=== PATIENT | female | born 1975 | race Caucasian/White ===

== ENCOUNTER 2016-04-12 21:00 | Emergency (ER) | payer MEDICARE, MEDICAID ==
[~2016-04-12] VITALS: Ht 160 cm; Wt 90.7 kg
[~2016-04-12 21:00] MED LIST: ACET250T22 PO; ACET250T3 PO; AGM875T PO; ALPR.25T; ALPR1T PO; ALPR1TAB2 PO; ALPR1TAB7 PO; AMOX-358 PO; AMOX500C2 PO; AMOX500T2 PO; ARIP2TAB10 PO; BACL10TA PO; BIRTH CONTROL PILL; BUDEPRION XL; BUTA-234 PO; BUTA1TAB55 PO; CCLB10TRX; CEFD300C3 PO; CEFP500T4 PO; CEFU250T PO; CHLO500T4 PO; CHOL10003 PO; CLNZ.5T; CYAN100021 PO; CYAN500L3 SL; CYAN500T2 PO; CYCL10TA9; CYCL10TA9 PO; DCS100C PO; DESV100T PO; DIAMOX; DULO20CA18 PO; DULO30CA PO; DULO30CA3 PO; DULO60CA58 PO; EPIN0.3P2 IM; ESCI20TA2 PO; EST1.25T PO; EZET10TA23 PO; FENO145T PO; FLUT16SP22 NS; GABA300C PO; GBPN300C PO; HYDR-2890 PO; HYDR-34; HYDR-3456 PO; HYDR-3714 PO; HYDR-3720; HYDR-3720 PO; HYDR-3812 PO; HYDR-757 PO; HYDR480S10 GT; HYOS0.1283 SL; INDO25CA PO; KCL20TCR PO; LACT1CAP57 PO; LEVO125T PO; LEVO125T6; LEVO125T6 PO; LEVO125T66 PO; LEVO137T24 PO; LORA0.5T PO; LVT.025T PO; LVT.112T PO; MELA10CA PO; MELA1TAB20 PO; MELO7.5T; METH4TAB PO; MOD; MODA100T40; MORP30TA91 PO; MTC10T; NAPR-243 PO; NAPR550T PO; NIACIN; NIASPAN; NITR100C3 PO; OMEP-10 PO; ONDA-42 SL; ORPH100T PO; OXYC-143 PO; POTA10CA43 PO; POTA20TA7 PO; PRAM0.12 PO; PRAM0.128 PO; PRCD5U PO; PRD20T PO; PREG150C PO; PREG200C PO; PROC10TA23; PROC10TA23 PO; PROM25SU10 RC; PROM25TA14 PO; PROM5SYR PO; PROP20TA23; PROPANOLOL PO; QTP100T PO; QTP25T; QUASENSE; QUET100T PO; QUET50TA49; RISP0.253 PO; SRTR100T; SRTR100T PO; SUCR1TAB36 PO; SULF1TAB35 PO; TEMA15CA54 PO; TMZP15C PO; TOPI100T PO; TOPI50TA20; TRAM-42 PO; TRAM50TA2 PO; TRAZ-144 PO; TRIA16.5 NSEACH; TRM50T; VERA120T6 PO; VNL75CCR; ZLP10T; ZOLP10TA3 SL; [UNRECOGNIZED DRUG - CODE] PO; [UNRECOGNIZED DRUG - OTHER] PO
--- OUTSIDE RECORDS SUMMARY | 2016-04-12 21:06 | XMS REPORT | Continuity of Care Document ---
Author Author [facility] Organization [facility] Address Unknown Phone Unavailable Care Team Providers Care Rn Acute Dialysis Name Role Phone Livier Dozier PCP [phone] Source Comments Some departments are not documenting in the electronic medical record. If you do not see the information that you expected, contact Release of Information in the Health Information Management department at [phone] for further assistance in locating additional records.[facility] Active Allergies and Adverse Reactions Allergen Noted Date Severity Reactions Comments Neurontin 04/23/2011 RASH Niacin 01/28/2015 High ANAPHYLAXIS Current Medications Prescription Sig. Disp. Refills Start End Date Status Date prochlorperazine Take 10 mg by mouth every Active (COMPAZINE) 10 mg tablet 6 hours as needed. DULoxetine DR (CYMBALTA) Take 60 mg by mouth twice Active 60 mg capsule daily. potassium chloride SR Take 10 mEq by mouth Active (K-DUR) 10 mEq tablet twice daily. risperiDONE (RISPERDAL) Take 0.25 mg by mouth. Active 0.25 mg tablet ezetimibe (ZETIA) 10 mg Take 10 mg by mouth as Active tablet directed. pregabalin (LYRICA) 200 Take 200 mg by mouth Active mg capsule twice daily. traZODone (DESYREL) 100 Take 100 mg by mouth. Active mg tablet levothyroxine (SYNTHROID) Take 112 mcg by mouth Active 112 mcg tablet daily. pramipexole (MIRAPEX) Take 0.125 mg by mouth. Active 0.125 mg tablet LORazepam (ATIVAN) 1 mg Take 1 mg by mouth as Active tablet Needed for Other.... Indications: ANXIETY verapamil CR (CALAN-SR) Take 1 Tab by mouth 30 Tab 3 01/29/20 Active 120 mg tablet daily. 15 nabumetone (RELAFEN) 500 Take 1 Tab by mouth twice 30 Tab 3 01/29/20 Active mg tablet daily. 15 methylPREDNIsolone Take 1 Tab by mouth as 21 Tab 0 01/29/20 Active (MEDROL (JJ)) 4 mg directed. Follow 15 tablet instructions on package Active Problems No known active problems Resolved Problems Problem Noted Date Resolved Date Muscle weakness 04/23/2011 01/28/2015 Foot pain 04/23/2011 01/28/2015 Polyarthralgia 04/23/2011 01/28/2015 B12 deficiency 04/23/2011 01/28/2015 Folate deficiency 04/23/2011 01/28/2015 Social History Tobacco Use Types Packs/Day Years Used Date Current Every Day Smoker Cigarettes 1 20 Smokeless Tobacco: Never Used Alcohol Use Drinks/Week oz/Week Comments No Sober for 15yr, h/o alcoholism. Last Filed Vital Signs Vital Sign Reading Time Taken Blood Pressure 128/86 01/28/2015 10:57 AM NURSE CLINICIAN Pulse 94 01/28/2015 10:57 AM NURSE CLINICIAN Temperature 36.4 C (97.5 F) 11/22/2012 10:37 AM CDT Respiratory Rate - - Height 1.575 m (5' 2") 01/28/2015 10:57 AM NURSE CLINICIAN Weight 89.812 kg (198 lb) 01/28/2015 10:57 AM NURSE CLINICIAN Body Mass Index 36.21 01/28/2015 10:57 AM NURSE CLINICIAN Oxygen Saturation 96% 01/28/2015 10:57 AM NURSE CLINICIAN Plan of Care Health Maintenance Due Date Last Done Comments Physical (Comprehensive) 10/13/1983 Exam Pertussis Vaccine 10/13/1987 Tetanus Vaccine 1993 Cervical Cancer Screening 1997 Influenza Vaccine 11/07/2015 Results from Last 3 Months Not on file
[2016-04-12] MEDS ORDERED: ALPR0.5T PO (21:29)
[2016-04-12] MEDS ORDERED: ACYC400T PO (21:29)
[2016-04-12] MEDS ORDERED: RX-NITROGLYCERIN 0.4 MG TAB BTL 25'S SL PRN (21:30)
[2016-04-12] MEDS ORDERED: ASPIRIN 81 MG CHEW (CHILDREN'S ASA) PO ONE (21:30)
[2016-04-12 21:34] LABS: BASOPHILS # (AUTO) 0.1 10^3/uL (0.0-0.1); BASOPHILS % (AUTO) 1 % (0-10); EOSINOPHILS # (AUTO) 0.2 10^3/uL (0.0-0.3); EOSINOPHILS % (AUTO) 2 % (0-10); LYMPHOCYTES # (AUTO) 6.2 X 10^3 (1.0-4.0); LYMPHOCYTES % (AUTO) 52 % (12-44); MEAN CORPUSCULAR HEMOGLOBIN 32 PG (25-34); MEAN CORPUSCULAR HGB CONC 35 G/DL (32-36); MEAN CORPUSCULAR VOLUME 94 FL (80-99); MONOCYTES # (AUTO) 0.8 X 10^3 (0.0-1.0); MONOCYTES % (AUTO) 7 % (0-12); NEUTROPHILS # (AUTO) 4.6 X 10^3 (1.8-7.8); NEUTROPHILS % (AUTO) 39 % (42-75); PLATELET COUNT 175 10^3/uL (130-400); RED BLOOD COUNT 4.99 10^6/uL (4.35-5.85); WHITE BLOOD COUNT 11.9 10^3/uL (4.3-11.0)
[2016-04-12 21:43] LABS: INR 1.1 (0.8-1.4); PROTHROMBIN TIME PATIENT 13.8 SEC (12.2-14.7)
[2016-04-12 21:52] LABS: ALANINE AMINOTRANSFERASE 48 U/L (0-55); ALBUMIN 4.1 G/DL (3.2-4.5); AMYLASE 69 U/L (25-125); ANION GAP 12 MMOL/L (5-14); ASPARTATE AMINO TRANSFERASE 58 U/L (5-34); BILIRUBIN,TOTAL 0.3 MG/DL (0.1-1.0); BLOOD UREA NITROGEN 5 MG/DL (7-18); BUN/CREATININE RATIO 6; CALCIUM 8.8 MG/DL (8.5-10.1); CARBON DIOXIDE 21 MMOL/L (21-32); CHLORIDE 107 MMOL/L (98-107); CREATINE KINASE 87 U/L (29-168); CREATININE SERUM 0.83 MG/DL (0.60-1.30); GFR ESTIMATED > 60; GLUCOSE 139 MG/DL (70-105); LIPASE 57 U/L (8-78); MAGNESIUM 2.4 MG/DL (1.8-2.4); POTASSIUM 3.6 MMOL/L (3.6-5.0); SODIUM 140 MMOL/L (135-145)
[2016-04-12 21:59] LABS: TROPONIN I < 0.30 NG/ML (<0.30)
[2016-04-12] MEDS ORDERED: KETOROLAC 30 MG/ML VIAL IVP ONE (22:30)
[2016-04-12] MEDS ORDERED: FAMOTIDINE 20MG/2ML IV (PEPCID) IVP ONE (22:30)
[2016-04-12] MEDS ORDERED: NS 100 ML (IVPB) BAG IV ONE (23:00)
[2016-04-12] MEDS ORDERED: IOHEXOL 350 MG/ML 150 ML (OMNIPAQUE 350) VIAL IV ONE (23:00)
[2016-04-12] MEDS ORDERED: LIDOCAINE 2% VISCOUS 15 ML UDC PO ONE (23:30)
[2016-04-12] MEDS ORDERED: ANTACID SUSP 30 ML UDC (MYLANTA) PO ONE (23:30)
[2016-04-13] MEDS ORDERED: FAMO-119 PO (00:32)
[2016-04-13] MEDS ORDERED: HYOS0.1283 SL (00:32)
[2016-04-13] MEDS ORDERED: SUCR1ORA5 PO (00:32)
--- NOTE | 2016-04-13 00:32 | ED Abdominal Pain ---
General Chief Complaint: Chest Pain Stated Complaint: CHEST PAIN, SOA, NAUSEA, HEADACHE Nursing Triage Note: PT TO ED 8 W/ FRIEND FOR C/O EPIGASTRIC PAIN ONSET AFTER EATING TONIGHT. DOES REPORT NAUSEA BUT STATES IS CHRONICALLY NAUSEATED Sepsis Screen: No Definite Risk Source of Information: Patient History of Present Illness Time Seen By Provider: 21:20 Initial Comments PT ARRIVES VIA POV FROM HOME C/O "CHEST PAIN" --POINTS TO EPIGASTRIC AREA, NOT CHEST--BEGAN 2 HOURS AGO, AFTER EATING AT 1830 TONIGHT STATES PAIN RADIATES TO BACK NOTHING WORSENS OR IMPROVES PAIN STATES FIRST SHE "GOT REAL SHAKEY INSIDE-LIKE ANXIETY", THEN PAIN BEGAN IN EPIGASTRIC AREA, THEN BECAME NAUSEATED NO VOMITING STATES PAIN IS A BURNING SENSATION STATES SHE FEELS A LITTLE SHORT OF BREATH NO SWELLING IN FEET/ANKLES PT STATES SHE HAS HAD SORE THROAT, COLD SYMPTOMS/CLEAR SINUS DRAINAGE AND FEVER UP TO 100.2 JUST PRIOR TO ARRIVAL--THOSE SYMPTOMS ONGOING X 5-6 DAYS HAS HAD A VERY SLIGHT COUGH HAS NOT SOUGHT CARE FOR THIS THESE SYMPTOMS NO DIFFERENT TODAY NO KNOWN SICK CONTACTS WITH SIMILAR PCP: DR. SIDDIQUI Allergies and Home Medications Allergies Coded Allergies: gabapentin (Verified Allergy, Severe, HIVES, 01/14/15) esomeprazole (Unverified Allergy, Mild, 08/19/15) niacin (Unverified Allergy, Mild, 05/13/14) Uncoded Allergies: "COCKTAIL FOR CHNA" (Allergy, Mild, ITCHING, 02/11/09) Home Medications Acyclovir 400 Mg Tablet 400 MG PO (Reported) Alprazolam 0.5 Mg Tablet 0.5 MG PO (Reported) Amoxicillin/Potassium Clav 1 Each Tablet #14 1 EACH PO BID Prescribed by: NATHAN ROBBINS on 01/19/16 1822 Cholecalciferol (Vitamin D3) 1,000 Unit Tablet 1,000 UNIT PO (Reported) Cyclobenzaprine HCl 10 Mg Tablet #30 1 TAB PO TID PRN PRN PAIN (Reported) Duloxetine HCl 60 Mg Capsule.dr 60 MG PO (Reported) Ezetimibe 10 Mg Tablet 10 MG PO DAILY (Reported) Famotidine 20 Mg Tablet #20 20 MG PO BID Prescribed by: PAOLA TAVERAS on 04/13/16 0032 Hydrocodone/Acetaminophen 1 Each Tablet #14 1 EACH PO Q6H PRN PRN PAIN Prescribed by: JESUSITA DAVIS on 09/09/1521 Hyoscyamine Sulfate 0.125 Mg Tab.subl #10 0.25 MG SL Q4H Prescribed by: NATHAN ROBBINS on 08/19/151851 Hyoscyamine Sulfate 0.125 Mg Tab.subl #15 1-2 TAB SL Q4H Prescribed by: PAOLA TAVERAS on 04/13/16 003 Lactobac Cmb #3/Fos/Pantethine 1 Each Capsule #20 1 EACH PO BID Prescribed by: NATHAN ROBBINS on 01/19/161821 Levothyroxine Sodium 112 Mcg Tab 112 MCG PO DAILY (Reported) Potassium Chloride 10 Meq Capsule.er 10 MEQ PO (Reported) Pramipexole Di-Hcl 0.125 Mg Tablet 0.125 MG PO HS (Reported) Pregabalin 200 Mg Capsule 200 MG PO BID (Reported) Promethazine HCl 25 Mg Tablet #21 1 TAB PO UD PRN PRN NAUSEA/VOMITING (Reported ) Risperidone 0.25 Mg Tablet 0.25 MG PO (Reported) Sucralfate 1 Gm Tablet #40 1 GM PO QID Prescribed by: NATHAN ROBBINS on 08/19/151851 Sucralfate 1 Gm/10 Ml Oral.susp #400 1 GM PO QID Prescribed by: PAOLA TAVERAS on 04/13/1631 Tramadol HCl 50 Mg Tablet 50 MG PO (Reported) Tramadol HCl 50 Mg Tablet #10 50 MG PO Q6H PRN PRN PAIN Do not fill unless Augmentin is also filled Prescribed by: NATHAN ROBBINS on 01/19/161821 Verapamil HCl 120 Mg Tablet 120 MG PO TID (Reported) Review of Systems Constitutional: see HPI fever EENTM: See HPI Nose Congestion Throat Pain Respiratory: See HPI Cough Shortness of AirDenies Wheezing Cardiovascular: See HPI Chest PainDenies Edema, Denies Lightheadedness, Denies Palpitations, Denies Other Gastrointestinal: See HPI Abdominal PainDenies Diarrhea, Nausea Poor AppetiteDenies Vomiting Genitourinary: No Symptoms Reported Musculoskeletal: see HPI back pain Skin: no symptoms reported Psychiatric/Neurological: See HPI Endocrine: No Symptoms Reported Hematologic/Lymphatic: No Symptoms Reported Past Ehwyxxk-Mqjptk-Jvmzsk Hx Patient Social History Alcohol Use: Past History (MODERATE USE IN PAST) Recreational Drug Use: Yes (THC IN PAST) Smoking Status: Current Everyday Smoker (1 PPD) Type Used: Cigarettes Recent Foreign Travel: No Contact w/Someone Who Travel: No Recent Infectious Disease Expo: No Recent Hopitalizations: Yes Immunizations Up To Date Tetanus Booster (TDap): Unknown Date of Influenza Vaccine: Dec 06, 2013 Seasonal Allergies Seasonal Allergies: No Surgeries HX Surgeries: Yes (EXPLORATORY LAP, HIATAL HERNIA REPAIR; HYST/ ? BSO? 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 Genitourinary Hx Genitourinary Disorders: No Gastrointestinal Hx Gastrointestinal Disorders: Yes (ELEVATED LFT'S -UNKNOWN ETIOLOGY PER PT) Gastrointestinal Disorders: Gastroesophageal Reflux, Liver Disease/Jaundice, Hiatal Hernia Musculoskeletal Hx Musculoskeletal Disorders: Yes Musculoskeletal Disorders: Arthritis, Fibromyalgia, Chronic Back Pain Endocrine Hx Endocrine Disorders: Yes (GOITER--S/P THYROIDECTOMY) Endocrine Disorders: Hypothyroidsim HEENT HX ENT Disorders: No Cancer Hx Cancer: No Psychosocial Hx Psychiatric Problems: Yes Behavioral Health Disorders: Anxiety, Bipolar, Schizophrenia, Depression Integumentary HX Skin/Integumentary Disorder: Yes Skin/Integumentary Disorders: Herpes Blood Transfusions Hx Blood Disorders: Yes (ANEMIA) Hx of Blood Transfusion YES Adverse Reaction to a Blood Tr: No Family Medical History Family Medial History: Cardiovascular disease 19 FATHER Diabetes mellitus 19 FATHER 19 MOTHER FH: mental illness Mental Physical Exam Vital Signs VS - Last 72 Hours, by Label 04/12/16 04/12/16 04/13/16 21:13 21:13 00:38 Temp 97.4 Pulse 106 100 Resp 20 20 B/P 140/90 Pulse Ox 91 99 O2 Delivery Room Air Room Air Capillary Refill : Less Than 3 Seconds General Appearance: WD/WN no apparent distress HEENT: PERRL/EOMINo scleral icterus (R), No scleral icterus (L), other (POOR DENTITION) Neck: non-tender full range of motion supple normal inspection Respiratory: chest non-tender normal breath sounds no respiratory distress no accessory muscle use Cardiovascular: normal peripheral pulses regular rate, rhythm no edema no JVD diastolic murmur (03/13)No systolic murmur Peripheral Pulses: 2+ Dorsalis Pedis (R), 2+ Left Dors-Pedis (L) Gastrointestinal: normal bowel sounds soft no organomegaly no pulsatile massNo distended, No guarding, No rebound, tenderness (MODERATE EPIGASTRIC TENDERNESS--PALPATION REPRODUCES PAIN;MILD RUQ AND LUQ TENDERNESS)No hernia, No mass Extremities: normal range of motion non-tender normal inspection no pedal edema no calf tenderness normal capillary refill Back: normal inspection no CVA tenderness no vertebral tenderness Neurologic/Psychiatric: pet caretaker II-XII nml as tested no motor/sensory deficits alert normal mood/affect oriented x 3 Skin: normal color warm/dryNo rash Progress/Results/Core Measures Results/Orders Lab Results Laboratory Tests Test 04/12/16 21:25 Range/Units Activated Partial Thromboplast Time 30 24-35 SEC Alanine Aminotransferase (ALT/SGPT) 48 0-55 U/L Albumin 4.1 3.2-4.5 G/DL Alkaline Phosphatase 94 40-136 U/L Amylase Level 69 25-125 U/L Anion Gap 12 5-14 MMOL/L Aspartate Amino Transf (AST/SGOT) 58 H 5-34 U/L B-Type Natriuretic Peptide < 10.0 <100.0 PG/ML BUN/Creatinine Ratio 6 Basophils # (Auto) 0.1 0.0-0.1 10^3/uL Basophils (%) (Auto) 1 0-10 % Blood Urea Nitrogen 5 L 7-18 MG/DL Calcium Level 8.8 8.5-10.1 MG/DL Carbon Dioxide Level 21 21-32 MMOL/L Chloride Level 107 98-107 MMOL/L Creatine Kinase MB 0.8 <6.6 NG/ML Creatinine 0.83 0.60-1.30 MG/DL Eosinophils # (Auto) 0.2 0.0-0.3 10^3/uL Eosinophils (%) (Auto) 2 0-10 % Estimat Glomerular Filtration Rate > 60 Glucose Level 139 H 70-105 MG/DL Hematocrit 47 35-52 % Hemoglobin 16.1 H 11.5-16.0 G/DL INR Comment 1.1 0.8-1.4 Lipase 57 8-78 U/L Lymphocytes # (Auto) 6.2 H 1.0-4.0 X 10^3 Lymphocytes (%) (Auto) 52 H 12-44 % Magnesium Level 2.4 1.8-2.4 MG/DL Mean Corpuscular Hemoglobin 32 25-34 PG Mean Corpuscular Hemoglobin Concent 35 32-36 G/DL Mean Corpuscular Volume 94 80-99 FL Mean Platelet Volume 12.0 H 7.4-10.4 FL Monocytes # (Auto) 0.8 0.0-1.0 X 10^3 Monocytes (%) (Auto) 7 0-12 % Neutrophils # (Auto) 4.6 1.8-7.8 X 10^3 Neutrophils (%) (Auto) 39 L 42-75 % Platelet Count 175 130-400 10^3/uL Potassium Level 3.6 3.6-5.0 MMOL/L Prothrombin Time 13.8 12.2-14.7 SEC Red Blood Count 4.99 4.35-5.85 10^6/uL Red Cell Distribution Width 14.0 10.0-14.5 % Sodium Level 140 135-145 MMOL/L Total Bilirubin 0.3 0.1-1.0 MG/DL Total Creatine Kinase 87 29-168 U/L Total Protein 8.0 6.4-8.2 G/DL Troponin I < 0.30 <0.30 NG/ML White Blood Count 11.9 H 4.3-11.0 10^3/uL My Orders Orders-PAOLA TAVERAS K DO Amylase (04/12/16 21:24) Cbc With Automated Diff (04/12/16 21:24) Comprehensive Metabolic Panel (04/12/16 21:24) Creatine Kinase (04/12/16 21:24) Creatine Kinase Mb (04/12/16 21:24) Lipase (04/12/16 21:24) Partial Thromboplastin Time (04/12/16 21:24) Protime With Inr (04/12/16 21:24) Troponin I (04/12/16 21:24) Chest 1 View, Ap/Pa Only (04/12/16 21:24) O2 (04/12/16 21:24) Ekg Tracing (04/12/16 21:24) Aspirin Chewable Tablet (Baby Aspirin Ch (04/12/16 21:30) Rx-Nitroglycerin Sl Tabs (Rx-Nitrostat S (04/12/16 21:30) BNP (04/12/16 21:24) Monitor-Rhythm Ecg Trace Only (04/12/16 21:24) Magnesium (04/12/16 21:24) O2 (04/12/16 21:37) Ct Ledy Chest/Noang Abd-Pelv W (04/12/16 22:09) Ketorolac Injection (Toradol Injection) (04/12/16 22:30) Famotidine Injection (Pepcid Injection) (04/12/16 22:30) Iohexol Injection (Omnipaque 350 Mg/Ml 1 (04/12/16 23:00) Ns (Ivpb) (Sodium Chloride 0.9% Ivpb Bag (04/12/16 23:00) Antacid Suspension (Mylanta Suspension (04/12/16 23:30) Lidocaine 2% Viscous 15 Ml (Xylocaine Vi (04/12/16 23:30) Medications Given in ED Current Medications Medications Dose Ordered Sig/Emeka Route Start Time Stop Time Status Last Admin Dose Admin Al Hydrox/Mg Hydrox/Simethicone 30 ml ONCE ONCE PO 04/12/16 23:30 04/12/16 23:31 DC 04/12/16 23:57 30 ML Aspirin 324 mg ONCE ONCE PO 04/12/16 21:30 04/12/16 21:31 DC 04/12/16 21:51 324 MG Famotidine 40 mg ONCE ONCE IVP 04/12/16 22:30 04/12/16 22:31 DC 04/12/16 22:38 40 MG Iohexol 150 ml ONCE ONCE IV 04/12/16 23:00 04/12/16 23:01 DC 04/12/16 22:50 125 ML Ketorolac Tromethamine 30 mg ONCE ONCE IVP 04/12/16 22:30 04/12/16 22:31 DC 04/12/16 22:38 30 MG Lidocaine HCl 15 ml ONCE ONCE PO 04/12/16 23:30 04/12/16 23:31 DC 04/12/16 23:57 15 ML Sodium Chloride 100 ml ONCE ONCE IV 04/12/16 23:00 04/12/16 23:01 DC 04/12/16 22:51 80 ML Vital Signs/I&O Vital Sign - Last 12Hours 04/12/16 04/12/16 04/13/16 21:13 21:13 00:38 Temp 97.4 Pulse 106 100 Resp 20 20 B/P 140/90 Pulse Ox 91 99 O2 Delivery Room Air Room Air Blood Pressure Mean: 107 Point of Care Testing Finger Stick Blood Glucose: 88 Progress Note : Progress Note PAIN AND NAUSEA RESOLVED AT DISMISSAL PT TOLERATING ICE CHIPS AND WATER PRIOR TO DISMISSAL ECG Initial ECG Impression Time: 21:19 Initial ECG Rate: 99 Initial ECG Rhythm: Normal Sinus Initial ECG Impression: Nonspecific Changes Initial ECG Comparisson: Unchanged Diagnostic Imaging Comments CT CHEST/ABDOMEN/PELVIS--NO ACUTE PROCESS, FATTY LIVER, SMALL MEDIASTINAL AND RETROPERITONEAL NODES-LIKELY REACTIVE, SMALL PERIUMBILICAL HERNIA, MILD BILATERAL STREAKY ATELECTASIS--PER [facility] VIA FAX @ 0048 Reviewed: Reviewed by Me Departure Impression Impression: Primary Impression: Epigastric pain Disposition: 01 HOME, SELF-CARE Condition: Improved Departure-Patient Inst. Referrals: RALPH SIDDIQUI DO (PCP/Family) Primary Care Physician Patient Instructions: Acute Abdomen (Belly Pain), Adult (DC), Chest Pain That Is Not Caused by the Heart (DC) Add. Discharge Instructions: CLEAR LIQUIDS--WATER, BROTH, JELLO, GATORADE NO FOOD UNTIL YOUR STOMACH FEELS BETTER, THEN ADD BRATS DIET TO CLEAR LIQUIDS-- BANANAS, RICE, APPLESAUCE, TOAST, SALTINES FOLLOW UP WITH YOUR DR IN 2-3 DAYS IF NO BETTER All discharge instructions reviewed with patient and/or family. Voiced understanding. Scripts Sucralfate (Carafate)1 Gm/10 Ml Oral.susp1 Gm PO QID #400 ML Prov:PAOLA TAVERAS K 04/13/16 Hyoscyamine Sulfate (Levsin-Sl)0.125 Mg Tab.subl1-2 Tab SL Q4H Abdominal Pain # 15 TAB Prov:PAOLA TAVERAS DO 04/13/16 Famotidine (Pepcid)20 Mg Alrrmy87 Mg PO BID FOR STOMACH #20 TAB Prov:PAOLA TAVERAS DO 04/13/16 PAOLA TAVERAS DO Apr 13, 2016 00:32
[2016-04-13 00:38] VITALS: BP 161/98
--- NOTE | 2016-04-13 07:07 | Diagnostic Imaging Report ---
INDICATION: Epigastric pain. Study compared with abdominal/ pelvic exam dated 08/19/2015. FINDINGS: Pulmonary arterial branches patent. The thoracic aorta is patent and nonaneurysmal. No effusion or pneumothorax. There is mild dependent basilar atelectasis but no focal pneumonia. No adenopathy or lung mass. There is some peripheral cyst formation chronic in the right greater than left apices. No pneumothorax. No pericardial effusion. The upper abdomen nonacute. IMPRESSION: Negative for PE, acute aortic pathology, or other acute finding. Some paraseptal emphysematous changes greatest in the apices and basilar partial atelectasis. Dictated by: Dictated on workstation # [id number]
--- NOTE | 2016-04-13 07:42 | Diagnostic Imaging Report ---
INDICATION: Pain FINDINGS: The lungs clear. The heart and vessels normal. There is no effusion or pneumothorax. IMPRESSION: Negative Dictated by: Dictated on workstation # [id number]
== END 2016-04-13 00:38 | disposition home or self-care (01) ==
LOC: EDUNIT# 21:00 → ER 21:02
DX: R10.13 Epigastric pain (principal); I10 Essential (primary) hypertension; J43.9 Emphysema, unspecified; F17.210 Nicotine dependence, cigarettes, uncomplicated
CPT/HCPCS: 36415; 71010; 71275; 74177; 80053; 82150; 82550; 82553; 83690; 83735; 83880; 84484; 85025; 85610; 85730; 93005; 96374; 96375

== ENCOUNTER 2016-09-15 20:07 | Emergency (ER) | payer MEDICARE, MEDICAID ==
[~2016-09-15] VITALS: Ht 162.6 cm; Wt 88.5 kg
[~2016-09-15 20:07] MED LIST changes: +ACYC400T PO; +ALPR0.5T PO; +FAMO-119 PO; +SUCR1ORA5 PO
[2016-09-15 21:00] LABS: BILIRUBIN,URINE NEGATIVE (NEGATIVE); KETONES,URINE NEGATIVE (NEGATIVE); LEUKOCYTE ESTERASE ,URINE NEGATIVE (NEGATIVE); NITRITE,URINE NEGATIVE (NEGATIVE); PH,URINE 6 (5-9); PROTEIN,URINE NEGATIVE (NEGATIVE); UROBILINOGEN,URINE NORMAL (NORMAL)
[2016-09-15 21:14] LABS: SQUAMOUS EPITHELIAL CELL,UR RARE /HPF
[2016-09-15 21:17] LABS: BASOPHILS # (AUTO) 0.1 10^3/uL (0.0-0.1); BASOPHILS % (AUTO) 0 % (0-10); EOSINOPHILS # (AUTO) 0.3 10^3/uL (0.0-0.3); EOSINOPHILS % (AUTO) 2 % (0-10); LYMPHOCYTES # (AUTO) 8.4 X 10^3 (1.0-4.0); LYMPHOCYTES % (AUTO) 55 % (12-44); MEAN CORPUSCULAR HEMOGLOBIN 33 PG (25-34); MEAN CORPUSCULAR HGB CONC 34 G/DL (32-36); MEAN CORPUSCULAR VOLUME 95 FL (80-99); MEAN PLATELET VOLUME 12.5 FL (7.4-10.4); MONOCYTES # (AUTO) 0.9 X 10^3 (0.0-1.0); MONOCYTES % (AUTO) 6 % (0-12); NEUTROPHILS # (AUTO) 5.6 X 10^3 (1.8-7.8); NEUTROPHILS % (AUTO) 37 % (42-75); PLATELET COUNT 181 10^3/uL (130-400); RED BLOOD COUNT 5.14 10^6/uL (4.35-5.85); RED CELL DISTRIBUTION WIDTH 13.9 % (10.0-14.5); WHITE BLOOD COUNT 15.2 10^3/uL (4.3-11.0)
[2016-09-15] MEDS ORDERED: ONDANSETRON 4 MG/2 ML (SDV) Z0FRAN IVP ONE (21:30)
[2016-09-15 21:31] LABS: ALANINE AMINOTRANSFERASE 45 U/L (0-55); ALBUMIN 4.1 GM/DL (3.2-4.5); ANION GAP 11 MMOL/L (5-14); ASPARTATE AMINO TRANSFERASE 51 U/L (5-34); BILIRUBIN,TOTAL 0.4 MG/DL (0.1-1.0); BLOOD UREA NITROGEN 6 MG/DL (7-18); BUN/CREATININE RATIO 8; CALCIUM 9.5 MG/DL (8.5-10.1); CARBON DIOXIDE 22 MMOL/L (21-32); CHLORIDE 106 MMOL/L (98-107); CREATININE SERUM 0.78 MG/DL (0.60-1.30); GFR ESTIMATED > 60; GLUCOSE 127 MG/DL (70-105); LIPASE 23 U/L (8-78); POTASSIUM 3.1 MMOL/L (3.6-5.0); SODIUM 139 MMOL/L (135-145); TOTAL PROTEIN 8.5 GM/DL (6.4-8.2)
[2016-09-15 21:34] LABS: BAND NEUTROPHILS 2 %; BASOPHILS % (MANUAL) 0 %; EOSINOPHILS % (MANUAL) 2 %; LYMPHOCYTES % (MANUAL) 53 %; NEUTROPHILS % (MANUAL) 28 %; REACTIVE LYMPHOCYTES 8 %
--- OUTSIDE RECORDS SUMMARY | 2016-09-15 21:42 | XMS REPORT ---
Author Author MYA FOY Organization [employer] Address Unknown Phone Unavailable Care Team Providers Care Gleason Operator Name Role Phone MYA FOY CP Unavailable Allergies No Known Allergies Problems Problem Type Condition ICD-9 Code Onset Dates Condition Status Problem Other and unspecified bipolar disorders 296.89 Active Problem Bipolar disorder, unspecified 296.80 Active Problem Hyperlipidemia 272.4 Active Medications Medication Code System Code Instructions Start Date End Date Status Dosage Synthroid [facility] [address]-01 112 MCG May 17, 2014 1 Tablet by Oral route 1 time per day Results No Known Results Summary Purpose [employer] Submission
--- OUTSIDE RECORDS SUMMARY | 2016-09-15 21:42 | XMS REPORT ---
Author Author YOUNG WU [facility] [employer] Address Unknown Phone Unavailable Care Team Providers Care Analysis Consultant Name Role Phone YOUNG WU Unavailable Allergies No Known Allergies Problems Problem Type Condition Code Onset Dates Condition Status Problem Fibromyalgia M79.7 Active Problem Chronic migraine without aura, not intractable, with status migrainosus G43.701 Active Problem Hypothyroidism, unspecified E03.9 Active Assessment Bipolar 1 disorder, mixed, mild F31.61 Active Problem Other and unspecified bipolar disorders 296.89 Active Problem Bipolar disorder, unspecified 296.80 Active Medications Medication Code System Code Instructions Start Date End Date Status Dosage Trazodone HCl [facility] [address]-41 100 MG Orally Once a day August 17, 2014 1 tablet at bedtime Propranolol HCl [facility] [address]-34 20 MG Orally Twice a day 1 tablet Ativan [facility] [address]-81 1 MG Orally Twice a day July 16, 2014 1 tablet as needed Ibuprofen [facility] [address]-66 800 MG May 17, 2014 1 Tablet by Oral route 3 times per day PRN Melatonin [facility] [address]594 10 MG Orally Once a day as needed not defined Pramipexole Dihydrochloride [facility] 06019633229 0.125 MG TAKE ONE TABLET BY MOUTH AT BEDTIME Cymbalta [facility] [address]-35 60 MG Orally twice a day 1 capsule Lyrica [facility] [address]-48 200 MG Orally Twice a day May 17, 2014 1 Capsule Risperdal [facility] [address]-00 0.25 MG Orally Once a day Jan 08, 2015 2 tablets Compazine [facility] [address]-05 10 MG Orally Twice a day PRN 1 tablet Zetia [facility] [address]-36 10 MG Orally Once a day-Must have fasting labs for futher refills. May 17, 2014 1 Tablet Klor-Con M10 [facility] [address]-76 10 MEQ Orally Twice a day May 17, 2014 Mar 17, 2015 1 Capsule Synthroid [facility] [address]-65 112 MCG May 17, 2014 1 Tablet by Oral route 1 time per day Procedures Procedure Coding System Code Date Office Visit, Est Pt., Level 3 CPT-4 03946 Jan 08, 2015 [facility] VISIT ESTABLISHED PATIENT CPT-4 G0467 Jan 08, 2015 Vital Signs Date/Time: Jan 08, 2015 Cardiac Monitoring Heart Rate 70 bpm Weight 196.7 lbs Height 63.5 in BMI 34.29 Index Blood Pressure Diastolic 64 mmHg Blood Pressure Systolic 112 mmHg Results No Known Results Summary Purpose [employer] Submission
--- OUTSIDE RECORDS SUMMARY | 2016-09-15 21:42 | XMS REPORT ---
Author Author MYA FOY Organization [employer] Address Unknown Phone Unavailable Care Team Providers Care Supervisor Taping Name Role Phone MYA FOY CP Unavailable Allergies No Known Allergies Problems Problem Type Condition Code Onset Dates Condition Status Problem Fibromyalgia M79.7 Active Problem Chronic migraine without aura, not intractable, with status migrainosus G43.701 Active Problem Hypothyroidism, unspecified E03.9 Active Problem Other and unspecified bipolar disorders 296.89 Active Problem Bipolar disorder, unspecified 296.80 Active Medications Medication Code System Code Instructions Start Date End Date Status Dosage Propranolol HCl [facility] [address]-57 20 MG Orally Twice a day 1 tablet Klor-Con M10 [facility] [address]-37 10 MEQ Orally Twice a day May 17, 2014 Mar 17, 2015 1 Capsule Zetia [facility] [address]-40 10 MG Orally Once a day-Must have fasting labs for futher refills. May 17, 2014 1 Tablet Results No Known Results Summary Purpose [employer] Submission
--- OUTSIDE RECORDS SUMMARY | 2016-09-15 21:42 | XMS REPORT ---
Author Author YOUNG WU Organization [employer] Address Unknown Phone Unavailable Care Team Providers Care Supervisor [place] Name Role Phone YOUNG WU Unavailable Allergies No Known Allergies Problems Problem Type Condition Code Onset Dates Condition Status Problem Elevated liver enzymes R74.8 Active Problem Hypothyroidism, unspecified E03.9 Active Problem High risk sexual behavior Z72.51 Active Problem Other and unspecified bipolar disorders 296.89 Active Problem Bipolar disorder, unspecified 296.80 Active Problem Fibromyalgia M79.7 Active Problem Chronic migraine without aura, not intractable, with status migrainosus G43.701 Active Medications Medication Code System Code Instructions Start Date End Date Status Dosage Ativan [facility] [address]-30 1 MG Orally Twice a day July 16, 2014 1 tablet as needed Results No Known Results Summary Purpose [employer] Submission
--- OUTSIDE RECORDS SUMMARY | 2016-09-15 21:42 | XMS REPORT | Continuity of Care Document ---
Author Author [facility] Organization [facility] Address Unknown Phone Unavailable Care Team Providers Care Civil Draftsman Name Role Phone Livier Dozier PCP [phone] Source Comments Some departments are not documenting in the electronic medical record. 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 Pulse 94 01/28/2015 10:57 AM PIECE GOODS PACKER Temperature 36.4 C (97.5 F) 11/22/2012 10:37 AM CDT Respiratory Rate - - Height 1.575 m (5' 2") 01/28/2015 10:57 AM P[employer]CE [employer] PACKER Weight 89.812 kg (198 lb) 01/28/2015 10:57 AM PIECE [employer] PACKER Body Mass Index 36.21 01/28/2015 10:57 AM PIECE [employer] PACKER Oxygen Saturation 96% 01/28/2015 10:57 AM PIECE [employer] PACKER Plan of Care Health Maintenance Due Date Last Done Comments Physical (Comprehensive) 10/13/1983 Exam Pertussis Vaccine 10/13/1987 Tetanus Vaccine 1993 Cervical Cancer Screening 1997 Influenza Vaccine 11/06/2016 Results from Last 3 Months Not on file
--- OUTSIDE RECORDS SUMMARY | 2016-09-15 21:43 | XMS REPORT ---
Author Author MYA FOY [facility] eClinicalWorks Address Unknown Phone Unavailable Care Team Providers Care Artist And Repertoire Manager Name Role Phone MYA FOY CP Unavailable Allergies, Adverse Reactions, Alerts Substance Reaction Event Type Niacin anaphylaxis Drug Allergy Gabapentin Rash Drug Allergy Problems Problem Type Condition Code Onset Dates Condition Status Assessment High risk sexual behavior Z72.51 Active Assessment Elevated liver enzymes R74.8 Active Problem Elevated liver enzymes R74.8 Active Problem Hypothyroidism, unspecified E03.9 Active Problem High risk sexual behavior Z72.51 Active Problem Other and unspecified bipolar disorders 296.89 Active Problem Bipolar disorder, unspecified 296.80 Active Problem Fibromyalgia M79.7 Active Problem Chronic migraine without aura, not intractable, with status migrainosus G43.701 Active Medications Medication Code System Code Instructions Start Date End Date Status Dosage Ibuprofen [facility] [address]-48 800 MG May 17, 2014 1 Tablet by Oral route 3 times per day PRN Lyrica [facility] [address]-77 200 MG Orally Twice a day May 17, 2014 1 Capsule Melatonin [facility] 484[address]14 10 MG Orally Once a day as needed not defined Klor-Con M10 [facility] [address]-46 10 MEQ Orally Twice a day May 17, 2014 Mar 17, 2015 1 Capsule Risperdal [facility] [address]-33 0.25 MG Orally Once a day Jan 08, 2015 2 tablets Propranolol HCl [facility] [address]-21 20 MG Orally Twice a day 1 tablet Zetia [facility] [address]-20 10 MG Orally Once a day-Must have fasting labs for futher refills. May 17, 2014 1 Tablet Cymbalta [facility] [address]-88 60 MG Orally twice a day 1 capsule Trazodone HCl [facility] [address]-82 100 MG Orally Once a day August 17, 2014 1 tablet at bedtime Synthroid [facility] [address]-74 112 MCG May 17, 2014 1 Tablet by Oral route 1 time per day Pramipexole Dihydrochloride [facility] 66355040089 0.125 MG TAKE ONE TABLET BY MOUTH AT BEDTIME Ativan [facility] [address]-12 1 MG Orally Twice a day July 16, 2014 1 tablet as needed Compazine [facility] [address]-96 10 MG Orally Twice a day PRN 1 tablet Procedures Procedure Coding System Code Date [facility] ESTABLISHED PATIENT CPT-4 G0467 Feb 13, 2015 Office Visit, Est Pt., Level 3 CPT-4 08058 Feb 13, 2015 [facility] CPT-4 NOBLL Feb 13, 2015 VENIPUNCT, ROUTINE* CPT-4 67001 Feb 13, 2015 Vital Signs Date/Time: Feb 13, 2015 Temperature 97.8 F Weight 200.2 lbs Height 63.5 in BMI 34.90 Index Blood Pressure Diastolic 80 mmHg Blood Pressure Systolic 124 mmHg Cardiac Monitoring Heart Rate 78 bpm Results Name Result Date Reference Range Unit Abnormality Flag CMP ----Calcium, Serum 9.3 97297862 8.7-10.2 mg/dL ----Carbon Dioxide, Total 22 92388183 18-29 mmol/L ----ALT (SGPT) 75 93419624 0-32 IU/L H ----Creatinine, Serum 0.70 11006647 0.57-1.00 mg/dL ----AST (SGOT) 69 83462144 0-40 IU/L H ----eGFR If NonAfricn Am 110 [id number] >59 mL/min/1.73 ----Alkaline Phosphatase, S 71 40644367 39-117 IU/L ----eGFR If Africn Am 127 [id number] >59 mL/min/1.73 ----Bilirubin, Total 0.2 19201490 0.0-1.2 mg/dL ----BUN/Creatinine Ratio 14 12510023 8-20 ----A/G Ratio 1.4 [id number] 1.1-2.5 ----Sodium, Serum 140 72003150 134-144 mmol/L ----Globulin, Total 3.1 73812884 1.5-4.5 g/dL ----Potassium, Serum 4.3 81308362 3.5-5.2 mmol/L ----Glucose, Serum 84 72668646 65-99 mg/dL ----Chloride, Serum 101 11276299 97-108 mmol/L ----Albumin, Serum 4.3 20150213 3.5-5.5 g/dL ----BUN 10 26201450 6-20 mg/dL ----Protein, Total, Serum 7.4 19917042 6.0-8.5 g/dL HEPATITIS PROFILE ----Hep C Virus Ab <0.1 20150213 0.0-0.9 s/co ratio ----Hep A Ab, IgM Negative [id number] Negative ----Hep B Core Ab, IgM Negative [id number] Negative ----HBsAg Screen Negative 20150213 Negative ROUTINE VENIPUNCTURE HIV ANTIBODIES ----HIV 1/O/2 Abs, Qual Non Reactive [id number] Non Reactive ----HIV 1/O/2 Abs-Index Value <1.00 [id number] <1.00 Summary Purpose eClinicalWorks Submission
--- OUTSIDE RECORDS SUMMARY | 2016-09-15 21:43 | XMS REPORT ---
Author Author MYA FOY Organization [employer] Address Unknown Phone Unavailable Care Team Providers Care Sales Agent Pest Control Service Name Role Phone MYA FOY CP Unavailable [...] intractable, with status migrainosus G43.701 Active Medications No Known Medications Results No Known Results Summary Purpose eClinicalWorks Submission
--- OUTSIDE RECORDS SUMMARY | 2016-09-15 21:43 | XMS REPORT ---
Author Author MYA FOY Organization [employer] Address Unknown Phone Unavailable Care Team Providers Care Architecture Professor Name Role Phone MYA FOY CP Unavailable [...] Instructions Start Date End Date Status Dosage Lyrica [facility] [address]-96 200 MG Orally Twice a day May 17, 2014 1 Capsule Results No Known Results Summary Purpose eClinicalWorks Submission
--- OUTSIDE RECORDS SUMMARY | 2016-09-15 21:43 | XMS REPORT ---
Author Author MYA FOY [facility] eClinicalWorks Address Unknown Phone Unavailable Care Team Providers Care Zmt Operator Name Role Phone MYA FOY Unavailable Allergies, Adverse Reactions, Alerts Substance Reaction Event Type Niacin anaphylaxis Drug Allergy Gabapentin Rash Drug Allergy Problems Problem Type Condition Code Onset Dates Condition Status Assessment Mixed hyperlipidemia E78.2 Active Assessment Chronic migraine without aura, not intractable, with status migrainosus G43.701 Active Assessment Long-term use of high-risk medication Z79.899 Active Assessment Restless leg syndrome G25.81 Active Problem Fibromyalgia M79.7 Active Problem Chronic migraine without aura, not intractable, with status migrainosus G43.701 Active Problem Hypothyroidism, unspecified E03.9 Active Assessment Hypothyroidism, unspecified E03.9 Active Assessment Fibromyalgia M79.7 Active Problem Other and unspecified bipolar disorders 296.89 Active Problem Bipolar disorder, unspecified 296.80 Active Medications Medication Code System Code Instructions Start Date End Date Status Dosage Propranolol HCl [facility] [address]-57 20 MG Orally Twice a day 1 tablet Abilify [facility] [address]-42 5 MG Orally Once a day August 17, 2014 1 tablet Vitamin D3 Complete [facility] [address] Orally not defined pramipexole ND 0 0.125 mg orally once daily at bedtime May 17, 2014 1 Tablet Lyrica [facility] [address]-02 200 MG Orally Twice a day May 17, 2014 1 Capsule Vitamin B Complex [facility] [address] Orally not defined Ativan [facility] [address]-56 1 MG Orally Twice a day July 16, 2014 1 tablet as needed Magnesium [facility] [address]-25 250 MG Orally Once a day 1 tablet with a meal Calcium ND 0 Oral 1 tab Klor-Con M10 [facility] [address]-30 10 MEQ Orally Twice a day May 17, 2014 1 Capsule Compazine [facility] [address]-34 10 MG Orally Twice a day PRN 1 tablet Ibuprofen [facility] [address]-50 800 MG May 17, 2014 1 Tablet by Oral route 3 times per day PRN Synthroid [facility] [address]-06 112 MCG May 17, 2014 1 Tablet by Oral route 1 time per day Lorazepam [facility] 74214610905 1 MG TAKE ONE TABLET BY MOUTH TWICE DAILY NEEDED Melatonin [facility] [address] 10 MG Orally Once a day as needed not defined Zetia [facility] [address]-33 10 MG Orally Once a day May 17, 2014 1 Tablet Trazodone HCl [facility] [address]-97 100 MG Orally Once a day August 17, 2014 1 tablet at bedtime Cymbalta [facility] [address]-28 60 MG Orally twice a day 1 capsule Procedures Procedure Coding System Code Date VENIPUNCT, ROUTINE* CPT-4 73177 Dec 13, 2014 [facility] VISIT ESTABLISHED PATIENT CPT-4 G0467 Dec 13, 2014 [facility] CPT-4 NOBLL Dec 13, 2014 Office Visit, Est Pt., Level 4 CPT-4 37829 Dec 13, 2014 Vital Signs Date/Time: Dec 13, 2014 Temperature 97.8 F Weight 196.8 lbs Height 63.5 in BMI 34.31 Index Blood Pressure Diastolic 80 mmHg Blood Pressure Systolic 122 mmHg Cardiac Monitoring Heart Rate 74 bpm Results Name Result Date Reference Range Unit Abnormality Flag ROUTINE VENIPUNCTURE Summary Purpose eClinicalWorks Submission
--- OUTSIDE RECORDS SUMMARY | 2016-09-15 21:43 | XMS REPORT ---
Author Author MYA FOY Organization [employer] Address Unknown Phone Unavailable Care Team Providers Care Supervisor Contact And Service Clerks Name Role Phone MYA FOY CP Unavailable Allergies No Known Allergies Problems Problem Type Condition Code Onset Dates Condition Status Problem Fibromyalgia M79.7 Active Problem Chronic migraine without aura, not intractable, with status migrainosus G43.701 Active Problem Hypothyroidism, unspecified E03.9 Active Problem Other and unspecified bipolar disorders 296.89 Active Problem Bipolar disorder, unspecified 296.80 Active Medications No Known Medications Results No Known Results Summary Purpose eClinicalWorks Submission
--- OUTSIDE RECORDS SUMMARY | 2016-09-15 21:43 | XMS REPORT ---
Author Author MYA FOY Organization [employer] Address Unknown Phone Unavailable Care Team Providers Care Ramp Jockey Name Role Phone MYA FOY CP Unavailable [...] Start Date End Date Status Dosage Lyrica [facility] [address]-64 200 MG Orally Twice a day May 17, 2014 1 Capsule Results No Known Results Summary Purpose eClinicalWorks Submission
[2016-09-15] MEDS ORDERED: fentaNYL INJECTION 100 MCG/2 ML AMP IVP ONE (21:45)
--- OUTSIDE RECORDS SUMMARY | 2016-09-15 21:45 | XMS REPORT | Continuity of Care Document ---
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 W/ 01/03/2016 Ot V45.77 ACQRD ABSENCE OF GENITAL ORGANS 01/03/2016 Ot V58.69 OTH MED,LT,CURRENT USE 01/03/2016 Ot 244.9 HYPOTHYROIDISM NOS 01/03/2016 Ot 729.5 PAIN IN LIMB 01/03/2016 Ot 729.81 SWELLING OF LIMB 01/03/2016 Ot 780.79 OTH MALAISE FATIGUE 01/03/2016 Ot V18.3 FAM HX-BLOOD DISORD NEC 01/03/2016 Ot 729.5 PAIN IN LIMB 01/03/2016 Ot 729.81 SWELLING OF LIMB 01/03/2016 Ot 511.0 PLEURISY W/O EFFUS OR TB 01/03/2016 Ot 571.8 CHRONIC LIVER DIS NEC 01/03/2016 Ot V76.9 SCREEN-NEOPLASM NOS 01/03/2016 Ot 244.9 HYPOTHYROIDISM NOS 01/03/2016 Ot 281.9 DEFICIENCY ANEMIA NOS 01/03/2016 Ot 288.00 NEUTROPENIA, UNSPECIFIED 01/03/2016 Ot 288.61 LYMPHOCYTOSIS (SYMPTOMATIC) 01/03/2016 Ot V18.3 FAM HX-BLOOD DISORD NEC 01/03/2016 Ot V58.69 OTH MED,LT,CURRENT USE 01/03/2016 SHARONA SLOAN, CHRISTOPHER Wright Ot 724.2 LUMBAGO 01/03/2016 YANIRA WOODWARD MD Ot V54.11 AFTERCARE HEALING TRAUMATIC FX UPPER ARM 01/03/2016 YANIRA WOODWARD MD Ot 812.00 FX UP END HUMERUS NOS-CL 01/03/2016 YANIRA WOODWARD MD Ot E888.9 FALL NOS 01/03/2016 LINDA CORTEZ TELEVISION TUBE INSPECTOR Ot 276.8 HYPOPOTASSEMIA 01/03/2016 LINDA CORTEZ TELEVISION TUBE INSPECTOR Ot 719.41 JOINT PAIN-SHLDER 01/03/2016 LINDA CORTEZ TELEVISION TUBE INSPECTOR Ot 785.1 PALPITATIONS 01/03/2016 LINDA CORTEZ TELEVISION TUBE INSPECTOR Ot 796.2 ELEV BL PRES W/O HYPERTN 01/03/2016 RALPH SIDDIQUI DO Ot E53.8 DEFICIENCY OF OTHER SPECIFIED B GROUP 01/03/2016 RALPH SIDDIQUI DO Ot M06.9 RHEUMATOID ARTHRITIS, UNSPECIFIED 01/03/2016 RALPH SIDDIQUI DO Ot R10.10 UPPER ABDOMINAL PAIN, UNSPECIFIED 01/03/2016 RALPH SIDDIQUI DO Ot R74.8 ABNORMAL LEVELS OF OTHER SERUM ENZYMES 01/03/2016 RALPH SIDDIQUI DO Ot R74.8 ABNORMAL LEVELS OF OTHER SERUM ENZYMES 01/03/2016 RALPH SIDDIQUI DO Ot R94.5 ABNORMAL RESULTS OF LIVER FUNCTION STUDI 01/19/2016 Ot 272.4 HYPERLIPIDEMIA NEC/NOS 01/19/2016 Ot 296.50 BIPOL I, REC EPIS (OR CURRENT) DEPRESSED 01/19/2016 Ot 305.1 TOBACCO USE DISORDER 01/19/2016 Ot 346.90 MIGRAINE UNSPECIFIED W/O INTRACT MGRN W/ 01/19/2016 Ot 780.79 OTH MALAISE FATIGUE 01/19/2016 Ot 785.1 PALPITATIONS 01/19/2016 Ot E932.7 ADV EFF THYROID DERIV 01/19/2016 Ot V45.77 ACQRD ABSENCE OF GENITAL ORGANS 01/19/2016 Ot V58.69 OTH MED,LT,CURRENT USE 01/19/2016 Ot 244.9 HYPOTHYROIDISM NOS 01/19/2016 Ot 280.9 IRON DEFIC ANEMIA NOS 01/19/2016 Ot 244.9 HYPOTHYROIDISM NOS 01/19/2016 Ot 272.4 HYPERLIPIDEMIA NEC/NOS 01/19/2016 Ot 311 DEPRESSIVE DISORDER NEC 01/19/2016 Ot 346.90 MIGRAINE UNSPECIFIED W/O INTRACT MGRN W/ 01/19/2016 Ot V45.77 ACQRD ABSENCE OF GENITAL ORGANS 01/19/2016 Ot V58.69 OTH MED,LT,CURRENT USE 01/19/2016 Ot 244.9 HYPOTHYROIDISM NOS 01/19/2016 Ot 729.5 PAIN IN LIMB 01/19/2016 Ot 729.81 SWELLING OF LIMB 01/19/2016 Ot 780.79 OTH MALAISE FATIGUE 01/19/2016 Ot V18.3 FAM HX-BLOOD DISORD NEC 01/19/2016 Ot 729.5 PAIN IN LIMB 01/19/2016 Ot 729.81 SWELLING OF LIMB 01/19/2016 Ot 511.0 PLEURISY W/O EFFUS OR TB 01/19/2016 Ot 571.8 CHRONIC LIVER DIS NEC 01/19/2016 Ot V76.9 SCREEN-NEOPLASM NOS 01/19/2016 Ot 244.9 HYPOTHYROIDISM NOS 01/19/2016 Ot 281.9 DEFICIENCY ANEMIA NOS 01/19/2016 Ot 288.00 NEUTROPENIA, UNSPECIFIED 01/19/2016 Ot 288.61 LYMPHOCYTOSIS (SYMPTOMATIC) 01/19/2016 Ot V18.3 FAM HX-BLOOD DISORD NEC 01/19/2016 Ot V58.69 OTH MED,LT,CURRENT USE 01/19/2016 SHARONA SLOAN, CHRISTOPHER Wright Ot 724.2 LUMBAGO 01/19/2016 YANIRA WOODWARD MD Ot V54.11 AFTERCARE HEALING TRAUMATIC FX UPPER ARM 01/19/2016 YANIRA WOODWARD MD Ot 812.00 FX UP END HUMERUS NOS-CL 01/19/2016 YANIRA WOODWARD MD Ot E888.9 FALL NOS 01/19/2016 LINDA CORTEZ Ot 276.8 HYPOPOTASSEMIA 01/19/2016 CORTEZ, LINDA M TELEVISION TUBE INSPECTOR Ot 719.41 JOINT PAIN-SHLDER 01/19/2016 LINDA CORTEZ TELEVISION TUBE INSPECTOR Ot 785.1 PALPITATIONS 01/19/2016 LINDA CORTEZ TELEVISION TUBE INSPECTOR Ot 796.2 ELEV BL PRES W/O HYPERTN 01/19/2016 CHEN MORALESRALPH Ot E53.8 DEFICIENCY OF OTHER SPECIFIED B GROUP 01/19/2016 CHEN MORALESRALPH Ot M06.9 RHEUMATOID ARTHRITIS, UNSPECIFIED 01/19/2016 CHEN MORALESRALPH Ot R10.10 UPPER ABDOMINAL PAIN, UNSPECIFIED 01/19/2016 CHEN MORALESRALPH Ot R74.8 ABNORMAL LEVELS OF OTHER SERUM ENZYMES 01/19/2016 CHEN MORALESRALPH Ot R74.8 ABNORMAL LEVELS OF OTHER SERUM ENZYMES 01/19/2016 CHEN MORALESRALPH Ot R94.5 ABNORMAL RESULTS OF LIVER FUNCTION STUDI 01/19/2016 NATHAN ROBBINS APRN Ot K02.9 DENTAL CARIES, UNSPECIFIED 01/19/2016 NATHAN ROBBINS APRN Ot K08.9 DISORDER OF TEETH AND SUPPORTING STRUCTU 01/19/2016 NATHAN ROBBINS APRN Ot R51 HEADACHE 01/19/2016 NATHAN ROBBINS APRN Ot Z79.899 OTHER NURSING HOME (CURRENT) DRUG THERAPY 01/21/2016 CHEN MORALESRALPH Ot R94.5 ABNORMAL RESULTS OF LIVER FUNCTION STUDI 01/22/2016 NATHAN ROBBINS APRN Ot K02.9 DENTAL CARIES, UNSPECIFIED 01/22/2016 NATHAN ROBBINS APRN Ot K08.9 DISORDER OF TEETH AND SUPPORTING STRUCTU 01/22/2016 NATHAN ROBBINS BRANCH LOGISTICS SUPERVISOR Ot R51 HEADACHE 01/22/2016 NATHAN ROBBINS APRN Ot Z79.899 OTHER [employer] (CURRENT) DRUG THERAPY 01/27/2016 CHEN MORALESRALPH Ot R94.5 ABNORMAL RESULTS OF LIVER FUNCTION STUDI 04/12/2016 Ot 244.9 HYPOTHYROIDISM NOS 04/12/2016 Ot 729.5 PAIN IN LIMB 04/12/2016 Ot 729.81 SWELLING OF LIMB 04/12/2016 Ot 780.79 OTH MALAISE FATIGUE 04/12/2016 Ot V18.3 FAM HX-BLOOD DISORD NEC 04/12/2016 Ot 729.5 PAIN IN LIMB 04/12/2016 Ot 729.81 SWELLING OF LIMB 04/12/2016 Ot 511.0 PLEURISY W/O EFFUS OR TB 04/12/2016 Ot 571.8 CHRONIC LIVER DIS NEC 04/12/2016 Ot V76.9 SCREEN-NEOPLASM NOS 04/12/2016 Ot 244.9 HYPOTHYROIDISM NOS 04/12/2016 Ot 281.9 DEFICIENCY ANEMIA NOS 04/12/2016 Ot 288.00 NEUTROPENIA, UNSPECIFIED 04/12/2016 Ot 288.61 LYMPHOCYTOSIS (SYMPTOMATIC) 04/12/2016 Ot V18.3 FAM HX-BLOOD DISORD NEC 04/12/2016 Ot V58.69 OTH MED,LT,CURRENT USE 04/12/2016 SHARONA SLOAN, CHRISTOPHER Wright Ot 724.2 LUMBAGO 04/12/2016 YANIRA WOODWARD MD Ot V54.11 AFTERCARE HEALING TRAUMATIC FX UPPER ARM 04/12/2016 YANIRA WOODWARD MD Ot 812.00 FX UP END HUMERUS NOS-CL 04/12/2016 YANIRA WOODWARD MD Ot E888.9 FALL NOS 04/12/2016 LINDA CORTEZ TELEVISION TUBE INSPECTOR Ot 276.8 HYPOPOTASSEMIA 04/12/2016 LINDA CORTEZ TELEVISION TUBE INSPECTOR Ot 719.41 JOINT PAIN-SHLDER 04/12/2016 LINDA CORTEZ TELEVISION TUBE INSPECTOR Ot 785.1 PALPITATIONS 04/12/2016 LINDA CORTEZ TELEVISION TUBE INSPECTOR Ot 796.2 ELEV BL PRES W/O HYPERTN 04/12/2016 RALPH SIDDIQUI DO Ot E53.8 DEFICIENCY OF OTHER SPECIFIED B GROUP 04/12/2016 RALPH SIDDIQUI DO Ot M06.9 RHEUMATOID ARTHRITIS, UNSPECIFIED 04/12/2016 RALPH SIDDIQUI DO Ot R10.10 UPPER ABDOMINAL PAIN, UNSPECIFIED 04/12/2016 RALPH SIDDIQUI DO Ot R74.8 ABNORMAL LEVELS OF OTHER SERUM ENZYMES 04/12/2016 RALPH SIDDIQUI DO Ot R74.8 ABNORMAL LEVELS OF OTHER SERUM ENZYMES 04/12/2016 RALPH SIDDIQUI DO Ot R94.5 ABNORMAL RESULTS OF LIVER FUNCTION STUDI 04/13/2016 PAOLA TAVERAS DO Ot F17.210 NICOTINE DEPENDENCE, CIGARETTES, UNCOMPL 04/13/2016 PAOLA TAVERAS DO Ot I10 ESSENTIAL (PRIMARY) HYPERTENSION 04/13/2016 PAOLA TAVERAS DO Ot J43.9 EMPHYSEMA, UNSPECIFIED 04/13/2016 PAOLA TAVERAS DO Ot R10.13 EPIGASTRIC PAIN 04/14/2016 PAOLA TAVERAS DO Ot F17.210 NICOTINE DEPENDENCE, CIGARETTES, UNCOMPL 04/14/2016 PAOLA TAVERAS DO Ot I10 ESSENTIAL (PRIMARY) HYPERTENSION 04/14/2016 PAOLA TAVERAS DO Ot J43.9 EMPHYSEMA, UNSPECIFIED 04/14/2016 PAOLA TAVERAS DO Ot R10.13 EPIGASTRIC PAIN Procedures Code Description [place] [address] PSYTX PT&/FAMILY 45 MINUTES 06/20/2014 96.04 INSERT ENDOTRACHEAL TUBE 06/26/2014 96.71 CONTINUOUS INVASIVE MECHANICAL VENTILATI 06/26/2014 58911 PSYTX PT&/FAMILY 45 MINUTES 07/04/2014 Results Test Result Range Complete blood count (CBC) with automated white blood cell (WBC) differential - 11/25/15 19:33 Blood leukocytes automated count (number/volume) 11.3 10*3/ uL 4.3-11.0 Blood erythrocytes automated count (number/volume) 5.04 10*6 /uL 4.35-5.85 Venous blood hemoglobin measurement (mass/volume) 16.0 g/dL 11.5-16.0 Blood hematocrit (volume fraction) 47 % 35-52 Automated erythrocyte mean corpuscular volume 93 [foz_us] 80-99 Automated erythrocyte mean corpuscular hemoglobin (mass per erythrocyte) 32 pg 25-34 Automated erythrocyte mean corpuscular hemoglobin concentration measurement ( mass/volume) 34 g/dL 32-36 Automated erythrocyte distribution width ratio 13.9 % 10.0-14.5 Automated blood platelet count (count/volume) 173 10*3/uL 130-400 Automated blood platelet mean volume measurement 12.7 [foz_ us] 7.4-10.4 Automated blood neutrophils/100 leukocytes 41 % 42-75 Automated blood lymphocytes/100 leukocytes 48 % 12-44 Blood monocytes/100 leukocytes 8 % 0-12 Automated blood eosinophils/100 leukocytes 2 % 0-10 Automated blood basophils/100 leukocytes 1 % 0-10 Blood neutrophils automated count (number/volume) 4.7 10*3 1.8-7.8 Blood lymphocytes automated count (number/volume) 5.4 10*3 1.0-4.0 Blood monocytes automated count (number/volume) 1.0 10*3 0.0-1.0 Automated eosinophil count 0.2 10*3/uL 0.0-0.3 Automated blood basophil count (count/volume) 0.1 10*3/uL 0.0-0.1 Liver function panel (serum or plasma alk phos, alb, total and direct bili, total protein, ALT, AST) - 11/25/15 19:33 Serum or plasma total bilirubin measurement (mass/volume) 0.4 mg/dL 0.1-1.0 Serum or plasma alkaline phosphatase measurement (enzymatic activity/volume) 103 U/L 40-136 Serum or plasma aspartate aminotransferase measurement (enzymatic activity/ volume) 104 U/L 5-34 Serum or plasma alanine aminotransferase measurement (enzymatic activity/volume ) 97 U/L 0-55 Serum or plasma protein measurement (mass/volume) 8.3 g/dL 6.4-8.2 Serum or plasma albumin measurement (mass/volume) 4.2 g/dL 3.2-4.5 Bilirubin direct 0.2 mg/dL 0.0-0.3 Serum or plasma indirect bilirubin measurement (mass/volume) 0.2 mg/dL NRG Acute hepatitis panel - 01/01/16 18:32 Confirmatory quantitative serum or plasma hepatitis B virus surface antigen measurement Non-Reactive Non-Reactive Hepatitis A virus IgM antibody assay Non-Reactive Non-Reactive Hepatitis B virus core IgM antibody assay Non-Reactive Non-Reactive Serum hepatitis C virus antibody detection Non-Reactive Non-Reactive Complete blood count (CBC) with automated white blood cell (WBC) differential - 04/12/16 21:25 Blood leukocytes automated count (number/volume) 11.9 10*3/ uL 4.3-11.0 Blood erythrocytes automated count (number/volume) 4.99 10*6 /uL 4.35-5.85 Venous blood hemoglobin measurement (mass/volume) 16.1 g/dL 11.5-16.0 Blood hematocrit (volume fraction) 47 % 35-52 Automated erythrocyte mean corpuscular volume 94 [foz_us] 80-99 Automated erythrocyte mean corpuscular hemoglobin (mass per erythrocyte) 32 pg 25-34 Automated erythrocyte mean corpuscular hemoglobin concentration measurement ( mass/volume) 35 g/dL 32-36 Automated erythrocyte distribution width ratio 14.0 % 10.0-14.5 Automated blood platelet count (count/volume) 175 10*3/uL 130-400 Automated blood platelet mean volume measurement 12.0 [foz_ us] 7.4-10.4 Automated blood neutrophils/100 leukocytes 39 % 42-75 Automated blood lymphocytes/100 leukocytes 52 % 12-44 Blood monocytes/100 leukocytes 7 % 0-12 Automated blood eosinophils/100 leukocytes 2 % 0-10 Automated blood basophils/100 leukocytes 1 % 0-10 Blood neutrophils automated count (number/volume) 4.6 10*3 1.8-7.8 Blood lymphocytes automated count (number/volume) 6.2 10*3 1.0-4.0 Blood monocytes automated count (number/volume) 0.8 10*3 0.0-1.0 Automated eosinophil count 0.2 10*3/uL 0.0-0.3 Automated blood basophil count (count/volume) 0.1 10*3/uL 0.0-0.1 Comprehensive metabolic panel - 04/12/16 21:25 Serum or plasma sodium measurement (moles/volume) 140 mmol/ L 135-145 Serum or plasma potassium measurement (moles/volume) 3.6 mmol/L 3.6-5.0 Serum or plasma chloride measurement (moles/volume) 107 mmol /L 98-107 Carbon dioxide 21 mmol/L 21-32 Serum or plasma anion gap determination (moles/volume) 12 mmol/L 5-14 Serum or plasma urea nitrogen measurement (mass/volume) 5 mg /dL 7-18 Serum or plasma creatinine measurement (mass/volume) 0.83 mg /dL 0.60-1.30 Serum or plasma urea nitrogen/creatinine mass ratio 6 NRG Serum or plasma creatinine measurement with calculation of estimated glomerular filtration rate > NRG Serum or plasma glucose measurement (mass/volume) 139 mg/dL 70-105 Serum or plasma calcium measurement (mass/volume) 8.8 mg/dL 8.5-10.1 Serum or plasma total bilirubin measurement (mass/volume) 0.3 mg/dL 0.1-1.0 Serum or plasma alkaline phosphatase measurement (enzymatic activity/volume) 94 U/L 40-136 Serum or plasma aspartate aminotransferase measurement (enzymatic activity/ volume) 58 U/L 5-34 Serum or plasma alanine aminotransferase measurement (enzymatic activity/volume ) 48 U/L 0-55 Serum or plasma protein measurement (mass/volume) 8.0 g/dL 6.4-8.2 Serum or plasma albumin measurement (mass/volume) 4.1 g/dL 3.2-4.5 Magnesium - 04/12/16 21:25 Magnesium 2.4 mg/dL 1.8-2.4 Serum or plasma creatine kinase measurement (enzymatic activity/volume) - 04/12 21:25 Serum or plasma creatine kinase measurement (enzymatic activity/volume) 87 U/L 29-168 Serum or plasma creatine kinase MB measurement (enzymatic activity/volume) - 21:25 Serum or plasma creatine kinase MB measurement (enzymatic activity/volume) 0.8 ng/mL <6.6 Serum or plasma troponin i.cardiac measurement (mass/volume) - 04/12/16 21:25 Serum or plasma troponin i.cardiac measurement (mass/volume) < ng/mL <0.30 PT panel in platelet poor plasma by coagulation assay - 04/12/16 21:25 Prothrombin time (PT) in platelet poor plasma by coagulation assay 13.8 s 12.2-14.7 INR in platelet poor plasma or blood by coagulation assay 1.1 0.8-1.4 Activated partial thromboplastin time (aPTT) in platelet poor plasma bycoagulation assay - 04/12/16 21:25 Activated partial thromboplastin time (aPTT) in platelet poor plasma bycoagulation assay 30 s 24-35 Serum or plasma lithium measurement (moles/volume) - 04/12/16 21:25 BNP level < pg/mL <100.0 Serum or plasma amylase measurement (enzymatic activity/volume) - 04/12/16 21: 25 Serum or plasma amylase measurement (enzymatic activity/volume) 69 U/L 25-125 Lipase - 04/12/16 21:25 Lipase 57 U/L 8-78 Encounters ACCT No. Visit Date/Time Discharge Status Pt. Type Provider Facility Loc./Unit Complaint [id number] 07/04/2014 10:09:00 07/04/2014 23: 59:59 [facility] Outpatient PAUL KEARNEY [id number] 06/20/2014 10:11:00 06/20/2014 23: 59:59 [facility]
[2016-09-15] MEDS ORDERED: IOHEXOL 350 MG/ML 100 ML (OMNIPAQUE 350) VIAL IV ONE (22:00)
[2016-09-15] MEDS ORDERED: NS 100 ML (IVPB) BAG IV ONE (22:00)
[2016-09-15] MEDS ORDERED: KCL 10 MEQ TAB (MICRO K) PO ONE (23:30)
[2016-09-15] MEDS ORDERED: RX-ONDANSETRON 4 MG ODT (ZOFRAN) PPK #4 SL STA (23:31)
--- NOTE | 2016-09-15 23:31 | ED Abdominal Pain ---
General Chief Complaint: General Problems/Pain Stated Complaint: STOMACH AND BACK PAIN/NAUSEA Nursing Triage Note: PT AMBULATED TO ROOM. PT STATES SHE HAS BEEN HAVING BACK PAIN, NAUSEA, CHILLS FOR THE PAST WEEK. PT STATES SHE HAS BEEN TAKING TRAMADOL FOR PAIN. PT STATES SHE HASN'T EATEN IN 2 DAYS. Sepsis Screen: No Definite Risk Source of Information: Patient Exam Limitations: No Limitations History of Present Illness Time Seen By Provider: 21:00 Initial Comments This 40-year-old woman presents to the emergency room with 1-2 weeks of lower back pain. She denies any injury or strain. However, she has been caring for her mother which has required much assistance with transfers. She also complains of abdominal pain described as a burning below the umbilicus. She has been having hot and cold sweats but no definite fever that she is aware of. She is nauseated without vomiting. She reports having frequent bowel movements but no definite constipation or diarrhea. She's been taking tramadol and Flexeril without benefit. She has urinary frequency without dysuria or hematuria. She saw Dr. Siddiqui about one week ago and was prescribed tramadol and Flexeril at that time. Allergies and Home Medications Allergies Coded Allergies: gabapentin (Verified Allergy, Severe, HIVES, 01/14/15) esomeprazole (Unverified Allergy, Mild, 08/19/15) niacin (Unverified Allergy, Mild, 05/13/14) Uncoded Allergies: "COCKTAIL FOR CHAN" (Allergy, Mild, ITCHING, 02/11/09) Home Medications Acyclovir 400 Mg Tablet, 400 MG PO, (Reported) Alprazolam 0.5 Mg Tablet, 0.5 MG PO, (Reported) Amoxicillin/Potassium Clav 1 Each Tablet, 1 EACH PO BID, #14 Prescribed by: NATHAN ROBBINS on 01/19/16 1822 Cholecalciferol (Vitamin D3) 1,000 Unit Tablet, 1,000 UNIT PO, (Reported) Cyclobenzaprine HCl 10 Mg Tablet, 1 TAB PO TID PRN for PAIN, #30 (Reported) Duloxetine HCl 60 Mg Capsule.dr, 60 MG PO, (Reported) Ezetimibe 10 Mg Tablet, 10 MG PO DAILY, (Reported) Famotidine 20 Mg Tablet, 20 MG PO BID, #20 Prescribed by: PAOLA TAVERAS on 2/6/17 0032 Hydrocodone/Acetaminophen 1 Each Tablet, 1 EACH PO Q6H PRN for PAIN, #14 Prescribed by: JESUSITA DAVIS on 09/09/1521 Hyoscyamine Sulfate 0.125 Mg Tab.subl, 0.25 MG SL Q4H, #10 Prescribed by: NATHAN ROBBINS on 08/19/151851 Hyoscyamine Sulfate 0.125 Mg Tab.subl, 1-2 TAB SL Q4H, #15 Prescribed by: PAOLA TAVERAS on 04/13/1631 Lactobac Cmb #3/Fos/Pantethine 1 Each Capsule, 1 EACH PO BID, #20 Prescribed by: NATHAN ROBBINS on 01/19/161821 Levothyroxine Sodium 112 Mcg Tab, 112 MCG PO DAILY, (Reported) Potassium Chloride 10 Meq Capsule.er, 10 MEQ PO, (Reported) Pramipexole Di-Hcl 0.125 Mg Tablet, 0.125 MG PO HS, (Reported) Pregabalin 200 Mg Capsule, 200 MG PO BID, (Reported) Promethazine HCl 25 Mg Tablet, 1 TAB PO UD PRN for NAUSEA/VOMITING, #21 ( Reported) Risperidone 0.25 Mg Tablet, 0.25 MG PO, (Reported) Sucralfate 1 Gm Tablet, 1 GM PO QID, #40 Prescribed by: NATHAN ROBBINS on 08/19/151851 Sucralfate 1 Gm/10 Ml Oral.susp, 1 GM PO QID, #400 Prescribed by: PAOLA TAVERAS on 04/13/1631 Tramadol HCl 50 Mg Tablet, 50 MG PO, (Reported) Tramadol HCl 50 Mg Tablet, 50 MG PO Q6H PRN for PAIN, #10 Do not fill unless Augmentin is also filled Prescribed by: NATHAN ROBBINS on 01/19/161821 Verapamil HCl 120 Mg Tablet, 120 MG PO TID, (Reported) Review of Systems Constitutional: see HPI EENTM: No Symptoms Reported Respiratory: No Symptoms Reported Cardiovascular: No Symptoms Reported Gastrointestinal: See HPI Genitourinary: See HPI Musculoskeletal: no symptoms reported Skin: no symptoms reported Psychiatric/Neurological: No Symptoms Reported Endocrine: No Symptoms Reported Past Lytidks-Hgeeth-Kqccbw Hx Patient Social History Alcohol Use: Denies Use Recreational Drug Use: No Smoking Status: Current Everyday Smoker Type Used: Cigarettes Recent Foreign Travel: No Contact w/Someone Who Travel: No Recent Infectious Disease Expo: No Recent Hopitalizations: No Immunizations Up To Date Tetanus Booster (TDap): Unknown Date of Influenza Vaccine: Dec 06, 2013 Seasonal Allergies Seasonal Allergies: No Surgeries HX Surgeries: Yes (EXPLORATORY LAP, HIATAL HERNIA REPAIR; HYST/ ? BSO? 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 Genitourinary Hx Genitourinary Disorders: No Gastrointestinal Hx Gastrointestinal Disorders: Yes (ELEVATED LFT'S -UNKNOWN ETIOLOGY PER PT) Gastrointestinal Disorders: Gastroesophageal Reflux, Liver Disease/Jaundice, Hiatal Hernia Musculoskeletal Hx Musculoskeletal Disorders: Yes Musculoskeletal Disorders: Arthritis, Fibromyalgia, Chronic Back Pain Endocrine Hx Endocrine Disorders: Yes (GOITER--S/P THYROIDECTOMY) Endocrine Disorders: Hypothyroidsim HEENT HX ENT Disorders: No Cancer Hx Cancer: No Psychosocial Hx Psychiatric Problems: Yes Behavioral Health Disorders: Anxiety, Bipolar, Schizophrenia, Depression Integumentary HX Skin/Integumentary Disorder: Yes Skin/Integumentary Disorders: Herpes Blood Transfusions Hx Blood Disorders: Yes (ANEMIA) Adverse Reaction to a Blood Tr: No Family Medical History Family Medial History: Cardiovascular disease 19 FATHER Diabetes mellitus 19 FATHER 19 MOTHER FH: mental illness Mental Physical Exam Vital Signs VS - Last 72 Hours, by Label 09/15/16 09/15/16 20:47 23:55 Temp 98.7 98.2 Pulse 93 86 Resp 20 18 B/P (MAP) 153/94 Pulse Ox 95 95 O2 Delivery Room Air Room Air Capillary Refill : Less Than 3 Seconds General Appearance: WD/WN, mild distress HEENT: PERRL/EOMI, normal ENT inspection Neck: normal inspection Respiratory: lungs clear, normal breath sounds, no respiratory distress, no accessory muscle use Cardiovascular: regular rate, rhythm, no edema, no murmur Gastrointestinal: soft, abnormal bowel sounds (Decreased bowel sounds), tenderness (Moderate throughout the lower abdomen) Extremities: normal inspection, no pedal edema Back: normal inspection, vertebral tenderness (Lumbar spine and lower back paraspinous muscles) 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, no motor/sensory deficits, alert, normal mood/affect, oriented x 3 Skin: normal color, warm/dry Progress/Results/Core Measures Results/Orders Lab Results Laboratory Tests Test 09/15/16 20:51 09/15/16 20:58 Range/Units Urine Color YELLOW Urine Clarity CLEAR Urine pH 6 5-9 Urine Specific [place] 1.010 L 1.016-1.022 Urine Protein NEGATIVE NEGATIVE Urine Glucose (UA) NEGATIVE NEGATIVE Urine Ketones NEGATIVE NEGATIVE Urine Nitrite NEGATIVE NEGATIVE Urine Bilirubin NEGATIVE NEGATIVE Urine Urobilinogen NORMAL NORMAL MG/DL Urine Leukocyte Esterase NEGATIVE NEGATIVE Urine RBC (Auto) NEGATIVE NEGATIVE Urine RBC NONE /HPF Urine WBC NONE /HPF Urine Squamous Epithelial Cells RARE /HPF Urine Crystals NONE /LPF Urine Bacteria NONE /HPF Urine Casts NONE /LPF Urine Mucus NEGATIVE /LPF Urine Culture Indicated NO White Blood Count 15.2 H 4.3-11.0 10^3/uL Red Blood Count 5.14 4.35-5.85 10^6/uL Hemoglobin 16.8 H 11.5-16.0 G/DL Hematocrit 49 35-52 % Mean Corpuscular Volume 95 80-99 FL Mean Corpuscular Hemoglobin 33 25-34 PG Mean Corpuscular Hemoglobin Concent 34 32-36 G/DL Red Cell Distribution Width 13.9 10.0-14.5 % Platelet Count 181 130-400 10^3/uL Mean Platelet Volume 12.5 H 7.4-10.4 FL Neutrophils (%) (Auto) 37 L 42-75 % Lymphocytes (%) (Auto) 55 H 12-44 % Monocytes (%) (Auto) 6 0-12 % Eosinophils (%) (Auto) 2 0-10 % Basophils (%) (Auto) 0 0-10 % Neutrophils # (Auto) 5.6 1.8-7.8 X 10^3 Lymphocytes # (Auto) 8.4 H 1.0-4.0 X 10^3 Monocytes # (Auto) 0.9 0.0-1.0 X 10^3 Eosinophils # (Auto) 0.3 0.0-0.3 10^3/uL Basophils # (Auto) 0.1 0.0-0.1 10^3/uL Neutrophils % (Manual) 28 % Lymphocytes % (Manual) 53 % Monocytes % (Manual) 7 % Eosinophils % (Manual) 2 % Basophils % (Manual) 0 % Band Neutrophils 2 % Reactive Lymphocytes 8 % Blood Morphology Comment NORMAL Sodium Level 139 135-145 MMOL/L Potassium Level 3.1 L 3.6-5.0 MMOL/L Chloride Level 106 98-107 MMOL/L Carbon Dioxide Level 22 21-32 MMOL/L Anion Gap 11 5-14 MMOL/L Blood Urea Nitrogen 6 L 7-18 MG/DL Creatinine 0.78 0.60-1.30 MG/DL Estimat Glomerular Filtration Rate > 60 BUN/Creatinine Ratio 8 Glucose Level 127 H 70-105 MG/DL Calcium Level 9.5 8.5-10.1 MG/DL Total Bilirubin 0.4 0.1-1.0 MG/DL Aspartate Amino Transf (AST/SGOT) 51 H 5-34 U/L Alanine Aminotransferase (ALT/SGPT) 45 0-55 U/L Alkaline Phosphatase 79 40-136 U/L Total Protein 8.5 H 6.4-8.2 GM/DL Albumin 4.1 3.2-4.5 GM/DL Lipase 23 8-78 U/L My Orders Orders - JESUSITA SIMON MD Ua Culture If Indicated (09/15/16 20:51) Cbc With Automated Diff (09/15/16 21:10) Comprehensive Metabolic Panel (09/15/16 21:10) Lipase (09/15/16 21:10) Saline Lock/Iv-Start (09/15/16 21:10) Ondansetron Injection (Zofran Injectio (09/15/16 21:30) Manual Differential (09/15/16 20:58) Fentanyl Injection (Sublimaze Injection (09/15/16 21:45) Ct Abdomen/Pelvis W (09/15/16 21:46) Iohexol Injection (Omnipaque 350 Mg/Ml 1 (09/15/16 22:00) Ns (Ivpb) (Sodium Chloride 0.9% Ivpb Bag (09/15/16 22:00) Potassium Chloride (Tablet) (Klor Con Ta (09/15/16 23:30) Rx-Ondansetron Po (Rx-Zofran Po) (09/15/16 23:31) Ketorolac Injection (Toradol Injection) (09/15/16 23:45) Iv Push Conveyor Belt Repairer Ed (09/15/16 ) Medications Given in ED Vital Signs/I&O Vital Sign - Last 12Hours 09/15/16 09/15/16 20:47 23:55 Temp 98.7 98.2 Pulse 93 86 Resp 20 18 B/P (MAP) 153/94 Pulse Ox 95 95 O2 Delivery Room Air Room Air Blood Pressure Mean: 113 Progress Note : Progress Note Patient was treated with Zofran for nausea and fentanyl for pain. Screening labs demonstrated leukocytosis. CT was ordered for further evaluation after discussion of risks and benefits. CT demonstrated no significant pathology to account for her pain and leukocytosis. Patient was felt to have gastroenteritis and was dismissed home with a take-home packet of Zofran. Syndrome may be viral in nature as her leukocytosis was predominantly lymphocytic. Toradol was administered for additional pain relief prior to dismissal. Diagnostic Imaging Diagonstic Imaging: CT Plain Films/CT/US/NM/MRI: abdomen, pelvis Comments CT abdomen and pelvis was viewed by me. [employer] report reviewed. No acute pathology to account for her pain was identified. Departure Impression Impression: Primary Impression: Abdominal pain Qualified Codes: R10.30 - Lower abdominal pain, unspecified Additional Impressions: Nausea Hypokalemia Disposition: 01 HOME, SELF-CARE Condition: Improved Departure-Patient Inst. Decision time for Depature: 23:31 Referrals: RALPH SIDDIQUI DO (PCP/Family) Primary Care Physician Patient Instructions: Acute Abdomen (Belly Pain), Hypokalemia Add. Discharge Instructions: You may take Tylenol (acetaminophen) up to 1000 mg every 6 hours as needed for pain. Add ibuprofen up to 600 mg every 6 hours as needed for additional pain relief. Take ibuprofen with food or milk to avoid stomach irritation. Start with a clear liquid diet and gradually advance your diet with small quantities of bland food as tolerated. Return to emergency room if symptoms worsen. Follow-up with your primary care provider if not improving over the next couple of days. Dissolve Zofran (ondansetron) under the tongue every 4 hours as needed for nausea and vomiting. All discharge instructions reviewed with patient and/or family. Voiced understanding. JESUSITA SIMON MD Sep 15, 2016 23:31
[2016-09-15] MEDS ORDERED: KETOROLAC 30 MG/ML VIAL IVP ONE (23:45)
[2016-09-15 23:55] VITALS: BP 149/87
--- NOTE | 2016-09-16 07:49 | Diagnostic Imaging Report ---
PROCEDURE: CT abdomen and pelvis with contrast. TECHNIQUE: Multiple contiguous axial images were obtained through the abdomen and pelvis after administration of intravenous contrast. INDICATION: Abdominal pain. The previous CT chest, abdomen, and pelvis exam of 04/12/2016, failed to show any sign of an acute abnormality. On this study the liver is of lower density than usually seen. This appearance does suggest fatty metamorphosis. This finding is similar to the prior study. There is no focal abnormality involving the liver. As noted on the prior exam the gallbladder, the uterus, and the appendix are surgically absent. The spleen, pancreas, adrenals, kidneys, aorta, and inferior vena cava are unremarkable for an acute abnormality. The stomach is partially distended by fluid and gas and consequently difficult to assess. There are a few fluid-filled segments of small bowel present. These findings are nonspecific. The possibility of enteritis should be considered. There is no sign of a bowel obstruction. There is no pelvic mass or free fluid collection noted. The urinary bladder is grossly unremarkable. The bone windows show no sign of a fracture or of a destructive lesion. The lung bases are clear. IMPRESSION: 1. When compared to the previous study, there does not appear to have been any significant change. There is no acute abnormality identified. 2. There are a few fluid-filled segments of small bowel present. These are nonspecific, but the possibility of enteritis should be considered. There is no sign of a bowel obstruction. 3. The gallbladder, the uterus, and the appendix are surgically absent. Dictated by: Dictated on workstation # [id number]
== END 2016-09-15 23:55 | disposition home or self-care (01) ==
LOC: EDUNIT# 20:07 → ER 20:09
DX: R10.30 Lower abdominal pain, unspecified (principal); R11.0 Nausea; E87.6 Hypokalemia; I10 Essential (primary) hypertension; E78.00 Pure hypercholesterolemia, unspecified; G43.909 Migraine, unspecified, not intractable, without status migrainosus; E03.9 Hypothyroidism, unspecified; F41.9 Anxiety disorder, unspecified; F20.9 Schizophrenia, unspecified; F31.9 Bipolar disorder, unspecified; M19.90 Unspecified osteoarthritis, unspecified site; K21.9 Gastro-esophageal reflux disease without esophagitis; F17.210 Nicotine dependence, cigarettes, uncomplicated; Z90.710 Acquired absence of both cervix and uterus; Z86.19 Personal history of other infectious and parasitic diseases
CPT/HCPCS: 36415; 74177; 80053; 81000; 83690; 85007; 85027; 96374; 96375

== ENCOUNTER 2016-10-25 14:04 | Emergency (ER) | payer MEDICARE, MEDICAID ==
[~2016-10-25] VITALS: Ht 157.5 cm; Wt 86.2 kg
[2016-10-25] MEDS ORDERED: PENI500T PO ×2 (14:38→14:53)
[2016-10-25] MEDS ORDERED: LIDO15SO2 MM ×2 (14:38→14:53)
[2016-10-25] MEDS ORDERED: NAPR500T4 PO ×2 (14:38→14:53)
--- NOTE | 2016-10-25 14:38 | ED EENT ---
History of Present Illness General Chief Complaint: Dental Problems/Pain Stated Complaint: DENTAL PAIN Nursing Triage Note: c/o toothache pain to right lower jaw. Onset Wednesday. Source: patient History of Present Illness Time seen by provider: 14:30 Initial Comments C/O DENTAL PAIN TO RIGHT LOWER JAW SINCE WEDNESDAY NO FEVER NO FACIAL SWELLING PT WITH CHRONIC DENTAL PROBLEMS --"BAD TEETH"--DOES NOT HAVE A DENTIST--PLANS ON GOING TO [facility] HAS NOT TAKEN ANYTHING FOR PAIN PCP: DR. SIDDIQUI, ALSO GOES TO [facility] Allergies and Home Medications Allergies Coded Allergies: gabapentin (Verified Allergy, Severe, HIVES, 01/14/15) esomeprazole (Unverified Allergy, Mild, 08/19/15) niacin (Unverified Allergy, Mild, 05/13/14) Uncoded Allergies: "COCKTAIL FOR CHAN" (Allergy, Mild, ITCHING, 02/11/09) Home Medications Acyclovir 400 Mg Tablet, 400 MG PO, (Reported) Alprazolam 0.5 Mg Tablet, 0.5 MG PO, (Reported) Amoxicillin/Potassium Clav 1 Each Tablet, 1 EACH PO BID, #14 Prescribed by: NATHAN ROBBINS on 01/19/16 1822 Cholecalciferol (Vitamin D3) 1,000 Unit Tablet, 1,000 UNIT PO, (Reported) Cyclobenzaprine HCl 10 Mg Tablet, 1 TAB PO TID PRN for PAIN, #30 (Reported) Duloxetine HCl 60 Mg Capsule.dr, 60 MG PO, (Reported) Ezetimibe 10 Mg Tablet, 10 MG PO DAILY, (Reported) Famotidine 20 Mg Tablet, 20 MG PO BID, #20 Prescribed by: PAOLA TAVERAS on 04/13/16 0032 Hydrocodone/Acetaminophen 1 Each Tablet, 1 EACH PO Q6H PRN for PAIN, #14 Prescribed by: JESUSITA DAVIS on 09/09/15 0022 Hyoscyamine Sulfate 0.125 Mg Tab.subl, 0.25 MG SL Q4H, #10 Prescribed by: NATHAN ROBBINS on 08/19/15 1852 Hyoscyamine Sulfate 0.125 Mg Tab.subl, 1-2 TAB SL Q4H, #15 Prescribed by: PAOLA TAVERAS on 04/13/16 0032 Lactobac Cmb #3/Fos/Pantethine 1 Each Capsule, 1 EACH PO BID, #20 Prescribed by: NATHAN ROBBINS on 01/19/16 182 Levothyroxine Sodium 112 Mcg Tab, 112 MCG PO DAILY, (Reported) Lidocaine HCl 15 Ml Solution, 1-2 ML MM Q 1-2 HOURS, #100 Prescribed by: PAOLA TAVERAS on 10/25/16 1438 Naproxen 500 Mg Tablet, 500 MG PO BID, #20 Prescribed by: PAOLA TAVERAS on 10/25/16 1438 Penicillin V Potassium 500 Mg Tablet, 500 MG PO QID, #40 Prescribed by: PAOLA TAVERAS on 10/25/16 1438 Potassium Chloride 10 Meq Capsule.er, 10 MEQ PO, (Reported) Pramipexole Di-Hcl 0.125 Mg Tablet, 0.125 MG PO HS, (Reported) Pregabalin 200 Mg Capsule, 200 MG PO BID, (Reported) Promethazine HCl 25 Mg Tablet, 1 TAB PO UD PRN for NAUSEA/VOMITING, #21 ( Reported) Risperidone 0.25 Mg Tablet, 0.25 MG PO, (Reported) Sucralfate 1 Gm Tablet, 1 GM PO QID, #40 Prescribed by: NATHAN ROBBNIS on 08/19/15 1852 Sucralfate 1 Gm/10 Ml Oral.susp, 1 GM PO QID, #400 Prescribed by: PAOLA TAVERAS on 04/13/16 0032 Tramadol HCl 50 Mg Tablet, 50 MG PO, (Reported) Tramadol HCl 50 Mg Tablet, 50 MG PO Q6H PRN for PAIN, #10 Do not fill unless Augmentin is also filled Prescribed by: NATHAN ROBBINS on 01/19/161821 Verapamil HCl 120 Mg Tablet, 120 MG PO TID, (Reported) Review of Systems Constitutional: no symptoms reported Eyes: No Symptoms Reported Ears: No Symptoms Reported Nose: no symptoms reported Mouth: see HPI Throat: no symptoms reported Respiratory: no symptoms reported Cardiovascular: no symptoms reported Neurological: No Symptoms Reported Past Sbirkpq-Qzvwiu-Kgiuao Hx Patient Social History Alcohol Use: Rarely Uses Recreational Drug Use: Yes (THC IN PAST) Smoking Status: Current Everyday Smoker (1 PPD) Type Used: Cigarettes Recent Foreign Travel: No Contact w/Someone Who Travel: No Recent Infectious Disease Expo: No Recent Hopitalizations: No Immunizations Up To Date Tetanus Booster (TDap): Unknown Date of Influenza Vaccine: Dec 06, 2013 Seasonal Allergies Seasonal Allergies: No Surgeries HX Surgeries: Yes (EXPLORATORY LAP, HIATAL HERNIA REPAIR; HYST/ ? BSO? 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 Genitourinary Hx Genitourinary Disorders: No Gastrointestinal Hx Gastrointestinal Disorders: Yes (ELEVATED LFT'S -UNKNOWN ETIOLOGY PER PT) Gastrointestinal Disorders: Gastroesophageal Reflux, Liver Disease/Jaundice, Hiatal Hernia Musculoskeletal Hx Musculoskeletal Disorders: Yes Musculoskeletal Disorders: Arthritis, Fibromyalgia, Chronic Back Pain Endocrine Hx Endocrine Disorders: Yes (GOITER--S/P THYROIDECTOMY) Endocrine Disorders: Hypothyroidsim HEENT HX ENT Disorders: Yes ("BAD TEETH") Cancer Hx Cancer: No Psychosocial Hx Psychiatric Problems: Yes Behavioral Health Disorders: Anxiety, Bipolar, Schizophrenia, Depression Integumentary HX Skin/Integumentary Disorder: Yes Skin/Integumentary Disorders: Herpes Blood Transfusions Hx Blood Disorders: Yes (ANEMIA) Adverse Reaction to a Blood Tr: No Family Medical History Family Medial History: Cardiovascular disease 19 FATHER Diabetes mellitus 19 FATHER 19 MOTHER FH: mental illness Mental Physical Exam Vital Signs Vital Sign - Last 12Hours 10/25/16 14:24 Temp 97.5 Pulse 70 Resp 16 B/P (MAP) 142/104 General Appearance: WD/WN, no apparent distress Eyes: bilateral eye normal inspection, bilateral eye PERRL, bilateral eye EOMI Ears: bilateral ear auricle normal, bilateral ear canal normal, bilateral ear TM normal Nose: normal inspection Mouth/Throat: dental tenderness, No mandibular swelling, No maxillary swelling , other (NO UPPER TEETH, ONLY 8 LOWER TEETH--ALL WITH EXTENSIVE DECAY, STARTING AT GUM LINE. RIGHT LOWER PREMOLAR WITH SIGNIFICANT DECAY, TENDERNESS AND MODERATE SURROUNDING GUM SWELLING/ERYTHEMA. 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 Referrals: RALPH SIDDIQUI DO (PCP/Family) Primary Care Physician Patient Instructions: Tooth Decay, Adult (DC), Tooth Abscess (DC) Add. Discharge Instructions: FREQUENT SALT WATER SWISHES SOFT FOODS FOLLOW UP WITH DENTIST THIS WEEK FOR FURTHER CARE--CALL IN AM TO SCHEDULE APPOINTMENT All discharge instructions reviewed with patient and/or family. Voiced understanding. Scripts Naproxen (Naproxen) 500 Mg Tablet 500 MG PO BID, #20 TAB Prov: PAOLA TAVERAS DO 10/25/16 Lidocaine HCl (Lidocaine HCl Viscous) 15 Ml Solution 1-2 ML MM Q 1-2 HOURS for Pain, #100 ML Prov: PAOLA TAVERAS DO 10/25/16 PAOLA TAVERAS DO Oct 25, 2016 14:38
[2016-10-25 14:53] VITALS: BP 138/90
--- OUTSIDE RECORDS SUMMARY | 2016-10-26 03:42 | XMS REPORT | Clinical Summary ---
Author Author [facility] Organization [facility] Address Unknown Phone Unavailable Care Team Providers Care Digital Media Coordinator Name Role Phone PCP Unavailable Source Comments Some departments are not documenting in the electronic medical record. If you do not see the information that you expected, contact Release of Information in the Health Information Management department at [phone] for further assistance in locating additional records.[facility] Allergies Active Allergy Reactions Severity Noted Date Comments Niacin ANAPHYLAXIS High 01/28/2015 Gabapentin RASH 04/23/2011 Current Medications Prescription Sig. Disp. Refills Start [...] Take 1 mg by mouth as Active tabletIndications: Needed for Other.... ANXIETY Indications: ANXIETY verapamil CR (CALAN-SR) Take 1 [...] deficiency 04/23/2011 01/28/2015 Folate deficiency 04/23/2011 01/28/2015 Family History Medical History Relation Name Comments Arthritis Maternal Aunt Arthritis-rheumatoid Maternal Aunt SLE Maternal Aunt Heart Disease Maternal Grandmother Migraines Maternal Grandmother Arthritis Mother Arthritis-osteo Mother Bleeding Disorders Mother ITP Diabetes Mother Glaucoma Mother Hypertension Mother Irritable Bowel Disease Mother Neuropathy Mother Osteoporosis Mother Other Mother carpal tunnel syndrome Psoriasis Mother Neuropathy Other Cancer Paternal bone Grandmother Diabetes Sister Relation Name Status Comments Maternal Aunt Maternal Grandmother Mother Other Paternal Grandmother Sister Social History Tobacco Use Types Packs/Day Years Used Date Current Every Day Smoker Cigarettes 1 20 Smokeless Tobacco: Never Used Alcohol Use Drinks/Week oz/Week Comments No Sober for 15yr, h/o alcoholism. Sex Assigned at Date Recorded Not on file Last Filed Vital Signs Vital Sign Reading Time Taken Blood Pressure 128/86 01/28/2015 10:57 AM HYDRO PNEUMATIC TESTER Pulse 94 01/28/2015 10:57 AM HYDRO PNEUMATIC TESTER Temperature 36.4 C (97.5 F) 11/22/2012 10:37 AM CDT Respiratory Rate - - Oxygen Saturation 96% 01/28/2015 10:57 AM HYDRO PNEUMATIC TESTER Inhaled Oxygen - - Concentration Weight 89.8 kg (198 lb) 01/28/2015 10:57 AM HYDRO PNEUMATIC TESTER Height 157.5 cm (5' 2") 01/28/2015 10:57 AM HYDRO PNEUMATIC TESTER Body Mass Index 36.21 01/28/2015 10:57 AM HYDRO PNEUMATIC TESTER Plan of Treatment Health Maintenance Due Date Last Done Comments PHYSICAL (COMPREHENSIVE) 10/13/1983 EXAM PERTUSSIS VACCINE 10/13/1987 TETANUS VACCINE 1993 CERVICAL CANCER SCREENING 2006 BREAST CANCER SCREENING 2016 INFLUENZA VACCINE 11/06/2016 Results Not on filefrom Last 3 Months
== END 2016-10-25 14:52 | disposition home or self-care (01) ==
LOC: EDUNIT# 14:04 → ER 14:05
DX: K02.9 Dental caries, unspecified (principal); K04.7 Periapical abscess without sinus; F41.9 Anxiety disorder, unspecified; F31.9 Bipolar disorder, unspecified; F90.9 Attention-deficit hyperactivity disorder, unspecified type; F20.9 Schizophrenia, unspecified; E03.9 Hypothyroidism, unspecified; K21.9 Gastro-esophageal reflux disease without esophagitis; G43.909 Migraine, unspecified, not intractable, without status migrainosus; E78.00 Pure hypercholesterolemia, unspecified; I10 Essential (primary) hypertension; F17.210 Nicotine dependence, cigarettes, uncomplicated; Z87.59 Personal history of other complications of pregnancy, childbirth and the puerperium; Z90.89 Acquired absence of other organs; Z90.710 Acquired absence of both cervix and uterus
CPT/HCPCS: 99282

== ENCOUNTER 2016-11-13 09:00 | Outpatient (CLI) | payer MEDICARE, MEDICAID ==
[~2016-11-13] VITALS: Ht 157.5 cm; Wt 86.2 kg
[~2016-11-13 09:00] MED LIST changes: +LIDO15SO2 MM; +NAPR500T4 PO; +PENI500T PO
[2016-11-13] MEDS ORDERED: VENL75CA PO (10:31)
[2016-11-13] MEDS ORDERED: SOY1TABL2 PO (10:31)
[2016-11-13] MEDS ORDERED: PREG100C PO (10:31)
[2016-11-13] MEDS ORDERED: TEMA15CA6 PO (10:31)
[2016-11-13] MEDS ORDERED: HYDR-3812 PO (10:39)
[2016-11-18] MEDS ORDERED: HYDR-3820 PO (10:09)
== END 2016-11-13 10:48 ==
LOC: PREOP 09:00
PROVIDERS: ATTEND Surgery
DX: Z01.818 Encounter for other preprocedural examination (principal); K43.9 Ventral hernia without obstruction or gangrene

== ENCOUNTER 2016-11-18 06:19 | Day surgery (SDC) | payer MEDICARE, MEDICAID ==
[~2016-11-18] VITALS: Ht 157.5 cm; Wt 86.2 kg
[~2016-11-18 06:19] MED LIST changes: +PREG100C PO; +SOY1TABL2 PO; +TEMA15CA6 PO; +VENL75CA PO
--- OUTSIDE RECORDS SUMMARY | 2016-11-18 06:22 | XMS REPORT | Clinical Summary ---
Author Author [facility] Organization [facility] Address Unknown Phone Unavailable Care Team Providers Care Pharmacy Operations Specialist Name Role Phone PCP Unavailable Source Comments Some departments are not documenting in the electronic medical record. If you do not see the information that you expected, contact Release of Information in the Health Information Management department at [phone] for further assistance in locating additional records.[facility] Allergies Active Allergy Reactions Severity Noted [...] Taken Blood Pressure 128/86 01/28/2015 10:57 AM ACTUARIAL DIRECTOR Pulse 94 01/28/2015 10:57 AM ACTUARIAL DIRECTOR Temperature 36.4 C (97.5 F) 11/22/2012 10:37 AM CDT Respiratory Rate - - Oxygen Saturation 96% 01/28/2015 10:57 AM ACTUARIAL DIRECTOR Inhaled Oxygen - - Concentration Weight 89.8 kg (198 lb) 01/28/2015 10:57 AM ACTUARIAL DIRECTOR Height 157.5 cm (5' 2") 01/28/2015 10:57 AM ACTUARIAL DIRECTOR Body Mass Index 36.21 01/28/2015 10:57 AM ACTUARIAL DIRECTOR Plan of Treatment Health Maintenance Due Date Last Done Comments PHYSICAL (COMPREHENSIVE) 10/13/1983 EXAM PERTUSSIS VACCINE 10/13/1987 TETANUS VACCINE 1993 CERVICAL CANCER SCREENING 2006 BREAST CANCER SCREENING 2016 INFLUENZA VACCINE 11/06/2016 Results Not on filefrom Last 3 Months
[2016-11-18] MEDS ORDERED: ACETAMINOPHEN 500 MG TAB (TYLENOL) PO ONE ×2 (06:45→10:15)
[2016-11-18] MEDS ORDERED: KETOROLAC 30 MG/ML VIAL IV SCH (06:45)
[2016-11-18] MEDS ORDERED: PREGABALIN 75 MG (LYRICA) CAP PO ONE ×2 (06:45→10:15)
[2016-11-18] MEDS ORDERED: oxyCODONE ER 10 MG (OxyCONTIN CR) TAB PO ONE ×2 (06:45→10:15)
[2016-11-18] MEDS ORDERED: CELECOXIB 100 MG (CeleBREX) CAP PO ONE ×2 (06:45→10:15)
[2016-11-18] MEDS ORDERED: ceFAZolin 2 GM/NS 50 ML IV ONE (07:00)
[2016-11-18] MEDS ORDERED: BUP/EPI 0.5% 1:200,000 (MARCAINE) 10ML VIAL IJ ONE ×2 (07:01→07:25)
[2016-11-18] MEDS ORDERED: MIDAZOLAM 2 MG/2 ML (VERSED) VIAL ONE (07:03)
[2016-11-18] MEDS ORDERED: fentaNYL INJECTION 100 MCG/2 ML AMP ONE (07:03)
[2016-11-18] MEDS ORDERED: ROCURONIUM 50 MG/5 ML (ZEMURON) VIAL IV ONE (07:05)
[2016-11-18] MEDS ORDERED: KETAMINE HCL 100 MG/ML 5 ML VIAL ONE (07:05)
[2016-11-18] MEDS ORDERED: LIDOCAINE PF 0.5% 50 ML (XYLOCAINE) VIAL ONE (07:05)
[2016-11-18] MEDS ORDERED: proPOfol 200 MG/20 ML (DIPRIVAN) VIAL IV ONE (07:05)
[2016-11-18 07:06] LABS: MEAN PLATELET VOLUME 12.3 FL (7.4-10.4); RED BLOOD COUNT 4.78 10^6/uL (4.35-5.85); RED CELL DISTRIBUTION WIDTH 14.2 % (10.0-14.5)
[2016-11-18] MEDS: LACTATED RINGERS 1,000 ML IV PRN ×3 (07:08→11:59)
[2016-11-18 07:23] VITALS: BP 142/85
[2016-11-18 07:24] LABS: ANION GAP 9 MMOL/L (5-14); BLOOD UREA NITROGEN 7 MG/DL (7-18); BUN/CREATININE RATIO 10; CARBON DIOXIDE 24 MMOL/L (21-32); CHLORIDE 109 MMOL/L (98-107); CREATININE SERUM 0.72 MG/DL (0.60-1.30); GFR ESTIMATED > 60; GLUCOSE 98 MG/DL (70-105); POTASSIUM 3.7 MMOL/L (3.6-5.0); SODIUM 142 MMOL/L (135-145)
--- NOTE | 2016-11-18 07:51 | Progress Note-Pre Operative ---
Pre-Operative Progress Note H&P Reviewed The H&P was reviewed, patient examined and no changes noted. Date Seen by Provider: Nov 18, 2016 Time Seen by Provider: 07:51 Date H&P Reviewed: Nov 18, 2016 Time H&P Reviewed: 07:51 Pre-Operative Diagnosis: Ventral hernia ANAMIKA HERNANDEZ MD Nov 18, 2016 7:51 am
[2016-11-18] MEDS: KETOROLAC 30 MG/ML VIAL IV SCH ×3 (10:00→21:25)
--- NOTE | 2016-11-18 10:03 | Progress Note-Post Operative ---
Post-Operative Progess Note Surgeon (s)/Beater Dumper (s) Surgeon ANAMIKA HERNANDEZ MD Beater Dumper: not applicable Pre-Operative Diagnosis Ventral hernia Post-Operative Diagnosis same Procedure & Operative Findings Date of Procedure 11/18/16 Procedure Performed/Findings robotic-assisted repair with mesh Anesthesia Type Gen. Estimated Blood Loss Estimated blood loss (mL): minimal Specimens/Packing Specimens Removed none ANAMIKA HERNANDEZ MD Nov 18, 2016 10:03 am
[2016-11-18] MEDS ORDERED: HYDR-3820 PO (10:09)
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
[2016-11-18] MEDS ORDERED: RX-HYDROCODONE/APAP 5/325 MG #4 TAB PK PO PRN (10:15)
[2016-11-18] MEDS ORDERED: morphine INJ 10 MG/ML 1ML (SYR OR VIAL) IV PRN (10:15)
[2016-11-18] MEDS ORDERED: GLYCOPYRROLATE 0.2 MG/ML (ROBINUL) 2 ML VIAL ONE (10:24)
[2016-11-18] MEDS ORDERED: LACTATED RINGERS 2,000 ML IV ONE (10:24)
[2016-11-18] MEDS ORDERED: SEVOFLURANE (ULTANE) 15 ML INHAL SOLN ONE (10:24)
[2016-11-18] MEDS ORDERED: NEOSTIGMINE (BLOXIVERZ ) 1 MG/1ML 10 ML VIAL ONE (10:24)
[2016-11-18] MEDS ORDERED: HYDROmorphone (DILAUDID) 2 MG/ML VIAL IVP PRN (10:30)
[2016-11-18] MEDS ORDERED: ONDANSETRON 4 MG/2 ML (SDV) Z0FRAN IVP PRN ×2 (10:30→19:30)
[2016-11-18] MEDS: morphine INJ 10 MG/ML 1ML (SYR OR VIAL) IVP PRN ×2 (10:39→10:47)
--- NOTE | 2016-11-18 10:43 | OPERATIVE REPORT ---
DATE OF SERVICE: 11/18/2016 PREOPERATIVE DIAGNOSIS: Ventral hernia. POSTOPERATIVE DIAGNOSIS: Ventral hernia. OPERATION: Robotic-assisted repair of ventral hernia with mesh. SURGEON: Anamika Hernandez MD ANESTHESIA: General anesthesia. BLOOD LOSS: Minimal. FLUIDS: 1800 mL of crystalloid. TYPE OF WOUND: Type 2 (clean wound). INDICATION FOR PROCEDURE: This lady presented with a symptomatic ventral hernia in relation to her umbilicus, possibly resulting from a previous laparotomy to address bile leak. She was offered minimally invasive repair with robotic assistance and mesh reinforcement. Informed consent was obtained after reviewing the operative details and complications of wound infection, infection of the mesh itself and recurrence of the hernia. DESCRIPTION OF PROCEDURE: She was placed supine on the operating table and general anesthesia induced using an endotracheal tube. Two grams of Ancef were administered intravenously as prophylaxis against wound infection. Sequential compression devices were placed around her legs, to minimize the risk of venous thrombus. Subsequently, the right side of her body was tilted up on a roll to facilitate triangulation of the robotic system. Abdomen was prepared and draped in the usual sterile manner. Pneumoperitoneum was established using a Veress needle introduced over the right subcostal margin. Intra-abdominal pressure was maintained at 15 mmHg, using carbon dioxide insufflation. A 12 mm trocar was placed and anatomy visualized using the high definition, three-dimensional laparoscope associated with da Linda system. Omentum was trapped within the hernia. In addition, some omental adhesions were found along the right side of the abdomen. Therefore, I placed a 5 mm trocar over the left upper quadrant and under direct view, took down the adhesions along the right side of the abdomen, to allow room for placing another trocar. Another 12 mm trocar was then placed over the right side of the abdomen, along the mid axillary line, followed by an 8 mm trocar over the right lower quadrant along the anterior axillary line. The robotic system was then docked in place. Omentum was taken down using hook cautery revealing 2 separate defects measuring 3 cm and 1 cm respectively oriented along the vertical axis. These were closed initially using 0 V-Loc permanent suture with robotic assistance, without tension. Subsequently, the repair was reinforced with polypropylene mesh measuring 15.2 x 10.2 cm in diameter, attached to a self-retraining balloon system. The edges of the mesh were then secured to the abdominal muscles using 2-0 V-Loc sutures with robotic assistance. Hemostasis was satisfactory and the operation concluded. Incisions were closed using 4-0 Vicryl for skin, in a subcuticular fashion. Marcaine 0.5% with epinephrine was infiltrated along the incisions, both preemptively and at the conclusion of the operation. She tolerated the procedure well, was extubated in the operating room and taken to the recovery room in stable condition. Job ID: [id number] DocumentID: [id number] Dictated Date: 11/18/2016 10:02:01 Network Pricing Consultant Date: 11/18/2016 10:43:12 Dictated By: ANAMIKA HERNANDEZ MD [facility]
[2016-11-18 11:20] VITALS: BP 129/71
[2016-11-18] MEDS: morphine INJ 10 MG/ML 1ML (SYR OR VIAL) IV PRN ×2 (11:55→16:01)
[2016-11-18] MEDS: CYCLOBENZAPRINE 10 MG (FLEXERIL) TAB PO PRN (16:01)
[2016-11-18 16:31] VITALS: BP 127/73
[2016-11-18 20:00] VITALS: BP 122/88
[2016-11-18] MEDS: risperiDONE 0.25 MG (RisperDAL) TAB PO SCH (20:45)
[2016-11-18] MEDS: DULoxetine 30 MG (CYMBALTA) CAP PO SCH (20:45)
[2016-11-18] MEDS: ACYCLOVIR 400 MG TABLET (ZOVIRAX) PO SCH (20:45)
[2016-11-18] MEDS ORDERED: PRAMIPEXOLE 0.125 MG (MIRAPEX) TABLET PO SCH (21:00)
[2016-11-18] MEDS ORDERED: eZETimibe 10 MG (ZETIA) TABLET PO SCH (21:00)
[2016-11-18] MEDS ORDERED: TEMAZEPAM 15 MG (RESTORIL) CAP PO SCH (21:00)
[2016-11-18] MEDS ORDERED: NON-FORMULARY MEDICATION 1 EA EA (Duloxetine HCl 60 MG) PO SCH (21:00)
[2016-11-18] MEDS ORDERED: LEVOTHYROXINE 112 MCG (LEVOTHROID) TAB PO SCH (21:00)
[2016-11-18] MEDS ORDERED: NON-FORMULARY MEDICATION 1 EA EA (Verapamil HCl 120 MG) PO SCH (21:00)
[2016-11-18] MEDS ORDERED: VERAPAMIL SR 240 MG (CALAN SR) TAB PO SCH (21:00)
[2016-11-19 00:35] VITALS: BP 119/64
[2016-11-19] MEDS: CYCLOBENZAPRINE 10 MG (FLEXERIL) TAB PO PRN ×2 (00:55→08:28)
[2016-11-19] MEDS: KETOROLAC 30 MG/ML VIAL IV SCH ×2 (03:18→08:28)
[2016-11-19 04:22] VITALS: BP 114/69
--- NOTE | 2016-11-19 07:39 | Anesthesia-General Post-Op ---
General Patient Condition Mental Status/LOC: Same as Preop Cardiovascular: Satisfactory Nausea/Vomiting: Absent Respiratory: Satisfactory Pain: Controlled Complications: Absent Post Op Complications Complications None Follow Up Care/Instructions Patient Instructions None needed. Anesthesia/Patient Condition Patient Condition Patient is doing well, no complaints, stable vital signs, no apparent adverse anesthesia problems. No complications reported per nursing. GERMAIN HSIEH CRNA Nov 19, 2016 07:39
[2016-11-19 08:00] VITALS: BP 134/85
[2016-11-19] MEDS: risperiDONE 0.25 MG (RisperDAL) TAB PO SCH (08:28)
[2016-11-19] MEDS: ACYCLOVIR 400 MG TABLET (ZOVIRAX) PO SCH (08:28)
[2016-11-19] MEDS: DULoxetine 30 MG (CYMBALTA) CAP PO SCH (08:28)
[2016-11-19 08:50] VITALS: BP 134/85
[2016-11-19] MEDS ORDERED: VENlafaxine XR 75 MG (EFFEXOR XR) CAP PO SCH (17:00)
== END 2016-11-19 08:50 | disposition home or self-care (01) ==
LOC: SDC 06:19 → 4TH 11:43 → SDC 11:43 → 4TH 11-19 08:50 → SDC 11-19 08:50
PROVIDERS: ATTEND Surgery
DX: K43.9 Ventral hernia without obstruction or gangrene (principal); F41.9 Anxiety disorder, unspecified; F31.9 Bipolar disorder, unspecified; E78.5 Hyperlipidemia, unspecified; F17.210 Nicotine dependence, cigarettes, uncomplicated; Z79.899 Other long term (current) drug therapy
CPT/HCPCS: 36415; 80048; 85027; 87081

== ENCOUNTER 2016-12-26 21:24 | Emergency (ER) | payer MEDICARE, MEDICAID ==
[~2016-12-26] VITALS: Ht 157.5 cm; Wt 86.2 kg
[~2016-12-26 21:24] MED LIST changes: +HYDR-3820 PO; +NAPR500T3 PO; -NAPR500T4 PO
--- OUTSIDE RECORDS SUMMARY | 2016-12-26 21:30 | XMS REPORT | Clinical Summary ---
Author Author [facility] Organization [facility] Address Unknown Phone Unavailable Care Team Providers Care Adoption Coordinator Name Role Phone PCP Unavailable Source Comments Some departments are not documenting in the electronic medical record. If you do not see the information that you expected, contact Release of Information in the Health Information Management department at [phone] for further assistance in locating additional records.[facility] Allergies Active Allergy Reactions Severity Noted [...] Taken Blood Pressure 128/86 01/28/2015 10:57 AM FOUR H AGENT Pulse 94 01/28/2015 10:57 AM FOUR H AGENT Temperature 36.4 C (97.5 F) 11/22/2012 10:37 AM CDT Respiratory Rate - - Oxygen Saturation 96% 01/28/2015 10:57 AM FOUR H AGENT Inhaled Oxygen - - Concentration Weight 89.8 kg (198 lb) 01/28/2015 10:57 AM FOUR H AGENT Height 157.5 cm (5' 2") 01/28/2015 10:57 AM FOUR H AGENT Body Mass Index 36.21 01/28/2015 10:57 AM FOUR H AGENT Plan of Treatment Health Maintenance Due Date Last Done Comments PHYSICAL (COMPREHENSIVE) 10/13/1983 EXAM PERTUSSIS VACCINE 10/13/1987 TETANUS VACCINE 1993 CERVICAL CANCER SCREENING 2006 INFLUENZA VACCINE 10/06/2016 BREAST CANCER SCREENING 2016 Results Not on filefrom Last 3 Months
[2016-12-26] MEDS ORDERED: METH4TAB PO (22:06)
--- NOTE | 2016-12-26 22:06 | ED Cough/URI ---
General Chief Complaint: Cough/Cold/Flu Symptoms Stated Complaint: CONGESTION,COUGH Source: patient Exam Limitations: no limitations History of Present Illness Time seen by provider: 22:04 Initial Comments To ER with reports of a nonproductive cough, sore throat, nasal congestion for one week. The cough has become less productive over the past few days. She has been on promethazine with codeine cough syrup which only helps for about 4 hours, she's been on azithromycin without improvement and an inhaler but states that she has persistent symptoms.No fevers or chills. Timing/Duration: week, getting worse Associated Symptoms: cough, fever/chills, sore throat Allergies and Home Medications Allergies Coded Allergies: gabapentin (Verified Allergy, Severe, HIVES, 01/14/15) esomeprazole (Unverified Allergy, Mild, 08/19/15) niacin (Unverified Allergy, Mild, 05/13/14) Uncoded Allergies: "COCKTAIL FOR CHAN" (Allergy, Mild, ITCHING, 02/11/09) Home Medications Acyclovir 400 Mg Tablet, 400 MG PO BID, (Reported) Cholecalciferol (Vitamin D3) 1,000 Unit Tablet, 1,000 UNIT PO HS, (Reported) Cyclobenzaprine HCl 10 Mg Tablet, 10 MG PO TID PRN for MUSCLE SPASMS, (Reported) Duloxetine HCl 60 Mg Capsule.dr, 60 MG PO BID, (Reported) Ezetimibe 10 Mg Tablet, 10 MG PO HS, (Reported) Hydrocodone/Acetaminophen 1 Each Tablet, 1 EACH PO TID PRN for PAIN, (Reported) Hydrocodone/Acetaminophen 1 Each Tablet, 1 TAB PO Q4H PRN for PAIN-MILD TO MODERATE, #30 Ref 0 Prescribed by: ANAMIKA HERNANDEZ on 11/18/16 1009 Levothyroxine Sodium 112 Mcg Tab, 112 MCG PO HS, (Reported) Pramipexole Di-Hcl 0.125 Mg Tablet, 0.125 MG PO HS, (Reported) Pregabalin 100 Mg Capsule, 100 MG PO BID, (Reported) Risperidone 0.25 Mg Tablet, 0.25 MG PO BID, (Reported) Soy Isofl/Blk Coh/Gr Tea/Yerba 1 Each Tablet, 1 EACH PO HS, (Reported) Temazepam 15 Mg Capsule, 15 MG PO HS, (Reported) Venlafaxine HCl 75 Mg Cap.er.24h, 75 MG PO HS, (Reported) Verapamil HCl 120 Mg Tablet, 120 MG PO HS, (Reported) Constitutional: see HPI EENTM: see HPI Respiratory: see HPI, cough Cardiovascular: no symptoms reported Genitourinary: no symptoms reported Musculoskeletal: no symptoms reported Skin: no symptoms reported Psychiatric/Neurological: No Symptoms Reported Past Fnmwiux-Kgedbp-Fmjmxj Hx Patient Social History Alcohol Use: Denies Use Recreational Drug Use: No Smoking Status: Current Everyday Smoker Type Used: Cigarettes 2nd Hand Smoke Exposure: Yes Recent Foreign Travel: No Contact w/Someone Who Travel: No Recent Hopitalizations: Yes (RECENT HERNIA REPAIR) Physical Abuse: No Sexual Abuse: No Immunizations Up To Date Tetanus Booster (TDap): Unknown Date of Influenza Vaccine: Dec 06, 2013 Seasonal Allergies Seasonal Allergies: No Surgeries History of Surgeries: Yes (EXPLORATORY LAP, HIATAL HERNIA REPAIR) Surgeries: Abdominal, Section, Gallbladder, Hysterectomy, Thyroidectomy Respiratory History of Respiratory Disorde: Yes Respiratory Disorders: Pneumonia Cardiovascular History of Cardiac Disorders: Yes (MITRAL VALVE PROLAPSE, NO ANTI-HYPERTENSIVES ) Cardiac Disorders: High Cholesterol, Hypertension, Irregular Heartbeat, Valvular Heart Disease Neurological History of Neurological Disord: Yes (PERIPHERAL NEUROPATHY OF LEGS/FEET) Neurological Disorders: Headaches /Migraines, Neuropathy Reproductive System Hx Reproductive Disorders: No Sexually Transmitted Disease: Yes (HERPES) HIV/AIDS: No 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 FITTER 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 Genitourinary History of Genitourinary Disor: No Gastrointestinal History of Gastrointestinal Di: Yes (ELEVATED LFT'S -UNKNOWN ETIOLOGY PER PT) Gastrointestinal Disorders: Abdominal Hernia, Gastroesophageal Reflux, Liver Disease/Jaundice, Hiatal Hernia Musculoskeletal History of Musculoskeletal Dis: Yes Musculoskeletal Disorders: Arthritis, Fibromyalgia, Chronic Back Pain Endocrine History of Endocrine Disorders: Yes (GOITER - S/P THYROIDECTOMY) Endocrine Disorders: Hypothyroidsim HEENT History of HEENT Disorders: No Loss of Vision: Bilateral Hearing Impairment: Denies Cancer History of Cancer: No Psychosocial History of Psychiatric Problem: Yes Behavioral Health Disorders: Anxiety, Bipolar, Schizophrenia, Depression Suicide Risk Score: 0 Integumentary History of Skin or Integumenta: Yes Skin/Integumentary Disorders: Herpes Blood Transfusions History of Blood Disorders: Yes (ANEMIA) Adverse Reaction to a Blood Tr: No Family Medical History Family Medial History: Cardiovascular disease 19 FATHER Diabetes mellitus 19 FATHER 19 MOTHER FH: mental illness Mental Physical Exam Vital Signs Vital Sign - Last 12Hours 12/26/16 21:36 O2 Delivery Room Air Capillary Refill : General Appearance: WD/WN, no apparent distress Eyes: Bilateral Eye Normal Inspection, Bilateral Eye PERRL, Bilateral Eye EOMI HEENT: PERRL/EOMI, normal ENT inspection Neck: non-tender, full range of motion Respiratory: lungs clear, normal breath sounds, no respiratory distress, no accessory muscle use Cardiovascular: regular rate, rhythm, no murmur Gastrointestinal: normal bowel sounds, non tender, soft Extremities: normal range of motion, non-tender, normal inspection Neurologic/Psychiatric: alert, normal mood/affect, oriented x 3 Skin: normal color, warm/dry Progress/Results/Core Measures Results/Orders My Orders Orders - NATHAN ROBBINS APRN Chest Pa/Lat (2 View) (12/26/16 22:03) Vital Signs/I&O Vital Sign - Last 12Hours 12/26/16 21:36 O2 Delivery Room Air Departure Impression Impression: Primary Impression: Bronchitis Disposition: 01 HOME, SELF-CARE Condition: Stable Departure-Patient Inst. Decision time for Depature: 22:05 Referrals: RALPH SIDDIQUI DO (PCP/Family) Primary Care Physician Patient Instructions: Cough, Adult (DC) Add. Discharge Instructions: 1. Continue cough medication 2. steroids as directed 3. Return to ER for any concerns All discharge instructions reviewed with patient and/or family. Voiced understanding. Scripts Methylprednisolone (Medrol) 4 Mg Tab.ds.pk 4 MG PO UD, #1 PKG Prov: NATHAN ROBBINS APRN 12/26/16 Work/School Note: Work Release Form Date Seen in the Emergency Department: Dec 26, 2016 Return to Work: Dec 28, 2016 Restrictions: No Restrictions NATHAN ROBBINS APRN Dec 26, 2016 22:06
[2016-12-26] MEDS ORDERED: predniSONE 20 MG TAB PO ONE (22:15)
[2016-12-26 22:48] VITALS: BP 131/87
--- NOTE | 2016-12-27 07:04 | Diagnostic Imaging Report ---
INDICATION: Patient feels sick COMPARISON: 04/12/2016 FINDINGS: Two views of the chest are obtained. Heart size is normal. The pulmonary vessels appear unremarkable. There is no pneumothorax, mediastinal widening or pleural fluid demonstrated. The lungs are clear. The osseous structures appear unremarkable. IMPRESSION: No acute abnormality is demonstrated. Dictated by: Dictated on workstation # [id number]
== END 2016-12-26 22:48 | disposition home or self-care (01) ==
LOC: EDUNIT# 21:24 → ER 21:25
DX: J40 Bronchitis, not specified as acute or chronic (principal); F41.9 Anxiety disorder, unspecified; F31.9 Bipolar disorder, unspecified; G43.909 Migraine, unspecified, not intractable, without status migrainosus; F20.9 Schizophrenia, unspecified; E78.00 Pure hypercholesterolemia, unspecified; I10 Essential (primary) hypertension; E03.9 Hypothyroidism, unspecified; K21.9 Gastro-esophageal reflux disease without esophagitis; F17.210 Nicotine dependence, cigarettes, uncomplicated; Z90.710 Acquired absence of both cervix and uterus; Z90.89 Acquired absence of other organs; Z87.59 Personal history of other complications of pregnancy, childbirth and the puerperium
CPT/HCPCS: 71020; 99283

== ENCOUNTER 2017-02-15 13:38 | Emergency (ER) | payer MEDICARE, MEDICAID ==
[~2017-02-15] VITALS: Ht 157.5 cm; Wt 86.2 kg
[~2017-02-15 13:38] MED LIST changes: -NAPR500T3 PO; +NAPR500T4 PO
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
[2017-02-15] MEDS ORDERED: HYDROcodone/APAP 5 MG/325 MG (LORTAB) TAB PO ONE (14:00)
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
--- NOTE | 2017-02-15 14:21 | Diagnostic Imaging Report ---
INDICATION: Pain status post injury. COMPARISON: None. FINDINGS: Three views of the left foot demonstrate no acute fracture or dislocation. There are no focal osseous lesions. There is mild soft tissue swelling. Joint spaces are well maintained. No radiopaque foreign bodies are seen. IMPRESSION: Mild soft tissue swelling of the left foot, but no appreciable acute fracture or dislocation. Dictated by: Dictated on workstation # [id number]
[2017-02-15 14:30] VITALS: BP 153/88
== END 2017-02-15 14:30 | disposition home or self-care (01) ==
LOC: EDUNIT# 13:38 → ER 13:40
DX: S00.83XA Contusion of other part of head, initial encounter (principal); H20.9 Unspecified iridocyclitis; F41.9 Anxiety disorder, unspecified; F31.9 Bipolar disorder, unspecified; F20.9 Schizophrenia, unspecified; E03.9 Hypothyroidism, unspecified; M10.9 Gout, unspecified; K21.9 Gastro-esophageal reflux disease without esophagitis; E78.00 Pure hypercholesterolemia, unspecified; Z87.19 Personal history of other diseases of the digestive system; Z87.01 Personal history of pneumonia (recurrent); Z90.89 Acquired absence of other organs; Z90.710 Acquired absence of both cervix and uterus; Y04.8XXA Assault by other bodily force, initial encounter
CPT/HCPCS: 70450; 72125; 73630; 99283

== ENCOUNTER 2017-02-22 18:42 | Emergency (ER) | payer MEDICARE, MEDICAID ==
[~2017-02-22] VITALS: Ht 162.6 cm; Wt 88.5 kg
--- OUTSIDE RECORDS SUMMARY | 2017-02-22 18:56 | XMS REPORT | Continuity of Care Document ---
Author Author [facility] Organization [facility] Address Unknown Phone Unavailable Care Team Providers Care Construction Project Assistant Name Role Phone [facility] Unavailable Unavailable Problems Medications Allergies, Adverse Reactions, Alerts Immunizations Results Vital Signs Encounters Procedures Plan of Care Social History Assessment and Plan Family History Value Date Source Advance Directives Order Name Results Value Date Source
--- OUTSIDE RECORDS SUMMARY | 2017-02-22 18:56 | XMS REPORT | Clinical Summary ---
Author Author [facility] Organization [facility] Address Unknown Phone Unavailable Care Team Providers Care Salesperson [employer] Name Role Phone PCP Unavailable Source Comments Some departments are not documenting in the electronic medical record. If you do not see the information that you expected, contact Release of Information in the Health Information Management department at [phone] for further assistance in locating additional records.[facility] Allergies Active Allergy Reactions Severity Noted [...] Taken Blood Pressure 128/86 01/28/2015 10:57 AM [employer] Pulse 94 01/28/2015 10:57 AM [employer] Temperature 36.4 C (97.5 F) 11/22/2012 10:37 AM CDT Respiratory Rate - - Oxygen Saturation 96% 01/28/2015 10:57 AM [employer] Inhaled Oxygen - - Concentration Weight 89.8 kg (198 lb) 01/28/2015 10:57 AM [employer] Height 157.5 cm (5' 2") 01/28/2015 10:57 AM [employer] Body Mass Index 36.21 01/28/2015 10:57 AM [employer] Plan of Treatment Health Maintenance Due Date Last Done Comments PHYSICAL (COMPREHENSIVE) 10/13/1983 EXAM PERTUSSIS VACCINE 10/13/1987 TETANUS VACCINE 1993 CERVICAL CANCER SCREENING 2006 INFLUENZA VACCINE 10/06/2016 BREAST CANCER SCREENING 2016 Results Not on filefrom Last 3 Months
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
--- NOTE | 2017-02-22 19:20 | Diagnostic Imaging Report ---
INDICATION: Injury. Pain. COMPARISON: None. FINDINGS: Three views of the left foot are obtained. No acute fracture, malalignment, or osseous destructive process is seen. IMPRESSION: Negative left foot. Dictated by: Dictated on workstation # [id number]
[2017-02-22 19:26] VITALS: BP 132/80
== END 2017-02-22 19:26 | disposition home or self-care (01) ==
LOC: EDUNIT# 18:42 → ER 18:44
DX: S90.32XA Contusion of left foot, initial encounter (principal); F17.210 Nicotine dependence, cigarettes, uncomplicated; Z90.710 Acquired absence of both cervix and uterus; E78.00 Pure hypercholesterolemia, unspecified; I10 Essential (primary) hypertension; G43.909 Migraine, unspecified, not intractable, without status migrainosus; K21.9 Gastro-esophageal reflux disease without esophagitis; E03.9 Hypothyroidism, unspecified; F41.9 Anxiety disorder, unspecified; F31.9 Bipolar disorder, unspecified; F20.9 Schizophrenia, unspecified; E04.9 Nontoxic goiter, unspecified; G90.09 Other idiopathic peripheral autonomic neuropathy; Z90.89 Acquired absence of other organs; Z87.19 Personal history of other diseases of the digestive system; Y04.0XXA Assault by unarmed brawl or fight, initial encounter
CPT/HCPCS: 73630; 99283

== ENCOUNTER 2017-04-26 20:50 | Emergency (ER) | payer MEDICARE, MEDICAID ==
[~2017-04-26] VITALS: Ht 162.6 cm; Wt 86.2 kg
[~2017-04-26 20:50] MED LIST changes: +ACHD5005 PO; -HYDR-3812 PO
--- NOTE | 2017-04-26 20:59 | ED Headache ---
General Chief Complaint: General Problems/Pain Stated Complaint: MIGRAINES Source: patient Exam Limitations: no limitations History of Present Illness Date Seen by Provider: Apr 26, 2017 Time Seen by Provider: 20:57 Initial Comments To ER with a global headache associated with photophobia and nausea for 2-3 weeks this is been constant despite Benadryl, tramadol at home. History of chronic migraines and this feels similar. Location: global Associated Symptoms: nausea/vomiting Allergies and Home Medications Allergies Coded Allergies: gabapentin (Verified Allergy, Severe, HIVES, 01/14/15) esomeprazole (Unverified Allergy, Mild, 08/19/15) niacin (Unverified Allergy, Mild, 05/13/14) Uncoded Allergies: "COCKTAIL FOR CHAN" (Allergy, Mild, ITCHING, 02/11/09) Home Medications Acyclovir 400 Mg Tablet, 400 MG PO BID, (Reported) Cholecalciferol (Vitamin D3) 1,000 Unit Tablet, 1,000 UNIT PO HS, (Reported) Cyclobenzaprine HCl 10 Mg Tablet, 10 MG PO TID PRN for MUSCLE SPASMS, (Reported) Duloxetine HCl 60 Mg Capsule.dr, 60 MG PO BID, (Reported) Ezetimibe 10 Mg Tablet, 10 MG PO HS, (Reported) Hydrocodone Bit/Acetaminophen 1 Each Tablet, 1 EACH PO TID PRN for PAIN, ( Reported) Hydrocodone/Acetaminophen 1 Each Tablet, 1 TAB PO Q4H PRN for PAIN-MILD TO MODERATE, #30 Ref 0 Prescribed by: ANAMIKA HERNANDEZ on 11/18/16 1009 Levothyroxine Sodium 112 Mcg Tab, 112 MCG PO HS, (Reported) Methylprednisolone 4 Mg Tab.ds.pk, 4 MG PO UD, #1 Prescribed by: NATHAN ROBBINS on 12/26/16 2206 Pramipexole Di-Hcl 0.125 Mg Tablet, 0.125 MG PO HS, (Reported) Pregabalin 100 Mg Capsule, 100 MG PO BID, (Reported) Risperidone 0.25 Mg Tablet, 0.25 MG PO BID, (Reported) Soy Isofl/Blk Coh/Gr Tea/Yerba 1 Each Tablet, 1 EACH PO HS, (Reported) Temazepam 15 Mg Capsule, 15 MG PO HS, (Reported) Venlafaxine HCl 75 Mg Cap.er.24h, 75 MG PO HS, (Reported) Verapamil HCl 120 Mg Tablet, 120 MG PO HS, (Reported) Constitutional: see HPI Eyes: No Symptoms Reported Ears, Nose, Mouth, Throat: no symptoms reported Respiratory: no symptoms reported Cardiovascular: no symptoms reported Genitourinary: no symptoms reported Musculoskeletal: see HPI Skin: no symptoms reported Psychiatric/Neurological: See HPI, Headache Past Fzayfnd-Bsssqv-Vevqik Hx Patient Social History Type Used: Cigarettes 2nd Hand Smoke Exposure: Yes Recent Hopitalizations: Yes (RECENT HERNIA REPAIR 11/2016) Immunizations Up To Date Tetanus Booster (TDap): Unknown Date of Influenza Vaccine: Dec 06, 2013 Seasonal Allergies Seasonal Allergies: No Surgeries History of Surgeries: Yes (EXPLORATORY LAP, HIATAL HERNIA REPAIR) Surgeries: Abdominal, Section, Gallbladder, Hysterectomy, Thyroidectomy Respiratory History of Respiratory Disorde: Yes Respiratory Disorders: Pneumonia Cardiovascular History of Cardiac Disorders: Yes (MITRAL VALVE PROLAPSE, NO ANTI-HYPERTENSIVES ) Cardiac Disorders: High Cholesterol, Hypertension, Irregular Heartbeat, Valvular Heart Disease Neurological History of Neurological Disord: Yes (PERIPHERAL NEUROPATHY OF LEGS/FEET) Neurological Disorders: Headaches /Migraines, Neuropathy Reproductive System Hx Reproductive Disorders: No Sexually Transmitted Disease: Yes (HERPES) 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/AIDS: 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 Genitourinary History of Genitourinary Disor: No Gastrointestinal History of Gastrointestinal Di: Yes (ELEVATED LFT'S -UNKNOWN ETIOLOGY PER PT) Gastrointestinal Disorders: Abdominal Hernia, Gastroesophageal Reflux, Liver Disease/Jaundice, Hiatal Hernia Musculoskeletal History of Musculoskeletal Dis: Yes Musculoskeletal Disorders: Arthritis, Fibromyalgia, Chronic Back Pain Endocrine History of Endocrine Disorders: Yes (GOITER - S/P THYROIDECTOMY) Endocrine Disorders: Hypothyroidsim HEENT History of HEENT Disorders: No Loss of Vision: Bilateral Hearing Impairment: Denies Cancer History of Cancer: No Psychosocial History of Psychiatric Problem: Yes Behavioral Health Disorders: Anxiety, Bipolar, Schizophrenia, Depression Integumentary History of Skin or Integumenta: Yes Skin/Integumentary Disorders: Herpes Blood Transfusions History of Blood Disorders: Yes (ANEMIA) Adverse Reaction to a Blood Tr: No Family Medical History Family Medial History: Cardiovascular disease 19 FATHER Diabetes mellitus 19 FATHER 19 MOTHER FH: mental illness Mental Physical Exam Vital Signs Vital Signs - First Documented 04/26/17 20:56 Temp 98.8 Pulse 102 Resp 22 B/P (MAP) 142/102 (115) Pulse Ox 98 Capillary Refill : General Appearance: WD/WN, no apparent distress HEENT: PERRL/EOMI, normal ENT inspection Neck: non-tender, full range of motion Respiratory: normal breath sounds, no respiratory distress, no accessory muscle use Extremities: normal range of motion, non-tender Psychiatric: alert, oriented x 3 Crainal Nerves: normal hearing, normal speech, PERRL Skin: normal color, warm/dry Progress/Results/Core Measures Results/Orders My Orders Orders - NATHAN ROBBINS APRN Ketorolac Injection (Toradol Injection) (04/26/17 21:00) Prochlorperazine Injection (Compazine In (04/26/17 21:00) Diphenhydramine Injection (Benadryl Inje (04/26/17 21:00) Medications Given in ED Current Medications Medications Dose Ordered Sig/Emeka Route Start Time Stop Time Status Last Admin Dose Admin Diphenhydramine HCl 50 mg ONCE ONCE IM 04/26/17 21:00 04/26/17 21:01 DC 04/26/17 21:05 50 MG Ketorolac Tromethamine 60 mg ONCE ONCE IM 04/26/17 21:00 04/26/17 21:01 DC 04/26/17 21:05 60 MG Prochlorperazine Edisylate 10 mg ONCE ONCE IM 04/26/17 21:00 04/26/17 21:01 DC 04/26/17 21:06 10 MG Vital Signs/I&O Vital Sign - Last 12Hours 04/26/17 20:56 Temp 98.8 Pulse 102 Resp 22 B/P (MAP) 142/102 (115) Pulse Ox 98 Departure Communication (Admissions) Progress Notes 0- arrival pain is 10 out of 10, currently 6 out of 10. Offered to allow her to wait and see if she gets additional improvement or go on home to sleep. She elected to go on home to sleep. Impression Impression: Primary Impression: Headache Disposition: HOME, SELF-CARE Condition: Improved Departure-Patient Inst. Decision time for Depature: 20:58 Referrals: RALPH SIDDIQUI DO (PCP/Family) Primary Care Physician Patient Instructions: HEADACHE Add. Discharge Instructions: 1. Return to ER for any concerns 2. Follow-up with your doctor next week All discharge instructions reviewed with patient and/or family. Voiced understanding. NATHAN ROBBINS APRN Apr 26, 2017 20:59
[2017-04-26] MEDS ORDERED: KETOROLAC 60 MG/2 ML VIAL IM ONE (21:00)
[2017-04-26] MEDS ORDERED: diphenhydrAMINE 50 MG/ML INJ (BENADRYL) IM ONE (21:00)
[2017-04-26] MEDS ORDERED: PROCHLORPERAZINE 10 MG/2ML INJ (COMPAZINE) IM ONE (21:00)
[2017-04-26 21:41] VITALS: BP 142/102
== END 2017-04-26 21:42 | disposition home or self-care (01) ==
LOC: EDUNIT# 20:50 → ER 20:52
DX: R51 Headache (principal); F41.9 Anxiety disorder, unspecified; F31.9 Bipolar disorder, unspecified; F20.9 Schizophrenia, unspecified; G57.92 Unspecified mononeuropathy of left lower limb; E89.0 Postprocedural hypothyroidism; K21.9 Gastro-esophageal reflux disease without esophagitis; E78.00 Pure hypercholesterolemia, unspecified; I10 Essential (primary) hypertension; Z77.22 Contact with and (suspected) exposure to environmental tobacco smoke (acute) (chronic); Z87.59 Personal history of other complications of pregnancy, childbirth and the puerperium; Z90.89 Acquired absence of other organs; Z90.710 Acquired absence of both cervix and uterus; Z88.3 Allergy status to other anti-infective agents; Z88.8 Allergy status to other drugs, medicaments and biological substances
CPT/HCPCS: 99284

== ENCOUNTER 2017-07-25 22:44 | Emergency (ER) | payer MEDICARE, MEDICAID ==
[~2017-07-25] VITALS: Ht 162.6 cm; Wt 90.7 kg
[~2017-07-25 22:44] MED LIST changes: +NAPR-915 PO; -NAPR500T4 PO
[2017-07-26] MEDS ORDERED: KETOROLAC 60 MG/2 ML VIAL IM ONE (00:15)
[2017-07-26] MEDS ORDERED: RT-ALBUTEROL/IPRATROPIUM 3 ML (DUONEB) VIAL INH ONE (00:15)
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
[2017-07-26] MEDS ORDERED: diphenhydrAMINE 50 MG/ML INJ (BENADRYL) IVP ONE (00:30)
[2017-07-26] MEDS ORDERED: methylPREDNISolone 125 MG (Solu-MEDROL) VIAL IM ONE (00:30)
[2017-07-26] MEDS ORDERED: METH4TAB PO (00:46)
[2017-07-26] MEDS ORDERED: BENZ-13 PO (00:46)
[2017-07-26] MEDS ORDERED: ALBU2.5V4 IH (00:46)
[2017-07-26] MEDS ORDERED: DOXY100C42 PO (00:46)
[2017-07-26] MEDS ORDERED: GUAI1TBM19 PO (00:46)
[2017-07-26 01:18] VITALS: BP 153/104
--- NOTE | 2017-07-26 06:41 | Diagnostic Imaging Report ---
Indication: Cough. Comparison: 12/26/2016 FIndings: Two views of the chest are obtained. Heart size is normal. The pulmonary vessels appear unremarkable. There is no pneumothorax, mediastinal widening or pleural fluid. The lungs are clear. The osseous structures appear unremarkable. Impression: No radiographic evidence of an acute cardiopulmonary abnormality. No interval change from the prior study. Dictated by: Dictated on workstation # [id number]
--- OUTSIDE RECORDS SUMMARY | 2017-07-26 17:14 | XMS REPORT | Clinical Summary ---
Author Author [facility] Organization [facility] Address Unknown Phone Unavailable Care Team Providers Care Bargeman Name Role Phone Robin De La Cruz MD Unavailable Dago Vu MD Unavailable Cleopatra Butler RN Unavailable Unavailable Germain Louis MD Unavailable Livier Dozier PCP Source Comments Some departments are not documenting in the electronic medical record. If you do not see the information that you expected, contact Release of Information in the Health Information Management department at [phone] for further assistance in locating additional records.[facility] Allergies Active Allergy Reactions Severity Noted Date Comments Gabapentin RASH 04/23/2011 Niacin ANAPHYLAXIS High 01/28/2015 Current Medications Prescription Sig. Disp. Refills Start [...] Taken Blood Pressure 128/86 01/28/2015 10:57 AM [facility] Pulse 94 01/28/2015 10:57 AM [facility] Temperature 36.4 C (97.5 F) 11/22/2012 10:37 AM CDT Respiratory Rate - - Oxygen Saturation 96% 01/28/2015 10:57 AM [facility] Inhaled Oxygen - - Concentration Weight 89.8 kg (198 lb) 01/28/2015 10:57 AM [facility] Height 157.5 cm (5' 2") 01/28/2015 10:57 AM [facility] Body Mass Index 36.21 01/28/2015 10:57 AM [facility] Plan of Treatment Health Maintenance Due Date Last Done Comments PHYSICAL (COMPREHENSIVE) 10/13/1983 EXAM PERTUSSIS VACCINE 10/13/1987 HIV SCREENING 10/13/1991 TETANUS VACCINE 1993 CERVICAL CANCER SCREENING 2006 BREAST CANCER SCREENING 2016 INFLUENZA VACCINE 12/06/2017 Results Not on filefrom Last 3 Months
--- OUTSIDE RECORDS SUMMARY | 2017-07-26 17:14 | XMS REPORT | Continuity of Care Document ---
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
== END 2017-07-26 01:20 | disposition home or self-care (01) ==
LOC: EDUNIT# 22:44 → ER 22:45
DX: J40 Bronchitis, not specified as acute or chronic (principal); J32.9 Chronic sinusitis, unspecified; H65.91 Unspecified nonsuppurative otitis media, right ear; E78.00 Pure hypercholesterolemia, unspecified; I10 Essential (primary) hypertension; G43.909 Migraine, unspecified, not intractable, without status migrainosus; G62.9 Polyneuropathy, unspecified; Z87.01 Personal history of pneumonia (recurrent); K21.9 Gastro-esophageal reflux disease without esophagitis; E03.9 Hypothyroidism, unspecified; F41.9 Anxiety disorder, unspecified; F31.9 Bipolar disorder, unspecified; F20.9 Schizophrenia, unspecified; D64.9 Anemia, unspecified; F17.210 Nicotine dependence, cigarettes, uncomplicated; Z87.59 Personal history of other complications of pregnancy, childbirth and the puerperium; Z90.710 Acquired absence of both cervix and uterus; Z88.1 Allergy status to other antibiotic agents
CPT/HCPCS: 71046; 94640; 94664; 96372; 96374

== ENCOUNTER 2017-11-04 00:52 | Emergency (ER) | payer MEDICARE, MEDICAID ==
[~2017-11-04] VITALS: Ht 162.6 cm; Wt 86.6 kg
[~2017-11-04 00:52] MED LIST changes: +ALBU2.5V4 IH; +BENZ100C18 PO; +DOXY100C42 PO; +GUAI1TBM19 PO; +HYDR-4226 PO; -HYDR-757 PO
[2017-11-04] MEDS ORDERED: ALPR0.254 (01:15)
[2017-11-04] MEDS ORDERED: TRAM50TA2 (01:15)
[2017-11-04] MEDS ORDERED: PRAM0.128 (01:15)
[2017-11-04] MEDS: diphenhydrAMINE 50 MG/ML INJ (BENADRYL) IM ONE (01:51)
[2017-11-04] MEDS: KETOROLAC 60 MG/2 ML VIAL IM ONE (01:51)
[2017-11-04] MEDS: ORPHENADRINE 60 MG/2 ML (NORFLEX) AMP IM ONE (01:51)
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
[2017-11-04] MEDS ORDERED: NF-CIPDEC OT (01:55)
[2017-11-04 02:12] VITALS: BP 135/80
--- OUTSIDE RECORDS SUMMARY | 2017-11-04 07:29 | XMS REPORT | Clinical Summary ---
Author Author [facility] Organization [facility] Address Unknown Phone Unavailable Care Team Providers Care Analysis Specialist Name Role Phone Robin De La Cruz MD Unavailable Dago Vu MD Unavailable Cleopatra Butler RN Unavailable Unavailable Germain Louis MD Unavailable Livier Dozier PCP Source Comments Some departments are not documenting in the electronic medical record. If you do not see the information that you expected, contact Release of Information in the Health Information Management department at [phone] for further assistance in locating additional records.[facility] Allergies Active Allergy Reactions Severity Noted [...] mouth as Active tabletIndications: Needed for Other.... anxiety Indications: ANXIETY verapamil CR (CALAN-SR) Take 1 [...] Taken Blood Pressure 128/86 01/28/2015 10:57 AM [employer] Pulse 94 01/28/2015 10:57 AM [employer] Temperature 36.4 C (97.5 F) 11/22/2012 10:37 AM CDT Respiratory Rate - - Oxygen Saturation 96% 01/28/2015 10:57 AM [employer] Inhaled Oxygen - - Concentration Weight 89.8 kg (198 lb) 01/28/2015 10:57 AM [employer] Height 157.5 cm (5' 2") 01/28/2015 10:57 AM [employer] Body Mass Index 36.21 01/28/2015 10:57 AM [employer] Plan of Treatment Health Maintenance Due Date Last Done Comments PHYSICAL (COMPREHENSIVE) 10/13/1983 EXAM PERTUSSIS VACCINE 10/13/1987 HIV SCREENING 10/13/1991 TETANUS VACCINE 1993 CERVICAL CANCER SCREENING 2006 BREAST CANCER SCREENING 2016 INFLUENZA VACCINE 12/06/2017 Results Not on filefrom Last 3 Months
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
== END 2017-11-04 02:12 | disposition home or self-care (01) ==
LOC: EDUNIT# 00:52 → ER 00:54
DX: R51 Headache (principal); G89.29 Other chronic pain; H60.91 Unspecified otitis externa, right ear; E78.00 Pure hypercholesterolemia, unspecified; I10 Essential (primary) hypertension; F41.9 Anxiety disorder, unspecified; F31.9 Bipolar disorder, unspecified; F20.9 Schizophrenia, unspecified; K21.9 Gastro-esophageal reflux disease without esophagitis; F17.210 Nicotine dependence, cigarettes, uncomplicated; Z86.19 Personal history of other infectious and parasitic diseases; Z82.49 Family history of ischemic heart disease and other diseases of the circulatory system; Z88.8 Allergy status to other drugs, medicaments and biological substances; Z87.19 Personal history of other diseases of the digestive system; Z79.51 Long term (current) use of inhaled steroids; Z98.890 Other specified postprocedural states; Z90.710 Acquired absence of both cervix and uterus; Z90.89 Acquired absence of other organs; Z87.01 Personal history of pneumonia (recurrent)
CPT/HCPCS: 96372; 99284

== ENCOUNTER 2018-01-17 23:38 | Observation (INO) | payer MEDICARE, MEDICAID ==
[~2018-01-17] VITALS: Ht 162.6 cm; Wt 90.4 kg
[~2018-01-17 23:38] MED LIST changes: +ALPR0.254 PO; +NF-CIPDEC OT; +TRAM50TA2
--- OUTSIDE RECORDS SUMMARY | 2018-01-17 23:44 | XMS REPORT | Clinical Summary ---
Author Author [facility] Organization [facility] Address Unknown Phone Unavailable Care Team Providers Care Terminal Superintendent Name Role Phone Robin De La Cruz MD Unavailable Dago Vu MD Unavailable Cleopatra Butler RN Unavailable Unavailable Germain Louis MD Unavailable Livier Dozier PCP Source Comments Some departments are not documenting in the electronic medical record. If you do not see the information that you expected, contact Release of Information in the Health Information Management department at [phone] for further assistance in locating additional records.[facility] Allergies Active Allergy Reactions Severity Noted [...] Taken Blood Pressure 128/86 01/28/2015 10:57 AM [employer] Pulse 94 01/28/2015 10:57 AM [employer] Temperature 36.4 C (97.5 F) 11/22/2012 10:37 AM CDT Respiratory Rate - - Oxygen Saturation 96% 01/28/2015 10:57 AM [employer] Inhaled Oxygen - - Concentration Weight 89.8 kg (198 lb) 01/28/2015 10:57 AM [employer] Height 157.5 cm (5' 2") 01/28/2015 10:57 AM [employer] Body Mass Index 36.21 01/28/2015 10:57 AM [employer] Plan of Treatment Health Maintenance Due Date Last Done Comments PHYSICAL (COMPREHENSIVE) 10/13/1983 EXAM PERTUSSIS VACCINE 10/13/1987 HIV SCREENING 10/13/1991 TETANUS VACCINE 1993 CERVICAL CANCER SCREENING 2006 BREAST CANCER SCREENING 2016 INFLUENZA VACCINE 10/06/2017 Results Not on filefrom Last 3 Months
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
[2018-01-17 23:52] LABS: BASOPHILS # (AUTO) 0.1 10^3/uL (0.0-0.1); BASOPHILS % (AUTO) 0 % (0-10); EOSINOPHILS # (AUTO) 0.2 10^3/uL (0.0-0.3); EOSINOPHILS % (AUTO) 2 % (0-10); HEMATOCRIT 47 % (35-52); HEMOGLOBIN 15.9 G/DL (11.5-16.0); LYMPHOCYTES # (AUTO) 6.4 X 10^3 (1.0-4.0); LYMPHOCYTES % (AUTO) 45 % (12-44); MEAN CORPUSCULAR HEMOGLOBIN 33 PG (25-34); MEAN CORPUSCULAR HGB CONC 34 G/DL (32-36); MEAN CORPUSCULAR VOLUME 97 FL (80-99); MEAN PLATELET VOLUME 12.8 FL (7.4-10.4); MONOCYTES # (AUTO) 0.8 X 10^3 (0.0-1.0); MONOCYTES % (AUTO) 6 % (0-12); NEUTROPHILS # (AUTO) 6.6 X 10^3 (1.8-7.8); NEUTROPHILS % (AUTO) 47 % (42-75); PLATELET COUNT 139 10^3/uL (130-400); RED CELL DISTRIBUTION WIDTH 14.9 % (10.0-14.5); WHITE BLOOD COUNT 14.2 10^3/uL (4.3-11.0)
[2018-01-17 23:59] LABS: INR 1.3 (0.8-1.4); PROTHROMBIN TIME PATIENT 15.9 SEC (12.2-14.7)
[2018-01-18] VITALS (11 sets, daily range): BP systolic 109–160; BP diastolic 61–96
[2018-01-18 00:06] LABS: ALANINE AMINOTRANSFERASE 33 U/L (0-55); ALBUMIN 3.6 GM/DL (3.2-4.5); ALKALINE PHOSPHATASE 68 U/L (40-136); BILIRUBIN,TOTAL 0.5 MG/DL (0.1-1.0); BUN/CREATININE RATIO 5; CALCIUM 8.8 MG/DL (8.5-10.1); CARBON DIOXIDE 18 MMOL/L (21-32); CHLORIDE 113 MMOL/L (98-107); CREATININE SERUM 1.01 MG/DL (0.60-1.30); GFR ESTIMATED 60; GLUCOSE 205 MG/DL (70-105); MAGNESIUM 1.9 MG/DL (1.8-2.4); POTASSIUM 2.7 MMOL/L (3.6-5.0); SODIUM 140 MMOL/L (135-145); TOTAL PROTEIN 7.3 GM/DL (6.4-8.2)
[2018-01-18] MEDS ORDERED: NS IV 1000 ML 1,000 ML IV ONE (00:08)
[2018-01-18 00:13] LABS: MYOGLOBIN SERUM 46.2 NG/ML (10.0-92.0)
[2018-01-18] MEDS ORDERED: POTASSIUM CL 10MEQ/50ML IVPB 50 ML IV ONE (00:30)
[2018-01-18 01:18] LABS: EOSINOPHILS % (MANUAL) 2 %; LYMPHOCYTES % (MANUAL) 46 %; MONOCYTES % (MANUAL) 8 %; NEUTROPHILS % (MANUAL) 44 %
[2018-01-18] MEDS ORDERED: LACTATED RINGERS 1,000 ML IV ONE (01:38)
[2018-01-18] MEDS ORDERED: methylPREDNISolone 125 MG (Solu-MEDROL) VIAL IVP ONE (02:30)
[2018-01-18 03:10] LABS: BILIRUBIN,URINE NEGATIVE (NEGATIVE); CLARITY,URINE CLEAR; COLOR,URINE YELLOW; GLUCOSE, URINE (UA) NEGATIVE (NEGATIVE); KETONES,URINE NEGATIVE (NEGATIVE); LEUKOCYTE ESTERASE ,URINE NEGATIVE (NEGATIVE); NITRITE,URINE NEGATIVE (NEGATIVE); PH,URINE 7 (5-9); PROTEIN,URINE NEGATIVE (NEGATIVE); UROBILINOGEN,URINE NORMAL (NORMAL)
[2018-01-18 03:19] LABS: BACTERIA,URINE TRACE /HPF
--- NOTE | 2018-01-18 03:30 | ED Chest Pain ---
General Chief Complaint: Chest Pain Stated Complaint: CP Nursing Triage Note: palpatations/chest pain Nursing Sepsis Screen: No Definite Risk Source: patient Exam Limitations: no limitations History of Present Illness Date Seen by Provider: Jan 17, 2018 Time Seen by Provider: 23:40 Initial Comments This 42-year-old woman presents to the emergency room with complaints of left- sided chest pain that radiates into the left back. Pain has been intermittent this evening. She denies any history of heart disease. Pain does not seem to be alleviated or exacerbated by anything in particular. She has had some gastrointestinal symptoms over the past few days including diarrhea. She has some mild abdominal discomfort. Pain is sharp in nature. She was given aspirin and nitroglycerin by EMS. The nitroglycerin caused a significant drop in blood pressure. Systolic blood pressure dropped into the 70s. IV fluids were initiated. Patient has felt lightheaded since nitroglycerin was administered. Allergies and Home Medications Allergies Coded Allergies: gabapentin (Verified Allergy, Severe, HIVES, 01/14/15) esomeprazole (Unverified Allergy, Mild, 08/19/15) niacin (Unverified Allergy, Mild, 05/13/14) Uncoded Allergies: "COCKTAIL FOR CHAN" (Allergy, Mild, ITCHING, 02/11/09) Home Medications Acyclovir 400 Mg Tablet, 400 MG PO BID, (Reported) Albuterol Sulfate 2.5 Mg/3 Ml Vial.neb, 2.5 MG IH Q4H Prescribed by: PAOLA TAVERAS on 07/26/17 0046 Ciprofloxacin HCl/Dexameth 7.5 Ml Soln, 4 DROPS OT BID Prescribed by: PAOLA TAVERAS on 11/04/17 0155 Ezetimibe 10 Mg Tablet, 10 MG PO HS, (Reported) Levothyroxine Sodium 112 Mcg Tab, 112 MCG PO HS, (Reported) Pregabalin 100 Mg Capsule, 100 MG PO BID, (Reported) Temazepam 15 Mg Capsule, 15 MG PO HS, (Reported) Patient Home Medication List Home Medication List Reviewed: Yes Review of Systems Review of Systems Constitutional: no symptoms reported EENTM: No Symptoms Reported Respiratory: No Symptoms Reported Cardiovascular: See HPI Gastrointestinal: See HPI Genitourinary: No Symptoms Reported Musculoskeletal: no symptoms reported Skin: no symptoms reported Psychiatric/Neurological: No Symptoms Reported Endocrine: No Symptoms Reported Past Sezjhyt-Bljlew-Rlfwiy Hx Past Med/Social Hx: Reviewed Nursing Past Med/Soc Hx Patient Social History Alcohol Use: Denies Use Recreational Drug Use: No Drug of Choice: THC IN PAST Smoking Status: Current Everyday Smoker Type Used: Cigarettes 2nd Hand Smoke Exposure: Yes Recent Foreign Travel: No Contact w/Someone Who Travel: No Recent Infectious Disease Expo: No Recent Hopitalizations: No Immunizations Up To Date Tetanus Booster (TDap): Unknown Date of Influenza Vaccine: Dec 06, 2013 Seasonal Allergies Seasonal Allergies: No Past Medical History Surgeries: Yes (EXPLORATORY LAP, HIATAL HERNIA REPAIR; HYST/BSO) Abdominal, Section, Gallbladder, Hysterectomy, Oophorectomy, Thyroidectomy Respiratory: Yes Pneumonia Cardiac: Yes (MITRAL VALVE PROLAPSE) High Cholesterol, Hypertension, Irregular Heartbeat, Valvular Heart Disease Neurological: Yes (PERIPHERAL NEUROPATHY-LEGS/FEET) Headaches /Migraines, Neuropathy : No Reproductive Disorders: No 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 ) Hypothyroidsim HEENT: No Loss of Vision: Bilateral Hearing Impairment: Denies Cancer: No Psychosocial: Yes Anxiety, Bipolar, Schizophrenia, Depression Integumentary: Yes Herpes Blood Disorders: Yes (ANEMIA) Adverse Reaction/Blood Tranf: No Family Medical History Cardiovascular disease 19 FATHER Diabetes mellitus 19 FATHER 19 MOTHER FH: mental illness Mental Physical Exam Vital Signs Vital Signs - First Documented Capillary Refill : Less Than 3 Seconds Height, Weight, BMI Height: 5'4.00" Weight: 190lbs. 0oz. 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 Norm as Tested Progress/Results/Core Measures Results/Orders Lab Results Laboratory Tests Test 01/17/18 23:40 01/18/18 03:04 Range/Units White Blood Count 14.2 H 4.3-11.0 10^3/uL Red Blood Count 4.80 4.35-5.85 10^6/uL Hemoglobin 15.9 11.5-16.0 G/DL Hematocrit 47 35-52 % Mean Corpuscular Volume 97 80-99 FL Mean Corpuscular Hemoglobin 33 25-34 PG Mean Corpuscular Hemoglobin Concent 34 32-36 G/DL Red Cell Distribution Width 14.9 H 10.0-14.5 % Platelet Count 139 130-400 10^3/uL Mean Platelet Volume 12.8 H 7.4-10.4 FL Neutrophils (%) (Auto) 47 42-75 % Lymphocytes (%) (Auto) 45 H 12-44 % Monocytes (%) (Auto) 6 0-12 % Eosinophils (%) (Auto) 2 0-10 % Basophils (%) (Auto) 0 0-10 % Neutrophils # (Auto) 6.6 1.8-7.8 X 10^3 Lymphocytes # (Auto) 6.4 H 1.0-4.0 X 10^3 Monocytes # (Auto) 0.8 0.0-1.0 X 10^3 Eosinophils # (Auto) 0.2 0.0-0.3 10^3/uL Basophils # (Auto) 0.1 0.0-0.1 10^3/uL Neutrophils % (Manual) 44 % Lymphocytes % (Manual) 46 % Monocytes % (Manual) 8 % Eosinophils % (Manual) 2 % Prothrombin Time 15.9 H 12.2-14.7 SEC INR Comment 1.3 0.8-1.4 Activated Partial Thromboplast Time 32 24-35 SEC Sodium Level 140 135-145 MMOL/L Potassium Level 2.7 L 3.6-5.0 MMOL/L Chloride Level 113 H 98-107 MMOL/L Carbon Dioxide Level 18 L 21-32 MMOL/L Anion Gap 9 5-14 MMOL/L Blood Urea Nitrogen 5 L 7-18 MG/DL Creatinine 1.01 0.60-1.30 MG/DL Estimat Glomerular Filtration Rate 60 BUN/Creatinine Ratio 5 Glucose Level 205 H 70-105 MG/DL Calcium Level 8.8 8.5-10.1 MG/DL Corrected Calcium 9.1 8.5-10.1 MG/DL Magnesium Level 1.9 1.8-2.4 MG/DL Total Bilirubin 0.5 0.1-1.0 MG/DL Aspartate Amino Transf (AST/SGOT) 48 H 5-34 U/L Alanine Aminotransferase (ALT/SGPT) 33 0-55 U/L Alkaline Phosphatase 68 40-136 U/L Myoglobin 46.2 10.0-92.0 NG/ML Troponin I < 0.30 <0.30 NG/ML C-Reactive Protein High Sensitivity 0.68 H 0.00-0.50 MG/DL Total Protein 7.3 6.4-8.2 GM/DL Albumin 3.6 3.2-4.5 GM/DL Urine Color YELLOW Urine Clarity CLEAR Urine pH 7 5-9 Urine Specific [place] 1.005 L 1.016-1.022 Urine Protein NEGATIVE NEGATIVE Urine Glucose (UA) NEGATIVE NEGATIVE Urine Ketones NEGATIVE NEGATIVE Urine Nitrite NEGATIVE NEGATIVE Urine Bilirubin NEGATIVE NEGATIVE Urine Urobilinogen NORMAL NORMAL MG/DL Urine Leukocyte Esterase NEGATIVE NEGATIVE Urine RBC (Auto) NEGATIVE NEGATIVE Urine RBC NONE /HPF Urine WBC NONE /HPF Urine Squamous Epithelial Cells 5-10 /HPF Urine Crystals NONE /LPF Urine Bacteria TRACE /HPF Urine Casts NONE /LPF Urine Mucus NEGATIVE /LPF Urine Culture Indicated NO My Orders Orders - JESUSITA SIMON MD Cbc With Automated Diff (01/17/18 23:41) Magnesium (01/17/18 23:41) Ekg Tracing (01/17/18 23:41) Cardiac Profile 1 (01/17/18 23:41) Comprehensive Metabolic Panel (01/17/18 23:41) Myoglobin Serum (01/17/18 23:41) Protime With Inr (01/17/18 23:41) Partial Thromboplastin Time (01/17/18 23:41) O2 (01/17/18 23:41) Monitor-Rhythm Ecg Trace Only (01/17/18 23:41) Lipid Panel (01/18/18 06:00) Saline Lock/Iv-Start (01/17/18 23:41) Manual Differential (01/17/18 23:40) Chest Pa/Lat (2 View) (01/18/18 00:01) Saline Lock/Iv-Start (01/18/18 00:08) Ns Iv 1000 Ml (Sodium Chloride 0.9%) (01/18/18 00:08) Potassium Cl 10meq/50ml Ivpb (Kcl 10 Meq (01/18/18 00:30) Hs C Reactive Protein (01/18/18 00:28) Ua Culture If Indicated (01/18/18 00:28) Lactated Ringers (Lr 1000 Ml Iv Solution (01/18/18 01:38) Methylprednisolone Sod Succ (Solu-Medrol (01/18/18 02:30) Medications Given in ED Current Medications Medications Dose Ordered Sig/Emeka Route Start Time Stop Time Status Last Admin Dose Admin Lactated Ringer's 1,000 ml @ 0 mls/hr Q0M ONCE IV 01/18/18 01:38 01/18/18 01:40 DC 01/18/18 01:46 0 MLS/HR Potassium Chloride 50 ml @ 50 mls/hr ONCE ONCE IV 01/18/18 00:30 01/18/18 01:29 DC 01/18/18 00:40 50 MLS/HR Sodium Chloride 1,000 ml @ 0 mls/hr Q0M ONCE IV 01/18/18 00:08 01/18/18 00:09 DC 01/18/18 00:11 0 MLS/HR Vital Signs/I&O 01/17/18 01/17/18 01/17/18 23:38 23:38 23:38 Temp 98.4 Pulse 90 Resp 12 B/P (MAP) 76/31 (46) Pulse Ox 96 96 O2 Delivery Nasal Cannula Nasal Cannula Nasal Cannula O2 Flow Rate 2.0 2.0 2.00 01/18/18 00:00 Intake Total 100 ml Balance 100 ml Blood Pressure Mean: 46 Progress Progress Note : Progress Note Chest pain protocol was pursued. Pain resolved without any particular treatment. Hypotension eventually resolved after 2 L of IV fluid. A third liter of IV fluid was given to ensure volume resuscitation and to help the patient urinate. Patient did produce urine and a UA was unremarkable. Leukocytosis was present, probably owing to whatever condition is causing her diarrhea. No source of infection was identified after reviewing chest x-ray and urinalysis. Significant hypokalemia was noted. Potassium replacement was initiated with 10 mEq by IV route and with 1 L of lactated ringer. Case was discussed with Dr. Neal. Given patient's smoking history and intermittent chest pain, further cardiac evaluation was felt appropriate. Potassium replacement is definitely necessary. Patient was admitted to Dr. Siddiqui. Initial ECG Impression Date: Jan 18, 2018 Initial ECG Impression Time: 23:40 Initial ECG Rate: 81 Initial ECG Rhythm: Normal Sinus Initial ECG Intervals: Normal Initial ECG Impression: Normal Comment Normal sinus rhythm with no ST elevation. Nondiagnostic subtle ST changes in the lateral leads. No significant abnormal intervals or axis deviation. Diagnostic Imaging Diagonstic Imaging: Xray Plain Films/CT/US/NM/MRI: chest Comments Chest x-ray viewed by me and compared with prior. Report not yet available. No acute changes from prior appreciated. Departure Communication (Admissions) Time/Spoke to Admitting Phy: 03:25 Dr. Siddiqui Time/Spoke to Consulting Phy: 02:15 Dr. Neal Impression Primary Impression: Chest pain Qualified Codes: R07.9 - Chest pain, unspecified Additional Impressions: Diarrhea Qualified Codes: R19.7 - Diarrhea, unspecified Hypotension Qualified Codes: I95.9 - Hypotension, unspecified Hypokalemia Disposition: ADMITTED INPATIENT Condition: Improved Admissions Decision to Admit Reason: Admit from ER (General) Decision to Admit/Date: Jan 18, 2018 Time/Decision to Admit Time: 00:25 Departure-Patient Inst. Referrals: RALPH SIDDIQUI DO (PCP/Family) Primary Care Physician JESUSITA SIMON MD Jan 18, 2018 03:30
--- OUTSIDE RECORDS SUMMARY | 2018-01-18 03:44 | XMS REPORT | Clinical Summary ---
Author Author [facility] Organization [facility] Address Unknown Phone Unavailable Care Team Providers Care Skip Miner Name Role Phone Robin De La Cruz MD Unavailable Dago Vu MD Unavailable Cleopatra Butler RN Unavailable Unavailable Germain Louis MD Unavailable Livier Dozier PCP Source Comments Some departments are not documenting in the electronic medical record. If you do not see the information that you expected, contact Release of Information in the Health Information Management department at [phone] for further assistance in locating additional records.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
--- OUTSIDE RECORDS SUMMARY | 2018-01-18 03:48 | XMS REPORT | Continuity of Care Document ---
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 Registration [id number] 10/31/2009 16:40:00 Document Registration [id number] 07/21/2009 19:37:00 Document Registration [id number] 07/01/2009 17:37:00 Document Registration [id number] 05/06/2009 14:22:00 Document Registration [id number] 10/04/2008 09:17:00 Document Registration [id number] 12/07/2017 16:38:00 12/07/2017 23:59:00 Babs Arenas [id number] 12/10/2017 23:08:00 Document Registration
[2018-01-18] MEDS ORDERED: NS W/KCL 40 MEQ/L 1,000 ML IV ONE (04:03)
[2018-01-18] MEDS: NS W/KCL 40 MEQ/L 1,000 ML IV SCH ×3 (04:11→18:26)
[2018-01-18 04:36] LABS: FREE T4 (FREE THYROXINE) 0.95 NG/DL (0.70-1.48)
[2018-01-18] MEDS ORDERED: ONDANSETRON 4 MG/2 ML (SDV) Z0FRAN IV PRN (04:45)
[2018-01-18] MEDS ORDERED: CATHETER FLUSH 10 ML SYR IV PRN (04:45)
[2018-01-18] MEDS: CATHETER FLUSH 10 ML SYR IV SCH ×3 (05:04→19:52)
[2018-01-18 05:58] LABS: BASOPHILS % (AUTO) 0 % (0-10); EOSINOPHILS # (AUTO) 0.2 10^3/uL (0.0-0.3); EOSINOPHILS % (AUTO) 2 % (0-10); HEMATOCRIT 43 % (35-52); HEMOGLOBIN 14.4 G/DL (11.5-16.0); LYMPHOCYTES # (AUTO) 5.9 X 10^3 (1.0-4.0); LYMPHOCYTES % (AUTO) 47 % (12-44); MEAN CORPUSCULAR HEMOGLOBIN 33 PG (25-34); MEAN CORPUSCULAR HGB CONC 34 G/DL (32-36); MEAN CORPUSCULAR VOLUME 97 FL (80-99); MEAN PLATELET VOLUME 12.7 FL (7.4-10.4); MONOCYTES # (AUTO) 0.7 X 10^3 (0.0-1.0); MONOCYTES % (AUTO) 6 % (0-12); NEUTROPHILS # (AUTO) 5.7 X 10^3 (1.8-7.8); NEUTROPHILS % (AUTO) 46 % (42-75); PLATELET COUNT 121 10^3/uL (130-400); RED BLOOD COUNT 4.39 10^6/uL (4.35-5.85); RED CELL DISTRIBUTION WIDTH 14.8 % (10.0-14.5); WHITE BLOOD COUNT 12.5 10^3/uL (4.3-11.0)
[2018-01-18 06:17] LABS: ALANINE AMINOTRANSFERASE 29 U/L (0-55); ALBUMIN 3.2 GM/DL (3.2-4.5); ALKALINE PHOSPHATASE 68 U/L (40-136); BILIRUBIN,TOTAL 0.3 MG/DL (0.1-1.0); BUN/CREATININE RATIO 7; CALCIUM 8.4 MG/DL (8.5-10.1); CARBON DIOXIDE 19 MMOL/L (21-32); CHLORIDE 120 MMOL/L (98-107); CHOLESTEROL 124 MG/DL (< 200); CREATININE SERUM 0.75 MG/DL (0.60-1.30); GFR ESTIMATED > 60; GLUCOSE 91 MG/DL (70-105); HDL CHOLESTEROL 17 MG/DL (40-60); POTASSIUM 3.7 MMOL/L (3.6-5.0); SODIUM 146 MMOL/L (135-145); TOTAL PROTEIN 6.6 GM/DL (6.4-8.2); TRIGLYCERIDES 151 MG/DL (<150); VLDL CHOLESTEROL 30 MG/DL (5-40)
--- NOTE | 2018-01-18 06:42 | Diagnostic Imaging Report ---
INDICATION: Chest pain and heart palpitations. COMPARISON: 07/26/2017. FINDINGS: No airspace consolidations or pleural effusions. Reticular nodular opacities in the lung bases are similar to prior examination. No pleural effusion or pneumothorax. Heart is normal in size. IMPRESSION: 1. No acute cardiopulmonary process as the exam is unchanged since 07/26/2017. 2. Chronic reticular and nodular opacities in lung bases are indeterminate in nature. A nonemergent CT chest without contrast could be performed for further characterization, as deemed clinically warranted. Dictated by: Dictated on workstation # [id number]
[2018-01-18 06:43] LABS: CARDIAC PROFILE 2 < 0.30 NG/ML (<0.30)
[2018-01-18] MEDS ORDERED: FLU QUADRIvalent (5+ YOA) 2018-2019 (AFLURIA) 0.5 ML IM ONE (07:15)
--- NOTE | 2018-01-18 07:59 | History & Physicial ---
History of Present Illness History of Present Illness Reason for visit/HPI Chest pain last night and back and left shoulder. Came out to the hospital by ambulance. Patient received nitroglycerin and aspirin and became hypotensive. Patient has history of GI symptoms including diarrhea for 3 days. Patient hypokalemic probably due to the diarrhea. Patient hypothyroid. Surgeries hiatal hernia, complete hysterectomy, and thyroid. Patient this morning not feeling well Date of Admission Jan 18, 2018 at 03:35 Time Seen by a Provider: 07:55 I consulted on this patient on 01/18/18 07:54 Attending Physician Carloz Siddiqui DO Admitting Physician Carloz Siddiqui DO Consult Allergies and Home Medications Allergies Coded Allergies: gabapentin (Verified Allergy, Severe, HIVES, 01/14/15) esomeprazole (Unverified Allergy, Mild, 08/19/15) niacin (Unverified Allergy, Mild, 05/13/14) Uncoded Allergies: "COCKTAIL FOR CHAN" (Allergy, Mild, ITCHING, 02/11/09) Home Medications Acyclovir 400 Mg Tablet, 400 MG PO BID, (Reported) Albuterol Sulfate 2.5 Mg/3 Ml Vial.neb, 2.5 MG IH Q4H Prescribed by: PAOLA TAVERAS on 07/26/17 0046 Ciprofloxacin HCl/Dexameth 7.5 Ml Soln, 4 DROPS OT BID Prescribed by: PAOLA TAVERAS on 11/04/17 0155 Ezetimibe 10 Mg Tablet, 10 MG PO HS, (Reported) Levothyroxine Sodium 112 Mcg Tab, 112 MCG PO HS, (Reported) Pregabalin 100 Mg Capsule, 100 MG PO BID, (Reported) Temazepam 15 Mg Capsule, 15 MG PO HS, (Reported) Patient Home Medication List Home Medication List Reviewed: No Past Tykasyr-Ursndr-Jytbvn Hx Patient Social History Employed/Student: unemployed Alcohol Use: Denies Use Recreational Drug Use: No Drug of Choice: THC IN PAST Smoking Status: Current Everyday Smoker Type Used: Cigarettes 2nd Hand Smoke Exposure: Yes Physical Abuse Screen: No Sexual Abuse: No Recent Foreign Travel: No Contact w/other who traveled: No Recent Hopitalizations: No Recent Infectious Disease Expo: No Immunizations Up To Date Tetanus Booster (TDap): Unknown Date of Influenza Vaccine: Dec 06, 2013 Seasonal Allergies Seasonal Allergies: No Surgeries Yes (EXPLORATORY LAP, HIATAL HERNIA REPAIR; HYST/BSO) Abdominal, Section, Gallbladder, Hysterectomy, Oophorectomy, Thyroidectomy Respiratory Yes Currently Using CPAP: No Currently Using BIPAP: No Cardiovascular Yes (MITRAL VALVE PROLAPSE) High Cholesterol, Hypertension, Irregular Heartbeat, Valvular Heart Disease Neurological Yes (PERIPHERAL NEUROPATHY-LEGS/FEET) Headaches /Migraines, Neuropathy Reproductive System : No Hx Reproductive Disorders: No Sexually Transmitted Disease: Yes (HERPES) 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 ) Endocrine Disorders: Hypothyroidsim HEENT History of HEENT Disorders: No Loss of Vision: Bilateral Hearing Impairment: Denies Cancer No Psychosocial History of Psychiatric Problem: Yes Behavioral Health Disorders: Anxiety, Bipolar, Schizophrenia, Depression Integumentary History of Skin or Integumenta: Yes Skin/Integumentary Disorders: Herpes Blood Transfusions History of Blood Disorders: Yes (ANEMIA) Adverse Reaction to a Blood Tr: No Family Medical History Family Hx: Cardiovascular disease 19 FATHER Diabetes mellitus 19 FATHER 19 MOTHER FH: mental illness Mental Review of Systems Constitutional: weakness Respiratory: no symptoms reported Cardiovascular: chest pain Gastrointestinal: no symptoms reported Genitourinary: no symptoms reported Physical Exam Vital Signs Vital Signs - First Documented Capillary Refill : Less Than 3 Seconds Height, Weight, BMI Height: 5'4.00" Weight: 199lbs. 4.0oz. [id number]; 34.2 BMI Method:Stated General Appearance: No Apparent Distress, WD/WN Eyes: Bilateral Eye Normal Inspection HEENT: Normal ENT Inspection Neck: Full Range of Motion Respiratory: Lungs Clear, No Accessory Muscle Use, No Respiratory Distress Cardiovascular: Regular Rate, Rhythm, No Murmur Gastrointestinal: Non Tender, Soft Assessment/Plan Assessment and Plan Chest pain nonspecific. Hypokalemia. Gastroenteritis. Hypothyroid. Pulmonary nodules and lung.. Tobaccoism Admission Diagnosis Admission Status: Observation Clinical Quality Measures AMI/AHF: ASA po Prior to arrival: Yes DVT/VTE Risk/Contraindication: Risk Factor Score Per Nursin RFS Level Per Nursing on Admit: 3=High CARLOZ SIDDIQUI DO Jan 18, 2018 07:59
[2018-01-18] MEDS ORDERED: CYCL10TA9 PO (09:01)
[2018-01-18] MEDS ORDERED: VERA120T6 PO (09:01)
[2018-01-18] MEDS ORDERED: RISP0.253 PO (09:01)
[2018-01-18] MEDS ORDERED: DULO60CA58 PO (09:01)
[2018-01-18] MEDS ORDERED: EZET10TA27 PO (09:01)
[2018-01-18] MEDS ORDERED: TIZA2TAB3 PO (09:01)
[2018-01-18] MEDS ORDERED: LEVO112T55 PO (09:01)
[2018-01-18] MEDS ORDERED: ACET250T3 PO (09:01)
[2018-01-18] MEDS ORDERED: IBUP-30 PO (09:07)
[2018-01-18] MEDS ORDERED: NAPR220T66 PO (09:07)
[2018-01-18] MEDS: LEVOTHYROXINE 125 MCG (LEVOTHROID) TABLET PO SCH (09:29)
[2018-01-18] MEDS: FAMOTIDINE 20MG/2ML IV (PEPCID) IV SCH ×2 (09:29→21:15)
[2018-01-18] MEDS: ENOXAPARIN 40 MG/0.4 ML (LOVENOX) SYR SC SCH (09:29)
[2018-01-18] MEDS: ASPIRIN E.C. 81 MG (ECOTRIN) TAB PO SCH (09:29)
--- NOTE | 2018-01-18 10:18 | Diagnostic Imaging Report ---
PROCEDURE: CT chest without contrast. TECHNIQUE: Multiple contiguous axial images were obtained through the chest without the use of intravenous contrast. INDICATION: Lung nodules. FINDINGS: The previous CTA chest exam performed on 04/12/2016 failed to show any sign of an acute cardiopulmonary abnormality. There was no parenchymal lung mass identified either. On this exam, there is still no evidence for a lung mass; however, in the interval since the previous exam, patchy alveolar/interstitial infiltrates have developed in both lung bases and along the periphery of each upper lobe. Even in retrospect, these findings are difficult to appreciate on the plain film exam performed earlier today at 12:44 AM. There are a few small mediastinal nodes. These seem similar to the previous CTA chest exam. The largest node/nodes is in the pretracheal region and measures 1.2 x 2.3 cm. On the prior exam, this finding measured 1.0 x 2.1 cm. The aorta is not abnormally dilated. The heart size is within normal limits and there are no coronary artery calcifications evident. The thyroid gland is not well visualized but shows no definite abnormality. There is no obvious breast mass. Sections through the upper abdomen fail to show any evidence for an acute abnormality. The gallbladder is surgically absent. The bone windows show no sign of a fracture or destructive lesion. IMPRESSION: 1. There are patchy alveolar/interstitial infiltrates involving both lung bases and to a lesser extent the upper lobes. These findings are most likely due to pneumonia/atelectasis. Clinical followup is recommended. 2. There is still no evidence for a lung mass. Dictated by: Dictated on workstation # [id number]
--- NOTE | 2018-01-18 10:42 | Consultation-Cardiology ---
HPI-Cardiology Cardiology Consultation Date of Consultation 01/18/18 Date of Admission Time Seen by Provider: 10:36 Indication: chest pain HPI 42 years old lady with history of hypertension, has been under stress recently, had abdominal cramps and abdominal pain with diarrhea for the past 2-3 days. Last night had some chest pain described as dull achiness in the retrosternal area radiating to the back, called 911, became hypotensive after receiving sublingual nitroglycerin. She denied any palpitation. No syncope or near syncopal episode, blood pressure improved after receiving IV fluid. Feeling better at this time. Home Medications & Allergies Allergies: Coded Allergies: gabapentin (Verified Allergy, Severe, HIVES, 01/14/15) esomeprazole (Unverified Allergy, Mild, 08/19/15) niacin (Unverified Allergy, Mild, 05/13/14) Uncoded Allergies: "COCKTAIL FOR CHAN" (Allergy, Mild, ITCHING, 02/11/09) Home Medication List Reviewed: Yes OSD-Predod-Vrjevf Hx Patient Social History Employed/Student: unemployed Alcohol Use: Denies Use Recreational Drug Use: No Drug of Choice: THC IN PAST Smoking Status: Current Everyday Smoker Type Used: Cigarettes 2nd Hand Smoke Exposure: Yes Recent Foreign Travel: No Recent Infectious Disease Expo: No Recent Hopitalizations: No Physical Abuse Screen: No Sexual Abuse: No Immunizations Up To Date Tetanus Booster (TDap): Unknown Date of Influenza Vaccine: Dec 06, 2013 Past Medical History Past medical history as described below Family Medical History Family History: Cardiovascular disease 19 FATHER Diabetes mellitus 19 FATHER 19 MOTHER FH: mental illness Mental Review of Systems Constitutional: no symptoms reported, see HPI, malaise, weakness EENTM: see HPI, no symptoms reported Respiratory: see HPI; No cough; dyspnea on exertion; No hemoptysis, No orthopnea, No phlegm, No short of breath, No stridor, No wheezing, No other Cardiovascular: no symptoms reported, see HPI, chest pain; No edema, No Hx of Intervention, No palpitations, No syncope, No vascular heart diseas, No other Gastrointestinal: see HPI, abdominal pain, diarrhea Genitourinary: no symptoms reported, see HPI Musculoskeletal: no symptoms reported, see HPI Skin: no symptoms reported, see HPI Psychiatric/Neurological: No Symptoms Reported, See HPI Reviewed Test Results Reviewed Test Results Lab Laboratory Tests Test 01/17/18 23:40 01/18/18 03:04 01/18/18 05:44 Range/Units White Blood Count 14.2 H 12.5 H 4.3-11.0 10^3/uL Red Blood Count 4.80 4.39 4.35-5.85 10^6/uL Hemoglobin 15.9 14.4 11.5-16.0 G/DL Hematocrit 47 43 35-52 % Mean Corpuscular Volume 97 97 80-99 FL Mean Corpuscular Hemoglobin 33 33 25-34 PG Mean Corpuscular Hemoglobin Concent 34 34 32-36 G/DL Red Cell Distribution Width 14.9 H 14.8 H 10.0-14.5 % Platelet Count 139 121 L 130-400 10^3/uL Mean Platelet Volume 12.8 H 12.7 H 7.4-10.4 FL Neutrophils (%) (Auto) 47 46 42-75 % Lymphocytes (%) (Auto) 45 H 47 H 12-44 % Monocytes (%) (Auto) 6 6 0-12 % Eosinophils (%) (Auto) 2 2 0-10 % Basophils (%) (Auto) 0 0 0-10 % Neutrophils # (Auto) 6.6 5.7 1.8-7.8 X 10^3 Lymphocytes # (Auto) 6.4 H 5.9 H 1.0-4.0 X 10^3 Monocytes # (Auto) 0.8 0.7 0.0-1.0 X 10^3 Eosinophils # (Auto) 0.2 0.2 0.0-0.3 10^3/uL Basophils # (Auto) 0.1 0.0 0.0-0.1 10^3/uL Neutrophils % (Manual) 44 % Lymphocytes % (Manual) 46 % Monocytes % (Manual) 8 % Eosinophils % (Manual) 2 % Prothrombin Time 15.9 H 12.2-14.7 SEC INR Comment 1.3 0.8-1.4 Activated Partial Thromboplast Time 32 24-35 SEC Sodium Level 140 146 H 135-145 MMOL/L Potassium Level 2.7 L 3.7 3.6-5.0 MMOL/L Chloride Level 113 H 120 H 98-107 MMOL/L Carbon Dioxide Level 18 L 19 L 21-32 MMOL/L Anion Gap 9 7 5-14 MMOL/L Blood Urea Nitrogen 5 L 5 L 7-18 MG/DL Creatinine 1.01 0.75 0.60-1.30 MG/DL Estimat Glomerular Filtration Rate 60 > 60 BUN/Creatinine Ratio 5 7 Glucose Level 205 H 91 70-105 MG/DL Calcium Level 8.8 8.4 L 8.5-10.1 MG/DL Corrected Calcium 9.1 9.0 8.5-10.1 MG/DL Magnesium Level 1.9 1.8-2.4 MG/DL Total Bilirubin 0.5 0.3 0.1-1.0 MG/DL Aspartate Amino Transf (AST/SGOT) 48 H 40 H 5-34 U/L Alanine Aminotransferase (ALT/SGPT) 33 29 0-55 U/L Alkaline Phosphatase 68 68 40-136 U/L Myoglobin 46.2 10.0-92.0 NG/ML Troponin I < 0.30 < 0.30 <0.30 NG/ML C-Reactive Protein High Sensitivity 0.68 H 0.00-0.50 MG/DL Total Protein 7.3 6.6 6.4-8.2 GM/DL Albumin 3.6 3.2 3.2-4.5 GM/DL Thyroid Stimulating Hormone (TSH) 7.50 H 0.35-4.94 UIU/ML Free Thyroxine 0.95 0.70-1.48 NG/DL Urine Color YELLOW Urine Clarity CLEAR Urine pH 7 5-9 Urine Specific [place] 1.005 L 1.016-1.022 Urine Protein NEGATIVE NEGATIVE Urine Glucose (UA) NEGATIVE NEGATIVE Urine Ketones NEGATIVE NEGATIVE Urine Nitrite NEGATIVE NEGATIVE Urine Bilirubin NEGATIVE NEGATIVE Urine Urobilinogen NORMAL NORMAL MG/DL Urine Leukocyte Esterase NEGATIVE NEGATIVE Urine RBC (Auto) NEGATIVE NEGATIVE Urine RBC NONE /HPF Urine WBC NONE /HPF Urine Squamous Epithelial Cells 5-10 /HPF Urine Crystals NONE /LPF Urine Bacteria TRACE /HPF Urine Casts NONE /LPF Urine Mucus NEGATIVE /LPF Urine Culture Indicated NO Triglycerides Level 151 H <150 MG/DL Cholesterol Level 124 < 200 MG/DL LDL Cholesterol Direct 91 1-129 MG/DL VLDL Cholesterol 30 5-40 MG/DL HDL Cholesterol 17 L 40-60 MG/DL Physical Exam Vital Signs Vital Signs - First Documented Capillary Refill : Less Than 3 Seconds Height, Weight, BMI Height: 5'4.00" Weight: 199lbs. 4.0oz. 90.781887rj; 34.2 BMI Method:Stated General Appearance: No Apparent Distress, WD/WN Eyes: Bilateral Eye Normal Inspection, Bilateral Eye PERRL, Bilateral Eye EOMI HEENT: PERRL/EOMI, TMs Normal, Normal ENT Inspection, Pharynx Normal Neck: Full Range of Motion, Normal Inspection, Non Tender, Supple, Carotid Bruit Respiratory: Chest Non Tender, Lungs Clear, Normal Breath Sounds, No Accessory Muscle Use, No Respiratory Distress Cardiovascular: Regular Rate, Rhythm, No Edema, No Gallop, No JVD, No Murmur, Normal Peripheral Pulses Gastrointestinal: Normal Bowel Sounds, No Organomegaly, No Pulsatile Mass, Non Tender, Soft Back: Normal Inspection, No CVA Tenderness, No Vertebral Tenderness Extremity: Normal Capillary Refill, Normal Inspection, Normal Range of Motion, Non Tender, No Calf Tenderness, No Pedal Edema Neurologic/Psychiatric: Alert, Oriented x3, No Motor/Sensory Deficits, Normal Mood/Affect Skin: Normal Color, Warm/Dry Lymphatic: No Adenopathy A/P-Cardiology Admission Diagnosis Chest pain Hypertension Gastroenteritis Diarrhea Assessment/Plan Chest pain nonspecific etiology, atypical in presentation, probably noncardiac, planning to evaluate stress test and echocardiogram. Gastroenteritis, abdominal pain, diarrhea, managed by primary care physician. Receiving IV fluid Questionable pneumonia, CT scan is suggestive of pneumonia. Patient does not have any cough or sputum, had chest pain, discussed with Dr. Bradley, will do septic workup and start on Rocephin and Zithromax Hypokalemia, receiving IV fluid, improving Hypokalemia, being replaced and managed by primary care physician Hypothyroidism maintained on levothyroxin Hypertension, maintained on verapamil as an outpatient. Continue to monitor blood pressure Obesity, BMI 34, we discussed weight loss and exercise. History of fibromyalgia. Tobaccoism, educated on smoking cessation Clinical Quality Measures AMI/AHF: ASA po Prior to arrival: Yes DVT/VTE Risk/Contraindication: Risk Factor Score Per Nursin RFS Level Per Nursing on Admit: 3=High DEBORA HARRISON MD Jan 18, 2018 10:42
[2018-01-18] MEDS ORDERED: AZITHROMYCIN 250 MG TAB (ZITHROMAX) PO NR (10:45)
[2018-01-18] MEDS: cefTRIAXone FOR IV USE 1,000 MG in NS (IVPB) 50 ML IV SCH (11:38)
[2018-01-18] MEDS ORDERED: ALPRAZolam 0.25 MG (XANAX) TAB PO PRN (17:30)
[2018-01-18] MEDS ORDERED: CYCLOBENZAPRINE 10 MG (FLEXERIL) TAB PO PRN (17:30)
[2018-01-18] MEDS ORDERED: PRAMIPEXOLE 0.125 MG (MIRAPEX) TABLET PO SCH (21:00)
[2018-01-18] MEDS ORDERED: risperiDONE 0.25 MG (RisperDAL) TAB PO SCH (21:00)
[2018-01-18] MEDS ORDERED: VERAPAMIL SR 240 MG (CALAN SR) TAB PO SCH (21:00)
[2018-01-18] MEDS ORDERED: eZETimibe 10 MG (ZETIA) TABLET PO SCH (21:00)
[2018-01-18] MEDS: PREGABALIN 100 MG (LYRICA) CAPSULE PO SCH (21:13)
[2018-01-18] MEDS: DULoxetine 30 MG (CYMBALTA) CAP PO SCH (21:14)
[2018-01-18] MEDS: ACYCLOVIR 400 MG TABLET (ZOVIRAX) PO SCH (21:14)
[2018-01-18] MEDS: acetaZOLAMIDE 250 MG (DIAMOX) TAB PO SCH (21:15)
[2018-01-19 00:07] VITALS: BP 127/68
[2018-01-19] MEDS: NS W/KCL 40 MEQ/L 1,000 ML IV SCH (01:02)
[2018-01-19 04:00] VITALS: BP 126/64
[2018-01-19 05:59] LABS: HEMOGLOBIN 15.4 G/DL (11.5-16.0); RED BLOOD COUNT 4.68 10^6/uL (4.35-5.85); RED CELL DISTRIBUTION WIDTH 14.9 % (10.0-14.5); WHITE BLOOD COUNT 9.4 10^3/uL (4.3-11.0)
[2018-01-19] MEDS: LEVOTHYROXINE 125 MCG (LEVOTHROID) TABLET PO SCH (06:04)
[2018-01-19] MEDS: CATHETER FLUSH 10 ML SYR IV SCH (06:04)
[2018-01-19 06:29] LABS: ALANINE AMINOTRANSFERASE 31 U/L (0-55); ALBUMIN 3.6 GM/DL (3.2-4.5); ALKALINE PHOSPHATASE 69 U/L (40-136); BILIRUBIN,TOTAL 0.4 MG/DL (0.1-1.0); BUN/CREATININE RATIO 6; CALCIUM 8.7 MG/DL (8.5-10.1); CARBON DIOXIDE 20 MMOL/L (21-32); CHLORIDE 114 MMOL/L (98-107); CREATININE SERUM 0.77 MG/DL (0.60-1.30); GFR ESTIMATED > 60; GLUCOSE 102 MG/DL (70-105); POTASSIUM 3.9 MMOL/L (3.6-5.0); SODIUM 142 MMOL/L (135-145); TOTAL PROTEIN 7.6 GM/DL (6.4-8.2)
[2018-01-19 08:00] VITALS: BP 128/74
--- NOTE | 2018-01-19 08:14 | Progress Note (SOAP) ---
Subjective Time Seen by a Provider: 08:12 Subjective/Events-last exam Patient feeling much better today. Patient wants to go home today. Patient to have stress test on an outpatient. Chest pain may be due to the her pneumonia. We'll send patient home on antibiotics Focused Exam Lactate Level 01/18/18 11:05: Lactic Acid Level 1.60 Objective Exam Vital Signs Date Time Temp Pulse Resp B/P (MAP) Pulse Ox O2 Delivery O2 Flow Rate FiO2 01/19/18 04:00 97.8 74 18 126/64 (84) 94 Room Air 01/19/18 01:05 77 01/19/18 00:07 98.4 91 18 127/68 (87) 96 Room Air 01/18/18 20:30 98.3 89 16 160/96 (117) 100 Room Air 01/18/18 19:00 98 01/18/18 16:20 98.1 72 14 146/77 (100) 97 Room Air 01/18/18 13:00 79 01/18/18 12:00 98.1 74 18 128/72 (90) 94 Room Air I & O 01/19/18 07:00 Intake Total 2180 ml Output Total 2700 ml Balance -520 ml Capillary Refill : Less Than 3 Seconds General Appearance: No Apparent Distress, WD/WN Neck: Full Range of Motion, Normal Inspection Respiratory: Lungs Clear, Normal Breath Sounds, No Accessory Muscle Use Cardiovascular: Regular Rate, Rhythm, No Murmur Gastrointestinal: non tender, soft Results Lab Laboratory Tests 01/19/18 05:30 Laboratory Tests 01/18/18 11:05: Lactic Acid Level 1.60 01/19/18 05:30: White Blood Count 9.4, Red Blood Count 4.68, Hemoglobin 15.4, Hematocrit 45, Mean Corpuscular Volume 96, Mean Corpuscular Hemoglobin 33, Mean Corpuscular Hemoglobin Concent 34, Red Cell Distribution Width 14.9H, Platelet Count 130, Mean Platelet Volume 13.0H, Sodium Level 142, Potassium Level 3.9, Chloride Level 114H, Carbon Dioxide Level 20L, Anion Gap 8, Blood Urea Nitrogen 5L, Creatinine 0.77, Estimat Glomerular Filtration Rate > 60, BUN/Creatinine Ratio 6 , Glucose Level 102, Calcium Level 8.7, Corrected Calcium 9.0, Total Bilirubin 0.4, Aspartate Amino Transf (AST/SGOT) 41H, Alanine Aminotransferase (ALT/SGPT) 31, Alkaline Phosphatase 69, Total Protein 7.6, Albumin 3.6 Assessment/Plan Assessment/Plan Assess & Plan/Chief Complaint Pneumonia. Patient feeling better and wants to go home. Chest pain resolved. Patient to have outpatient stress test. Plan to discharge today as per patient's request Clinical Quality Measures Admission Status Admission Dx Chest pain nonspecific. Hypokalemia. Gastroenteritis. Hypothyroid. Pulmonary nodules and lung.. Tobaccoism AMI/AHF: ASA po Prior to arrival: Yes DVT/VTE Risk/Contraindication: Risk Factor Score Per Nursin RFS Level Per Nursing on Admit: 3=High RALPH SIDDIQUI DO Jan 19, 2018 08:14
--- NOTE | 2018-01-19 08:14 | Cardiology Progress Note ---
Subjective Date Seen by Provider: Jan 19, 2018 Time Seen by Provider: 08:12 Subjective/Events-last exam Patient is feeling better, asking to go home, noted to have pneumonia Review of Systems General: No Chills, No Night Sweats, No Fatigue, No Malaise, No Appetite, No Other HEENT: No Head Aches, No Visual Changes, No Eye Pain, No Ear Pain, No Dysphasia , No Sinus Congestion, No Post Nasal Drip, No Sore Throat, No Other Pulmonary: No Dyspnea; Cough; No Pleuritic Chest Pain, No Other Cardiovascular: No: Chest Pain, Palpitations, Orthopnea, Paroxysmal Noc. Dyspnea, Edema, Lt Headedness, Other Focused Exam Lactate Level 01/18/18 11:05: Lactic Acid Level 1.60 Objective-Cardiology Exam Last Set of Vital Signs Vital Signs 01/19/18 04:00 Temp 97.8 Pulse 74 Resp 18 B/P (MAP) 126/64 (84) Pulse Ox 94 O2 Delivery Room Air Capillary Refill : Less Than 3 Seconds I&O Intake and Output 01/19/18 00:00 Intake Total 4990 ml Output Total 0 ml Balance 4990 ml Intake Oral 1940 ml IV Total 3050 ml Output Urine Total 0 ml # Voids 7 Daily Weight Change No General: Alert, Oriented X3, Cooperative HEENT: Atraumatic, PERRLA Neck: Supple, No JVD, No Thyromegaly Lungs: Clear to Auscultation, Normal Air Movement Heart: Regular Rate, Normal S1, Normal S2, No Murmurs Abdomen: Normal Bowel Sounds, Soft, No Tenderness, No Hepatosplenomegaly, No Masses Extremities: No Clubbing, No Cyanosis, No Edema, Normal Pulses, No Tenderness/ Swelling Skin: No Rashes, No Breakdown, No Significant Lesion Neuro: Normal Gait, Normal Speech, Strength at 5/5 X4 Ext, Normal Tone, Sensation Intact Psych/Mental Status: Mental Status NL, Mood NL Results Lab Laboratory Tests 01/19/18 05:30 A/P-Cardiology Admission Diagnosis Chest pain Hypertension Gastroenteritis Diarrhea Assessment/Plan Chest pain nonspecific etiology, atypical in presentation, probably noncardiac, planning to evaluate stress test as an outpatient once her pneumonia is resolved Pneumonia, receiving antibiotics, possible discharge today Gastroenteritis, abdominal pain, diarrhea, managed by primary care physician. Questionable pneumonia, CT scan is suggestive of pneumonia. Patient does not have any cough or sputum, had chest pain, discussed with Dr. Bradley, will do septic workup and start on Rocephin and Zithromax Hypokalemia, better Hypothyroidism maintained on levothyroxin Hypertension, maintained on verapamil as an outpatient. Continue to monitor blood pressure Obesity, BMI 34, we discussed weight loss and exercise. History of fibromyalgia. Tobaccoism, educated on smoking cessation Clinical Quality Measures AMI/AHF: ASA po Prior to arrival: Yes DVT/VTE Risk/Contraindication: Risk Factor Score Per Nursin RFS Level Per Nursing on Admit: 3=High DEBORA HARRISON MD Jan 19, 2018 08:14
[2018-01-19] MEDS ORDERED: AZITHROMYCIN 250 MG TAB (ZITHROMAX) PO SCH (09:00)
[2018-01-19] MEDS ORDERED: POTASSIUM CHLORIDE INJ 40 MEQ in NS IV 1000 ML 1,000 ML IV SCH (09:00)
[2018-01-19] MEDS: ACYCLOVIR 400 MG TABLET (ZOVIRAX) PO SCH ×2 (09:24→13:08)
[2018-01-19] MEDS: DULoxetine 30 MG (CYMBALTA) CAP PO SCH (09:24)
[2018-01-19] MEDS: PREGABALIN 100 MG (LYRICA) CAPSULE PO SCH (09:24)
[2018-01-19] MEDS: ASPIRIN E.C. 81 MG (ECOTRIN) TAB PO SCH (09:24)
[2018-01-19] MEDS: cefTRIAXone FOR IV USE 1,000 MG in NS (IVPB) 50 ML IV SCH (09:25)
[2018-01-19] MEDS: ENOXAPARIN 40 MG/0.4 ML (LOVENOX) SYR SC SCH (09:27)
[2018-01-19] MEDS ORDERED: FAMOTIDINE 20 MG (PEPCID) TABLET PO SCH (09:35)
[2018-01-19 12:00] VITALS: BP 138/84
[2018-01-19] MEDS: acetaZOLAMIDE 250 MG (DIAMOX) TAB PO SCH (13:08)
--- NOTE | 2018-01-19 13:12 | Diagnostic Imaging Report ---
INDICATION: Pneumonia, followup. TECHNIQUE: Two-view chest at 9:13 a.m. CORRELATION STUDY: 01/18/2018. FINDINGS: The heart size, mediastinal configuration and pulmonary vasculature are within normal limits. Scattered pulmonary parenchymal densities do remain but overall appear improved since prior study. No new areas of consolidation. Visualized osseous structures are unremarkable. IMPRESSION: 1. Persistent patchy pulmonary parenchymal densities but overall improved and diminished from prior study. Dictated by: Dictated on workstation # [id number]
[2018-01-19] MEDS ORDERED: CEFD300C3 PO (14:04)
[2018-01-19] MEDS ORDERED: z-pack (14:04)
[2018-01-19 14:58] VITALS: BP 138/84
--- NOTE | 2018-01-20 07:23 | Clinic Account Progress/Dx ---
Clinic Account Progress/Dx DIAGNOSIS: Time Seen by Provider: 07:23 Mary. Chest pain nonspecific. Hypokalemia. Hypothyroid. Diarrhea. Tobaccoism. Gastroenteritis. Hypothyroid. Hypertension. History of fibromyalgia RALPH SIDDIQUI DO Jan 20, 2018 07:23
--- OUTSIDE RECORDS SUMMARY | 2018-01-20 15:22 | XMS REPORT | Clinical Summary ---
Author Author [facility] Organization [facility] Address Unknown Phone Unavailable Care Team Providers Care Circular Knife Cutter Machine Name Role Phone Robin De La Cruz MD Unavailable Dago Vu MD Unavailable Cleopatra Butler RN Unavailable Unavailable Germain Louis MD Unavailable Livier Dozier PCP Source Comments Some departments are not documenting in the electronic medical record. 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 Pulse 94 01/28/2015 10:57 AM MANAGER [employer]AIL Temperature 36.4 C (97.5 F) 11/22/2012 10:37 AM CDT Respiratory Rate - - Oxygen Saturation 96% 01/28/2015 10:57 AM MANAGER [employer]AIL Inhaled Oxygen - - Concentration Weight 89.8 kg (198 lb) 01/28/2015 10:57 AM MANAGER [employer]AIL Height 157.5 cm (5' 2") 01/28/2015 10:57 AM MANAGER RETAIL Body Mass Index 36.21 01/28/2015 10:57 AM MANAGER RETAIL Plan of Treatment Health Maintenance Due Date Last Done Comments PHYSICAL (COMPREHENSIVE) 10/13/1983 EXAM PERTUSSIS VACCINE 10/13/1987 HIV SCREENING 10/13/1991 TETANUS VACCINE 1993 CERVICAL CANCER SCREENING 2006 BREAST CANCER SCREENING 2016 INFLUENZA VACCINE 10/06/2017 Results Not on filefrom Last 3 Months
--- OUTSIDE RECORDS SUMMARY | 2018-01-20 15:26 | XMS REPORT | Continuity of Care Document ---
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 [id number] 11/19/2010 14:02:00 Document Registration [id number] 11/19/2010 13:16:00 Document Registration [id number] 11/18/2010 15:10:00 Document Registration [id number] 10/21/2010 11:05:00 Document Registration [id number] 10/14/2010 14:33:00 Document Registration [id number] 10/07/2010 10:28:00 Document Registration [id number] 10/03/2010 15:07:00 Document Registration [id number] 09/12/2010 23:36:00 Document Registration [id number] 07/29/2010 11:18:00 Document Registration [id number] 07/25/2010 20:39:00 Document Registration [id number] 06/10/2010 00:34:00 Document Registration [id number] 04/18/2010 13:37:00 Document Registration [id number] 04/18/2010 13:35:00 Document Registration [id number] 04/04/2010 20:16:00 Document Registration [id number] 12/12/2009 21:28:00 Document Registration [id number] 10/31/2009 16:40:00 Document Registration [id number] 07/21/2009 19:37:00 Document Registration [id number] 07/01/2009 17:37:00 Document Registration [id number] 05/06/2009 14:22:00 Document Registration [id number] 10/04/2008 09:17:00 Document Registration [id number] 12/07/2017 16:38:00 12/07/2017 23:59:00 DIS Outpatient Babs Gr [id number] 12/10/2017 23:08:00 Document Registration
== END 2018-01-19 08:14 | disposition home or self-care (01) ==
LOC: EDUNIT# 23:38 → ER 23:40 → 4TH 23:41 → UNDOADMOB 01-18 03:35 → 4TH 01-18 04:00 → UNDOADMOB 01-18 04:00 → 4TH 01-18 14:18 → UNDODISOB 01-19 08:14
PROVIDERS: ADMIT Family Medicine; ATTEND Family Medicine
DX: J18.9 Pneumonia, unspecified organism (principal); R07.89 Other chest pain; E87.6 Hypokalemia; E03.9 Hypothyroidism, unspecified; F17.210 Nicotine dependence, cigarettes, uncomplicated; E78.00 Pure hypercholesterolemia, unspecified; K52.9 Noninfective gastroenteritis and colitis, unspecified; K21.9 Gastro-esophageal reflux disease without esophagitis; I10 Essential (primary) hypertension; M79.7 Fibromyalgia; E66.9 Obesity, unspecified; Z68.34 Body mass index [BMI] 34.0-34.9, adult; F41.9 Anxiety disorder, unspecified; F31.9 Bipolar disorder, unspecified; F20.9 Schizophrenia, unspecified; I95.9 Hypotension, unspecified; A60.09 Herpesviral infection of other urogenital tract
CPT/HCPCS: 36415; 71046; 71250; 80053; 80061; 81000; 83605; 83735; 83874; 84439; 84443; 84484; 85007; 85025; 85027; 85610; 85730; 86141; 87040; 93005; 93041; 93306; 96361; 96365; G0378

== ENCOUNTER → 2018-02-22 | Outpatient (CLI) | payer MEDICARE, MEDICAID ==
[~2018-02-22] MED LIST changes: +EZET10TA27 PO; +IBUP-30 PO; +LEVO112T55 PO; +NAPR220T66 PO; +TIZA2TAB3 PO; +z-pack
[2018-02-22 20:27] LABS: BASOPHILS # (AUTO) 0.1 10^3/uL (0.0-0.1); BASOPHILS % (AUTO) 0 % (0-10); EOSINOPHILS # (AUTO) 0.2 10^3/uL (0.0-0.3); EOSINOPHILS % (AUTO) 2 % (0-10); HEMATOCRIT 46 % (35-52); HEMOGLOBIN 15.9 G/DL (11.5-16.0); LYMPHOCYTES # (AUTO) 7.1 X 10^3 (1.0-4.0); LYMPHOCYTES % (AUTO) 54 % (12-44); MEAN CORPUSCULAR HEMOGLOBIN 34 PG (25-34); MEAN CORPUSCULAR HGB CONC 35 G/DL (32-36); MEAN CORPUSCULAR VOLUME 96 FL (80-99); MEAN PLATELET VOLUME 12.6 FL (7.4-10.4); MONOCYTES # (AUTO) 0.9 X 10^3 (0.0-1.0); MONOCYTES % (AUTO) 7 % (0-12); NEUTROPHILS # (AUTO) 4.9 X 10^3 (1.8-7.8); NEUTROPHILS % (AUTO) 38 % (42-75); PLATELET COUNT 131 10^3/uL (130-400); RED BLOOD COUNT 4.75 10^6/uL (4.35-5.85); RED CELL DISTRIBUTION WIDTH 14.6 % (10.0-14.5); WHITE BLOOD COUNT 13.2 10^3/uL (4.3-11.0)
[2018-02-22 20:42] LABS: BUN/CREATININE RATIO 8; CALCIUM 9.1 MG/DL (8.5-10.1); CARBON DIOXIDE 19 MMOL/L (21-32); CHLORIDE 108 MMOL/L (98-107); CREATININE SERUM 0.91 MG/DL (0.60-1.30); GFR ESTIMATED > 60; GLUCOSE 134 MG/DL (70-105); POTASSIUM 2.8 MMOL/L (3.6-5.0); SODIUM 140 MMOL/L (135-145)
--- NOTE | 2018-02-22 21:23 | Diagnostic Imaging Report ---
Clinical indication: Followup pneumonia from a month ago. Patient states not any better still coughing with shortness of air and chest tightness. Exam: Chest x-ray PA and lateral views. Comparisons: Chest x-ray dated 01/19/2018. Chest CT scan dated 01/18/2018. Findings: Lungs/pleura: Stable persistent patchy pulmonary airspace opacities bilaterally. There is no pneumothorax. There is no pleural effusion. Mediastinum: Unremarkable. Pulmonary vasculature: Unremarkable. Heart: Unremarkable. Bones/extrathoracic soft tissue: Unremarkable. Impression: Stable subtle bilateral patchy airspace opacities. These may represent chronic infiltrates or chronic lung scarring. These findings were also seen on the comparison chest CT scan. Dictated by: Dictated on workstation # [id number]
== END ==
LOC: RAD 20:04
PROVIDERS: ATTEND Family Medicine
DX: J18.9 Pneumonia, unspecified organism (principal)
CPT/HCPCS: 36415; 71046; 80048; 85025

== ENCOUNTER 2018-03-01 21:41 | Emergency (ER) | payer MEDICARE, MEDICAID ==
[~2018-03-01] VITALS: Ht 162.6 cm; Wt 86.2 kg
--- OUTSIDE RECORDS SUMMARY | 2018-03-01 21:49 | XMS REPORT | Clinical Summary ---
Author Author [facility] Organization [facility] Address Unknown Phone Unavailable Care Team Providers Care Pegger Dobby Looms Name Role Phone Robin De La Cruz MD Unavailable Dago Vu MD Unavailable Cleopatra Butler RN Unavailable Unavailable Germain Louis MD Unavailable Livier Dozier PCP Source Comments Some departments are not documenting in the electronic medical record. If you do not see the information that you expected, contact Release of Information in the Health Information Management department at [phone] for further assistance in locating additional records.[facility] Allergies Comments Active Allergy Reactions Severity Noted Date Gabapentin RASH 04/23/2011 Niacin ANAPHYLAXIS High 01/28/2015 Medications End Date Status Medication Sig Dispensed Refills Start Date Active prochlorperazine Take 10 mg by 0 (COMPAZINE) 10 mg tablet mouth every 6 hours as needed. Active DULoxetine DR (CYMBALTA) Take 60 mg by 0 60 mg capsule mouth twice daily. Active potassium chloride SR Take 10 mEq 0 (K-DUR) 10 mEq tablet by mouth twice daily. Active risperiDONE (RISPERDAL) Take 0.25 mg 0 0.25 mg tablet by mouth. Active ezetimibe (ZETIA) 10 mg Take 10 mg by 0 tablet mouth as directed. Active pregabalin (LYRICA) 200 Take 200 mg 0 mg capsule by mouth twice daily. Active traZODone (DESYREL) 100 Take 100 mg 0 mg tablet by mouth. Active levothyroxine (SYNTHROID) Take 112 mcg 0 112 mcg tablet by mouth daily. Active pramipexole (MIRAPEX) Take 0.125 mg 0 0.125 mg tablet by mouth. Active LORazepam (ATIVAN) 1 mg Take 1 mg by 0 tabletIndications: mouth as anxiety Needed for Other.... Indications: ANXIETY Active verapamil CR (CALAN-SR) Take 1 Tab by 30 Tab 3 120 mg tablet mouth daily. 5 Active nabumetone (RELAFEN) 500 Take 1 Tab by 30 Tab 3 mg tablet mouth twice 5 daily. Active methylPREDNIsolone Take 1 Tab by 21 Tab 0 (MEDROL (JJ)) 4 mg mouth as 5 tablet directed. Follow instructions on package Active Problems No known [...] Other Cancer Paternal bone Grandmother Diabetes Sister Dementia Neg Hx Seizures Neg Hx Stroke Neg Hx Relation Name Status Comments Maternal Aunt Maternal Grandmother Mother Other Paternal Grandmother Sister Social History Date Tobacco Use Types Packs/Day Years Used Current Every Day Smoker Cigarettes 1 20 Smokeless Tobacco: Never Used Alcohol Use Drinks/Week oz/Week Comments No Sober for 15yr, h/o alcoholism. Sex Assigned at Date Recorded Not on file Industry Job Start Date Occupation Not on file Not on file Not on file Travel End Travel History Travel Start No recent travel history available. Last Filed Vital Signs Time Taken Vital Sign Reading 01/28/2015 10:57 AM [employer] Blood Pressure 128/86 01/28/2015 10:57 AM [employer] Pulse 94 11/22/2012 10:37 AM CDT Temperature 36.4 C (97.5 F) - Respiratory Rate - 01/28/2015 10:57 AM [employer] Oxygen Saturation 96% - Inhaled Oxygen - Concentration 01/28/2015 10:57 AM [employer] Weight 89.8 kg (198 lb) 01/28/2015 10:57 AM [employer] Height 157.5 cm (5' 2") 01/28/2015 10:57 AM [employer] Body Mass Index 36.21 Plan of Treatment Health Maintenance Due Date Last Done Comments PHYSICAL (COMPREHENSIVE) 10/13/1983 EXAM HIV SCREENING 10/13/1991 DTAP/TDAP VACCINES (1 - 1994 Tdap) CERVICAL CANCER SCREENING 2006 BREAST CANCER SCREENING 2016 INFLUENZA VACCINE 10/06/2017 Results Not on filefrom Last 3 Months Insurance Payer Benefit Subscriber ID Type Phone Address Plan / Group MEDICARE MEDICARE xxxxxxxxxx Medicare PART A [place] B [place] [employer] xxxxxxxxxxx Medicaid [employer] Advance Directives Patient has advance care planning documents on file. For more information, please contact: [facility] [address] [place] [address]
--- OUTSIDE RECORDS SUMMARY | 2018-03-01 21:55 | XMS REPORT | Continuity of Care Document ---
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 09/12/2010 23:36:00 Document Registration [id number] 07/29/2010 11:18:00 Document Registration [id number] 07/25/2010 20:39:00 Document Registration [id number] 06/10/2010 00:34:00 Document Registration [id number] 04/18/2010 13:37:00 Document Registration [id number] 04/18/2010 13:35:00 Document Registration [id number] 04/04/2010 20:16:00 Document Registration [id number] 12/12/2009 21:28:00 Document Registration [id number] 10/31/2009 16:40:00 Document Registration [id number] 07/21/2009 19:37:00 Document Registration [id number] 07/01/2009 17:37:00 Document Registration [id number] 05/06/2009 14:22:00 Document Registration [id number] 10/04/2008 09:17:00 Document Registration [id number] 12/07/2017 16:38:00 12/07/2017 23:59:00 DIS Babs Truong [id number] 12/10/2017 23:08:00 Document Registration
[2018-03-01] MEDS ORDERED: RT-ALBUTEROL/IPRATROPIUM 3 ML (DUONEB) VIAL ONE (22:58)
[2018-03-01] MEDS ORDERED: DEXAMETHASONE 4 MG/ML SDV (DECADRON) ONE (22:58)
[2018-03-01 23:12] LABS: BASOPHILS # (AUTO) 0.1 10^3/uL (0.0-0.1); BASOPHILS % (AUTO) 1 % (0-10); EOSINOPHILS # (AUTO) 0.1 10^3/uL (0.0-0.3); EOSINOPHILS % (AUTO) 1 % (0-10); HEMATOCRIT 46 % (35-52); HEMOGLOBIN 16.1 G/DL (11.5-16.0); LYMPHOCYTES # (AUTO) 4.3 X 10^3 (1.0-4.0); LYMPHOCYTES % (AUTO) 43 % (12-44); MEAN CORPUSCULAR HGB CONC 35 G/DL (32-36); MEAN CORPUSCULAR VOLUME 96 FL (80-99); MEAN PLATELET VOLUME 12.6 FL (7.4-10.4); MONOCYTES # (AUTO) 0.9 X 10^3 (0.0-1.0); MONOCYTES % (AUTO) 9 % (0-12); NEUTROPHILS # (AUTO) 4.7 X 10^3 (1.8-7.8); NEUTROPHILS % (AUTO) 47 % (42-75); PLATELET COUNT 125 10^3/uL (130-400); RED BLOOD COUNT 4.81 10^6/uL (4.35-5.85); RED CELL DISTRIBUTION WIDTH 14.7 % (10.0-14.5); WHITE BLOOD COUNT 10.1 10^3/uL (4.3-11.0)
[2018-03-01 23:13] LABS: MEAN CORPUSCULAR HEMOGLOBIN 33 PG (25-34)
[2018-03-01] MEDS ORDERED: RT-ALBUTEROL/IPRATROPIUM 3 ML (DUONEB) VIAL INH ONE ×2 (23:15)
[2018-03-01] MEDS ORDERED: methylPREDNISolone 125 MG (Solu-MEDROL) VIAL IVP ONE (23:15)
[2018-03-01] MEDS ORDERED: DEXAMETHASONE 4 MG/ML SDV (DECADRON) IH ONE (23:15)
[2018-03-01 23:24] LABS: ALANINE AMINOTRANSFERASE 46 U/L (0-55); ALBUMIN 3.9 GM/DL (3.2-4.5); ALKALINE PHOSPHATASE 76 U/L (40-136); BILIRUBIN,TOTAL 0.4 MG/DL (0.1-1.0); BUN/CREATININE RATIO 7; CALCIUM 8.9 MG/DL (8.5-10.1); CARBON DIOXIDE 22 MMOL/L (21-32); CHLORIDE 112 MMOL/L (98-107); CREATININE SERUM 0.83 MG/DL (0.60-1.30); GFR ESTIMATED > 60; GLUCOSE 91 MG/DL (70-105); POTASSIUM 3.3 MMOL/L (3.6-5.0); SODIUM 143 MMOL/L (135-145); TOTAL PROTEIN 7.8 GM/DL (6.4-8.2)
[2018-03-02] MEDS ORDERED: KCL 20 MEQ TAB (K-DUR) PO ONE (00:45)
[2018-03-02] MEDS ORDERED: ACETAMINOPHEN 500 MG TAB (TYLENOL) PO ONE (01:00)
[2018-03-02] MEDS ORDERED: NS 100 ML (IVPB) BAG IV ONE (02:15)
[2018-03-02] MEDS ORDERED: RECEIVED CONTRAST (Hold Metformin) IV SCH (02:15)
[2018-03-02] MEDS ORDERED: IOHEXOL 350 MG/ML 150 ML (OMNIPAQUE 350) VIAL IV ONE (02:15)
[2018-03-02] MEDS ORDERED: LEVO500T2 PO (03:43)
[2018-03-02] MEDS ORDERED: BUDE90AE2 IH (03:43)
[2018-03-02] MEDS ORDERED: METH4TAB PO (03:43)
[2018-03-02] MEDS ORDERED: D-ME118S7 PO (03:43)
[2018-03-02] MEDS ORDERED: BENZ100C18 PO (03:43)
--- NOTE | 2018-03-02 03:43 | ED Respiratory ---
General Chief Complaint: Respiratory Problems Stated Complaint: PNEUMONIA Nursing Triage Note: Pt ambulated to triage . Pt reports having pneumonia for one month. Pt reports seeing Dr. Siddiqui last Wednesday and chest xray showed pneumonia had not changed. Pt has appt with Dr. Siddiqui tomorrow, but symptoms have worsened today. Pt c/o cough, fever, cough, nausea, and body aches. Pt finished a zpac on 02/25 and is currently taking promethazine with codeine. Pt reports taking two tylenol at 1930. Pt reports CHAN and SOB. Allergies and Home Medications Allergies Coded Allergies: gabapentin (Verified Allergy, Severe, HIVES, 01/14/15) esomeprazole (Unverified Allergy, Mild, 08/19/15) niacin (Unverified Allergy, Mild, 05/13/14) Uncoded Allergies: "COCKTAIL FOR CHAN" (Allergy, Mild, ITCHING, 02/11/09) Home Medications Acetazolamide 250 Mg Tablet, 250 MG PO 1200,2100, (Reported) Acyclovir 400 Mg Tablet, 400 MG PO TID, (Reported) LAST FILLED #42 12-17-17 Alprazolam 0.25 Mg Tablet, 0.25 MG PO TID PRN for ANXIETY, (Reported) Cefdinir 300 Mg Capsule, 300 MG PO BID Prescribed by: OMAR BLOUNT on 01/19/18 1404 Cyclobenzaprine HCl 10 Mg Tablet, 10 MG PO TID PRN for MUSCLE SPASMS, (Reported) Duloxetine HCl 60 Mg Capsule.dr, 60 MG PO BID, (Reported) Ezetimibe 10 Mg Tablet, 10 MG PO HS, (Reported) Ibuprofen 200 Mg Tablet, 600 MG PO TID PRN for PAIN-MILD, (Reported) Levothyroxine Sodium 112 Mcg Tablet, 1,125 MCG PO HS, (Reported) Naproxen Sodium 220 Mg Tablet, 440 MG PO TID PRN for PAIN-MILD, (Reported) Pramipexole Di-HCl 0.125 Mg Tablet, 0.125 MG PO HS, (Reported) Pregabalin 100 Mg Capsule, 100 MG PO BID, (Reported) Risperidone 0.25 Mg Tablet, 0.5 MG PO HS, (Reported) TAKES 2 (0.25MG) TABLETS Tizanidine HCl 2 Mg Tablet, 4 MG PO HS, (Reported) TAKES 2 (2MG) TABLETS Verapamil HCl 120 Mg Tablet, 120 MG PO HS, (Reported) Past Htwvpce-Bcgafd-Iqdlgw Hx Patient Social History Drug of Choice: THC IN PAST Type Used: Cigarettes 2nd Hand Smoke Exposure: Yes Recent Foreign Travel: No Contact w/Someone Who Travel: No Recent Infectious Disease Expo: No Recent Hopitalizations: No Immunizations Up To Date Tetanus Booster (TDap): Unknown Date of Influenza Vaccine: Dec 06, 2013 Seasonal Allergies Seasonal Allergies: No Past Medical History Surgeries: Yes (EXPLORATORY LAP, HIATAL HERNIA REPAIR; HYST/BSO) Abdominal, Section, Gallbladder, Hysterectomy, Oophorectomy, Thyroidectomy Respiratory: Yes Pneumonia Currently Using CPAP: No Currently Using BIPAP: No Cardiac: Yes (MITRAL VALVE PROLAPSE) High Cholesterol, Hypertension, Irregular Heartbeat, Valvular Heart Disease Neurological: Yes (PERIPHERAL NEUROPATHY-LEGS/FEET) Headaches /Migraines, Neuropathy 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 ) Hypothyroidsim HEENT: No Loss of Vision: Bilateral Hearing Impairment: Denies Cancer: No Psychosocial: Yes Anxiety, Bipolar, Schizophrenia, Depression Integumentary: Yes Herpes Blood Disorders: Yes (ANEMIA) Adverse Reaction/Blood Tranf: No Family Medical History Cardiovascular disease 19 FATHER Diabetes mellitus 19 FATHER 19 MOTHER FH: mental illness Mental Physical Exam Vital Signs - First Documented 03/01/18 22:44 Temp 98.2 Pulse 97 Resp 13 B/P (MAP) 174/83 (113) Pulse Ox 96 O2 Delivery Room Air Capillary Refill : Less Than 3 Seconds Height: 5'4.00" Weight: 190lbs. 4.0oz. 86.815192za; 34.2 BMI Method:Stated Focused Exam Lactate Level 03/01/18 23:23: Lactic Acid Level 1.87 Lactic Acid Level Laboratory Tests Test 03/01/18 23:23 Lactic Acid Level 1.87 MMOL/L (0.50-2.00) Progress/Results/Core Measures Suspected Sepsis Recent Fever Within 48 Hours: No Infection Criteria Present: None New/Unexplained Altered Menta: No Sepsis Screen: No Definite Risk SIRS Temperature:98.2 Pulse: 97 Respiratory Rate: 13 Laboratory Tests 03/01/18 23:02: White Blood Count 10.1 Blood Pressure 174 /83 Mean: 113 03/01/18 23:23: Lactic Acid Level 1.87 Laboratory Tests 03/01/18 23:02: Creatinine 0.83, Platelet Count 125L, Total Bilirubin 0.4 Results/Orders Lab Results Laboratory Tests Test 03/01/18 23:02 03/01/18 23:23 Range/Units White Blood Count 10.1 4.3-11.0 10^3/uL Red Blood Count 4.81 4.35-5.85 10^6/uL Hemoglobin 16.1 H 11.5-16.0 G/DL Hematocrit 46 35-52 % Mean Corpuscular Volume 96 80-99 FL Mean Corpuscular Hemoglobin 33 25-34 PG Mean Corpuscular Hemoglobin Concent 35 32-36 G/DL Red Cell Distribution Width 14.7 H 10.0-14.5 % Platelet Count 125 L 130-400 10^3/uL Mean Platelet Volume 12.6 H 7.4-10.4 FL Neutrophils (%) (Auto) 47 42-75 % Lymphocytes (%) (Auto) 43 12-44 % Monocytes (%) (Auto) 9 0-12 % Eosinophils (%) (Auto) 1 0-10 % Basophils (%) (Auto) 1 0-10 % Neutrophils # (Auto) 4.7 1.8-7.8 X 10^3 Lymphocytes # (Auto) 4.3 H 1.0-4.0 X 10^3 Monocytes # (Auto) 0.9 0.0-1.0 X 10^3 Eosinophils # (Auto) 0.1 0.0-0.3 10^3/uL Basophils # (Auto) 0.1 0.0-0.1 10^3/uL Sodium Level 143 135-145 MMOL/L Potassium Level 3.3 L 3.6-5.0 MMOL/L Chloride Level 112 H 98-107 MMOL/L Carbon Dioxide Level 22 21-32 MMOL/L Anion Gap 9 5-14 MMOL/L Blood Urea Nitrogen 6 L 7-18 MG/DL Creatinine 0.83 0.60-1.30 MG/DL Estimat Glomerular Filtration Rate > 60 BUN/Creatinine Ratio 7 Glucose Level 91 70-105 MG/DL Calcium Level 8.9 8.5-10.1 MG/DL Corrected Calcium 9.0 8.5-10.1 MG/DL Total Bilirubin 0.4 0.1-1.0 MG/DL Aspartate Amino Transf (AST/SGOT) 52 H 5-34 U/L Alanine Aminotransferase (ALT/SGPT) 46 0-55 U/L Alkaline Phosphatase 76 40-136 U/L Total Protein 7.8 6.4-8.2 GM/DL Albumin 3.9 3.2-4.5 GM/DL Lactic Acid Level 1.87 0.50-2.00 MMOL/L Micro Results Microbiology 03/02/18 Influenza Types A,B Antigen (PÉREZ) - Final, Complete My Orders Orders - PAOLA TAVERAS DO Dexamethasone Injection (Decadron Inject (03/01/18 22:58) Albuterol/Ipra Inhalation Soln (Duoneb I (03/01/18 22:58) Saline Lock/Iv-Start (03/01/18 23:01) O2 (03/01/18 23:01) Monitor-Rhythm Ecg Trace Only (03/01/18 23:01) Cbc With Automated Diff (03/01/18 23:01) Comprehensive Metabolic Panel (03/01/18 23:01) Lactic Acid Analyzer (03/01/18 23:01) Blood Culture (03/01/18 23:01) Influenza A And B Antigens (03/01/18 23:01) Albuterol/Ipra Inhalation Soln (Duoneb I (03/01/18 23:15) Dexamethasone Injection (Decadron Inject (03/01/18 23:15) Rt Request For Service (03/01/18 23:01) Svn Small Volume Nebulizer (03/01/18 23:01) Methylprednisolone Sod Succ (Solu-Medrol (03/01/18 23:15) Albuterol/Ipra Inhalation Soln (Duoneb I (03/01/18 23:15) Rt Request For Service (03/01/18 23:15) Svn Small Volume Nebulizer (03/01/18 23:15) Chest Pa/Lat (2 View) (03/02/18 00:01) Potassium Chloride (Tablet) (K Dur Table (03/02/18 00:45) Ct Angio Chest W (03/02/18 00:47) Acetaminophen Tablet (Tylenol Tablet) (03/02/18 01:00) Iohexol Injection (Omnipaque 350 Mg/Ml 1 (03/02/18 02:15) Contrast Received (Contrast Received) (03/02/18 02:15) Ns (Ivpb) (Sodium Chloride 0.9% Ivpb Bag (03/02/18 02:15) Medications Given in ED Current Medications Medications Dose Ordered Sig/Emeka Route Start Time Stop Time Status Last Admin Dose Admin Acetaminophen 1,000 mg ONCE ONCE PO 03/02/18 01:00 03/02/18 01:01 DC 03/02/18 01:20 1,000 MG Albuterol/ Ipratropium 3 ml ONCE ONCE INH 03/01/18 23:15 03/01/18 23:16 DC 03/01/18 23:04 3 ML Albuterol/ Ipratropium 3 ml ONCE ONCE INH 03/01/18 23:15 03/01/18 23:17 DC 03/01/18 23:15 3 ML Dexamethasone Sodium Phosphate 20 mg ONCE ONCE IH 03/01/18 23:15 03/01/18 23:16 DC 03/01/18 23:04 20 MG Iohexol 150 ml ONCE ONCE IV 03/02/18 02:15 03/02/18 02:16 DC 03/02/18 02:15 125 ML Methylprednisolone Sodium Succinate 125 mg ONCE ONCE IVP 03/01/18 23:15 03/01/18 23:16 DC 03/02/18 00:24 125 MG Potassium Chloride 20 meq ONCE ONCE PO 03/02/18 00:45 03/02/18 00:56 DC 03/02/18 01:19 20 MEQ Sodium Chloride 100 ml ONCE ONCE IV 03/02/18 02:15 03/02/18 02:16 DC 03/02/18 02:15 80 ML Vital Signs/I&O 03/01/18 03/01/18 03/01/18 22:44 23:04 23:15 Temp 98.2 Pulse 97 Resp 13 B/P (MAP) 174/83 (113) Pulse Ox 96 97 98 O2 Delivery Room Air Room Air Room Air Capillary Refill : Less Than 3 Seconds Blood Pressure Mean: 113 Departure Impression Primary Impression: Bronchitis Disposition: 01 HOME, SELF-CARE Condition: Improved Departure-Patient Inst. Referrals: GELLENDER,RALPH A DO (PCP/Family) Primary Care Physician Patient Instructions: Acute Bronchitis, Adult (DC) Add. Discharge Instructions: USE YOUR ALBUTEROL INHALER WITH SPACER AT ALL TIMES NO SMOKING TYLENOL AND MOTRIN NEEDED FOR PAIN OR FEVER FOLLOW UP WITH DR. SIDDIQUI NEXT WEEK FOR FURTHER CARE All discharge instructions reviewed with patient and/or family. Voiced understanding. Scripts Budesonide (Pulmicort Flexhaler) 90 Mcg Aer.pow.ba 90 MCG IH BID, #1 GM Prov: PAOLA TAVERAS DO 03/02/18 D-Methorphan Hb/Prometh HCl (Promethazine-Dm Syrup) 118 Ml Syrup 1-2 TSP PO Q4H for Cough, #120 ML Prov: PAOLA TAVERAS DO 03/02/18 Benzonatate (TESSALON PERLES) 100 Mg Capsule 1-2 TAB PO TID for Cough, #30 CAP Prov: PAOLA TAVERAS DO 03/02/18 Methylprednisolone (Medrol) 4 Mg Tab.ds.pk 4 MG PO UD, #1 PKG Prov: PAOLA TAVERAS DO 03/02/18 Levofloxacin (Levaquin) 500 Mg Tablet 500 MG PO DAILY for INFECTION, #10 TAB Prov: PAOLA TAVERAS DO 03/02/18 PAOLA TAVERAS DO Mar 02, 2018 03:43
[2018-03-02 03:54] VITALS: BP 139/85
--- NOTE | 2018-03-02 07:36 | Diagnostic Imaging Report ---
Indication: Cough and congestion x2 months. Comparison: 02/22/2018 Findings: PA and lateral chest. Lungs are well aerated and clear. Heart not enlarged. No pulmonary edema. No hilar adenopathy. No pneumothorax or pleural effusion. No bony abnormalities. Impression: Negative PA and lateral chest. Dictated by: Dictated on workstation # [id number]
--- NOTE | 2018-03-02 07:47 | Diagnostic Imaging Report ---
PROCEDURE: CT angiography of the chest with contrast. TECHNIQUE: Multiple contiguous axial images were obtained through the chest after uneventful bolus administration of intravenous contrast. 2D reconstructed CTA MIP acquisitions were also performed. INDICATION: Cough and congestion x2 months. COMPARISON: 01/18/2018 FINDINGS: Pulmonary arteries demonstrate no significant filling defect to reflect pulmonary embolism. The heart size is unremarkable. Thoracic aorta normal in contour. Normal three-vessel branching pattern at the level of the aortic arch. Enlarged mediastinal and right hilar lymph nodes overall likely relatively stable. A few mildly prominent nonpathologic enlarged axillary lymph nodes. No focal consolidation. Subcentimeter F. Ball blebs are seen in the upper lung yanez. Mild interstitial changes are present, left slightly less than right, particularly at the lung bases. No significant pleural effusion. The visualized portions of the upper abdomen are unremarkable. The visualized osseous structures demonstrate no acute findings. IMPRESSION: 1. No CTA evidence for pulmonary embolism. 2. Unchanged prominent mediastinal lymphadenopathy. 3. Slight haziness about the lung yanez could be reflective of very mild edema. No focal lobar consolidation. Preliminary report provided by [employer] Dictated by: Dictated on workstation # [id number]
== END 2018-03-02 03:54 | disposition home or self-care (01) ==
LOC: EDUNIT# 21:41 → ER 21:42
DX: J40 Bronchitis, not specified as acute or chronic (principal); I10 Essential (primary) hypertension; E78.00 Pure hypercholesterolemia, unspecified; G43.909 Migraine, unspecified, not intractable, without status migrainosus; K21.9 Gastro-esophageal reflux disease without esophagitis; E03.9 Hypothyroidism, unspecified; F41.9 Anxiety disorder, unspecified; F31.9 Bipolar disorder, unspecified; F20.9 Schizophrenia, unspecified; D64.9 Anemia, unspecified; Z82.49 Family history of ischemic heart disease and other diseases of the circulatory system; Z87.19 Personal history of other diseases of the digestive system; Z98.890 Other specified postprocedural states; Z90.710 Acquired absence of both cervix and uterus; Z90.89 Acquired absence of other organs; Z98.84 Bariatric surgery status; Z87.01 Personal history of pneumonia (recurrent); Z77.22 Contact with and (suspected) exposure to environmental tobacco smoke (acute) (chronic); Z88.8 Allergy status to other drugs, medicaments and biological substances
CPT/HCPCS: 36415; 71046; 71275; 80053; 83605; 85025; 87040; 87804; 93041; 94640; 96374

== ENCOUNTER → 2018-04-26 | Outpatient (CLI) | payer MEDICARE, MEDICAID | LOC: LAB 17:09 | PROVIDERS: ATTEND Family Medicine | DX: R07.9 Chest pain, unspecified (principal) | CPT/HCPCS: 36415; 84484 ==

== ENCOUNTER 2018-07-15 23:39 | Emergency (ER) | payer MEDICAID, MEDICARE ==
[~2018-07-15] VITALS: Ht 157.5 cm; Wt 87.5 kg
[~2018-07-15 23:39] MED LIST changes: +BUDE90AE2 IH; +CALC-984 PO; +D-ME118S7 PO; +LEVO500T2 PO; -[UNRECOGNIZED DRUG - CODE] PO
--- OUTSIDE RECORDS SUMMARY | 2018-07-15 23:46 | XMS REPORT | Clinical Summary ---
Author Author [facility] Organization [facility] Address Unknown Phone Unavailable Care Team Providers Care Edge Kitter Name Role Phone Robin De La Cruz MD Unavailable Dago Vu MD Unavailable Cleopatra Butler RN Unavailable Unavailable Germain Louis MD Unavailable Livier Dozier PCP Source Comments Some departments are not documenting in the electronic medical record. 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 Oxygen Saturation 96% - Inhaled Oxygen - Concentration 01/28/2015 10:57 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 Weight 89.8 kg (198 lb) 01/28/2015 10:57 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 Height 157.5 cm (5' 2") 01/28/2015 10:57 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 Body Mass Index 36.21 Plan of Treatment Health Maintenance Due Date Last Done Comments PHYSICAL (COMPREHENSIVE) 10/13/1983 EXAM HIV SCREENING 10/13/1991 DTAP/TDAP VACCINES (1 - 1994 Tdap) CERVICAL CANCER SCREENING 2006 BREAST CANCER SCREENING 2016 INFLUENZA VACCINE 12/06/2018 Results Not on filefrom Last 3 Months Insurance Type Payer Benefit Subscriber ID Effective Phone Address Plan / Dates Group Medicare MEDICARE MEDICARE xxxxxxxxxx 2000-P PART A AND resent B Medicaid [employer] [employer] xxxxxxxxxxx 2012- STATE Present HEALTH Advance Directives Patient has advance care planning documents on file. For more information, please contact: [facility] [address] [place] [address]
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
--- NOTE | 2018-07-16 00:39 | ED Upper Extremity ---
General Chief Complaint: Upper Extremity Stated Complaint: LEFT ARM PAIN Nursing Triage Note: Pt amb to room #5 w/o difficulty. a&ox4. c./o lt upper arm discomfort radiating to lt shoulder. Reports x2 days ago she began to taper off Rexulti from 2mg to 1mg d/t muscle fatigue and weakness. Pt reports while taking a shower this evening, she felt knot in lt upper arm and noticed bruising. Denies injury. Nursing Sepsis Screen: No Definite Risk Source: patient Exam Limitations: no limitations History of Present Illness Date Seen by Provider: July 16, 2018 Time Seen by Provider: 00:25 Initial Comments Here with complaint of bruise to the left upper arm that she believes is a blood clot. She is tapering off a medicine due to fatigue and weakness and didn' t know if that was part of the problem. She does not remember any injury. She noted it tonight and she was in the shower. Onset: this evening Severity: mild Pain/Injury Location: left arm Method of Injury: unknown Modifying Factors: Improves With Rest Allergies and Home Medications Allergies Coded Allergies: gabapentin (Verified Allergy, Severe, HIVES, 01/14/15) esomeprazole (Unverified Allergy, Mild, 08/19/15) niacin (Unverified Allergy, Mild, 05/13/14) Uncoded Allergies: "COCKTAIL FOR CHAN" (Allergy, Mild, ITCHING, 02/11/09) Home Medications Acetazolamide 250 Mg Tablet, 250 MG PO 1200,2100, (Reported) Acyclovir 400 Mg Tablet, 400 MG PO TID, (Reported) LAST FILLED #42 12-17-17 Alprazolam 0.25 Mg Tablet, 0.25 MG PO TID PRN for ANXIETY, (Reported) Benzonatate 100 Mg Capsule, 1-2 TAB PO TID Prescribed by: PAOLA TAVERAS on 03/02/18 0343 Budesonide 90 Mcg Aer.pow.ba, 90 MCG IH BID Prescribed by: PAOLA TAVERAS on 03/02/18 034 Cefdinir 300 Mg Capsule, 300 MG PO BID Prescribed by: OMAR BLOUNT on 01/19/18 1404 Cyclobenzaprine HCl 10 Mg Tablet, 10 MG PO TID PRN for MUSCLE SPASMS, (Reported) D-Methorphan Hb/Prometh HCl 118 Ml Syrup, 1-2 TSP PO Q4H Prescribed by: PAOLA TAVERAS on 03/02/18342 Duloxetine HCl 60 Mg Capsule.dr, 60 MG PO BID, (Reported) Ezetimibe 10 Mg Tablet, 10 MG PO HS, (Reported) Ibuprofen 200 Mg Tablet, 600 MG PO TID PRN for PAIN-MILD, (Reported) Levofloxacin 500 Mg Tablet, 500 MG PO DAILY Prescribed by: PAOLA TAVERAS on 03/02/18342 Levothyroxine Sodium 112 Mcg Tablet, 1,125 MCG PO HS, (Reported) Methylprednisolone 4 Mg Tab.ds.pk, 4 MG PO UD Prescribed by: PAOLA TAVERAS on 03/02/18342 Naproxen Sodium 220 Mg Tablet, 440 MG PO TID PRN for PAIN-MILD, (Reported) Pramipexole Di-HCl 0.125 Mg Tablet, 0.125 MG PO HS, (Reported) Pregabalin 100 Mg Capsule, 100 MG PO BID, (Reported) Risperidone 0.25 Mg Tablet, 0.5 MG PO HS, (Reported) TAKES 2 (0.25MG) TABLETS Tizanidine HCl 2 Mg Tablet, 4 MG PO HS, (Reported) TAKES 2 (2MG) TABLETS Verapamil HCl 120 Mg Tablet, 120 MG PO HS, (Reported) Patient Home Medication List Home Medication List Reviewed: Yes Review of Systems Constitutional: no symptoms reported Respiratory: no symptoms reported Cardiovascular: no symptoms reported Musculoskeletal: No joint pain; muscle pain Skin: change in color; No lesions Past Teaibel-Ptaqha-Ienjqq Hx Past Med/Social Hx: Reviewed Nursing Past Med/Soc Hx Patient Social History Alcohol Use: Denies Use Recreational Drug Use: No Drug of Choice: THC IN PAST Smoking Status: Current Everyday Smoker Type Used: Cigarettes 2nd Hand Smoke Exposure: Yes Recent Foreign Travel: No Contact w/Someone Who Travel: No Recent Infectious Disease Expo: No Recent Hopitalizations: No Immunizations Up To Date Tetanus Booster (TDap): Unknown Date of Influenza Vaccine: Dec 06, 2013 Seasonal Allergies Seasonal Allergies: No Past Medical History Surgeries: Yes (EXPLORATORY LAP, HIATAL HERNIA REPAIR; HYST/BSO; VENTRAL HERNIA REPAIR. 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 ) Hypothyroidsim HEENT: No Loss of Vision: Bilateral Hearing Impairment: Denies Cancer: No Psychosocial: Yes Anxiety, Bipolar, Schizophrenia, Depression Integumentary: Yes Herpes Blood Disorders: Yes (ANEMIA) Adverse Reaction/Blood Tranf: No Family Medical History Reviewed Nursing Family Hx Cardiovascular disease 19 FATHER Diabetes mellitus 19 FATHER 19 MOTHER FH: mental illness Mental Physical Exam Vital Signs Vital Signs - First Documented 07/15/18 23:50 Temp 97.2 Pulse 94 Resp 17 B/P (MAP) 148/98 (115) Pulse Ox 97 O2 Delivery Room Air Capillary Refill : Less Than 3 Seconds Height, Weight, BMI Height: 5'2.00" Weight: 193lbs. 4.0oz. 87.589296dk; 34.2 BMI Method:Stated General Appearance: WD/WN, no apparent distress Cardiovascular: regular rate, rhythm, no murmur Respiratory: lungs clear, normal breath sounds Neurologic/Psychiatric: alert, oriented x 3 Skin: warm/dry, ecchymosis (posterior aspect of the left upper arm has 2 x 2 centimeter area of contusion that is limited to the skin and superficial subcutaneous area on palpation. Distal pulses intact to the left arm. No other obvious findings of injury or concern.) Progress/Results/Core Measures Results/Orders Vital Signs/I&O 07/15/18 23:50 Temp 97.2 Pulse 94 Resp 17 B/P (MAP) 148/98 (115) Pulse Ox 97 O2 Delivery Room Air Blood Pressure Mean: 115 Progress Progress Note : Progress Note Seen and evaluated. Contusion noted posterior arm. Patient reassured. Discharged home with return precautions. Patient verbalize understanding instructions and agreement with plan. Departure Impression Primary Impression: Contusion of left upper arm, initial encounter Disposition: 01 HOME, SELF-CARE Condition: Improved Departure-Patient Inst. Decision time for Depature: 00:38 Referrals: HUGO BECKFORD APRN (PCP) Primary Care Physician [facility] (Family) Primary Care Physician Patient Instructions: Contusion (DC) Add. Discharge Instructions: All discharge instructions reviewed with patient and/or family. Voiced understanding. Continue home medications as previously prescribed and instructed by your doctor. Follow-up with your doctor on Wednesday or Wednesday for recheck and further evaluation as needed. Return for breathing problems, weakness, increasing bruising or other concerns as needed. IVETH NOVA MD July 16, 2018 00:39
[2018-07-16 00:46] VITALS: BP 140/93
== END 2018-07-16 00:46 | disposition home or self-care (01) ==
LOC: EDUNIT# 23:39 → ER 23:41
DX: S40.022A Contusion of left upper arm, initial encounter (principal); E78.00 Pure hypercholesterolemia, unspecified; I10 Essential (primary) hypertension; M79.7 Fibromyalgia; F41.9 Anxiety disorder, unspecified; F31.9 Bipolar disorder, unspecified; F20.9 Schizophrenia, unspecified; D64.9 Anemia, unspecified; G43.909 Migraine, unspecified, not intractable, without status migrainosus; K21.9 Gastro-esophageal reflux disease without esophagitis; G62.9 Polyneuropathy, unspecified; F17.210 Nicotine dependence, cigarettes, uncomplicated; Z82.49 Family history of ischemic heart disease and other diseases of the circulatory system; Z87.19 Personal history of other diseases of the digestive system; Z86.19 Personal history of other infectious and parasitic diseases; Z88.8 Allergy status to other drugs, medicaments and biological substances; Z79.52 Long term (current) use of systemic steroids; Z90.710 Acquired absence of both cervix and uterus; Z90.89 Acquired absence of other organs; Z98.890 Other specified postprocedural states; Z87.01 Personal history of pneumonia (recurrent); Z87.09 Personal history of other diseases of the respiratory system; X58.XXXA Exposure to other specified factors, initial encounter
CPT/HCPCS: 99282

== ENCOUNTER 2018-10-22 17:05 | Emergency (ER) | payer MEDICARE, MEDICAID ==
[~2018-10-22] VITALS: Ht 160 cm; Wt 86.2 kg
[~2018-10-22 17:05] MED LIST changes: -D-ME118S7 PO; -DULO60CA58 PO; +DULO60CA59 PO; -EZET10TA27 PO; +EZET10TA49 PO; +PROM118S4 PO; -TIZA2TAB3 PO; +TIZA2TAB4 PO
[2018-10-22] MEDS ORDERED: TRAM50TA2 PO (17:50)
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
--- NOTE | 2018-10-22 17:50 | Diagnostic Imaging Report ---
INDICATION: Left knee injury. COMPARISON: None. FINDINGS: Three views of left knee demonstrate no fracture, dislocation or joint effusion. IMPRESSION: Negative left knee. Dictated by: Dictated on workstation # [id number]
--- NOTE | 2018-10-22 17:53 | Diagnostic Imaging Report ---
INDICATION: Left shoulder injury. COMPARISON: 03/30/2014. FINDINGS: Three views of left shoulder demonstrate a chronic healed fracture deformity of the proximal humerus. There is no new fracture identified. AC and glenohumeral joints are intact. Scapula, clavicle, visualized ribs are normal. IMPRESSION: No acute fracture or dislocation. Dictated by: Dictated on workstation # [id number]
[2018-10-22 18:00] VITALS: BP 116/78
== END 2018-10-22 18:00 | disposition home or self-care (01) ==
LOC: EDUNIT# 17:05 → ER 17:06
DX: M25.562 Pain in left knee (principal); M25.512 Pain in left shoulder; J42 Unspecified chronic bronchitis; I10 Essential (primary) hypertension; E78.00 Pure hypercholesterolemia, unspecified; G43.909 Migraine, unspecified, not intractable, without status migrainosus; K21.9 Gastro-esophageal reflux disease without esophagitis; M79.7 Fibromyalgia; E03.9 Hypothyroidism, unspecified; F41.9 Anxiety disorder, unspecified; F31.9 Bipolar disorder, unspecified; F20.9 Schizophrenia, unspecified; G57.93 Unspecified mononeuropathy of bilateral lower limbs; F17.210 Nicotine dependence, cigarettes, uncomplicated; Z87.01 Personal history of pneumonia (recurrent); Z82.49 Family history of ischemic heart disease and other diseases of the circulatory system; Z98.890 Other specified postprocedural states; Z88.8 Allergy status to other drugs, medicaments and biological substances; Z90.710 Acquired absence of both cervix and uterus; W10.9XXA Fall (on) (from) unspecified stairs and steps, initial encounter
CPT/HCPCS: 73030; 73562

== ENCOUNTER 2018-12-27 13:45 | Emergency (ER) | payer MEDICARE, MEDICAID ==
[~2018-12-27] VITALS: Ht 167.5 cm; Wt 84.1 kg
[2018-12-27] MEDS ORDERED: ASPIRIN 81 MG CHEW (CHILDREN'S ASA) PO ONE (14:15)
[2018-12-27 14:18] LABS: BASOPHILS % (AUTO) 0 % (0-10); EOSINOPHILS # (AUTO) 0.4 10^3/uL (0.0-0.3); EOSINOPHILS % (AUTO) 5 % (0-10); HEMATOCRIT 47 % (35-52); HEMOGLOBIN 15.5 G/DL (11.5-16.0); LYMPHOCYTES # (AUTO) 4.3 X 10^3 (1.0-4.0); LYMPHOCYTES % (AUTO) 47 % (12-44); MEAN CORPUSCULAR HEMOGLOBIN 32 PG (25-34); MEAN CORPUSCULAR HGB CONC 33 G/DL (32-36); MEAN CORPUSCULAR VOLUME 97 FL (80-99); MEAN PLATELET VOLUME 12.5 FL (7.4-10.4); MONOCYTES # (AUTO) 0.5 X 10^3 (0.0-1.0); MONOCYTES % (AUTO) 5 % (0-12); NEUTROPHILS % (AUTO) 43 % (42-75); PLATELET COUNT 113 10^3/uL (130-400); RED CELL DISTRIBUTION WIDTH 14.5 % (10.0-14.5); WHITE BLOOD COUNT 9.2 10^3/uL (4.3-11.0)
[2018-12-27] MEDS: NITROGLYCERIN 0.4 MG SL TABS BTL 25'S SL PRN ×2 (14:25→14:31)
[2018-12-27 14:26] LABS: INR 1.2 (0.8-1.4); PROTHROMBIN TIME PATIENT 15.3 SEC (12.2-14.7)
--- NOTE | 2018-12-27 14:29 | ED Chest Pain ---
General Chief Complaint: Chest Pain Stated Complaint: CHEST PAIN Source: patient Exam Limitations: no limitations History of Present Illness Date Seen by Provider: Dec 27, 2018 Time Seen by Provider: 14:23 Initial Comments This 43-year-old white female presents with chest pain that has been present since last night. The patient's parents chest pain while in bed but was able to sleep until 4 o'clock this morning when the chest pain awoke her. She is describing a sharp anterior chest pain it's nonradiating in nature. She judges it to be an 8 on a 10 scale. The patient has had no associated diaphoresis, nausea, or radiation of the pain. Patient denies a history of cardiac disease. She has had multiple abdominal surgeries. She had a self-limited mitral valve problem as a child. She does not know if this was a simple murmur or a functional abnormality. The patient denies previous similar episodes of chest pain. She has chronic left shoulder pain from previous trauma. The chest pain however is distinct from her chronic shoulder pain. Allergies and Home Medications Allergies Coded Allergies: gabapentin (Verified Allergy, Severe, HIVES, 01/14/15) esomeprazole (Unverified Allergy, Mild, 08/19/15) niacin (Unverified Allergy, Mild, 05/13/14) Uncoded Allergies: "COCKTAIL FOR CHAN" (Allergy, Mild, ITCHING, 02/11/09) Home Medications Acetazolamide 250 Mg Tablet, 250 MG PO 1200,2100, (Reported) Acyclovir 400 Mg Tablet, 400 MG PO TID, (Reported) LAST FILLED #42 12-17-17 Alprazolam 0.25 Mg Tablet, 0.25 MG PO TID PRN for ANXIETY, (Reported) Benzonatate 100 Mg Capsule, 1-2 TAB PO TID Prescribed by: PAOLA TAVERAS on 03/02/18 0343 Budesonide 90 Mcg Aer.pow.ba, 90 MCG IH BID Prescribed by: PAOLA TAVERAS on 03/02/18 034 Cefdinir 300 Mg Capsule, 300 MG PO BID Prescribed by: OMAR BLOUNT on 01/19/18 1404 Cyclobenzaprine HCl 10 Mg Tablet, 10 MG PO TID PRN for MUSCLE SPASMS, (Reported) D-Methorphan Hb/Prometh HCl 118 Ml Syrup, 1-2 TSP PO Q4H Prescribed by: PAOLA TAVERAS on 03/02/18342 Duloxetine HCl 60 Mg Capsule.dr, 60 MG PO BID, (Reported) Ezetimibe 10 Mg Tablet, 10 MG PO HS, (Reported) Ibuprofen 200 Mg Tablet, 600 MG PO TID PRN for PAIN-MILD, (Reported) Levofloxacin 500 Mg Tablet, 500 MG PO DAILY Prescribed by: PAOLA TAVERAS on 03/02/18342 Levothyroxine Sodium 112 Mcg Tablet, 1,125 MCG PO HS, (Reported) Methylprednisolone 4 Mg Tab.ds.pk, 4 MG PO UD Prescribed by: PAOLA TAVERAS on 03/02/18342 Naproxen Sodium 220 Mg Tablet, 440 MG PO TID PRN for PAIN-MILD, (Reported) Pramipexole Di-HCl 0.125 Mg Tablet, 0.125 MG PO HS, (Reported) Pregabalin 100 Mg Capsule, 100 MG PO BID, (Reported) Risperidone 0.25 Mg Tablet, 0.5 MG PO HS, (Reported) TAKES 2 (0.25MG) TABLETS Tizanidine HCl 2 Mg Tablet, 4 MG PO HS, (Reported) TAKES 2 (2MG) TABLETS Tramadol HCl 50 Mg Tablet, 50 MG PO Q6H PRN for PAIN Prescribed by: JAIME TAMAYO on 10/22/18 1750 Verapamil HCl 120 Mg Tablet, 120 MG PO HS, (Reported) Patient Home Medication List Home Medication List Reviewed: Yes Review of Systems Review of Systems Constitutional: No chills, No fever EENTM: No Symptoms Reported Respiratory: Denies Cough, Denies Shortness of Air Cardiovascular: See HPI, Chest Pain; Denies Palpitations Gastrointestinal: Denies Abdominal Pain, Denies Diarrhea, Denies Nausea, Denies Vomiting Genitourinary: No Symptoms Reported Musculoskeletal: no symptoms reported; No back pain Skin: no symptoms reported Psychiatric/Neurological: No Symptoms Reported, Other (fibromyalgia) Endocrine: No Symptoms Reported Hematologic/Lymphatic: No Symptoms Reported Past Yoeyyro-Dtdiph-Uytuds Hx Past Med/Social Hx: Reviewed Nursing Past Med/Soc Hx Patient Social History Alcohol Use: Denies Use Recreational Drug Use: No Drug of Choice: THC IN PAST Smoking Status: Current Everyday Smoker Type Used: Cigarettes 2nd Hand Smoke Exposure: Yes Recent Hopitalizations: No Immunizations Up To Date Tetanus Booster (TDap): Unknown Date of Influenza Vaccine: Dec 06, 2013 Seasonal Allergies Seasonal Allergies: No Past Medical History Surgeries: Yes (EXPLORATORY LAP, HIATAL HERNIA REPAIR; HYST/BSO; VENTRAL HERNIA REPAIR. 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 ) Hypothyroidsim HEENT: No Loss of Vision: Bilateral Hearing Impairment: Denies Cancer: No Psychosocial: Yes Anxiety, Bipolar, Schizophrenia, Depression Integumentary: Yes Herpes Blood Disorders: Yes (ANEMIA) Adverse Reaction/Blood Tranf: No Family Medical History Cardiovascular disease 19 FATHER Diabetes mellitus 19 FATHER 19 MOTHER FH: mental illness Mental Physical Exam Vital Signs Vital Signs - First Documented 12/27/18 13:45 Temp 36.5 Pulse 90 Resp 19 B/P (MAP) 136/82 (100) Pulse Ox 98 O2 Delivery Room Air Capillary Refill : Height, Weight, BMI Height: 5'3.00" Weight: 190lbs. 4.0oz. 86.487449jj; 34.2 BMI Method:Stated General Appearance: WD/WN HEENT: Normal ENT Inspection Neck: Normal Inspection Respiratory: Lungs Clear Cardiovascular: Regular Rate, Rhythm Gastrointestinal: Normal Bowel Sounds Extremity: Normal Inspection, Normal Range of Motion Neurologic/Psychiatric: Oriented x3, No Motor/Sensory Deficits, Normal Mood/Affect Skin: Normal Color, Warm/Dry Progress/Results/Core Measures Results/Orders Lab Results Laboratory Tests Test 12/27/18 13:55 Range/Units White Blood Count 9.2 4.3-11.0 10^3/uL Red Blood Count 4.85 4.35-5.85 10^6/uL Hemoglobin 15.5 11.5-16.0 G/DL Hematocrit 47 35-52 % Mean Corpuscular Volume 97 80-99 FL Mean Corpuscular Hemoglobin 32 25-34 PG Mean Corpuscular Hemoglobin Concent 33 32-36 G/DL Red Cell Distribution Width 14.5 10.0-14.5 % Platelet Count 113 L 130-400 10^3/uL Mean Platelet Volume 12.5 H 7.4-10.4 FL Neutrophils (%) (Auto) 43 42-75 % Lymphocytes (%) (Auto) 47 H 12-44 % Monocytes (%) (Auto) 5 0-12 % Eosinophils (%) (Auto) 5 0-10 % Basophils (%) (Auto) 0 0-10 % Neutrophils # (Auto) 4.0 1.8-7.8 X 10^3 Lymphocytes # (Auto) 4.3 H 1.0-4.0 X 10^3 Monocytes # (Auto) 0.5 0.0-1.0 X 10^3 Eosinophils # (Auto) 0.4 H 0.0-0.3 10^3/uL Basophils # (Auto) 0.0 0.0-0.1 10^3/uL Prothrombin Time 15.3 H 12.2-14.7 SEC INR Comment 1.2 0.8-1.4 Activated Partial Thromboplast Time 35 24-35 SEC Sodium Level 140 135-145 MMOL/L Potassium Level 3.6 3.6-5.0 MMOL/L Chloride Level 105 98-107 MMOL/L Carbon Dioxide Level 23 21-32 MMOL/L Anion Gap 12 5-14 MMOL/L Blood Urea Nitrogen 3 L 7-18 MG/DL Creatinine 0.83 0.60-1.30 MG/DL Estimat Glomerular Filtration Rate > 60 BUN/Creatinine Ratio 4 Glucose Level 155 H 70-105 MG/DL Calcium Level 9.0 8.5-10.1 MG/DL Corrected Calcium 9.5 8.5-10.1 MG/DL Magnesium Level 1.9 1.6-2.4 MG/DL Total Bilirubin 0.4 0.1-1.0 MG/DL Aspartate Amino Transf (AST/SGOT) 43 H 5-34 U/L Alanine Aminotransferase (ALT/SGPT) 26 0-55 U/L Alkaline Phosphatase 94 40-136 U/L Myoglobin 25.5 10.0-92.0 NG/ML Troponin I < 0.028 <0.028 NG/ML Total Protein 7.8 6.4-8.2 GM/DL Albumin 3.4 3.2-4.5 GM/DL My Orders Orders - CHARLES CARRILLO MD Cbc With Automated Diff (12/27/18 14:09) Magnesium (12/27/18 14:09) Chest 1 View, Ap/Pa Only (12/27/18 14:09) Ekg Tracing (12/27/18 14:09) Cardiac Profile 1 (12/27/18 14:09) Comprehensive Metabolic Panel (12/27/18 14:09) Myoglobin Serum (12/27/18 14:09) Protime With Inr (12/27/18 14:09) Partial Thromboplastin Time (12/27/18 14:09) O2 (12/27/18 14:09) Monitor-Rhythm Ecg Trace Only (12/27/18 14:09) Lipid Panel (12/28/18 06:00) Ed Iv/Invasive Line Start (12/27/18 14:09) Nitroglycerin 0.4 Mg Btl 25's (Nitrostat (12/27/18 14:15) Aspirin Chewable Tablet (Baby Aspirin Ch (12/27/18 14:15) Medications Given in ED Current Medications Medications Dose Ordered Sig/Emeka Route Start Time Stop Time Status Last Admin Dose Admin Aspirin 324 mg ONCE ONCE PO 12/27/18 14:15 12/27/18 14:16 DC 12/27/18 14:24 324 MG Nitroglycerin 0.4 mg UD PRN SL 12/27/18 14:15 12/27/18 14:31 0.4 MG Vital Signs/I&O 12/27/18 12/27/18 13:45 13:45 Temp 36.5 Pulse 90 Resp 19 B/P (MAP) 136/82 (100) Pulse Ox 98 O2 Delivery Room Air Room Air Progress Progress Note : Time: 16:30 Progress Note Patient's evaluation emergency Department was unremarkable. The patient had a normal troponin. Patient's chest pain spontaneously resolved and she slept quietly in the emergency department. Departure Impression Primary Impression: Chest wall pain Disposition: 01 HOME, SELF-CARE Condition: Improved Departure-Patient Inst. Decision time for Depature: 16:31 Referrals: HUGO BECKFORD APRN (PCP) Primary Care Physician [facility] (Family) Primary Care Physician Patient Instructions: Chest Pain That Is Not Caused by the Heart (DC) Add. Discharge Instructions: Rest at home today. Follow up closely with her caregivers tomorrow. Return if any problems or questions. All discharge instructions reviewed with patient and/or family. Voiced understanding. CHARLES CARRILLO MD Dec 27, 2018 14:28
[2018-12-27 14:34] LABS: ALANINE AMINOTRANSFERASE 26 U/L (0-55); ALBUMIN 3.4 GM/DL (3.2-4.5); ALKALINE PHOSPHATASE 94 U/L (40-136); BILIRUBIN,TOTAL 0.4 MG/DL (0.1-1.0); BUN/CREATININE RATIO 4; CARBON DIOXIDE 23 MMOL/L (21-32); CHLORIDE 105 MMOL/L (98-107); CREATININE SERUM 0.83 MG/DL (0.60-1.30); GFR ESTIMATED > 60; GLUCOSE 155 MG/DL (70-105); MAGNESIUM 1.9 MG/DL (1.6-2.4); POTASSIUM 3.6 MMOL/L (3.6-5.0); SODIUM 140 MMOL/L (135-145); TOTAL PROTEIN 7.8 GM/DL (6.4-8.2)
--- NOTE | 2018-12-27 15:00 | Diagnostic Imaging Report ---
PATIENT HISTORY: Left-sided chest pain. TECHNIQUE: Frontal view of the chest. COMPARISON: 03/02/2018. FINDINGS: Lung volumes are normal. No focal consolidation is seen. There is no pleural effusion or pneumothorax. The cardiac silhouette appears mildly prominent which is likely due to AP technique. No acute osseous abnormality is seen. IMPRESSION: No acute pulmonary abnormality is seen. Dictated by: Dictated on workstation # [id number]
[2018-12-27 16:36] VITALS: BP 125/86
== END 2018-12-27 16:36 | disposition home or self-care (01) ==
LOC: EDUNIT# 13:45 → ER 13:46
DX: R07.89 Other chest pain (principal); E78.00 Pure hypercholesterolemia, unspecified; I10 Essential (primary) hypertension; G43.909 Migraine, unspecified, not intractable, without status migrainosus; G62.9 Polyneuropathy, unspecified; M79.7 Fibromyalgia; E03.9 Hypothyroidism, unspecified; F41.9 Anxiety disorder, unspecified; F31.9 Bipolar disorder, unspecified; F20.9 Schizophrenia, unspecified; D64.9 Anemia, unspecified; K21.9 Gastro-esophageal reflux disease without esophagitis; F17.210 Nicotine dependence, cigarettes, uncomplicated; Z88.8 Allergy status to other drugs, medicaments and biological substances; Z90.710 Acquired absence of both cervix and uterus; Z90.722 Acquired absence of ovaries, bilateral; Z82.49 Family history of ischemic heart disease and other diseases of the circulatory system
CPT/HCPCS: 36415; 71045; 80053; 83735; 83874; 84484; 85025; 85610; 85730; 93005; 93041

== ENCOUNTER 2019-06-02 23:16 | Emergency (ER) | payer MEDICARE, MEDICAID ==
[~2019-06-02] VITALS: Ht 157 cm; Wt 84.1 kg
[~2019-06-02 23:16] MED LIST changes: +ACHYD1T PO; -HYDR-3820 PO; -LIDO15SO2 MM; +LIDO20SO23 MM; -TRAM50TA2; -TRAM50TA2 PO; +TRM50T PO; +VERA120T15 PO; -VERA120T6 PO
[2019-06-03] MEDS ORDERED: PROMETHAZINE INJ 25 MG/ML (PHENERGAN) AMP IM ONE (01:00)
[2019-06-03] MEDS ORDERED: KETOROLAC 30 MG/ML VIAL IM ONE (01:00)
[2019-06-03] MEDS ORDERED: PROM25TA14 PO (02:17)
--- NOTE | 2019-06-03 02:18 | ED Headache ---
General Chief Complaint: Head/Cervical Problems Stated Complaint: MIGRAINE Nursing Triage Note: C/O MIGRAINE X 36 HRS Nursing Sepsis Screen: No Definite Risk Source: patient Exam Limitations: no limitations History of Present Illness Date Seen by Provider: Jun 03, 2019 Time Seen by Provider: 00:45 Initial Comments This 43-year-old woman presents to the emergency room with migraine since yesterday. Pain is sharp and throbbing with associated nausea and light sensitivity. She has tried Aleve and Tylenol without improvement. She does have history of migraines and is accustomed to these symptoms. Allergies and Home Medications Allergies Coded Allergies: gabapentin (Verified Allergy, Severe, HIVES, 01/14/15) esomeprazole (Unverified Allergy, Mild, 08/19/15) niacin (Unverified Allergy, Mild, 05/13/14) Uncoded Allergies: "COCKTAIL FOR CHAN" (Allergy, Mild, ITCHING, 02/11/09) Home Medications Acetazolamide 250 Mg Tablet, 250 MG PO 1200,2100, (Reported) Acyclovir 400 Mg Tablet, 400 MG PO TID, (Reported) LAST FILLED #42 12-17-17 Alprazolam 0.25 Mg Tablet, 0.25 MG PO TID PRN for ANXIETY, (Reported) Benzonatate 100 Mg Capsule, 1-2 TAB PO TID Prescribed by: PAOLA TAVERAS on 03/02/18342 Budesonide 90 Mcg Aer.pow.ba, 90 MCG IH BID Prescribed by: PAOLA TAVERAS on 03/02/18342 Cefdinir 300 Mg Capsule, 300 MG PO BID Prescribed by: OMAR BLOUNT on 01/19/18 1404 Cyclobenzaprine HCl 10 Mg Tablet, 10 MG PO TID PRN for MUSCLE SPASMS, (Reported) D-Methorphan Hb/Prometh HCl 118 Ml Syrup, 1-2 TSP PO Q4H Prescribed by: PAOLA TAVERAS on 03/02/18342 Duloxetine HCl 60 Mg Capsule.dr, 60 MG PO BID, (Reported) Ezetimibe 10 Mg Tablet, 10 MG PO HS, (Reported) Ibuprofen 200 Mg Tablet, 600 MG PO TID PRN for PAIN-MILD, (Reported) Levofloxacin 500 Mg Tablet, 500 MG PO DAILY Prescribed by: PAOLA TAVERAS on 03/02/18342 Levothyroxine Sodium 112 Mcg Tablet, 1,125 MCG PO HS, (Reported) Methylprednisolone 4 Mg Tab.ds.pk, 4 MG PO UD Prescribed by: PAOLA TAVERAS on 03/02/18 0343 Naproxen Sodium 220 Mg Tablet, 440 MG PO TID PRN for PAIN-MILD, (Reported) Pramipexole Di-HCl 0.125 Mg Tablet, 0.125 MG PO HS, (Reported) Pregabalin 100 Mg Capsule, 100 MG PO BID, (Reported) Promethazine HCl 25 Mg Tablet, 25 MG PO Q6H PRN for NAUSEA/VOMITING Prescribed by: JESUSITA DAVIS on 06/03/19 0217 Risperidone 0.25 Mg Tablet, 0.5 MG PO HS, (Reported) TAKES 2 (0.25MG) TABLETS Tizanidine HCl 2 Mg Tablet, 4 MG PO HS, (Reported) TAKES 2 (2MG) TABLETS Tramadol HCl 50 Mg Tablet, 50 MG PO Q6H PRN for PAIN Prescribed by: JAIME TAMAYO on 10/22/18 1750 Verapamil HCl 120 Mg Tablet, 120 MG PO HS, (Reported) Patient Home Medication List Home Medication List Reviewed: Yes Review of Systems Review of Systems Constitutional: no symptoms reported Eyes: See HPI Ears, Nose, Mouth, Throat: no symptoms reported Respiratory: no symptoms reported Cardiovascular: no symptoms reported Gastrointestinal: see HPI Genitourinary: no symptoms reported Musculoskeletal: no symptoms reported Skin: no symptoms reported Psychiatric/Neurological: See HPI Past Oqhntsl-Ofldxh-Egsdso Hx Past Med/Social Hx: Reviewed Nursing Past Med/Soc Hx Patient Social History Alcohol Use: Denies Use Recreational Drug Use: No Drug of Choice: THC IN PAST Type Used: Cigarettes 2nd Hand Smoke Exposure: Yes Recent Foreign Travel: No Contact w/Someone Who Travel: No Recent Infectious Disease Expo: No Recent Hopitalizations: No Physical Abuse: No Sexual Abuse: No Mistreated: No Fear: No Immunizations Up To Date Tetanus Booster (TDap): Unknown Date of Influenza Vaccine: Dec 06, 2013 Seasonal Allergies Seasonal Allergies: Yes Past Medical History Surgeries: Yes (EXPLORATORY LAP, HIATAL HERNIA REPAIR; HYST/BSO; VENTRAL HERNIA REPAIR. 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 ) Hypothyroidsim HEENT: No Loss of Vision: Bilateral Hearing Impairment: Denies Cancer: No Psychosocial: Yes Anxiety, Bipolar, Schizophrenia, Depression Integumentary: Yes Herpes Blood Disorders: Yes (ANEMIA) Adverse Reaction/Blood Tranf: No Family Medical History Cardiovascular disease 19 FATHER Diabetes mellitus 19 FATHER 19 MOTHER FH: mental illness Mental Physical Exam Vital Signs Vital Signs - First Documented 06/03/19 00:28 Temp 36.6 Pulse 92 Resp 18 B/P (MAP) 126/79 (95) Pulse Ox 94 Capillary Refill : Less Than 3 Seconds Height, Weight, BMI Height: 5'3.00" Weight: 190lbs. 4.0oz. [id number]; 34.00 BMI Method:Stated General Appearance: WD/WN, mild distress HEENT: PERRL/EOMI, normal ENT inspection, pharynx normal Neck: normal inspection Cardiovascular: regular rate, rhythm, no edema, no murmur Respiratory: lungs clear, normal breath sounds, no respiratory distress Gastrointestinal: non tender, soft Extremities: normal inspection, no pedal edema Psychiatric: alert, oriented x 3 Crainal Nerves: normal hearing, normal speech, PERRL Motor/Sensory: no motor deficit, no sensory deficit Skin: normal color, warm/dry Progress/Results/Core Measures Results/Orders My Orders Orders - JESUSITA SIMON MD Ketorolac Injection (Toradol Injection) (06/03/19 01:00) Promethazine Injection (Phenergan Injec (06/03/19 01:00) Medications Given in ED Vital Signs/I&O 06/03/19 06/03/19 00:28 02:28 Temp 36.6 Pulse 92 86 Resp 18 18 B/P (MAP) 126/79 (95) 137/76 (95) Pulse Ox 94 95 Blood Pressure Mean: 95 Progress Progress Note : Progress Note Patient received injections of Phenergan and Toradol with good improvement. Departure Impression Primary Impression: Migraine headache Qualified Codes: G43.909 - Migraine, unspecified, not intractable, without status migrainosus Additional Impression: Nausea Disposition: HOME, SELF-CARE Condition: Improved Departure-Patient Inst. Decision time for Depature: 02:16 Referrals: [facility] (PCP) Primary Care Physician HUGO BECKFORD APRN (Family) Primary Care Physician Patient Instructions: Migraine Headache (DC) Add. Discharge Instructions: Drink plenty of clear liquids and rest in a quiet, calm, dark environment. For rebound headache you may take ibuprofen or naproxen and had Tylenol (keyla taminophen) if needed. Use Phenergan as prescribed for nausea. Follow-up with your primary care provider to discuss further treatment and prevention of migraines. Return to emergency room for worsening symptoms or other concerns. All discharge instructions reviewed with patient and/or family. Voiced understanding. Scripts Promethazine HCl (Promethazine Tablet) 25 Mg Tablet 25 MG PO Q6H PRN for NAUSEA/VOMITING, #10 TAB Prov: JESUSITA SIMON MD 06/03/19 JESUSITA SIMON MD Jun 03, 2019 02:17
[2019-06-03 02:28] VITALS: BP 137/76
== END 2019-06-03 02:30 | disposition home or self-care (01) ==
LOC: EDUNIT# 23:16 → ER 23:19
DX: G43.909 Migraine, unspecified, not intractable, without status migrainosus (principal); E78.00 Pure hypercholesterolemia, unspecified; I10 Essential (primary) hypertension; E03.9 Hypothyroidism, unspecified; F41.9 Anxiety disorder, unspecified; F31.9 Bipolar disorder, unspecified; F20.9 Schizophrenia, unspecified; M79.7 Fibromyalgia; K21.9 Gastro-esophageal reflux disease without esophagitis; B00.9 Herpesviral infection, unspecified; Z79.899 Other long term (current) drug therapy
CPT/HCPCS: 96372; 99284

== ENCOUNTER 2019-07-07 23:14 | Emergency (ER) | payer MEDICARE, MEDICAID ==
[~2019-07-07] VITALS: Ht 160 cm; Wt 79.3 kg
--- OUTSIDE RECORDS SUMMARY | 2019-07-07 23:23 | XMS REPORT | Encounter Summary ---
Author Author [facility] Organization [facility] Address Unknown Phone Unavailable Care Team Providers Care Supervisor [facility]ality [facility] Name Role Phone Robin De La Cruz MD Unavailable Dago Vu MD Unavailable Cleopatra Butler RN Unavailable Unavailable Germain oLuis MD Unavailable Livier Dozier PCP Reason for Visit * Reason Comments Nasal Congestion chest congestion, ear and t ooth pain x 1 week Encounter Details Care Team Description Date Type Department Lakesha Frey, SHINGLE TRIMMER-MATERIALS SCHEDULER [address] [address] Oral pain (Primary Dx); Open fracture of tooth, initial encounter 02/09/2019 Office Visit [facility] [address] [address] Social History Date Tobacco Use Types Packs/Day Years Used Current Every Day Smoker Cigarettes 1 20 Smokeless Tobacco: Never Used Drinks/Week oz/Week Comments Alcohol Use Sober for 15yr, h/o alcoholism. No Sex Assigned at Date Recorded Not on file Industry Job Start Date Occupation Not on file Not on file Not on file Travel End Travel History Travel Start No recent travel history available. documented as of this encounter Last Filed Vital Signs Reading Time Taken Comments Vital Sign 124/72 02/09/2019 8:23 AM COMMISSIONS COORDINATOR Blood Pressure 80 02/09/2019 8:23 AM COMMISSIONS COORDINATOR Pulse 36.6 C (97.9 F) 02/09/2019 8:23 AM COMMISSIONS COORDINATOR Temperature 18 02/09/2019 8:23 AM COMMISSIONS COORDINATOR Respiratory Rate 97% 02/09/2019 8:23 AM COMMISSIONS COORDINATOR Oxygen Saturation - - Inhaled Oxygen Concentration 83 kg (183 lb) 02/09/2019 8:23 AM COMMISSIONS COORDINATOR Weight 162.6 cm (5' 4") 02/09/2019 8:23 AM COMMISSIONS COORDINATOR Height 31.41 02/09/2019 8:23 AM COMMISSIONS COORDINATOR Body Mass Index documented in this encounter Patient Instructions * Patient Instructions* Lakesha Frey APRN-NP - 02/09/2019 7:45 AM COMMISSIONS COORDINATOR You were seen today for left lower tooth pain & fracturing from cavities causing pain up the right jaw/ear. Avoid crunchy or chewy foods. The teeth will firm up in the gum in 3-5 days. Control pain with Ibuprofen 600 mg every 6 hours as needed. Gargle with warm salt water after eating and brush other teeth well. Gargle and spit with 1/2 hydrogen peroxide and 1/2 water 2 times a day to clean bacteria from teeth. Place an icepack to the right jaw as needed for pain. Follow up with a Dentist of your choice on Wednesday to exam. [facility] dental ([phone]) takes walk-ins Emergency Clinic Hours are 7:30 a.m. 8:30 a.m. and 11:30 a.m. 12:30 p.m. Wednesday through Wednesday. Located at [address] [place] [address] ISSIONS COORDINATOR documented in this encounter Progress Notes * Lakesha Frey APRN-NP - 02/09/2019 7:45 AM COMMISSIONS COORDINATOR Date of Service: 02/09/2019 Adri Mir is a 43 y.o. female. : 1975 Chief compliant: Chief Complaint Patient presents with Nasal Congestion chest congestion, ear and tooth pain x 1 week Subjective: Dental Pain Chronicity: All upper teeth removed, but lower teeth have been bad for approx 20 years. Has been home only 9 days in past month 2nd dad sick here at in [facility]. Episode onset: 2 days pain worsed. The problem occurs constantly. The proble m has been gradually worsening. The pain is at a severity of 7/10. Associated sy mptoms include difficulty swallowing, facial pain, a fever, sinus pressure and t hermal sensitivity. Pertinent negatives include no oral bleeding. Associated sym ptoms comments: Radiating pain to right jaw up to right ear. She has tried aceta minophen and NSAIDs for the symptoms. The treatment provided mild relief. Review of Systems Constitutional: Positive for chills, diaphoresis, fatigue and fever. Negative fo r activity change and appetite change. HENT: Positive for congestion, ear discharge, ear pain, facial swelling, postnas al drip, sinus pressure, sinus pain, sore throat, trouble swallowing and voice c hange. Negative for mouth sores, nosebleeds and rhinorrhea. Right ear drainage yellow in am after using cotton swab Eyes: Negative for pain and discharge. Respiratory: Positive for cough. Negative for chest tightness, shortness of surinder th and wheezing. Gastrointestinal: Negative for diarrhea, nausea and vomiting. Musculoskeletal: Positive for myalgias and neck pain. Negative for neck stiffnes s. Skin: Negative for rash. Neurological: Positive for dizziness. Negative for headaches. Objective: amoxicillin (AMOXIL) 875 mg tablet Take one tablet by mouth every 12 hours f or 10 days. ARIPiprazole (ABILIFY) 5 mg tablet Take 1 tablet by mouth daily. calcium carbonate (CALCIUM 300 PO) Take 1 tablet by mouth daily. ezetimibe (ZETIA) 10 mg tablet Take 10 mg by mouth as directed. ibuprofen (MOTRIN) 600 mg tablet Take one tablet by mouth every 6 hours as n eeded for Pain. Take with food. pregabalin (LYRICA) 200 mg capsule Take 200 mg by mouth twice daily. prochlorperazine (COMPAZINE) 10 mg tablet Take 10 mg by mouth every 6 hours as needed. propranolol (INDERAL) 10 mg tablet Take 1 tablet by mouth daily. risperiDONE (RISPERDAL) 0.25 mg tablet Take 0.25 mg by mouth. verapamil CR (CALAN-SR) 120 mg tablet Take 1 Tab by mouth daily. Vitals: 02/09/19 0823 BP: 124/72 Pulse: 80 Resp: 18 Temp: 36.6 C (97.9 F) TempSrc: Oral SpO2: 97% Weight: 83 kg (183 lb) Height: 162.6 cm (64") Body mass index is 31.41 kg/m. Physical Exam Constitutional: She is oriented to person, place, and time. She appears well-dev eloped and well-nourished. HENT: Head: Normocephalic. Right Ear: Tympanic membrane, external ear and ear canal normal. Tympanic membra ne is not erythematous. Left Ear: Tympanic membrane, external ear and ear canal normal. Tympanic membran e is not erythematous. Nose: Mucosal edema present. Right sinus exhibits no maxillary sinus tenderness and no frontal sinus tenderness. Left sinus exhibits no maxillary sinus tenderne ss and no frontal sinus tenderness. Mouth/Throat: Uvula is midline and oropharynx is clear and moist. Tonsils are 2+ on the right. Tonsils are 2+ on the left. Tenderness noted along right jaw line up to right ear. No erythema, warmth, or swelling noted. Eyes: Conjunctivae are normal. Neck: Normal range of motion. Neck supple. Cardiovascular: Normal rate, regular rhythm and normal heart sounds. No murmur heard. Pulmonary/Chest: Effort normal and breath sounds normal. No respiratory distress . Musculoskeletal: Normal range of motion. Lymphadenopathy: She has no cervical adenopathy. Neurological: She is alert and oriented to person, place, and time. Skin: Skin is warm and dry. Psychiatric: She has a normal mood and affect. Her behavior is normal. Judgment and thought content normal. Nursing note and vitals reviewed. Assessment and Plan: Adri Mir was seen today for nasal congestion. Diagnoses and all orders for this visit: Oral pain Open fracture of tooth, initial encounter Other orders - ibuprofen (MOTRIN) 600 mg tablet; Take one tablet by mouth every 6 hours a s needed for Pain. Take with food. - amoxicillin (AMOXIL) 875 mg tablet; Take one tablet by mouth every 12 hour s for 10 days. Patient Instructions You were seen today for left lower tooth pain & fracturing from cavities causing pain up the right jaw/ear. Avoid crunchy or chewy foods. The teeth will firm up in the gum in 3-5 days. Control pain with Ibuprofen 600 mg every 6 hours as needed. Gargle with warm salt water after eating and brush other teeth well. Gargle and spit with 1/2 hydrogen peroxide and 1/2 water 2 times a day to clean bacteria from teeth. Place an icepack to the right jaw as needed for pain. Follow up with a Dentist of your choice on Wednesday to exam. [facility] dental ([phone]) takes walk-ins Emergency Clinic Hours are 7:30 a.m. 8:30 a.m. and 11:30 a.m. 12:30 p.m. Wednesday through Wednesday. Located at [address] [place] [address] ISSIONS COORDINATOR documented in this encounter Plan of Treatment Not on filedocumented as of this encounter Visit Diagnoses Diagnosis Oral pain Other and unspecified diseases of the o ral soft tissues Open fracture of tooth, initial encount er documented in this encounter
--- OUTSIDE RECORDS SUMMARY | 2019-07-07 23:23 | XMS REPORT | Clinical Summary ---
Author Author [facility] Organization [facility] Address Unknown Phone Unavailable Care Team Providers Care Reservations Clerk Name Role Phone Robin De La Cruz MD Unavailable Dago Vu MD Unavailable Cleopatra Butler RN Unavailable Unavailable Germain Louis MD Unavailable Livier Dozier PCP Source Comments Some departments are not documenting in the electronic medical record. If you d o not see the information that you expected, contact Release of Information in [facility] appening Information Management department at [phone] for further assistan ce in locating additional records.[facility] Allergies Comments Active Allergy Reactions Severity Noted Date Gabapentin RASH 04/23/2011 Niacin ANAPHYLAXIS High 06/19/2014 Medications End Date Status Medication Sig Dispensed Refills Start Date Active prochlorperazine Take 10 mg by 0 (COMPAZINE) 10 mg tablet mouth every 6 hours as needed. Active risperiDONE (RISPERDAL) Take 0.25 mg 0 0.25 mg tablet by mouth. Active ezetimibe (ZETIA) 10 mg Take 10 mg by 0 tablet mouth as directed. Active pregabalin (LYRICA) 200 Take 200 mg 0 mg capsule by mouth twice daily. Active verapamil CR (CALAN-SR) Take 1 Tab by 30 Tab 3 120 mg tablet mouth daily. 5 Active ARIPiprazole (ABILIFY) 5 Take 1 tablet 0 08/17 mg tablet by mouth 5 daily. Active calcium carbonate Take 1 tablet 0 (CALCIUM 300 PO) by mouth daily. Active propranolol (INDERAL) 10 Take 1 tablet 0 mg tablet by mouth daily. Active ibuprofen (MOTRIN) 600 mg Take one 40 tablet 0 tablet tablet by 9 mouth every 6 hours as needed for Pain. Take with food. Active Problems No known active problems Resolved [...] Mother Osteoporosis Mother Other Mother carpal tunnel syndr ome Psoriasis Mother Neuropathy Other Cancer Paternal bone [...] travel history available. Last Filed Vital Signs Reading Time Taken Comments Vital Sign 124/72 02/09/2019 8:23 AM FROZEN FOODS MANAGER Blood Pressure 80 02/09/2019 8:23 AM FROZEN FOODS MANAGER Pulse 36.6 C (97.9 F) 02/09/2019 8:23 AM FROZEN FOODS MANAGER Temperature 18 02/09/2019 8:23 AM FROZEN FOODS MANAGER Respiratory Rate 97% 02/09/2019 8:23 AM FROZEN FOODS MANAGER Oxygen Saturation - - Inhaled Oxygen Concentration 83 kg (183 lb) 02/09/2019 8:23 AM FROZEN FOODS MANAGER Weight 162.6 cm (5' 4") 02/09/2019 8:23 AM FROZEN FOODS MANAGER Height 31.41 02/09/2019 8:23 AM FROZEN FOODS MANAGER Body Mass Index Plan of Treatment Health Maintenance Due Date Last Done Comments MEDICARE ANNUAL WELLNESS 1975 VISIT HIV SCREENING 10/13/1991 DTAP/TDAP VACCINES (1 - 1994 Tdap) PHYSICAL (COMPREHENSIVE) 1994 EXAM CERVICAL CANCER SCREENING 1997 BREAST CANCER SCREENING 2016 INFLUENZA VACCINE 12/07/2019 HEPATITIS C SCREENING Completed 04/23/2011 Results Not on filefrom Last 3 Months Insurance Type Payer Benefit Subscriber ID Effective Phone Address Plan / Dates Group [place] xxxxxxxxxxx 2018- resent Medicaid [place] [employer] xxxxxxxxxxx 2012- [facility]LY [facility] Present HEALTH -[id number] 

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
--- OUTSIDE RECORDS SUMMARY | 2019-07-07 23:26 | XMS REPORT | Continuity of Care Document ---
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 MORALES Ot E03.9 HYPOTHYROIDISM, UNSPECIFIED 07/27/2017 NITIN DO PAOLA Nigel Ot E78.00 PURE HYPERCHOLESTEROLEMIA, UNSPECIFIED 07/27/2017 [place] DO PAOLA K Ot F17.210 NICOTINE DEPENDENCE, CIGARETTES, UNCOMPL 07/27/2017 NITIN JENNIFER MORALESA Nigel Ot F20.9 SCHIZOPHRENIA, UNSPECIFIED 07/27/2017 NITIN DOJENNIFERA K Ot F31.9 BIPOLAR DISORDER, UNSPECIFIED 07/27/2017 [place] DOJENNIFERA K Ot F41.9 ANXIETY DISORDER, UNSPECIFIED 07/27/2017 NITIN DOJENNIFERA K Ot G43.909 MIGRAINE, UNSP, NOT INTRACTABLE, WITHOUT 07/27/2017 NITIN DOJENNIFERA K Ot G62.9 POLYNEUROPATHY, UNSPECIFIED 07/[facility] H[facility].91 UNSPECIFIED NONSUPPURATIVE OTITIS MEDIA, 07/27/2017 [place] JENNIFER MORALESA Nigel Ot I10 ESSENTIAL (PRIMARY) HYPERTENSION 07/27/2017 [place] JENNIFER MORALESA Nigel Ot J32.9 CHRONIC SINUSITIS, UNSPECIFIED 07/27/2017 NITIN JENNIFER MORALESA Nigel Ot J40 BRONCHITIS, NOT SPECIFIED ACUTE OR CH 07/27/2017 NITIN JENNIFER MORALESA Nigel Ot K21.9 GASTRO-ESOPHAGEAL REFLUX DISEASE WITHOUT 07/27/2017 NITIN JENNIFER MORALESA K Ot R05 COUGH 07/27/2017 NITIN PAOLA MORALES Ot Z87.01 PERSONAL HISTORY OF PNEUMONIA (RECURRENT 07/27/2017 NITIN PAOLA MORALES Ot Z87.59 PERSONAL HISTORY OF COMP OF PREG, CHLDBR 07/27/2017 NITIN PAOLA MORALES Ot Z88.1 ALLERGY STATUS TO OTHER ANTIBIOTIC AGENT 07/27/2017 NITIN PAOLA MORALES Ot Z90.710 ACQUIRED ABSENCE OF BOTH CERVIX AND UTER 11/04/2017 NITIN JENNIFER MORALESA Nigel Ot E78.00 PURE HYPERCHOLESTEROLEMIA, UNSPECIFIED 11/04/2017 NITIN DO PAOLA K Ot F17.210 NICOTINE DEPENDENCE, CIGARETTES, UNCOMPL 11/04/2017 NITIN PAOLA MORALES Ot F20.9 SCHIZOPHRENIA, UNSPECIFIED 11/04/2017 [place] PAOLA Nigel Ot F31.9 BIPOLAR DISORDER, UNSPECIFIED 11/04/2017 [facility] PAOLA Nigel Ot F41.9 ANXIETY DISORDER, UNSPECIFIED 11/04/2017 [place] PAOLA Manning Ot G43.909 MIGRAINE, UNSP, NOT INTRACTABLE, WITHOUT 11/04/2017 NITIN PAOLA Manning Ot G89.29 OTHER CHRONIC PAIN 11/04/2017 [facility] PAOLA Manning Ot H60.91 UNSPECIFIED OTITIS EXTERNA, RIGHT EAR 11/04/2017 NITIN PAOLA Nigel Ot I10 ESSENTIAL (PRIMARY) HYPERTENSION 11/04/2017 [facility] PAOLA Manning Ot K21.9 GASTRO-ESOPHAGEAL REFLUX DISEASE WITHOUT 11/04/2017 [facility] PAOLA Nigel Ot R51 HEADACHE 11/04/2017 [facility] PAOLA Nigel Ot Z79.51 POSTAL SERVICE SECTIONAL CENTER MANAGER (CURRENT) USE OF INHALED STERO 11/04/2017 [facility] PAOLA Manning Ot Z82.49 FAMILY HX OF ISCHEM HEART DIS AND OTH DI 11/04/2017 NITIN PAOLA Nigel Ot Z86.19 PERSONAL HISTORY OF OTHER INFECTIOUS AND 11/04/2017 NITIN PAOLA Nigel Ot Z87.01 PERSONAL HISTORY OF PNEUMONIA (RECURRENT 11/04/2017 NITIN DO PAOLA Nigel Ot Z87.19 PERSONAL HISTORY OF OTHER DISEASES OF TH 11/04/2017 NITIN DO PAOLA Nigel Ot Z88.8 ALLERGY STATUS TO OT DRUG/MEDS/BIOL SUB 11/04/2017 NITIN PAOL[place] Nigel Ot Z90.710 ACQUIRED ABSENCE OF BOTH CERVIX AND UTER 11/04/2017 [facility] PAOLA Nigel Ot Z90.89 ACQUIRED ABSENCE OF OTHER ORGANS 11/04/2017 [facility] PAOLA Nigel Ot Z98.890 OTHER SPECIFIED POSTPROCEDURAL STATES 11/05/2017 Ot 729.5 PAIN IN LIMB 11/05/2017 Ot 729.81 SWE LLING OF LIMB 01/19/2018 [facility] DO Ot A60.09 HERPESVIRAL INFECTION OF OTHER UROGENITA 01/19/2018 RALPH SIDDIQUI DO Ot E03.9 HYPOTHYROIDISM, UNSPECIFIED 01/19/2018 [facility] RALPH MORALES Ot E66.9 OBESITY, UNSPECIFIED 01/19/2018 GELLENDER DO, RALPH Omer Ot E78.00 PURE HYPERCHOLESTEROLEMIA, UNSPECIFIED 01/19/2018 GELLENDER DO, RALPH Omer Ot E87.6 HYPOKALEMIA 01/19/2018 GELLENDER DO, RALPH Omer Ot F17.210 NICOTINE DEPENDENCE, CIGARETTES, UNCOMPL 01/19/2018 GELLENDER DO, RALPH Omer Ot F20.9 SCHIZOPHRENIA, UNSPECIFIED 01/19/2018 GELLENDER DO, RALPH Omer Ot F31.9 BIPOLAR DISORDER, UNSPECIFIED 01/19/2018 GELLENDER DO, RALPH Zofia Ot F41.9 ANXIETY DISORDER, UNSPECIFIED 01/19/2018 GELLENDER DO, RALPH Zofia Ot I10 ESSENTIAL (PRIMARY) HYPERTENSION 01/19/2018 GELLENDER DO, RALPH Zofia Ot I95.9 HYPOTENSION, UNSPECIFIED 01/19/2018 GELLENDER DO, RALPH Zofia Ot J18.9 PNEUMONIA, UNSPECIFIED ORGANISM 01/19/2018 GELLENDER DO, RALPH Omer Ot K21.9 GASTRO-ESOPHAGEAL REFLUX DISEASE WITHOUT 01/19/2018 GELLENDER DO, RALPH Omer Ot K52.9 NONINFECTIVE GASTROENTERITIS AND COLITIS 01/19/2018 GELLENDER DO, RALPH Omer Ot M79.7 FIBROMYALGIA 01/19/2018 GELLENDER DO, RALPH Omer Ot R07.89 OTHER CHEST PAIN 01/19/2018 GELLENDER DO, RALPH Omer Ot Z68.34 BODY MASS INDEX (BMI) 34.0-34.9, ADULT 02/23/2018 GELLENDER DO, RALPH Omer Ot J18.9 PNEUMONIA, UNSPECIFIED ORGANISM 02/23/2018 GELLENDER DO, RALPH Omer Ot J18.9 PNEUMONIA, UNSPECIFIED ORGANISM 02/23/2018 GELLENDER DO, RALPH Omer Ot J18.9 PNEUMONIA, UNSPECIFIED ORGANISM 02/23/2018 CHRISTOPHER TABOR MD Ot 724. 2 LUMBAGO 02/23/2018 YANIRA WOOWDARD MD Ot V54. 11 AFTERCARE HEALING TRAUMATIC FX UPPER ARM 02/23/2018 YANIRA WOODWARD MD Ot 812. 00 FX UP END HUMERUS NOS-CL 02/23/2018 YANIRA WOODWARD MD Ot E888 .9 FALL NOS 02/23/2018 LINDA CORTEZ JOB DEVELOPER Ot 276.8 HYPOPOTASSEMIA 02/23/2018 LINDA CORTEZ JOB DEVELOPER Ot 719.41 JOINT PAIN-SHLDER 02/23/2018 LINDA CORTEZ JOB DEVELOPER Ot 785.1 PALPITATIONS 02/23/2018 LINDA CORTEZ JOB DEVELOPER Ot 796.2 ELEV BL PRES W/O HYPERTN 02/23/2018 CHEN MORALES, RALPH Zofia Ot E53.8 DEFICIENCY OF OTHER SPECIFIED B GROUP 02/23/2018 CHEN MORALES, RALPH Zofia Ot M06.9 RHEUMATOID ARTHRITIS, UNSPECIFIED 02/23/2018 CHEN MORALES, RALPH Omer Ot R10.10 UPPER ABDOMINAL PAIN, UNSPECIFIED 02/23/2018 JAGLENDER , RALPH Omer Ot R74.8 ABNORMAL LEVELS OF OTHER SERUM ENZYMES 02/23/2018 CHEN MORALES, RALPH Omer Ot R74.8 ABNORMAL LEVELS OF OTHER SERUM ENZYMES 02/23/2018 CHEN MORALES, RALPH Omer Ot R94.5 ABNORMAL RESULTS OF LIVER FUNCTION STUDI 02/23/2018 CHEN MORALESRALPH Ot J18.9 PNEUMONIA, UNSPECIFIED ORGANISM 02/23/2018 CHNE MORALES, RALPH Omer Ot J18.9 PNEUMONIA, UNSPECIFIED ORGANISM 03/02/2018 NITIN DO, PAOLA K Ot D64.9 ANEMIA, UNSPECIFIED 03/02/2018 NITIN DO, PAOLA K Ot E03.9 HYPOTHYROIDISM, UNSPECIFIED 03/02/2018 NITIN DO, PAOLA K Ot E78.00 PURE HYPERCHOLESTEROLEMIA, UNSPECIFIED 03/02/2018 NITIN DO, PAOLA K Ot F20.9 SCHIZOPHRENIA, UNSPECIFIED 03/02/2018 NITIN DO, PAOLA K Ot F31.9 BIPOLAR DISORDER, UNSPECIFIED 03/02/2018 NITIN DO, PAOLA K Ot F41.9 ANXIETY DISORDER, UNSPECIFIED 03/02/2018 NITIN DO, PAOLA K Ot G43.909 MIGRAINE, UNSP, NOT INTRACTABLE, WITHOUT 03/02/2018 NITIN DO, PAOLA K Ot I10 ESSENTIAL (PRIMARY) HYPERTENSION 03/02/2018 NITIN DO, PAOLA K Ot J18.9 PNEUMONIA, UNSPECIFIED ORGANISM 03/02/2018 NITIN DO, PAOLA K Ot J40 BRONCHITIS, NOT SPECIFIED ACUTE OR CH 03/02/2018 NITIN DO, PAOLA K Ot K21.9 GASTRO-ESOPHAGEAL REFLUX DISEASE WITHOUT 03/02/2018 NITIN DO, PAOLA K Ot Z77.22 CNTCT W AND EXPSR TO ENVIRON TOBACCO SMO 03/02/2018 NITIN PAOLA K Ot Z82.49 FAMILY HX OF ISCHEM HEART DIS AND OTH DI 03/02/2018 NITIN MORALES PAOLA K Ot Z87.01 PERSONAL HISTORY OF PNEUMONIA (RECURRENT 03/02/2018 NITIN MORALES PAOLA Nigel Ot Z87.19 PERSONAL HISTORY OF OTHER DISEASES OF TH 03/02/2018 NITIN MORALES PAOLA K Ot Z88.8 ALLERGY STATUS TO OTH DRUG/MEDS/BIOL SUB 03/02/2018 NITIN PAOLA K Ot Z90.710 ACQUIRED ABSENCE OF BOTH CERVIX AND UTER 03/02/2018 NITIN PAOLA K Ot Z90.89 ACQUIRED ABSENCE OF OTHER ORGANS 03/02/2018 NITIN PAOLA K Ot Z98.84 BARIATRIC SURGERY STATUS 03/02/2018 NITIN MORALES PAOLA K Ot Z98.890 OTHER SPECIFIED POSTPROCEDURAL STATES 03/07/2018 NITIN PAOLA K Ot D64.9 ANEMIA, UNSPECIFIED 03/07/2018 NITIN PAOLA K Ot E03.9 HYPOTHYROIDISM, UNSPECIFIED 03/07/2018 NITIN DO PAOLA K Ot E78.00 PURE HYPERCHOLESTEROLEMIA, UNSPECIFIED 03/07/2018 NITIN DO, PAOLA K Ot F20.9 SCHIZOPHRENIA, UNSPECIFIED 03/07/2018 NITIN DO PAOLA K Ot F31.9 BIPOLAR DISORDER, UNSPECIFIED 03/07/2018 NITIN DO, PAOLA K Ot F41.9 ANXIETY DISORDER, UNSPECIFIED 03/07/2018 NITIN DO PAOLA K Ot G43.909 MIGRAINE, UNSP, NOT INTRACTABLE, WITHOUT 03/07/2018 NITIN PAOLA K Ot I10 ESSENTIAL (PRIMARY) HYPERTENSION 03/07/2018 NITIN PAOLA K Ot J18.9 PNEUMONIA, UNSPECIFIED ORGANISM 03/07/2018 NITIN DO PAOLA K Ot J40 BRONCHITIS, NOT SPECIFIED ACUTE OR CH 03/07/2018 NITIN PAOLA K Ot K21.9 GASTRO-ESOPHAGEAL REFLUX DISEASE WITHOUT 03/07/2018 NITIN DO PAOLA K Ot Z77.22 CNTCT W AND EXPSR TO ENVIRON TOBACCO SMO 03/07/2018 NITIN PAOLA K Ot Z82.49 FAMILY HX OF ISCHEM HEART DIS AND OTH DI 03/07/2018 PAOLA TAVERAS DO Ot Z87.01 PERSONAL HISTORY OF PNEUMONIA (RECURRENT 03/07/2018 PAOLA TAVERAS DO Ot Z87.19 PERSONAL HISTORY OF OTHER DISEASES OF TH 03/07/2018 PAOLA TAVERAS DO Ot Z88.8 ALLERGY STATUS TO OTH DRUG/MEDS/BIOL SUB 03/07/2018 PAOLA TAVERAS DO Ot Z90.710 ACQUIRED ABSENCE OF BOTH CERVIX AND UTER 03/07/2018 PAOLA TAVERAS DO Ot Z90.89 ACQUIRED ABSENCE OF OTHER ORGANS 03/07/2018 PAOLA TAVERAS DO Ot Z98.84 BARIATRIC SURGERY STATUS 03/07/2018 PAOLA TAVERAS DO Ot Z98.890 OTHER SPECIFIED POSTPROCEDURAL STATES 03/16/2018 RALPH SIDDIQUI DO Ot J18.9 PNEUMONIA, UNSPECIFIED ORGANISM 03/23/2018 RALPH SIDDIQUI DO Ot J18.9 PNEUMONIA, UNSPECIFIED ORGANISM 04/26/2018 SHARONA SLOAN, CHRISTOPHER Wright Ot 724. 2 LUMBAGO 04/26/2018 YANIRA WOODWARD MD Ot V54. 11 AFTERCARE HEALING TRAUMATIC FX UPPER ARM 04/26/2018 YANIRA WOODWARD MD Ot 812. 00 FX UP END HUMERUS NOS-CL 04/26/2018 YANIRA WOODWARD MD Ot E888 .9 FALL NOS 04/26/2018 LINDA CORTEZ JOB DEVELOPER Ot 276.8 HYPOPOTASSEMIA 04/26/2018 LINDA CORTEZ JOB DEVELOPER Ot 719.41 JOINT PAIN-SHLDER 04/26/2018 LINDA CORTEZ JOB DEVELOPER Ot 785.1 PALPITATIONS 04/26/2018 LINDA CORTEZ JOB DEVELOPER Ot 796.2 ELEV BL PRES W/O HYPERTN 04/26/2018 RALPH SIDDIQUI DO Ot E53.8 DEFICIENCY OF OTHER SPECIFIED B GROUP 04/26/2018 RALPH SIDDIQUI DO Ot M06.9 RHEUMATOID ARTHRITIS, UNSPECIFIED 04/26/2018 RALPH SIDDIQUI DO Ot R10.10 UPPER ABDOMINAL PAIN, UNSPECIFIED 04/26/2018 RALPH SIDDIQUI DO Ot R74.8 ABNORMAL LEVELS OF OTHER SERUM ENZYMES 04/26/2018 RALPH SIDDIQUI DO Ot R74.8 ABNORMAL LEVELS OF OTHER SERUM ENZYMES 04/26/2018 RALPH SIDDIQUI DO A Ot R94.5 ABNORMAL RESULTS OF LIVER FUNCTION STUDI 04/26/2018 JAGLENDER DO RALPH Zofia Ot J18.9 PNEUMONIA, UNSPECIFIED ORGANISM 04/27/2018 GELLENDER DO, RALPH Omer Ot R07.9 CHEST PAIN, UNSPECIFIED 04/28/2018 GELLENDER DO, RALPH Omer Ot R07.9 CHEST PAIN, UNSPECIFIED 05/09/2018 GELLENDER DO, RALPH Omer Ot R07.9 CHEST PAIN, UNSPECIFIED 07/15/2018 SHARONA SLOAN, CHRISTOPHER Wright Ot 724. 2 LUMBAGO 07/15/2018 CRISSY SLOAN, YANIRA Licona Ot V54. 11 AFTERCARE HEALING TRAUMATIC FX UPPER ARM 07/15/2018 CRISSY SLOAN, YANIRA Licona Ot 812. 00 FX UP END HUMERUS NOS-CL 07/15/2018 CRISSY SLOAN, YANIRA Licona Ot E888 .9 FALL NOS 07/15/2018 LINDA CORTEZ JOB DEVELOPER Ot 276.8 HYPOPOTASSEMIA 07/15/2018 LINDA CORTEZ JOB DEVELOPER Ot 719.41 JOINT PAIN-SHLDER 07/15/2018 LINDA CORTEZ JOB DEVELOPER Ot 785.1 PALPITATIONS 07/15/2018 LINDA CORTEZ JOB DEVELOPER Ot 796.2 ELEV BL PRES W/O HYPERTN 07/15/2018 BOYDER DO, RALPH Zofia Ot E53.8 DEFICIENCY OF OTHER SPECIFIED B GROUP 07/15/2018 JAGLENDER DORALPH Ot M06.9 RHEUMATOID ARTHRITIS, UNSPECIFIED 07/15/2018 JAGLENDER RALPH Ot R10.10 UPPER ABDOMINAL PAIN, UNSPECIFIED 07/15/2018 GELLENDER DORALPH Ot R74.8 ABNORMAL LEVELS OF OTHER SERUM ENZYMES 07/15/2018 GELLENDER DORALPH Ot R74.8 ABNORMAL LEVELS OF OTHER SERUM ENZYMES 07/15/2018 JAGLENDER DORALPH Ot R94.5 ABNORMAL RESULTS OF LIVER FUNCTION STUDI 07/15/2018 JAGLENDER DORALPH Ot J18.9 PNEUMONIA, UNSPECIFIED ORGANISM 07/15/2018 JAGLENDER DO, RALPH Omer Ot R07.9 CHEST PAIN, UNSPECIFIED 07/16/2018 IVETH NOVA MD Ot D64.9 ANEMIA, UNSPECIFIED 07/16/2018 IVETH NOVA MD Ot E78.00 PURE HYPERCHOLESTEROLEMIA, UNSPECIFIED 07/16/2018 IVETH NOVA MD Ot F17.210 NICOTINE DEPENDENCE, CIGARETTES, UNCOMPL 07/16/2018 IVETH NOVA MD Ot F20.9 SCHIZOPHRENIA, UNSPECIFIED 07/16/2018 IVETH NOVA MD, Ot F31.9 BIPOLAR DISORDER, UNSPECIFIED 07/16/2018 IVETH NOVA MD, Ot F41.9 ANXIETY DISORDER, UNSPECIFIED 07/16/2018 IVETH NOVA MD Ot G43.909 MIGRAINE, UNSP, NOT INTRACTABLE, WITHOUT 07/16/2018 IVETH NOVA MD, Ot G62.9 POLYNEUROPATHY, UNSPECIFIED 07/16/2018 IVETH NOVA MD, Ot I10 ESSENTIAL (PRIMARY) HYPERTENSION 07/16/2018 IVETH NOVA MD, Ot K21.9 GASTRO-ESOPHAGEAL REFLUX DISEASE WITHOUT 07/16/2018 IVETH NOVA MD Ot M79.622 PAIN IN LEFT UPPER ARM 07/16/2018 IVETH NOVA MD Ot M79.7 FIBROMYALGIA 07/16/2018 IVETH NOVA MD Ot S40.022A CONTUSION OF LEFT UPPER ARM, INITIAL ENC 07/16/2018 IVETH NOVA MD Ot X58.XXXA EXPOSURE TO OTHER SPECIFIED FACTORS, INI 07/16/2018 IVETH NOVA MD, Ot Z79.52 POSTAL SERVICE SECTIONAL CENTER MANAGER (CURRENT) USE OF SYSTEMIC STER 07/16/2018 IVETH NOVA MD Ot Z82.49 FAMILY HX OF ISCHEM HEART DIS AND OTH DI 07/16/2018 IVETH NOVA MD, Ot Z86.19 PERSONAL HISTORY OF OTHER INFECTIOUS AND 07/16/2018 IVETH NOVA MD, Ot Z87.01 PERSONAL HISTORY OF PNEUMONIA (RECURRENT 07/16/2018 IVETH NOVA MD, Ot Z87.09 PERSONAL HISTORY OF OTHER DISEASES OF TH 07/16/2018 IVETH NOVA MD, Ot Z87.19 PERSONAL HISTORY OF OTHER DISEASES OF TH 07/16/2018 IVETH NOVA MD Ot Z88.8 ALLERGY STATUS TO OTH DRUG/MEDS/BIOL SUB 07/16/2018 IVETH NOVA MD Ot Z90.710 ACQUIRED ABSENCE OF BOTH CERVIX AND UTER 07/16/2018 IVETH NOAV MD Ot Z90.89 ACQUIRED ABSENCE OF OTHER ORGANS 07/16/2018 IVETH NOVA MD Ot Z98.890 OTHER SPECIFIED POSTPROCEDURAL STATES 07/19/2018 IVETH NOVA MD, Ot D64.9 ANEMIA, UNSPECIFIED 07/19/2018 IVETH NOVA MD Ot E78.00 PURE HYPERCHOLESTEROLEMIA, UNSPECIFIED 07/19/2018 IVETH NOVA MD Ot F17.210 NICOTINE DEPENDENCE, CIGARETTES, UNCOMPL 07/19/2018 IVETH NOVA MD, Ot F20.9 SCHIZOPHRENIA, UNSPECIFIED 07/19/2018 IVETH NOVA MD, Ot F31.9 BIPOLAR DISORDER, UNSPECIFIED 07/19/2018 IVETH NOVA MD, Ot F41.9 ANXIETY DISORDER, UNSPECIFIED 07/19/2018 IVETH NOVA MD Ot G43.909 MIGRAINE, UNSP, NOT INTRACTABLE, WITHOUT 07/19/2018 IVETH NOVA MD Ot G62.9 POLYNEUROPATHY, UNSPECIFIED 07/19/2018 IVETH NOVA MD Ot I10 ESSENTIAL (PRIMARY) HYPERTENSION 07/19/2018 IVETH NOVA MD Ot K21.9 GASTRO-ESOPHAGEAL REFLUX DISEASE WITHOUT 07/19/2018 IVETH NOVA MD Ot M79.622 PAIN IN LEFT UPPER ARM 07/19/2018 IVETH NOVA MD Ot M79.7 FIBROMYALGIA 07/19/2018 IVETH NOVA MD Ot S40.022A CONTUSION OF LEFT UPPER ARM, INITIAL ENC 07/19/2018 IVETH NOVA MD Ot X58.XXXA EXPOSURE TO OTHER SPECIFIED FACTORS, INI 07/19/2018 IVETH NOVA MD Ot Z79.52 [facility] (CURRENT) USE OF SYSTEMIC STER 07/19/2018 IVETH NOVA MD, Ot Z82.49 FAMILY HX OF ISCHEM HEART DIS AND OTH DI 07/19/2018 IVETH NOVA MD, Ot Z86.19 PERSONAL HISTORY OF OTHER INFECTIOUS AND 07/19/2018 IVETH NOVA MD, Ot Z87.01 PERSONAL HISTORY OF PNEUMONIA (RECURRENT 07/19/2018 IVETH NOVA MD, Ot Z87.09 PERSONAL HISTORY OF OTHER DISEASES OF 07/19/2018 IVETH NOVA MD, Ot Z87.19 PERSONAL HISTORY OF OTHER DISEASES OF 07/19/2018 IVETH NOVA MD, Ot Z88.8 ALLERGY STATUS TO [facility] DRUG/MEDS/BIOL SUB 07/19/2018 IVETH NOVA MD Ot Z90.710 ACQUIRED ABSENCE OF BOTH CERVIX AND UTER 07/19/2018 IVETH NOVA MD, Ot Z90.89 ACQUIRED ABSENCE OF OTHER ORGANS 07/19/2018 IVETH NOVA MD, Ot Z98.890 OTHER SPECIFIED POSTPROCEDURAL STATES 10/22/2018 RONI, JAIME KRAFTP Ot E03.9 HYPOTHYROIDISM, UNSPECIFIED 10/22/2018 RONI, JAIME JOB DEVELOPER Ot E78.00 PURE HYPERCHOLESTEROLEMIA, UNSPECIFIED 10/22/2018 RONI, JAIME JOB DEVELOPER Ot F17.210 NICOTINE DEPENDENCE, CIGARETTES, UNCOMPL 10/22/2018 RONI, JAIME JOB DEVELOPER Ot F20.9 SCHIZOPHRENIA, UNSPECIFIED 10/22/2018 RONI, JAIME JOB DEVELOPER Ot F31.9 BIPOLAR DISORDER, UNSPECIFIED 10/22/2018 RONI, JAIME JOB DEVELOPER Ot F41.9 ANXIETY DISORDER, UNSPECIFIED 10/22/2018 RONI, JAIME JOB DEVELOPER Ot G43.909 MIGRAINE, UNSP, NOT INTRACTABLE, WITHOUT 10/22/2018 RONI, JAIME JOB DEVELOPER Ot G57.93 UNSPECIFIED MONONEUROPATHY OF BILATERAL 10/22/2018 RONI, JAIME JOB DEVELOPER Ot I10 ESSENTIAL (PRIMARY) HYPERTENSION 10/22/2018 RONI, JAIME JOB DEVELOPER Ot J42 UNSPECIFIED CHRONIC BRONCHITIS 10/22/2018 RONI, JAIME JOB DEVELOPER Ot K21.9 GASTRO-ESOPHAGEAL REFLUX DISEASE WITHOUT 10/22/2018 RONI, JAIME JOB DEVELOPER Ot M25.512 PAIN IN LEFT SHOULDER 10/22/2018 RONI, JAIME JOB DEVELOPER Ot M25.562 PAIN IN LEFT KNEE 10/22/2018 RONI, JAIME JOB DEVELOPER Ot M79.7 FIBROMYALGIA 10/22/2018 RONI, JAIME JOB DEVELOPER Ot W10.9XXA FALL (ON) (FROM) UNSPECIFIED STAIRS AND 10/22/2018 RONI, JAIME JOB DEVELOPER Ot Z82.49 FAMILY HX OF ISCHEM HEART DIS AND OTH DI 10/22/2018 JAIME TAMAYO Ot Z87.01 PERSONAL HISTORY OF PNEUMONIA (RECURRENT 10/22/2018 JAIME TAMAYOP Ot Z88.8 ALLERGY STATUS TO OTH DRUG/MEDS/BIOL SUB 10/22/2018 JAIME TAMAYO Ot Z90.710 ACQUIRED ABSENCE OF BOTH CERVIX AND UTER 10/22/2018 JAIME TAMAYO Ot Z98.890 OTHER SPECIFIED POSTPROCEDURAL STATES 10/22/2018 SHARONA SLOAN, CHRISTOPHER Wright Ot 724. 2 LUMBAGO 10/22/2018 CRISSY SLOAN, YANIRA Licona Ot V54. 11 AFTERCARE HEALING TRAUMATIC FX UPPER ARM 10/22/2018 CRISSY SLOAN, YANIRA Licona Ot 812. 00 FX UP END HUMERUS NOS-CL 10/22/2018 CRISSY SLOAN, YANIRA Licona Ot E888 .9 FALL NOS 10/22/2018 LINDA CORTEZ JOB DEVELOPER Ot 276.8 HYPOPOTASSEMIA 10/22/2018 LINDA CORTEZ JOB DEVELOPER Ot 719.41 JOINT PAIN-SHLDER 10/22/2018 LINDA CORTEZ JOB DEVELOPER Ot 785.1 PALPITATIONS 10/22/2018 LINDA CORTEZP Ot 796.2 ELEV BL PRES W/O HYPERTN 10/22/2018 RALPH SIDDIQUI DO Ot E53.8 DEFICIENCY OF OTHER SPECIFIED B GROUP 10/22/2018 JAGLENDER RALPH MORALES Ot M06.9 RHEUMATOID ARTHRITIS, UNSPECIFIED 10/22/2018 RALPH SIDDIQUI DO Ot R10.10 UPPER ABDOMINAL PAIN, UNSPECIFIED 10/22/2018 RALPH SIDDIQUI DO Ot R74.8 ABNORMAL LEVELS OF OTHER SERUM ENZYMES 10/22/2018 JAGLENRALPH HOSKINS DO Ot R74.8 ABNORMAL LEVELS OF OTHER SERUM ENZYMES 10/22/2018 JAGLENDER DORALPH Ot R94.5 ABNORMAL RESULTS OF LIVER FUNCTION STUDI 10/22/2018 RALPH SIDDIQUI DO Ot J18.9 PNEUMONIA, UNSPECIFIED ORGANISM 10/22/2018 RALPH SIDDIQUI DO Ot R07.9 CHEST PAIN, UNSPECIFIED 12/27/2018 LORENA SLOAN, CHARLES Goldstein Ot D64. 9 ANEMIA, UNSPECIFIED 12/27/2018 LORENA SLOAN, CHARLES Goldstein Ot E03. 9 HYPOTHYROIDISM, UNSPECIFIED 12/27/2018 LORENA SLOAN, CHARLES S Ot E78. 00 PURE HYPERCHOLESTEROLEMIA, UNSPECIFIED 12/27/2018 LORENA SLOAN, CHARLES Triston Ot F17.210 NICOTINE DEPENDENCE, CIGARETTES, UNCOMPL 12/27/2018 LORENA SLOAN, CHARLES Goldstein Ot F20. 9 SCHIZOPHRENIA, UNSPECIFIED 12/27/2018 LORENA SLOAN, CHARLES Triston Ot F31. 9 BIPOLAR DISORDER, UNSPECIFIED 12/27/2018 LORENA SLOAN, CHARLES Goldstein Ot F41. 9 ANXIETY DISORDER, UNSPECIFIED 12/27/2018 LORENA SLOAN, CHARLES Triston Ot G43.909 MIGRAINE, UNSP, NOT INTRACTABLE, WITHOUT 12/27/2018 LORENA SLOAN, CHARLES Triston Ot G62. 9 POLYNEUROPATHY, UNSPECIFIED 12/27/2018 LORENA SLOAN, CHARLES Goldstein Ot I10 ESSENTIAL (PRIMARY) HYPERTENSION 12/27/2018 LORENA SLOAN, CHARLES Triston Ot K21. 9 GASTRO-ESOPHAGEAL REFLUX DISEASE WITHOUT 12/27/2018 LORENA SLOAN, CHARLES Goldstein Ot M79. 7 FIBROMYALGIA 12/27/2018 LORENA SLOAN, CHARLES Triston Ot R07. 89 OTHER CHEST PAIN 12/27/2018 LORENA SLOAN, CHARLES Triston Ot R07. 9 CHEST PAIN, UNSPECIFIED 12/27/2018 LORENA SLOAN, CHARLES Triston Ot Z82. 49 FAMILY HX OF ISCHEM HEART DIS AND OTH DI 12/27/2018 LORENA SLOAN, CHALRES Triston Ot Z88. 8 ALLERGY STATUS TO OTH DRUG/MEDS/BIOL SUB 12/27/2018 LORENA SLOAN CHARLES Triston Ot Z90.710 ACQUIRED ABSENCE OF BOTH CERVIX AND UTER 12/27/2018 LORENA SLOAN CHARLES Triston Ot Z90.722 ACQUIRED ABSENCE OF OVARIES, BILATERAL 01/02/2019 SHARONA SLOAN, CHRISTOPHER Wright Ot 724. 2 LUMBAGO 01/02/2019 YANIRA WOODWARD MD Ot 812. 00 FX UP END HUMERUS NOS-CL 01/02/2019 AYNIRA WOODWARD MD Ot E888 .9 FALL NOS 01/02/2019 LINDA CORTEZ JOB DEVELOPER Ot 276.8 HYPOPOTASSEMIA 01/02/2019 LINDA CORTEZP Ot 719.41 JOINT PAIN-SHLDER 01/02/2019 LINDA CORTEZ Ot 785.1 PALPITATIONS 01/02/2019 LINDA CORTEZ JOB DEVELOPER Ot 796.2 ELEV BL PRES W/O HYPERTN 01/02/2019 GELLENDER DO, RALPH Omer Ot E53.8 DEFICIENCY OF OTHER SPECIFIED B GROUP 01/02/2019 GELLENDER DORALPH Ot M06.9 RHEUMATOID ARTHRITIS, UNSPECIFIED 01/02/2019 GELLENDER DO, RALPH Omer Ot R10.10 UPPER ABDOMINAL PAIN, UNSPECIFIED 01/02/2019 JAGLENDER DORALPH Ot R74.8 ABNORMAL LEVELS OF OTHER SERUM ENZYMES 01/02/2019 GELLENDER DO, RALPH Omer Ot R74.8 ABNORMAL LEVELS OF OTHER SERUM ENZYMES 01/02/2019 GELLENDER DO, RALPH Omer Ot R94.5 ABNORMAL RESULTS OF LIVER FUNCTION STUDI 01/02/2019 GELLENDER DORALPH Ot J18.9 PNEUMONIA, UNSPECIFIED ORGANISM 01/02/2019 GELLENDER DO, RALPH Omer Ot R07.9 CHEST PAIN, UNSPECIFIED 02/22/2019 SHARONA SLOAN, CHRISTOPHER Wright Ot 724. 2 LUMBAGO 02/22/2019 CRISSY SLOAN, YANIRA Licona Ot 812. 00 FX UP END HUMERUS NOS-CL 02/22/2019 CRISSY SLOAN, YANIRA Licona Ot E888 .9 FALL NOS 02/22/2019 LINDA CORTEZ JOB DEVELOPER Ot 276.8 HYPOPOTASSEMIA 02/22/2019 LINDA CORTEZ JOB DEVELOPER Ot 719.41 JOINT PAIN-SHLDER 02/22/2019 LINDA CORTEZ JOB DEVELOPER Ot 785.1 PALPITATIONS 02/22/2019 LINDA CORTEZ JOB DEVELOPER Ot 796.2 ELEV BL PRES W/O HYPERTN 02/22/2019 CHEN MORALESRALPH Ot E53.8 DEFICIENCY OF OTHER SPECIFIED B GROUP 02/22/2019 GELLENDER DORALPH Ot M06.9 RHEUMATOID ARTHRITIS, UNSPECIFIED 02/22/2019 GELLENDER DO, RALPH Omer Ot R10.10 UPPER ABDOMINAL PAIN, UNSPECIFIED 02/22/2019 GELLENDER DORALPH Ot R74.8 ABNORMAL LEVELS OF OTHER SERUM ENZYMES 02/22/2019 GELLENDER DO, RALPH Omer Ot R74.8 ABNORMAL LEVELS OF OTHER SERUM ENZYMES 02/22/2019 GELLENDER DORALPH Ot R94.5 ABNORMAL RESULTS OF LIVER FUNCTION STUDI 02/22/2019 JAGLENDER DORALPH Ot J18.9 PNEUMONIA, UNSPECIFIED ORGANISM 02/22/2019 [facility], RALPH Omer Ot R07.9 CHEST PAIN, UNSPECIFIED 05/15/2019 [facility], RALPH Omer Ot R07.9 CHEST PAIN, UNSPECIFIED 06/02/2019 SHARONA SLOAN, CHRISTOPHER Wright Ot 724. 2 LUMBAGO 06/02/2019 CORTEZ, LINDA Walden JOB DEVELOPER Ot 276.8 HYPOPOTASSEMIA 06/02/2019 CORTEZ, LINDA Walden JOB DEVELOPER Ot 719.41 JOINT PAIN-SHLDER 06/02/2019 CORTEZ, LINDA Walden JOB DEVELOPER Ot 785.1 PALPITATIONS 06/02/2019 CORTEZ, LINDA Walden JOB DEVELOPER Ot 796.2 ELEV BL PRES W/O HYPERTN 06/02/2019 [facility], RALPH Omer Ot E53.8 DEFICIENCY OF OTHER SPECIFIED B GROUP 06/02/2019 [facility], RALPH Omer Ot M06.9 RHEUMATOID ARTHRITIS, UNSPECIFIED 06/02/2019 [facility], RALPH Omer Ot R10.10 UPPER ABDOMINAL PAIN, UNSPECIFIED 06/02/2019 [facility] RALPH Omer Ot R74.8 ABNORMAL LEVELS OF OTHER SERUM ENZYMES 06/02/2019 [facility], RALPH Omer Ot R74.8 ABNORMAL LEVELS OF OTHER SERUM ENZYMES 06/02/2019 [facility] , RALPH Omer Ot R94.5 ABNORMAL RESULTS OF LIVER FUNCTION STUDI 06/02/2019 [facility], RALPH Omer Ot J18.9 PNEUMONIA, UNSPECIFIED ORGANISM 06/02/2019 [facility], RALPH Omer Ot R07.9 CHEST PAIN, UNSPECIFIED 06/03/2019 Ot B00.9 HERP ESVIRAL INFECTION, UNSPECIFIED 06/03/2019 Ot E03.9 HYPO THYROIDISM, UNSPECIFIED 06/03/2019 Ot E78.00 PUR E HYPERCHOLESTEROLEMIA, UNSPECIFIED 06/03/2019 Ot F20.9 SCHI ZOPHRENIA, UNSPECIFIED 06/03/2019 Ot F31.9 BIPO LAR DISORDER, UNSPECIFIED 06/03/2019 Ot F41.9 ANXI ETY DISORDER, UNSPECIFIED 06/03/2019 Ot G43.909 KS GRAINE, UNSP, NOT INTRACTABLE, WITHOUT 06/03/2019 Ot I10 ESSENT IAL (PRIMARY) HYPERTENSION 06/03/2019 Ot K21.9 ALISSON RO-ESOPHAGEAL REFLUX DISEASE WITHOUT 06/03/2019 Ot M79.7 FIBR OMYALGIA 06/03/2019 Ot 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 2 LUMBAGO 06/03/2019 CORTEZ, LINDA KRAFTP Ot 276.8 HYPOPOTASSEMIA 06/03/2019 CORTEZ, LINDA KRAFTP Ot 719.41 JOINT PAIN-SHLDER 06/03/2019 CORTEZ, LINDA KRAFTP Ot 785.1 PALPITATIONS 06/03/2019 CORTEZ, LIDNA KRAFTP Ot 796.2 ELEV BL PRES W/O HYPERTN 06/03/2019 GELLENDER DO, RALPH Omer Ot E53.8 DEFICIENCY OF OTHER SPECIFIED B GROUP 06/03/2019 GELLENDER DO, RALPH Omer Ot M06.9 RHEUMATOID ARTHRITIS, UNSPECIFIED 06/03/2019 GELLENDER DO, RALPH Omer Ot R10.10 UPPER ABDOMINAL PAIN, UNSPECIFIED 06/03/2019 GELLENDER DO, RALPH Omer Ot R74.8 ABNORMAL LEVELS OF OTHER SERUM ENZYMES 06/03/2019 GELLENDER DO, RALPH Omer Ot R74.8 ABNORMAL LEVELS OF OTHER SERUM ENZYMES 06/03/2019 GELLENDER DO, RALPH Omer Ot R94.5 ABNORMAL RESULTS OF LIVER FUNCTION STUDI 06/03/2019 [facility] , RALPH Omer Ot J18.9 PNEUMONIA, UNSPECIFIED ORGANISM 06/03/2019 GELLENDER DO, RALPH Omer Ot R07.9 CHEST PAIN, UNSPECIFIED 06/03/2019 CHRISTOPHER TABOR MD Ot 724. 2 LUMBAGO 06/03/2019 CORTEZ, LINDA ESPINOZA Ot 276.8 HYPOPOTASSEMIA 06/03/2019 CORTEZ, LINDA ESPINOZA Ot 719.41 JOINT PAIN-SHLDER 06/03/2019 CORTEZ, LINDA ESPINOZA Ot 785.1 PALPITATIONS 06/03/2019 CORTEZ, LINDA KRAFTP Ot 796.2 ELEV BL PRES W/O HYPERTN 06/03/2019 GELLENDER DO, RALPH Omer Ot E53.8 DEFICIENCY OF OTHER SPECIFIED B GROUP 06/03/2019 GELLENDER DO, RALPH Omer Ot M06.9 RHEUMATOID ARTHRITIS, UNSPECIFIED 06/03/2019 GELLENDER DO, RALPH Omer Ot R10.10 UPPER ABDOMINAL PAIN, UNSPECIFIED 06/03/2019 GELLENDER DO, RALPH Omer Ot R74.8 ABNORMAL LEVELS OF OTHER SERUM ENZYMES 06/03/2019 GELLENDER DO, RALPH Omer Ot R74.8 ABNORMAL LEVELS OF OTHER SERUM ENZYMES 06/03/2019 GELLENDER DO, RALPH Omer Ot R94.5 ABNORMAL RESULTS OF LIVER FUNCTION STUDI 06/03/2019 GELLENDER DO, RALPH Omer Ot J18.9 PNEUMONIA, UNSPECIFIED ORGANISM 06/03/2019 GELLENDER DO, RALPH Omer Ot R07.9 CHEST PAIN, UNSPECIFIED 06/03/2019 SHARONA SLOAN, CHRISTOPHER Wright Ot 724. 2 LUMBAGO 06/03/2019 CORTEZ, LINDA Walden JOB DEVELOPER Ot 276.8 HYPOPOTASSEMIA 06/03/2019 CORTEZ, LINDA Walden JOB DEVELOPER Ot 719.41 JOINT PAIN-SHLDER 06/03/2019 CORTEZ, LINDA Walden JOB DEVELOPER Ot 785.1 PALPITATIONS 06/03/2019 CORTEZ, LINDA Walden JOB DEVELOPER Ot 796.2 ELEV BL PRES W/O HYPERTN 06/03/2019 [facility] RALPH Omer Ot E53.8 DEFICIENCY OF OTHER SPECIFIED B GROUP 06/03/2019 GELLENDER DO, RALPH Omer Ot M06.9 RHEUMATOID ARTHRITIS, UNSPECIFIED 06/03/2019 GELLENDER DO, RALPH Omer Ot R10.10 UPPER ABDOMINAL PAIN, UNSPECIFIED 06/03/2019 GELLENDER DO, RALPH Omer Ot R74.8 ABNORMAL LEVELS OF OTHER SERUM ENZYMES 06/03/2019 GELLENDER DO, RALPH Omer Ot R74.8 ABNORMAL LEVELS OF OTHER SERUM ENZYMES 06/03/2019 [facility], RALPH Omer Ot R94.5 ABNORMAL RESULTS OF LIVER FUNCTION STUDI 06/03/2019 GELLENDER DO, RALPH Omer Ot J18.9 PNEUMONIA, UNSPECIFIED ORGANISM 06/03/2019 GELLENDER DO, RALPH Omer Ot R07.9 CHEST PAIN, UNSPECIFIED 06/06/2019 SHARONA SLOAN, CHRISTOPHER Wright Ot 724. 2 LUMBAGO 06/06/2019 CORTEZ, LINDA Walden JOB DEVELOPER Ot 276.8 HYPOPOTASSEMIA 06/06/2019 CORTEZ, LINDA Walden JOB DEVELOPER Ot 719.41 JOINT PAIN-SHLDER 06/06/2019 CORTEZ, LINDA Walden JOB DEVELOPER Ot 785.1 PALPITATIONS 06/06/2019 CORTEZLINDA JOB DEVELOPER Ot 796.2 ELEV BL PRES W/O HYPERTN 06/06/2019 GELLENDER DO, RALPH Omer Ot E53.8 DEFICIENCY OF OTHER SPECIFIED B GROUP 06/06/2019 GELLENDER DO, RALPH Omer Ot M06.9 RHEUMATOID ARTHRITIS, UNSPECIFIED 06/06/2019 GELLENDER DO, RALPH Omer Ot R10.10 UPPER ABDOMINAL PAIN, UNSPECIFIED 06/06/2019 GELLENDER DO, RALPH Omer Ot R74.8 ABNORMAL LEVELS OF OTHER SERUM ENZYMES 06/06/2019 GELLENDER DO, RALPH Omer Ot R74.8 ABNORMAL LEVELS OF OTHER SERUM ENZYMES 06/06/2019 GELLENDER DO, RALPH Omer Ot R94.5 ABNORMAL RESULTS OF LIVER FUNCTION STUDI 06/06/2019 GELLENDER DO, RALPH Omer Ot J18.9 PNEUMONIA, UNSPECIFIED ORGANISM 06/06/2019 GELLENDER DO, RALPH Omer Ot R07.9 CHEST PAIN, UNSPECIFIED 06/06/2019 SHARONA SLOAN, CHRISTOPHER Wright Ot 724. 2 LUMBAGO 06/06/2019 CORTEZLINDA JOB DEVELOPER Ot 276.8 HYPOPOTASSEMIA 06/06/2019 CORTEZLINDA JOB DEVELOPER Ot 719.41 JOINT PAIN-SHLDER 06/06/2019 LINDA CORTEZ JOB DEVELOPER Ot 785.1 PALPITATIONS 06/06/2019 CORTEZLINDA JOB DEVELOPER Ot 796.2 ELEV BL PRES W/O HYPERTN 06/06/2019 GELLENDER DO, RALPH Omer Ot E53.8 DEFICIENCY OF OTHER SPECIFIED B GROUP 06/06/2019 GELLENDER DO, RALPH Omer Ot M06.9 RHEUMATOID ARTHRITIS, UNSPECIFIED 06/06/2019 GELLENDER DO, RALPH Omer Ot R10.10 UPPER ABDOMINAL PAIN, UNSPECIFIED 06/06/2019 GELLENDER DO, RALPH Omer Ot R74.8 ABNORMAL LEVELS OF OTHER SERUM ENZYMES 06/06/2019 GELLENDER DO, RALPH Omer Ot R74.8 ABNORMAL LEVELS OF OTHER SERUM ENZYMES 06/06/2019 GELLENDER DO, RALPH Omer Ot R94.5 ABNORMAL RESULTS OF LIVER FUNCTION STUDI 06/06/2019 GELLENDER DO, RALPH Omer Ot J18.9 PNEUMONIA, UNSPECIFIED ORGANISM 06/06/2019 GELLENDER DO, RALPH Omer Ot R07.9 CHEST PAIN, UNSPECIFIED 06/06/2019 CHRISTOPHER TABOR MD Ot 724. 2 LUMBAGO 06/06/2019 CORTEZLINDA JOB DEVELOPER Ot 276.8 HYPOPOTASSEMIA 06/06/2019 CORTEZ, LINDA Walden JOB DEVELOPER Ot 719.41 JOINT PAIN-SHLDER 06/06/2019 CORTEZ, LINDA Walden JOB DEVELOPER Ot 785.1 PALPITATIONS 06/06/2019 CORTEZLINDA JOB DEVELOPER Ot 796.2 ELEV BL PRES W/O HYPERTN 06/06/2019 GELLENDER DO, RALPH Zofia Ot E53.8 DEFICIENCY OF OTHER SPECIFIED B GROUP 06/06/2019 GELLENDER DO, RALPH Zofia Ot M06.9 RHEUMATOID ARTHRITIS, UNSPECIFIED 06/06/2019 [facility] RALPH Omer Ot R10.10 UPPER ABDOMINAL PAIN, UNSPECIFIED 06/06/2019 [facility], RALPH Omer Ot R74.8 ABNORMAL LEVELS OF OTHER SERUM ENZYMES 06/06/2019 [facility] DO, RALPH Omer Ot R74.8 ABNORMAL LEVELS OF OTHER SERUM ENZYMES 06/06/2019 [facility] DO, RALPH Omer Ot R94.5 ABNORMAL RESULTS OF LIVER FUNCTION STUDI 06/06/2019 [facility], RALPH Omer Ot J18.9 PNEUMONIA, UNSPECIFIED ORGANISM 06/06/2019 [facility], RALPH Omer Ot R07.9 CHEST PAIN, UNSPECIFIED 06/06/2019 Ot B00.9 HERP ESVIRAL INFECTION, UNSPECIFIED 06/06/2019 Ot E03.9 HYPO THYROIDISM, UNSPECIFIED 06/06/2019 Ot E78.00 PUR E HYPERCHOLESTEROLEMIA, UNSPECIFIED 06/06/2019 Ot F20.9 SCHI ZOPHRENIA, UNSPECIFIED 06/06/2019 Ot F31.9 BIPO LAR DISORDER, UNSPECIFIED 06/06/2019 Ot F41.9 ANXI ETY DISORDER, UNSPECIFIED 06/06/2019 Ot G43.909 [place] GRAINE, UNSP, NOT INTRACTABLE, WITHOUT 06/06/2019 Ot I10 ESSENT IAL (PRIMARY) HYPERTENSION 06/06/2019 Ot K21.9 [place]IS[place] RO-ESOPHAGEAL REFLUX DISEASE WITHOUT 06/06/2019 Ot M79.7 FIBR OMYALGIA 06/06/2019 Ot 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 2 LUMBAGO 06/08/2019 CORTEZLINDA [facility] Ot 276.8 HYPOPOTASSEMIA 06/08/2019 LINDA CORTEZ [facility] Ot 719.41 JOINT PAIN-SHLDER 06/08/2019 CORTEZLINDA [facility] Ot 785.1 PALPITATIONS 06/08/2019 CORTEZLINDA TORRES [facility] Ot 796.2 ELEV BL PRES W/O HYPERTN 06/08/2019 [facility], RALPH Omer Ot E53.8 DEFICIENCY OF OTHER SPECIFIED B GROUP 06/08/2019 [facility] RALPH Omer Ot M06.9 RHEUMATOID ARTHRITIS, UNSPECIFIED 06/08/2019 [facility] , RALPH Omer Ot R10.10 UPPER ABDOMINAL PAIN, UNSPECIFIED 06/08/2019 [facility], RALPH Omer Ot R74.8 ABNORMAL LEVELS OF OTHER SERUM ENZYMES 06/08/2019 [facility], RALPH Omer Ot R74.8 ABNORMAL LEVELS OF OTHER SERUM ENZYMES 06/08/2019 [facility], RALPH Omer Ot R94.5 ABNORMAL RESULTS OF LIVER FUNCTION STUDI 06/08/2019 [facility], RALPH Omer Ot J18.9 PNEUMONIA, UNSPECIFIED ORGANISM 06/08/2019 [facility], RALPH Omer Ot R07.9 CHEST PAIN, UNSPECIFIED Procedures Code Description [place] [address] PSYT X PT&/FAMILY 45 MINUTES 06/20/2014 96.04 INSE RT ENDOTRACHEAL TUBE 06/26/2014 96.71 CONT INUOUS INVASIVE MECHANICAL VENTILATI 06/26/2014 64680 PSYT X PT&/FAMILY 45 MINUTES 07/04/2014 Results Test Result Range Complete blood count (CBC) with automate d white blood cell (WBC) differential - 11/25/15 19:33 Blood leukocytes automated count (number/volume) 11.3 10*3/uL 4.3-11.0 Blood erythrocytes automated count (number/volume) 5.04 10*6/uL 4.35-5.85 Venous blood hemoglobin measurement (mass/volume) 16.0 g/dL 11.5-16.0 Blood hematocrit (volume fraction) 47 % 35-52 Automated erythrocyte mean corpuscular volume 93 [ foz_us] 80-99 Automated erythrocyte mean corpuscular h emoglobin (mass per erythrocyte) 32 pg 25-34 Automated erythrocyte mean corpuscular h emoglobin concentration measurement (mass/volume) 34 g/dL 32-36 Automated erythrocyte distribution width ratio 13. 9 % 10.0- 14.5 Automated blood platelet count (count/volume) 173 10*3/uL [...] 10*3 1.0-4.0 Blood monocytes automated count (number/volume) 1. 0 10*3 0.0-1.0 Automated eosinophil count 0.2 10*3/uL 0 .0-0.3 Automated blood basophil count (count/volume) 0.1 10*3/uL 0.0-0.1 Liver function panel (serum or plasma al k phos, alb, total and direct bili, total protein, ALT, AST) - 11/25/15 19:33 Serum or plasma total bilirubin measurement (mass/volu me) 0.4 mg/dL 0.1-1.0 Serum or plasma alkaline phosphatase jose surement (enzymatic activity/volume) 103 U/L 40-136 Serum or plasma aspartate aminotransfera se measurement (enzymatic activity/volume) 104 U/L 5-34 Serum or plasma alanine aminotransferase measurement (enzymatic activity/volume) 97 U/L 0-55 Serum or plasma protein measurement (mass/volume) 8.3 g/dL 6.4-8.2 Serum or plasma albumin measurement (mass/volume) 4.2 g/dL 3.2-4.5 Bilirubin direct 0.2 mg/dL 0.0-0.3 Serum or plasma indirect bilirubin measurement (mass/v olume) 0.2 mg/dL [facility] Acute hepatitis panel - 01/01/16 18:32 Confirmatory quantitative serum or plasm a hepatitis B virus surface antigen measurement Non-Reactive Non-Reactive Hepatitis A virus IgM antibody assay Non-Reactive Non- Reactive Hepatitis B virus core IgM antibody assay Non-Reac tive Non- Reactive Serum hepatitis C virus antibody detection Non-Dewitt ctive Non-Reactive Complete blood count (CBC) with automate d white blood cell (WBC) differential - 04/12/16 21:25 Blood leukocytes automated count (number/volume) 11.9 10*3/uL 4.3-11.0 Blood erythrocytes automated count (number/volume) 4.99 10*6/uL 4.35-5.85 Venous blood hemoglobin measurement (mass/volume) 16.1 g/dL 11.5-16.0 Blood hematocrit (volume fraction) 47 % 35-52 Automated erythrocyte mean corpuscular volume 94 [ foz_us] 80-99 Automated erythrocyte mean corpuscular h emoglobin (mass per erythrocyte) 32 pg 25-34 Automated erythrocyte mean corpuscular h emoglobin concentration measurement (mass/volume) 35 g/dL 32-36 Automated erythrocyte distribution width ratio 14. 0 % 10.0- 14.5 Automated blood platelet count (count/volume) 175 10*3/uL [...] 10*3 1.0-4.0 Blood monocytes automated count (number/volume) 0. 8 10*3 0.0-1.0 Automated eosinophil count 0.2 10*3/uL 0 .0-0.3 Automated blood basophil count (count/volume) 0.1 10*3/uL 0.0-0.1 Comprehensive metabolic panel - 04/12/16 21:25 Serum or plasma sodium measurement (moles/volume) 140 mmol/L 135-145 Serum or plasma potassium measurement (moles/volume) 3.6 mmol/L 3.6-5.0 Serum or plasma chloride measurement (moles/volume) 107 mmol/L 98-107 Carbon dioxide 21 mmol/L 21-32 Serum or plasma anion gap determination (moles/volume) 12 mmol/L 5-14 Serum or plasma urea nitrogen measurement (mass/volume ) 5 mg/dL 7-18 Serum or plasma creatinine measurement (mass/volume) 0.83 mg/dL 0.60-1.30 Serum or plasma urea nitrogen/creatinine mass ratio 6 NRG Serum or plasma creatinine measurement w ith calculation of estimated glomerular filtration rate > NRG Serum or plasma glucose measurement (mass/volume) 139 mg/dL 70-105 Serum or plasma calcium measurement (mass/volume) 8.8 mg/dL 8.5-10.1 Serum or plasma total bilirubin measurement (mass/volu me) 0.3 mg/dL 0.1-1.0 Serum or plasma alkaline phosphatase jose surement (enzymatic activity/volume) 94 U/L 40-136 Serum or plasma aspartate aminotransfera se measurement (enzymatic activity/volume) 58 U/L 5-34 Serum or plasma alanine aminotransferase measurement (enzymatic activity/volume) 48 U/L 0-55 Serum or plasma protein measurement (mass/volume) 8.0 g/dL 6.4-8.2 Serum or plasma albumin measurement (mass/volume) 4.1 g/dL 3.2-4.5 Magnesium - 04/12/16 21:25 Magnesium 2.4 mg/dL 1.8-2.4 Serum or plasma creatine kinase measurem ent (enzymatic activity/volume) - 04/12/16 21:25 Serum or plasma creatine kinase measurem ent (enzymatic activity/volume) 87 U/L 29-168 Serum or plasma creatine kinase MB measu rement (enzymatic activity/volume) - 04/12/16 21:25 Serum or plasma creatine kinase MB measu rement (enzymatic activity/volume) 0.8 ng/mL <6.6 Serum or plasma troponin i.cardiac measu rement (mass/volume) - 04/12/16 21:25 Serum or plasma troponin i.cardiac measurement (mass/v olume) < ng/mL <0.30 PT panel in platelet poor plasma by coag ulation assay - 04/12/16 21:25 Prothrombin time (PT) in platelet poor plasma by coagu lation assay 13.8 s 12.2-14.7 INR in platelet poor plasma or blood by coagulation as say 1.1 0.8-1.4 Activated partial thromboplastin time (a PTT) in platelet poor plasma bycoagulation assay - 04/12/16 21:25 Activated partial thromboplastin time (a PTT) in platelet poor plasma bycoagulation assay 30 s 24-35 Serum or plasma lithium measurement (mol es/volume) - 04/12/16 21:25 BNP level < pg/mL <100.0 Serum or plasma amylase measurement (enz ymatic activity/volume) - 04/12/16 21:25 Serum or plasma amylase measurement (enzymatic activit y/volume) 69 U/L 25-125 Lipase - 04/12/16 21:25 Lipase 57 U/L 8-78 Complete urinalysis with reflex to cultu re - 09/15/16 20:51 Urine color determination YELLOW NRG Urine clarity determination CLEAR NR G Urine pH measurement by test strip 6 5-9 Specific gravity of urine by test strip 1.010 1.016-1.022 Urine protein assay by test strip, semi-quantitative NEGATIVE NEGATIVE Urine glucose detection by automated test strip NE GATIVE NEGATIVE Erythrocytes detection in urine sediment by light micr oscopy NEGATIVE NEGATIVE Urine ketones detection by automated test strip NE GATIVE NEGATIVE Urine nitrite detection by test strip NEGATIVE NEGATIVE Urine total bilirubin detection by test strip NEGA TIVE NEGATIVE Urine urobilinogen measurement by automated test strip (mass/volume) NORMAL NORMAL Urine leukocyte esterase detection by dipstick NEG ATIVE NEGATIVE Automated urine sediment erythrocyte cou nt by microscopy (number/high power field) NONE NRG Automated urine sediment leukocyte count by microscopy (number/high power field) NONE NRG Bacteria detection in urine sediment by light microsco py NONE NRG Squamous epithelial cells detection in u rine sediment by light microscopy RARE NRG Crystals detection in urine sediment by light microsco py NONE NRG Casts detection in urine sediment by light microscopy NONE NRG Mucus detection in urine sediment by light microscopy NEGATIVE NRG Complete urinalysis with reflex to culture NO NRG Complete blood count (CBC) with automate d white blood cell (WBC) differential - 09/15/16 20:58 Blood leukocytes automated count (number/volume) 15.2 10*3/uL 4.3-11.0 Blood erythrocytes automated count (number/volume) 5.14 10*6/uL 4.35-5.85 Venous blood hemoglobin measurement (mass/volume) 16.8 g/dL 11.5-16.0 Blood hematocrit (volume fraction) 49 % 35-52 Automated erythrocyte mean corpuscular volume 95 [ foz_us] 80-99 Automated erythrocyte mean corpuscular h emoglobin (mass per erythrocyte) 33 pg 25-34 Automated erythrocyte mean corpuscular h emoglobin concentration measurement (mass/volume) 34 g/dL 32-36 Automated erythrocyte distribution width ratio 13. 9 % 10.0- 14.5 Automated blood platelet count (count/volume) 181 10*3/uL [...] 10*3 1.0-4.0 Blood monocytes automated count (number/volume) 0. 9 10*3 0.0-1.0 Automated eosinophil count 0.3 10*3/uL 0 .0-0.3 Automated blood basophil count (count/volume) 0.1 10*3/uL 0.0-0.1 Comprehensive metabolic panel - 09/15/16 20:58 Serum or plasma sodium measurement (moles/volume) 139 mmol/L 135-145 Serum or plasma potassium measurement (moles/volume) 3.1 mmol/L 3.6-5.0 Serum or plasma chloride measurement (moles/volume) 106 mmol/L 98-107 Carbon dioxide 22 mmol/L 21-32 Serum or plasma anion gap determination (moles/volume) 11 mmol/L 5-14 Serum or plasma urea nitrogen measurement (mass/volume ) 6 mg/dL 7-18 Serum or plasma creatinine measurement (mass/volume) 0.78 mg/dL 0.60-1.30 Serum or plasma urea nitrogen/creatinine mass ratio 8 NRG Serum or plasma creatinine measurement w ith calculation of estimated glomerular filtration rate > NRG Serum or plasma glucose measurement (mass/volume) 127 mg/dL 70-105 Serum or plasma calcium measurement (mass/volume) 9.5 mg/dL 8.5-10.1 Serum or plasma total bilirubin measurement (mass/volu me) 0.4 mg/dL 0.1-1.0 Serum or plasma alkaline phosphatase jose surement (enzymatic activity/volume) 79 U/L 40-136 Serum or plasma aspartate aminotransfera se measurement (enzymatic activity/volume) 51 U/L 5-34 Serum or plasma alanine aminotransferase measurement (enzymatic activity/volume) 45 U/L 0-55 Serum or plasma protein measurement (mass/volume) 8.5 g/dL 6.4-8.2 Serum or plasma albumin measurement (mass/volume) 4.1 g/dL 3.2-4.5 Lipase - 09/15/16 20:58 Lipase 23 U/L 8-78 Blood manual differential performed dete ction - 09/15/16 20:58 Blood monocytes/100 leukocytes 7 % NRG Manual blood segmented neutrophils/100 leukocytes 28 % NRG Blood band neutrophils/100 leukocytes 2 % NRG Manual blood lymphocytes/100 leukocytes 53 % NRG Manual eosinophils/100 leukocytes in nose 2 % NRG Manual blood basophils/100 leukocytes 0 % NRG Blood lymphocytes variant/100 leukocytes 8 % NRG Blood erythrocyte morphology finding identification NORMAL NRG Methicillin resistant Staphylococcus aur eus (MRSA) screening culture - 11/18/16 06:45 Methicillin resistant Staphylococcus aureus (MRSA) scr eening culture NEG NRG Automated blood complete blood count (he mogram) panel - 11/18/16 06:55 Blood leukocytes automated count (number/volume) 11.0 10*3/uL 4.3-11.0 Blood erythrocytes automated count (number/volume) 4.78 10*6/uL 4.35-5.85 Venous blood hemoglobin measurement (mass/volume) 15.6 g/dL 11.5-16.0 Blood hematocrit (volume fraction) 46 % 35-52 Automated erythrocyte mean corpuscular volume 96 [ foz_us] 80-99 Automated erythrocyte mean corpuscular h emoglobin (mass per erythrocyte) 33 pg 25-34 Automated erythrocyte mean corpuscular h emoglobin concentration measurement (mass/volume) 34 g/dL 32-36 Automated erythrocyte distribution width ratio 14. 2 % 10.0- 14.5 Automated blood platelet count (count/volume) 153 10*3/uL 130-400 Automated blood platelet mean volume measurement 12.3 [foz_us] 7.4-10.4 Whole blood basic metabolic panel - 11/06 05/22 06:55 Serum or plasma sodium measurement (moles/volume) 142 mmol/L 135-145 Serum or plasma potassium measurement (moles/volume) 3.7 mmol/L 3.6-5.0 Serum or plasma chloride measurement (moles/volume) 109 mmol/L 98-107 Carbon dioxide 24 mmol/L 21-32 Serum or plasma anion gap determination (moles/volume) 9 mmol/L 5-14 Serum or plasma urea nitrogen measurement (mass/volume ) 7 mg/dL 7-18 Serum or plasma creatinine measurement (mass/volume) 0.72 mg/dL 0.60-1.30 Serum or plasma urea nitrogen/creatinine mass ratio 10 NRG Serum or plasma creatinine measurement w ith calculation of estimated glomerular filtration rate > NRG Serum or plasma glucose measurement (mass/volume) 98 mg/dL 70-105 Serum or plasma calcium measurement (mass/volume) 9.0 mg/dL 8.5-10.1 SANDEEP w/Reflex - 12/07/17 16:46 SANDEEP Direct Negative Negative CCP Antibodies IgG/IgA - 12/07/17 16:46 CCP Antibodies IgG/IgA 9 units 0-19 Complete blood count (CBC) with automate d white blood cell (WBC) differential - 01/17/18 23:40 Blood leukocytes automated count (number/volume) 14.2 10*3/uL 4.3-11.0 Blood erythrocytes automated count (number/volume) 4.80 10*6/uL 4.35-5.85 Venous blood hemoglobin measurement (mass/volume) 15.9 g/dL 11.5-16.0 Blood hematocrit (volume fraction) 47 % 35-52 Automated erythrocyte mean corpuscular volume 97 [ foz_us] 80-99 Automated erythrocyte mean corpuscular h emoglobin (mass per erythrocyte) 33 pg 25-34 Automated erythrocyte mean corpuscular h emoglobin concentration measurement (mass/volume) 34 g/dL 32-36 Automated erythrocyte distribution width ratio 14. 9 % 10.0- 14.5 Automated blood platelet count (count/volume) 139 10*3/uL [...] 10*3 1.0-4.0 Blood monocytes automated count (number/volume) 0. 8 10*3 0.0-1.0 Automated eosinophil count 0.2 10*3/uL 0 .0-0.3 Automated blood basophil count (count/volume) 0.1 10*3/uL 0.0-0.1 PT panel in platelet poor plasma by coag ulation assay - 01/17/18 23:40 Prothrombin time (PT) in platelet poor plasma by coagu lation assay 15.9 s 12.2-14.7 INR in platelet poor plasma or blood by coagulation as say 1.3 0.8-1.4 Activated partial thromboplastin time (a PTT) in platelet poor plasma bycoagulation assay - 01/17/18 23:40 Activated partial thromboplastin time (a PTT) in platelet poor plasma bycoagulation assay 32 s 24-35 Comprehensive metabolic panel - 01/17/18 23:40 Serum or plasma sodium measurement (moles/volume) 140 mmol/L 135-145 Serum or plasma potassium measurement (moles/volume) 2.7 mmol/L 3.6-5.0 Serum or plasma chloride measurement (moles/volume) 113 mmol/L 98-107 Carbon dioxide 18 mmol/L 21-32 Serum or plasma anion gap determination (moles/volume) 9 mmol/L 5-14 Serum or plasma urea nitrogen measurement (mass/volume ) 5 mg/dL 7-18 Serum or plasma creatinine measurement (mass/volume) 1.01 mg/dL 0.60-1.30 Serum or plasma urea nitrogen/creatinine mass ratio 5 NRG Serum or plasma creatinine measurement w ith calculation of estimated glomerular filtration rate 60 NRG Serum or plasma glucose measurement (mass/volume) 205 mg/dL 70-105 Serum or plasma calcium measurement (mass/volume) 8.8 mg/dL 8.5-10.1 Serum or plasma total bilirubin measurement (mass/volu me) 0.5 mg/dL 0.1-1.0 Serum or plasma alkaline phosphatase jose surement (enzymatic activity/volume) 68 U/L 40-136 Serum or plasma aspartate aminotransfera se measurement (enzymatic activity/volume) 48 U/L 5-34 Serum or plasma alanine aminotransferase measurement (enzymatic activity/volume) 33 U/L 0-55 Serum or plasma protein measurement (mass/volume) 7.3 g/dL 6.4-8.2 Serum or plasma albumin measurement (mass/volume) 3.6 g/dL 3.2-4.5 CALCIUM CORRECTED 9.1 mg/dL 8.5-10.1 Magnesium - 01/17/18 23:40 Magnesium 1.9 mg/dL 1.8-2.4 Serum or plasma troponin i.cardiac measu rement (mass/volume) - 01/17/18 23:40 Serum or plasma troponin i.cardiac measurement (mass/v olume) < ng/mL <0.30 Myoglobin, serum - 01/17/18 23:40 Myoglobin, serum 46.2 ng/mL 10.0-92.0 Serum or plasma C reactive protein measu rement (mass/volume) - 01/17/18 23:40 Serum or plasma C reactive protein measurement (mass/v olume) 0.68 mg/dL 0.00-0.50 Blood manual differential performed dete ction - 01/17/18 23:40 Blood monocytes/100 leukocytes 8 % NRG Manual blood segmented neutrophils/100 leukocytes 44 % NRG Manual blood lymphocytes/100 leukocytes 46 % NRG Manual eosinophils/100 leukocytes in nose 2 % NRG THYROID STIMULATING HORMONE - 01/17/18 2 3:40 THYROID STIMULATING HORMONE 7.50 u[iU]/mL 0.35-4.94 Serum or plasma thyroxine (T4) free cherelle urement (mass/volume) - 01/17/18 23:40 Serum or plasma thyroxine (T4) free measurement (mass/ volume) 0.95 ng/dL 0.70-1.48 Complete urinalysis with reflex to cultu re - 01/18/18 03:04 Urine color determination YELLOW NRG Urine clarity determination CLEAR NR G Urine pH measurement by test strip 7 5-9 Specific gravity of urine by test strip 1.005 1.016-1.022 Urine protein assay by test strip, semi-quantitative NEGATIVE NEGATIVE Urine glucose detection by automated test strip NE GATIVE NEGATIVE Erythrocytes detection in urine sediment by light micr oscopy NEGATIVE NEGATIVE Urine ketones detection by automated test strip NE GATIVE NEGATIVE Urine nitrite detection by test strip NEGATIVE NEGATIVE Urine total bilirubin detection by test strip NEGA TIVE NEGATIVE Urine urobilinogen measurement by automated test strip (mass/volume) NORMAL NORMAL Urine leukocyte esterase detection by dipstick NEG ATIVE NEGATIVE Automated urine sediment erythrocyte cou nt by microscopy (number/high power field) NONE NRG Automated urine sediment leukocyte count by microscopy (number/high power field) NONE NRG Bacteria detection in urine sediment by light microsco py TRACE NRG Squamous epithelial cells detection in u rine sediment by light microscopy 5-10 NRG Crystals detection in urine sediment by light microsco py NONE NRG Casts detection in urine sediment [...] 5-14 Serum or plasma urea nitrogen measurement (mass/volume ) 5 mg/dL 7-18 Serum or plasma creatinine measurement (mass/volume) 0.75 mg/dL 0.60-1.30 Serum or plasma urea nitrogen/creatinine mass ratio 7 NRG Serum or plasma creatinine measurement w ith calculation of estimated glomerular filtration rate > NRG Serum or plasma glucose measurement (mass/volume) 91 mg/dL 70-105 Serum or plasma calcium measurement (mass/volume) 8.4 mg/dL 8.5-10.1 Serum or plasma total bilirubin measurement (mass/volu me) 0.3 mg/dL 0.1-1.0 Serum or plasma alkaline phosphatase jose surement (enzymatic activity/volume) 68 U/L 40-136 Serum or plasma aspartate aminotransfera se measurement (enzymatic activity/volume) 40 U/L 5-34 Serum or plasma alanine aminotransferase measurement (enzymatic activity/volume) 29 U/L 0-55 Serum or plasma protein measurement (mass/volume) 6.6 g/dL 6.4-8.2 Serum or plasma albumin measurement (mass/volume) 3.2 g/dL 3.2-4.5 CALCIUM CORRECTED 9.0 mg/dL 8.5-10.1 Serum or plasma troponin i.cardiac measu rement (mass/volume) - 01/18/18 05:44 Serum or plasma troponin i.cardiac measurement (mass/v olume) < ng/mL <0.30 Lipid 1996 panel - 01/18/18 05:44 Serum or plasma triglyceride measurement (mass/volume) 151 mg/dL <150 Serum or plasma cholesterol measurement (mass/volume) 124 mg/dL < 200 Serum or plasma cholesterol in HDL measurement (mass/v olume) 17 mg/dL 40-60 Cholesterol in LDL [mass/volume] in serum or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
[2019-07-07 23:53] LABS: BILIRUBIN,URINE NEGATIVE (NEGATIVE); CLARITY,URINE CLEAR; COLOR,URINE YELLOW; GLUCOSE, URINE (UA) NEGATIVE (NEGATIVE); KETONES,URINE NEGATIVE (NEGATIVE); LEUKOCYTE ESTERASE ,URINE NEGATIVE (NEGATIVE); NITRITE,URINE NEGATIVE (NEGATIVE); PH,URINE 6.5 (5-9); PROTEIN,URINE NEGATIVE (NEGATIVE)
[2019-07-08 00:10] LABS: AMORPHOUS SEDIMENT,UR FEW AMOR URATES /LPF; BACTERIA,URINE NEGATIVE /HPF
--- NOTE | 2019-07-08 00:30 | ED General ---
General Chief Complaint: Fever-Adult/Adol Stated Complaint: FEVER 101.,BACK PAIN Nursing Triage Note: diarrhea fever and feeling worn out. started 2 days ago Nursing Sepsis Screen: No Definite Risk Source of Information: Patient Exam Limitations: No Limitations History of Present Illness Date Seen by Provider: July 07, 2019 Time Seen by Provider: 23:18 Initial Comments Patient is to the emergency room by private vehicle complaining of generally feeling ill for about one week. Yesterday she developed aching in her lower back and she presumed a urinary tract infection was developing. She denies any nausea or vomiting. She does not have any significant abdominal pain. She reports a fever of 101 at home. She has also had some diarrhea for the past couple days. No vomiting. She took some Tylenol a few hours ago and is afebrile at present. Allergies and Home Medications Allergies Coded Allergies: gabapentin (Verified Allergy, Severe, HIVES, 01/14/15) esomeprazole (Unverified Allergy, Mild, 08/19/15) niacin (Unverified Allergy, Mild, 05/13/14) Uncoded Allergies: "COCKTAIL FOR CHAN" (Allergy, Mild, ITCHING, 02/11/09) Home Medications Acetazolamide 250 Mg Tablet, 250 MG PO 1200,2100, (Reported) Acyclovir 400 Mg Tablet, 400 MG PO TID, (Reported) LAST FILLED #42 12-17-17 Alprazolam 0.25 Mg Tablet, 0.25 MG PO TID PRN for ANXIETY, (Reported) Benzonatate 100 Mg Capsule, 1-2 TAB PO TID Prescribed by: PAOLA TAVERAS on 03/02/18 034 Budesonide 90 Mcg Aer.pow.ba, 90 MCG IH BID Prescribed by: PAOLA TAVERAS on 03/02/18 034 Cefdinir 300 Mg Capsule, 300 MG PO BID Prescribed by: OMAR BLOUNT on 01/19/18 1404 Cyclobenzaprine HCl 10 Mg Tablet, 10 MG PO TID PRN for MUSCLE SPASMS, (Reported) D-Methorphan Hb/Prometh HCl 118 Ml Syrup, 1-2 TSP PO Q4H Prescribed by: PAOLA TAVERAS on 03/02/18 034 Duloxetine HCl 60 Mg Capsule.dr, 60 MG PO BID, (Reported) Ezetimibe 10 Mg Tablet, 10 MG PO HS, (Reported) Ibuprofen 200 Mg Tablet, 600 MG PO TID PRN for PAIN-MILD, (Reported) Levofloxacin 500 Mg Tablet, 500 MG PO DAILY Prescribed by: PAOLA TAVERAS on 03/02/18 034 Levothyroxine Sodium 112 Mcg Tablet, 1,125 MCG PO HS, (Reported) Methylprednisolone 4 Mg Tab.ds.pk, 4 MG PO UD Prescribed by: PAOLA TAVERAS on 03/02/18 034 Naproxen Sodium 220 Mg Tablet, 440 MG PO TID PRN for PAIN-MILD, (Reported) Pramipexole Di-HCl 0.125 Mg Tablet, 0.125 MG PO HS, (Reported) Pregabalin 100 Mg Capsule, 100 MG PO BID, (Reported) Promethazine HCl 25 Mg Tablet, 25 MG PO Q6H PRN for NAUSEA/VOMITING Prescribed by: JESUSITA DAVIS on 06/03/19 0217 Risperidone 0.25 Mg Tablet, 0.5 MG PO HS, (Reported) TAKES 2 (0.25MG) TABLETS Tizanidine HCl 2 Mg Tablet, 4 MG PO HS, (Reported) TAKES 2 (2MG) TABLETS Tramadol HCl 50 Mg Tablet, 50 MG PO Q6H PRN for PAIN Prescribed by: JAIME TAMAYO on 10/22/18 1750 Verapamil HCl 120 Mg Tablet, 120 MG PO HS, (Reported) Patient Home Medication List Home Medication List Reviewed: Yes Review of Systems Review of Systems Constitutional: see HPI EENTM: no symptoms reported Respiratory: no symptoms reported Cardiovascular: no symptoms reported Gastrointestinal: no symptoms reported Genitourinary: see HPI : No Musculoskeletal: see HPI Skin: no symptoms reported Psychiatric/Neurological: No Symptoms Reported Hematologic/Lymphatic: No Symptoms Reported Past Vqinlhw-Xikjfz-Orkrms Hx Past Med/Social Hx: Reviewed Nursing Past Med/Soc Hx Patient Social History Alcohol Use: Denies Use Recreational Drug Use: Yes Drug of Choice: marijuana Smoking Status: Current Everyday Smoker Type Used: Cigarettes 2nd Hand Smoke Exposure: Yes Recent Foreign Travel: No Contact w/Someone Who Travel: No Recent Infectious Disease Expo: No Recent Hopitalizations: No Physical Abuse: No Sexual Abuse: No Mistreated: No Fear: No Immunizations Up To Date Tetanus Booster (TDap): Less than 5yrs PED Vaccines UTD: Yes Date of Influenza Vaccine: Dec 06, 2013 Seasonal Allergies Seasonal Allergies: Yes Past Medical History Surgeries: Yes (EXPLORATORY LAP, HIATAL HERNIA REPAIR; HYST/BSO; VENTRAL HERNIA REPAIR. 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 ) Hypothyroidsim HEENT: No Loss of Vision: Bilateral Hearing Impairment: Denies Cancer: No Psychosocial: Yes Anxiety, Bipolar, Schizophrenia, Depression Integumentary: Yes Herpes Blood Disorders: Yes (ANEMIA) Adverse Reaction/Blood Tranf: No Family Medical History Cardiovascular disease 19 FATHER Diabetes mellitus 19 FATHER 19 MOTHER FH: mental illness Mental Physical Exam Vital Signs Vital Signs - First Documented 07/07/19 23:35 Temp 37.1 Pulse 86 Resp 18 B/P (MAP) 134/85 (101) Pulse Ox 98 Capillary Refill : Less Than 3 Seconds Height, Weight, BMI Height: 5'3.00" Weight: 190lbs. 4.0oz. 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 Norm as Tested Skin: Normal Color, Warm/Dry Progress/Results/Core Measures Suspected Sepsis Recent Fever Within 48 Hours: Yes Infection Criteria Present: Suspected New Infection New/Unexplained Altered Menta: No Sepsis Screen: No Definite Risk SIRS Temperature: Pulse: 86 Respiratory Rate: 18 Blood Pressure / Mean: Results/Orders Lab Results Laboratory Tests Test 07/07/19 23:20 Range/Units Urine Color YELLOW Urine Clarity CLEAR Urine pH 6.5 5-9 Urine Specific [place] 1.010 L 1.016-1.022 Urine Protein NEGATIVE NEGATIVE Urine Glucose (UA) NEGATIVE NEGATIVE Urine Ketones NEGATIVE NEGATIVE Urine Nitrite NEGATIVE NEGATIVE Urine Bilirubin NEGATIVE NEGATIVE Urine Urobilinogen 2.0 < = 1.0 MG/DL Urine Leukocyte Esterase NEGATIVE NEGATIVE Urine RBC (Auto) NEGATIVE NEGATIVE Urine RBC NONE /HPF Urine WBC NONE /HPF Urine Crystals PRESENT H /LPF Urine Amorphous Sediment FEW ROMULO URATES H /LPF Urine Bacteria NEGATIVE /HPF Urine Casts NONE /LPF Urine Mucus NEGATIVE /LPF Urine Culture Indicated NO My Orders Orders - JESUSITA SIMON MD Ua Culture If Indicated (07/07/19 23:19) Vital Signs/I&O 07/07/19 07/08/19 23:35 00:40 Temp 37.1 Pulse 86 77 Resp 18 20 B/P (MAP) 134/85 (101) 144/87 Pulse Ox 98 96 Capillary Refill : Less Than 3 Seconds Progress Note : Time: 00:33 Progress Note Urinalysis was negative for infection. She does appear a little bit dry. I offered further evaluation with blood work, etc. Patient declines at this time and will follow-up with her primary care provider. Vital signs have been stable and within normal limits. Departure Impression Primary Impression: Backache Qualified Codes: M54.9 - Dorsalgia, unspecified Additional Impressions: Diarrhea Qualified Codes: R19.7 - Diarrhea, unspecified History of fever Disposition: 01 HOME, SELF-CARE Condition: Stable Departure-Patient Inst. Decision time for Depature: 00:31 Referrals: [facility] (PCP) Primary Care Physician HUGO BECKFORD APRN (Family) Primary Care Physician Patient Instructions: Diarrhea in Adolescents and Adults Add. Discharge Instructions: Drink plenty of clear liquids, especially water. Follow-up with your primary care office by phone call tomorrow. For pain or fever or you may take Tylenol (acetaminophen) up to 1000 mg every 6 hours as needed. For pain or fever not controlled by Tylenol, consider taking ibuprofen up to 400 mg every 6 hours as needed for temporary relief. Return to care if you have worsening symptoms that need further investigation. Isolated at home until your symptoms are gone and you are free of fever for at least 72 hours without fever reducing medications. All discharge instructions reviewed with patient and/or family. Voiced understanding. JESUSITA SIMON MD July 08, 2019 00:30
[2019-07-08 00:40] VITALS: BP 144/87
== END 2019-07-08 00:40 | disposition home or self-care (01) ==
LOC: EDUNIT# 23:14 → ER 23:18
DX: M54.5 Low back pain (principal); R19.7 Diarrhea, unspecified; I10 Essential (primary) hypertension; E78.00 Pure hypercholesterolemia, unspecified; E03.9 Hypothyroidism, unspecified; G43.909 Migraine, unspecified, not intractable, without status migrainosus; F41.9 Anxiety disorder, unspecified; F31.9 Bipolar disorder, unspecified; F17.210 Nicotine dependence, cigarettes, uncomplicated; Z86.19 Personal history of other infectious and parasitic diseases; Z88.8 Allergy status to other drugs, medicaments and biological substances; Z82.49 Family history of ischemic heart disease and other diseases of the circulatory system
CPT/HCPCS: 81000; 99282

== ENCOUNTER 2019-10-08 20:08 | Emergency (ER) | payer MEDICARE, MEDICAID ==
[~2019-10-08] VITALS: Ht 160 cm; Wt 80.7 kg
[~2019-10-08 20:08] MED LIST changes: -PROM118S4 PO; +PROM118S5 PO; -TIZA2TAB4 PO; +TIZA2TAB7 PO
[2019-10-08 20:26] VITALS: BP 111/75
--- NOTE | 2019-10-08 20:42 | ED Lower Extremity ---
General Chief Complaint: Lower Extremity Stated Complaint: R FOOT PAIN Nursing Triage Note: PT AMBULATE TO TRIAGE WITH C/O RIGHT FOOT PAIN AFTER DROPPING A COUCH ON IT. 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 Nursing Sepsis Screen: No Definite Risk Source: patient Exam Limitations: no limitations History of Present Illness Date Seen by Provider: Oct 08, 2019 Time Seen by Provider: 20:40 Initial Comments To ER with right foot pain after having dropped a bed frame on it one hour prior to arrival Onset: just prior to arrival Severity: moderate Pain/Injury Location: right foot, right 5th toe Method of Injury: direct blow Modifying Factors: Worse With Movement Allergies and Home Medications Allergies Coded Allergies: gabapentin (Verified Allergy, Severe, HIVES, 01/14/15) esomeprazole (Unverified Allergy, Mild, 08/19/15) niacin (Unverified Allergy, Mild, 05/13/14) Uncoded Allergies: "COCKTAIL FOR CHAN" (Allergy, Mild, ITCHING, 02/11/09) Home Medications Acetazolamide 250 Mg Tablet, 250 MG PO 1200,2100, (Reported) Acyclovir 400 Mg Tablet, 400 MG PO TID, (Reported) LAST FILLED #42 12-17-17 Alprazolam 0.25 Mg Tablet, 0.25 MG PO TID PRN for ANXIETY, (Reported) Benzonatate 100 Mg Capsule, 1-2 TAB PO TID Prescribed by: PAOLA TAVERAS on 03/02/18 034 Budesonide 90 Mcg Aer.pow.ba, 90 MCG IH BID Prescribed by: PAOLA TAVERAS on 03/02/18342 Cefdinir 300 Mg Capsule, 300 MG PO BID Prescribed by: OMAR BLOUNT on 01/19/18 1404 Cyclobenzaprine HCl 10 Mg Tablet, 10 MG PO TID PRN for MUSCLE SPASMS, (Reported) D-Methorphan Hb/Prometh HCl 118 Ml Syrup, 1-2 TSP PO Q4H Prescribed by: PAOLA TAVERAS on 03/02/18 034 Duloxetine HCl 60 Mg Capsule.dr, 60 MG PO BID, (Reported) Ezetimibe 10 Mg Tablet, 10 MG PO HS, (Reported) Ibuprofen 200 Mg Tablet, 600 MG PO TID PRN for PAIN-MILD, (Reported) Levofloxacin 500 Mg Tablet, 500 MG PO DAILY Prescribed by: PAOLA TAVERAS on 03/02/18 034 Levothyroxine Sodium 112 Mcg Tablet, 1,125 MCG PO HS, (Reported) Methylprednisolone 4 Mg Tab.ds.pk, 4 MG PO UD Prescribed by: PAOLA TAVERAS on 03/02/18 034 Naproxen Sodium 220 Mg Tablet, 440 MG PO TID PRN for PAIN-MILD, (Reported) Pramipexole Di-HCl 0.125 Mg Tablet, 0.125 MG PO HS, (Reported) Pregabalin 100 Mg Capsule, 100 MG PO BID, (Reported) Promethazine HCl 25 Mg Tablet, 25 MG PO Q6H PRN for NAUSEA/VOMITING Prescribed by: JESUSITA DAVIS on 06/03/19 021 Risperidone 0.25 Mg Tablet, 0.5 MG PO HS, (Reported) TAKES 2 (0.25MG) TABLETS Tizanidine HCl 2 Mg Tablet, 4 MG PO HS, (Reported) TAKES 2 (2MG) TABLETS Tramadol HCl 50 Mg Tablet, 50 MG PO Q6H PRN for PAIN Prescribed by: JAIME TAMAYO on 10/22/18 1750 Verapamil HCl 120 Mg Tablet, 120 MG PO HS, (Reported) Patient Home Medication List Home Medication List Reviewed: Yes Review of Systems Constitutional: see HPI EENTM: see HPI Respiratory: no symptoms reported Cardiovascular: no symptoms reported Genitourinary: no symptoms reported Musculoskeletal: see HPI Skin: no symptoms reported Psychiatric/Neurological: No Symptoms Reported Past Yizgmnr-Whtgsh-Mrlwga Hx Patient Social History Alcohol Use: Denies Use Recreational Drug Use: Yes Drug of Choice: marijuana Smoking Status: Current Everyday Smoker Type Used: Cigarettes 2nd Hand Smoke Exposure: Yes Recent Foreign Travel: No Contact w/Someone Who Travel: No Recent Infectious Disease Expo: No Recent Hopitalizations: No Physical Abuse: No Sexual Abuse: No Mistreated: No Fear: No Immunizations Up To Date Tetanus Booster (TDap): Less than 5yrs PED Vaccines UTD: Yes Date of Influenza Vaccine: Dec 06, 2013 Seasonal Allergies Seasonal Allergies: Yes Past Medical History Surgeries: Yes (EXPLORATORY LAP, HIATAL HERNIA REPAIR; HYST/BSO; VENTRAL HERNIA REPAIR. 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 ) Hypothyroidsim HEENT: No Loss of Vision: Bilateral Hearing Impairment: Denies Cancer: No Psychosocial: Yes Anxiety, Bipolar, Schizophrenia, Depression Integumentary: Yes Herpes Blood Disorders: Yes (ANEMIA) Adverse Reaction/Blood Tranf: No Family Medical History Cardiovascular disease 19 FATHER Diabetes mellitus 19 FATHER 19 MOTHER FH: mental illness Mental Physical Exam Vital Signs Vital Signs - First Documented 10/08/19 20:26 Temp 36.6 Pulse 93 Resp 17 B/P (MAP) 111/75 (87) O2 Delivery Room Air Capillary Refill : Less Than 3 Seconds Height, Weight, BMI Height: 5'3.00" Weight: 190lbs. 4.0oz. 86.505722kt; 31.00 BMI Method:Stated General Appearance: WD/WN, no apparent distress Neck: non-tender, full range of motion Respiratory: no respiratory distress, no accessory muscle use Hips: bilateral hip non-tender, bilateral hip normal inspection, bilateral hip normal range of motion Legs: bilateral leg non-tender, bilateral leg normal inspection, bilateral leg normal range of motion Knees: bilateral knee non-tender, bilateral knee normal inspection, bilateral knee normal range of motion Ankles: bilateral ankle non-tender, bilateral ankle normal inspection, bilateral ankle normal range of motion Feet: bilateral foot non-tender, bilateral foot normal inspection, bilateral f oot normal range of motion, bilateral foot other (minor ecchymosis over the proximal aspect of the fifth phalanx) Neurologic/Psychiatric: alert, normal mood/affect, oriented x 3 Skin: normal color, warm/dry Progress/Results/Core Measures Results/Orders My Orders Orders - NATHAN ROBBINS APRN Foot, Right, 3 View (10/08/19 20:31) Vital Signs/I&O 10/08/19 20:26 Temp 36.6 Pulse 93 Resp 17 B/P (MAP) 111/75 (87) O2 Delivery Room Air Blood Pressure Mean: 87 Departure Impression Primary Impression: Fracture of toe Disposition: HOME, SELF-CARE Condition: Stable Departure-Patient Inst. Decision time for Depature: 20:45 Referrals: [facility] (PCP) Primary Care Physician HUGO BECKFORD APRN (Family) Primary Care Physician Patient Instructions: Toe Fracture Add. Discharge Instructions: Ice pack to the toe. Pain medication as directed. When this runs and use Tylenol and ibuprofen. Wear the shoe for the next 3 weeks. Keep the toes taped together. All discharge instructions reviewed with patient and/or family. Voiced understanding. NATHAN ROBBINS APRN Oct 08, 2019 20:42
[2019-10-08] MEDS ORDERED: RX-HYDROCODONE/APAP 5/325 MG #4 TAB PK PO PRN (21:00)
--- NOTE | 2019-10-08 21:37 | Diagnostic Imaging Report ---
INDICATION: Injury to right foot. EXAMINATION: AP, oblique and lateral views of the right foot were obtained. FINDINGS: No fracture or acute bony abnormality is seen. IMPRESSION: Negative right foot. Dictated by: Dictated on workstation # [id number]
== END 2019-10-08 20:59 | disposition home or self-care (01) ==
LOC: EDUNIT# 20:08 → ER 20:09
DX: S92.501A Displaced unspecified fracture of right lesser toe(s), initial encounter for closed fracture (principal); W20.8XXA Other cause of strike by thrown, projected or falling object, initial encounter; E78.00 Pure hypercholesterolemia, unspecified; I10 Essential (primary) hypertension; E89.0 Postprocedural hypothyroidism; G62.9 Polyneuropathy, unspecified; G43.909 Migraine, unspecified, not intractable, without status migrainosus; K21.9 Gastro-esophageal reflux disease without esophagitis; F41.9 Anxiety disorder, unspecified; F31.9 Bipolar disorder, unspecified; F20.9 Schizophrenia, unspecified; Z87.01 Personal history of pneumonia (recurrent); Z79.899 Other long term (current) drug therapy
CPT/HCPCS: 73630

== ENCOUNTER 2020-01-14 20:42 | Emergency (ER) | payer MEDICARE, MEDICAID ==
[~2020-01-14] VITALS: Ht 160 cm; Wt 83.9 kg
[~2020-01-14 20:42] MED LIST changes: +ALPR.25T PO; -ALPR0.254 PO
[2020-01-14] MEDS ORDERED: LACTATED RINGERS 1,000 ML IV ONE (20:55)
[2020-01-14] MEDS ORDERED: ONDANSETRON 4 MG/2 ML (SDV) Z0FRAN IVP ONE (21:00)
[2020-01-14] MEDS ORDERED: KETOROLAC 30 MG/ML VIAL IVP ONE (21:00)
--- NOTE | 2020-01-14 21:04 | ED Abdominal Pain ---
General Chief Complaint: - Urinary Stated Complaint: DIFF URINATING/PAIN/BLOOD IN URINE Source of Information: Patient Exam Limitations: No Limitations History of Present Illness Date Seen by Provider: Jan 14, 2020 Time Seen by Provider: 20:41 Initial Comments Patient presents ER by private conveyance from home with chief complaint of several days of progressively worsening pain with urination she says different from a UTI. She says the pain feels it is up inside her in her groin. She has a mild amount of nausea, no vomiting. No fevers chills. She has had diarrhea for the past couple days. She's never had a kidney stone before. She has had hysterectomy as well as cholecystectomy and liver scalp exploratory surgery for bile leak. She has pain into her left flank and back. Allergies and Home Medications Allergies Coded Allergies: gabapentin (Verified Allergy, Severe, HIVES, 01/14/15) esomeprazole (Unverified Allergy, Mild, 08/19/15) niacin (Unverified Allergy, Mild, 05/13/14) Uncoded Allergies: "COCKTAIL FOR CHAN" (Allergy, Mild, ITCHING, 02/11/09) Home Medications ALPRAZolam 0.25 Mg Tablet, 0.25 MG PO TID PRN for ANXIETY, (Reported) Acetazolamide 250 Mg Tablet, 250 MG PO 1200,2100, (Reported) Acyclovir 400 Mg Tablet, 400 MG PO TID, (Reported) LAST FILLED #42 12-17-17 Benzonatate 100 Mg Capsule, 1-2 TAB PO TID Prescribed by: PAOLA TAVERAS on 03/02/18 034 Budesonide 90 Mcg Aer.pow.ba, 90 MCG IH BID Prescribed by: PAOLA TAVERAS on 03/02/18 034 Cefdinir 300 Mg Capsule, 300 MG PO BID Prescribed by: OMAR BLOUNT on 01/19/18 1404 Cyclobenzaprine HCl 10 Mg Tablet, 10 MG PO TID PRN for MUSCLE SPASMS, (Reported) D-Methorphan Hb/Prometh HCl 118 Ml Syrup, 1-2 TSP PO Q4H Prescribed by: PAOLA TAVERAS on 03/02/18 034 Duloxetine HCl 60 Mg Capsule.dr, 60 MG PO BID, (Reported) Ezetimibe 10 Mg Tablet, 10 MG PO HS, (Reported) Ibuprofen 200 Mg Tablet, 600 MG PO TID PRN for PAIN-MILD, (Reported) Levofloxacin 500 Mg Tablet, 500 MG PO DAILY Prescribed by: PAOLA TAVERAS on 03/02/18 034 Levothyroxine Sodium 112 Mcg Tablet, 1,125 MCG PO HS, (Reported) Methylprednisolone 4 Mg Tab.ds.pk, 4 MG PO UD Prescribed by: PAOLA TAVERAS on 03/02/18 034 Naproxen Sodium 220 Mg Tablet, 440 MG PO TID PRN for PAIN-MILD, (Reported) Pramipexole Di-HCl 0.125 Mg Tablet, 0.125 MG PO HS, (Reported) Pregabalin 100 Mg Capsule, 100 MG PO BID, (Reported) Promethazine HCl 25 Mg Tablet, 25 MG PO Q6H PRN for NAUSEA/VOMITING Prescribed by: JESUSITA DAVIS on 06/03/19 0217 Risperidone 0.25 Mg Tablet, 0.5 MG PO HS, (Reported) TAKES 2 (0.25MG) TABLETS Tizanidine HCl 2 Mg Tablet, 4 MG PO HS, (Reported) TAKES 2 (2MG) TABLETS Tramadol HCl 50 Mg Tablet, 50 MG PO Q6H PRN for PAIN Prescribed by: JAIME TAMAYO on 10/22/18 1750 Verapamil HCl 120 Mg Tablet, 120 MG PO HS, (Reported) Patient Home Medication List Home Medication List Reviewed: Yes Review of Systems Review of Systems Constitutional: No chills, No malaise EENTM: No Blurred Vision, No Double Vision Respiratory: Denies Cough, Denies Shortness of Air Cardiovascular: Denies Chest Pain, Denies Lightheadedness Gastrointestinal: See HPI, Abdominal Pain; Denies Constipated; Diarrhea, Nausea; Denies Vomiting Genitourinary: See HPI (dysuria); Denies Burning, Denies Discharge; Flank Pain Musculoskeletal: No back pain, No joint pain All Other Systems Reviewed Negative Unless Noted: Yes Past Ghnfguh-Vdztoz-Neuhyr Hx Patient Social History Alcohol Use: Denies Use Recreational Drug Use: Yes Drug of Choice: cannabis Smoking Status: Current Everyday Smoker Type Used: Cigarettes (one pack per day) 2nd Hand Smoke Exposure: Yes Recent Foreign Travel: No Contact w/Someone Who Travel: No Recent Hopitalizations: No Immunizations Up To Date Tetanus Booster (TDap): Less than 5yrs PED Vaccines UTD: Yes Date of Influenza Vaccine: Dec 06, 2013 Seasonal Allergies Seasonal Allergies: Yes Past Medical History Surgeries: Yes (EXPLORATORY LAP, HIATAL HERNIA REPAIR; HYST/BSO; VENTRAL HERNIA REPAIR. 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 ) Hypothyroidsim HEENT: No Loss of Vision: Bilateral Hearing Impairment: Denies Cancer: No Psychosocial: Yes Anxiety, Bipolar, Schizophrenia, Depression Integumentary: Yes Herpes Blood Disorders: Yes (ANEMIA) Adverse Reaction/Blood Tranf: No Family Medical History Cardiovascular disease 19 FATHER Diabetes mellitus 19 FATHER 19 MOTHER FH: mental illness Mental Physical Exam Vital Signs Vital Signs - First Documented 01/14/20 20:49 Temp 35.2 Pulse 87 Resp 20 B/P (MAP) 147/91 (109) Pulse Ox 99 O2 Delivery Room Air Capillary Refill : Height/Weight/BMI Height: 5'3.00" Weight: 190lbs. 4.0oz. 86.259777dg; 31.00 BMI Method:Stated General Appearance: moderate distress, obese HEENT: normal ENT inspection, pharynx normal Neck: full range of motion, normal inspection Respiratory: lungs clear, normal breath sounds, no respiratory distress, no accessory muscle use Cardiovascular: normal peripheral pulses, regular rate, rhythm Gastrointestinal: normal bowel sounds, soft, tenderness (left lower groin) Extremities: normal range of motion, non-tender, normal capillary refill Neurologic/Psychiatric: alert, normal mood/affect, oriented x 3 Skin: normal color, warm/dry Progress/Results/Core Measures Results/Orders Lab Results Laboratory Tests Test 01/14/20 20:55 01/14/20 21:00 Range/Units White Blood Count 12.7 H 4.3-11.0 10^3/uL Red Blood Count 4.84 3.80-5.11 10^6/uL Hemoglobin 15.9 11.5-16.0 g/dL Hematocrit 48 35-52 % Mean Corpuscular Volume 99 80-99 fL Mean Corpuscular Hemoglobin 33 25-34 pg Mean Corpuscular Hemoglobin Concent 33 32-36 g/dL Red Cell Distribution Width 13.2 10.0-14.5 % Platelet Count 125 L 130-400 10^3/uL Mean Platelet Volume 12.0 9.0-12.2 fL Immature Granulocyte % (Auto) 0 % Neutrophils (%) (Auto) 45 42-75 % Lymphocytes (%) (Auto) 49 H 12-44 % Monocytes (%) (Auto) 4 0-12 % Eosinophils (%) (Auto) 1 0-10 % Basophils (%) (Auto) 1 0-10 % Neutrophils # (Auto) 5.7 1.8-7.8 10^3/uL Lymphocytes # (Auto) 6.3 H 1.0-4.0 10^3/uL Monocytes # (Auto) 0.5 0.0-1.0 10^3/uL Eosinophils # (Auto) 0.1 0.0-0.3 10^3/uL Basophils # (Auto) 0.1 0.0-0.1 10^3/uL Immature Granulocyte # (Auto) 0.0 0.0-0.1 10^3/uL Sodium Level 140 135-145 MMOL/L Potassium Level 3.7 3.6-5.0 MMOL/L Chloride Level 106 98-107 MMOL/L Carbon Dioxide Level 24 21-32 MMOL/L Anion Gap 10 5-14 MMOL/L Blood Urea Nitrogen 9 7-18 MG/DL Creatinine 0.91 0.60-1.30 MG/DL Estimat Glomerular Filtration Rate > 60 BUN/Creatinine Ratio 10 Glucose Level 143 H 70-105 MG/DL Calcium Level 8.8 8.5-10.1 MG/DL Corrected Calcium 9.0 8.5-10.1 MG/DL Total Bilirubin 0.3 0.1-1.0 MG/DL Aspartate Amino Transf (AST/SGOT) 41 H 5-34 U/L Alanine Aminotransferase (ALT/SGPT) 22 0-55 U/L Alkaline Phosphatase 96 40-136 U/L Total Protein 7.9 6.4-8.2 GM/DL Albumin 3.7 3.2-4.5 GM/DL Urine Color YELLOW Urine Clarity TURBID Urine pH 6.0 5-9 Urine Specific [place] 1.025 H 1.016-1.022 Urine Protein 1+ H NEGATIVE Urine Glucose (UA) NEGATIVE NEGATIVE Urine Ketones NEGATIVE NEGATIVE Urine Nitrite NEGATIVE NEGATIVE Urine Bilirubin NEGATIVE NEGATIVE Urine Urobilinogen 1.0 < = 1.0 MG/DL Urine Leukocyte Esterase 2+ H NEGATIVE Urine RBC (Auto) 3+ H NEGATIVE Urine RBC 25-50 H /HPF Urine WBC >100 H /HPF Urine Squamous Epithelial Cells 2-5 /HPF Urine Crystals PRESENT H /LPF Urine Calcium Oxalate Crystals RARE H /LPF Urine Bacteria FEW H /HPF Urine Casts NONE /LPF Urine Mucus NEGATIVE /LPF Urine Culture Indicated YES My Orders Orders - LOC MEDINA Ketorolac Injection (Toradol Injection) (01/14/20 21:00) Ondansetron Injection (Zofran Injectio (01/14/20 21:00) Ed Iv/Invasive Line Start (01/14/20 20:55) Lactated Ringers (Lr 1000 Ml Iv Solution (01/14/20 20:55) Cbc With Automated Diff (01/14/20 20:55) Comprehensive Metabolic Panel (01/14/20 20:55) Ct Abd/Pelvis Wo(Kidney Stone) (01/14/20 21:26) Medications Given in ED Current Medications Medications Dose Ordered Sig/Emeka Route Start Time Stop Time Status Last Admin Dose Admin Ketorolac Tromethamine 30 mg ONCE ONCE IVP 01/14/20 21:00 01/14/20 21:01 DC 01/14/20 21:12 30 MG Lactated Ringer's 1,000 ml @ 0 mls/hr Q0M ONCE IV 01/14/20 20:55 01/14/20 20:56 DC 01/14/20 21:11 1,000 MLS/HR Ondansetron HCl 4 mg ONCE ONCE IVP 01/14/20 21:00 01/14/20 21:01 DC 01/14/20 21:12 4 MG Vital Signs/I&O 01/14/20 20:49 Temp 35.2 Pulse 87 Resp 20 B/P (MAP) 147/91 (109) Pulse Ox 99 O2 Delivery Room Air Progress Progress Note : Time: 21:07 Progress Note Suspect kidney stones or less likely diverticulitis, ectopic, gynecologic, adhesion related bowel obstruction, pyelonephritis etc. Plan to get a battery of basic labs urinalysis and bedside and give her Toradol and IV fluids as well as 4 of Zofran for her symptoms. Diagnostic Imaging Diagonstic Imaging: CT Plain Films/CT/US/NM/MRI: abdomen, pelvis Comments NAME: TRUDI RIVERA [facility] REC#: [id number] PT STATUS: REG ER : 1975 PHYSICIAN: LOC MEDINA MD ADMIT DATE: 01/14/20/ER Signed Date of Exam:01/14/20 CT ABD/PELVIS WO(KIDNEY STONE) PROCEDURE: CT urinary tract, rule out kidney stone. TECHNIQUE: Multiple contiguous axial images were obtained through the abdomen and pelvis without the use of intravenous contrast. Auto Exposure Controls were utilized during the CT exam to meet ALARA standards for radiation dose reduction. INDICATION: Flank pain. Difficulty urinating. Hematuria. FINDINGS: The gallbladder is absent. The liver and bile ducts are normal. The spleen, pancreas and adrenals are normal. The kidneys, ureters and bladder are normal. There is no pelvic mass. No acute bowel abnormality is seen. There is no ascites. There is no acute bony abnormality. There is a 3.5 cm well-circumscribed cystic lesion seen in the left flank separate from any loop of bowel. This is stable compared to a study from 04/12/2016 and consistent with benign lesion. IMPRESSION: No acute abnormality is seen. Dictated by: Dictated on workstation # [id number] Dict: 01/14/202141 Trans: 01/14/202157 [facility] [id number] Interpreted by: RITA JAY MD Electronically signed by: RITA JAY MD 01/14/202157 Reviewed: Reviewed by Me Departure Impression Primary Impression: Pyelonephritis Disposition: 01 HOME, SELF-CARE Condition: Stable Departure-Patient Inst. Decision time for Depature: 22:05 Referrals: [facility] (PCP) Primary Care Physician HUGO BECKFORD APRN (Family) Primary Care Physician Patient Instructions: Kidney Infection (DC) Add. Discharge Instructions: Take the cefdinir one capsule twice daily with food for the next 10 days. Drink lots of fluids. Return to the ER if you're having intractable pain, fever, nausea and vomiting. Ondansetron one tablet every 6 hours as necessary for nausea and/or vomiting. Tylenol 650 mg every 6 hours as necessary for pain. Hydrocodone one tablet every 6 hours as necessary for severe, breakthrough pain and limiting her function. It will cause constipation and drowsiness and should not be next with alcohol. Colace or other stool softeners while on the hydrocodone as necessary for constipation. All discharge instructions reviewed with patient and/or family. Voiced understanding. Scripts Ondansetron (Ondansetron Odt) 4 Mg Tab.rapdis 4 MG PO Q6H PRN for NAUSEA/VOMITING, #8 TAB 0 Refills Prov: LOC MEDINA 01/14/20 Cefdinir (Cefdinir) 300 Mg Capsule 300 MG PO BID for 10 Days, #20 CAP 0 Refills Prov: LOC MEDINA 01/14/20 LOC MEDINA Jan 14, 2020 21:04
[2020-01-14 21:07] LABS: BILIRUBIN,URINE NEGATIVE (NEGATIVE); CLARITY,URINE TURBID; COLOR,URINE YELLOW; GLUCOSE, URINE (UA) NEGATIVE (NEGATIVE); KETONES,URINE NEGATIVE (NEGATIVE); LEUKOCYTE ESTERASE ,URINE 2+ (NEGATIVE); NITRITE,URINE NEGATIVE (NEGATIVE); PROTEIN,URINE 1+ (NEGATIVE)
[2020-01-14 21:07] LABS: BASOPHILS # (AUTO) 0.1 10^3/uL (0.0-0.1); BASOPHILS % (AUTO) 1 % (0-10); EOSINOPHILS # (AUTO) 0.1 10^3/uL (0.0-0.3); EOSINOPHILS % (AUTO) 1 % (0-10); HEMATOCRIT 48 % (35-52); HEMOGLOBIN 15.9 g/dL (11.5-16.0); LYMPHOCYTES # (AUTO) 6.3 10^3/uL (1.0-4.0); LYMPHOCYTES % (AUTO) 49 % (12-44); MEAN CORPUSCULAR HEMOGLOBIN 33 pg (25-34); MEAN CORPUSCULAR HGB CONC 33 g/dL (32-36); MEAN CORPUSCULAR VOLUME 99 fL (80-99); MONOCYTES # (AUTO) 0.5 10^3/uL (0.0-1.0); MONOCYTES % (AUTO) 4 % (0-12); NEUTROPHILS # (AUTO) 5.7 10^3/uL (1.8-7.8); NEUTROPHILS % (AUTO) 45 % (42-75); PLATELET COUNT 125 10^3/uL (130-400); WHITE BLOOD COUNT 12.7 10^3/uL (4.3-11.0)
[2020-01-14 21:15] LABS: RBC,URINE 25-50 /HPF
[2020-01-14 21:16] LABS: BACTERIA,URINE FEW /HPF; CALCIUM OXALATE CRYSTALS,UR RARE /LPF; WBC,URINE >100 /HPF
[2020-01-14 21:17] LABS: ALBUMIN 3.7 GM/DL (3.2-4.5); CHLORIDE 106 MMOL/L (98-107); POTASSIUM 3.7 MMOL/L (3.6-5.0); SODIUM 140 MMOL/L (135-145)
[2020-01-14 21:18] LABS: CALCIUM 8.8 MG/DL (8.5-10.1)
[2020-01-14 21:19] LABS: GLUCOSE 143 MG/DL (70-105)
[2020-01-14 21:20] LABS: TOTAL PROTEIN 7.9 GM/DL (6.4-8.2)
[2020-01-14 21:21] LABS: BILIRUBIN,TOTAL 0.3 MG/DL (0.1-1.0); CARBON DIOXIDE 24 MMOL/L (21-32)
[2020-01-14 21:23] LABS: ALKALINE PHOSPHATASE 96 U/L (40-136); CREATININE SERUM 0.91 MG/DL (0.60-1.30); GFR ESTIMATED > 60
[2020-01-14 21:24] LABS: BUN/CREATININE RATIO 10
[2020-01-14 21:26] LABS: ALANINE AMINOTRANSFERASE 22 U/L (0-55)
--- NOTE | 2020-01-14 21:52 | Diagnostic Imaging Report ---
PROCEDURE: CT urinary tract, rule out kidney stone. TECHNIQUE: Multiple contiguous axial images were obtained through the abdomen and pelvis without the use of intravenous contrast. Auto Exposure Controls were utilized during the CT exam to meet ALARA standards for radiation dose reduction. INDICATION: Flank pain. Difficulty urinating. Hematuria. FINDINGS: The gallbladder is absent. The liver and bile ducts are normal. The spleen, pancreas and adrenals are normal. The kidneys, ureters and bladder are normal. There is no pelvic mass. No acute bowel abnormality is seen. There is no ascites. There is no acute bony abnormality. There is a 3.5 cm well-circumscribed cystic lesion seen in the left flank separate from any loop of bowel. This is stable compared to a study from 04/12/2016 and consistent with benign lesion. IMPRESSION: No acute abnormality is seen. Dictated by: Dictated on workstation # [id number]
[2020-01-14] MEDS ORDERED: ONDA4TAB11 PO (22:15)
[2020-01-14] MEDS ORDERED: CEFD300C3 PO (22:15)
[2020-01-14] MEDS ORDERED: ACHD5005 PO (22:15)
[2020-01-14 22:27] VITALS: BP 124/76
[2020-01-14] MEDS ORDERED: RX-HYDROCODONE/APAP 5/325 MG #4 TAB PK PO PRN (22:30)
[2020-01-14] MEDS ORDERED: cefTRIAXone 1,000 MG IV (ROCEPHIN) VIAL ONE (22:31)
[2020-01-14] MEDS ORDERED: WATER (STERILE) FOR INJECTION 10 ML ONE (22:31)
[2020-01-14] MEDS ORDERED: cefTRIAXone FOR IV USE 1,000 MG in WATER (STERILE) FOR INJECTION 10 ML IV ONE (22:45)
== END 2020-01-14 22:39 | disposition home or self-care (01) ==
LOC: EDUNIT# 20:42 → ER 20:43
DX: N12 Tubulo-interstitial nephritis, not specified as acute or chronic (principal); F31.9 Bipolar disorder, unspecified; F41.9 Anxiety disorder, unspecified; F20.9 Schizophrenia, unspecified; E03.9 Hypothyroidism, unspecified; I10 Essential (primary) hypertension; G43.909 Migraine, unspecified, not intractable, without status migrainosus; E78.00 Pure hypercholesterolemia, unspecified; M79.7 Fibromyalgia; F17.210 Nicotine dependence, cigarettes, uncomplicated; Z20.2 Contact with and (suspected) exposure to infections with a predominantly sexual mode of transmission; Z87.19 Personal history of other diseases of the digestive system; Z87.01 Personal history of pneumonia (recurrent); Z86.79 Personal history of other diseases of the circulatory system; Z79.52 Long term (current) use of systemic steroids; Z79.890 Hormone replacement therapy; Z88.8 Allergy status to other drugs, medicaments and biological substances; Z83.3 Family history of diabetes mellitus
CPT/HCPCS: 36415; 74176; 80053; 81000; 85025; 87088

== ENCOUNTER 2020-02-23 23:23 | Emergency (ER) | payer MEDICARE, MEDICAID ==
[~2020-02-23] VITALS: Ht 160 cm; Wt 84.0 kg
[~2020-02-23 23:23] MED LIST changes: +ONDA4TAB11 PO
[2020-02-23 23:43] LABS: BILIRUBIN,URINE NEGATIVE (NEGATIVE); CLARITY,URINE CLEAR; COLOR,URINE YELLOW; GLUCOSE, URINE (UA) NEGATIVE (NEGATIVE); KETONES,URINE NEGATIVE (NEGATIVE); LEUKOCYTE ESTERASE ,URINE NEGATIVE (NEGATIVE); NITRITE,URINE NEGATIVE (NEGATIVE); PH,URINE 6.5 (5-9); PROTEIN,URINE NEGATIVE (NEGATIVE)
--- NOTE | 2020-02-23 23:50 | ED Abdominal Pain ---
General Chief Complaint: Abdominal/GI Problems Stated Complaint: STOMACH AND BACK PAIN, KNOT BY BELLOW BUTTON Nursing Triage Note: C/O MEDIAL ABDOMINAL PAIN RADIATING STRAIGHT THROUGH TO LOWER BACK X2 DAYS. PT REPORTS PAIN BEGAN AFTER SHE WAS HOLDING HER NEICE ET. FELT A "POP" Sepsis Screen: No Definite Risk Source of Information: Patient History of Present Illness Date Seen by Provider: Feb 23, 2020 Time Seen by Provider: 23:34 Initial Comments PT ARRIVES VIA POV FROM HOME C/O PERIUMBILICAL PAIN, THAT RADIATES STRAIGHT THRU TO BACK AND HAS BILATERAL FLANK PAIN ALSO C/O NAUSEA, NO VOMITING. NO DIARRHEA NO FEVER/SWEATS/CHILLS STATES SYMPTOMS ONGOING FOR THE LAST COUPLE OF DAYS TONIGHT, SHE WAS HOLDING HER 6 MONTH OLD NIECE, AND SHE JUMPED ON HER ABDOMEN AND PAIN IS MUCH WORSE PT TOOK TYLENOL AT 1900, AND IBUPROFEN AT 2200--NO RELIEF NO PROBLEMS URINATING PT STATES BOTH OF HER KIDS AND [id number] JUST GOT OFF QUARANTINE FOR COVID-19 2 DAYS AGO--BOTH TESTED +, AND PT BROUGHT DAUGHTER HERE TO ER. PT NEVER WAS TESTED. PT DID NOT COMPLETELY QUARANTINE HERSELF--STATES SHE WOULD GO OVER TO THEIR HOUSE AND BRING THEM FOOD MOST DAYS. . PT STATES SHE HAS A SLIGHT COUGH NO SHORTNESS OF BREATH NO SORE THROAT NO LOSS OF TASTE OR SMELL NO FEVER/SWEATS/CHILLS PT SMOKES AT LEAST 1 PPD PT STATES SHE WAS TESTED ABOUT A MONTH AGO AND WAS NEGATIVE AT THAT TIME. SEEN HERE 01/14/20 FOR PYELONEPHRITIS, RX ZOFRAN AND CEFDINIR PCP: [facility] Allergies and Home Medications Allergies Coded Allergies: gabapentin (Verified Allergy, Severe, HIVES, 01/14/15) esomeprazole (Unverified Allergy, Mild, 08/19/15) niacin (Unverified Allergy, Mild, 05/13/14) Uncoded Allergies: "COCKTAIL FOR CHAN" (Allergy, Mild, ITCHING, 02/11/09) Home Medications ALPRAZolam 0.25 Mg Tablet, 0.25 MG PO TID PRN for ANXIETY, (Reported) Acetazolamide 250 Mg Tablet, 250 MG PO 1200,2100, (Reported) Acyclovir 400 Mg Tablet, 400 MG PO TID, (Reported) LAST FILLED #42 12-17-17 Benzonatate 100 Mg Capsule, 1-2 TAB PO TID Prescribed by: PAOLA TAVERAS on 03/02/18342 Budesonide 90 Mcg Aer.pow.ba, 90 MCG IH BID Prescribed by: PAOLA TAVERAS on 03/02/18342 Cefdinir 300 Mg Capsule, 300 MG PO BID Prescribed by: OMAR BLOUNT on 01/19/18 1404 Cefdinir 300 Mg Capsule, 300 MG PO BID Prescribed by: LOC MEDINA on 01/14/202214 Ciprofloxacin HCl 500 Mg Tablet, 500 MG PO BID Prescribed by: PAOLA TAVERAS on 02/24/20110 Cyclobenzaprine HCl 10 Mg Tablet, 10 MG PO TID PRN for MUSCLE SPASMS, (Reported) D-Methorphan Hb/Prometh HCl 118 Ml Syrup, 1-2 TSP PO Q4H Prescribed by: PAOLA TAVERAS on 03/02/18342 Duloxetine HCl 60 Mg Capsule.dr, 60 MG PO BID, (Reported) Ezetimibe 10 Mg Tablet, 10 MG PO HS, (Reported) Famotidine 40 Mg Tablet, 40 MG PO DAILY Prescribed by: PAOLA TAVERAS on 02/24/20110 Hydrocodone/Acetaminophen 1 Each Tablet, 1 EACH PO Q6H PRN for PAIN-BREAKTHROUGH Prescribed by: LOC MEDINA on 01/14/202215 Hyoscyamine Sulfate 0.125 Mg Tab.subl, 0.25 MG SL Q4H Prescribed by: PAOLA TAVERAS on 02/24/20110 Ibuprofen 200 Mg Tablet, 600 MG PO TID PRN for PAIN-MILD, (Reported) Levofloxacin 500 Mg Tablet, 500 MG PO DAILY Prescribed by: PAOLA TAVERAS on 03/02/18342 Levothyroxine Sodium 112 Mcg Tablet, 1,125 MCG PO HS, (Reported) Methylprednisolone 4 Mg Tab.ds.pk, 4 MG PO UD Prescribed by: PAOLA TAVERAS on 03/02/18342 Metronidazole 500 Mg Tablet, 500 MG PO QID Prescribed by: PAOLA TAVERAS on 02/24/20110 Naproxen Sodium 220 Mg Tablet, 440 MG PO TID PRN for PAIN-MILD, (Reported) Ondansetron 4 Mg Tab.rapdis, 4 MG PO Q6H PRN for NAUSEA/VOMITING Prescribed by: LOC MEDINA on 01/14/20 2215 Ondansetron 8 Mg Tab.rapdis, 8 MG PO Q6H Prescribed by: PAOLA TAVERAS on 02/24/20 0111 Pramipexole Di-HCl 0.125 Mg Tablet, 0.125 MG PO HS, (Reported) Pregabalin 100 Mg Capsule, 100 MG PO BID, (Reported) Promethazine HCl 25 Mg Tablet, 25 MG PO Q6H PRN for NAUSEA/VOMITING Prescribed by: JESUSITA DAVIS on 06/03/19 0217 Risperidone 0.25 Mg Tablet, 0.5 MG PO HS, (Reported) TAKES 2 (0.25MG) TABLETS Tizanidine HCl 2 Mg Tablet, 4 MG PO HS, (Reported) TAKES 2 (2MG) TABLETS Tramadol HCl 50 Mg Tablet, 50 MG PO Q6H PRN for PAIN Prescribed by: JAIME TAMAYO on 10/22/18 1750 Verapamil HCl 120 Mg Tablet, 120 MG PO HS, (Reported) Patient Home Medication List Home Medication List Reviewed: Yes Review of Systems Review of Systems Constitutional: no symptoms reported; No chills, No diaphoresis, No dizziness, No fever EENTM: No Symptoms Reported; No Nose Congestion, No Throat Pain Respiratory: See HPI, Cough; Denies Shortness of Air Cardiovascular: No Symptoms Reported; Denies Chest Pain, Denies Edema, Denies Lightheadedness, Denies Palpitations Gastrointestinal: See HPI, Abdominal Pain; Denies Constipated, Denies Diarrhea; Nausea; Denies Vomiting Genitourinary: No Symptoms Reported Musculoskeletal: see HPI, back pain Skin: no symptoms reported Psychiatric/Neurological: No Symptoms Reported Endocrine: No Symptoms Reported Hematologic/Lymphatic: No Symptoms Reported Past Uidunyh-Gugese-Quhofc Hx Past Med/Social Hx: Reviewed and Corrections made Patient Social History Alcohol Use: Past History (H XOF ABUSE--"SOBER 23 YEARS") Recreational Drug Use: Yes (THC) Drug of Choice: cannabis Smoking Status: Current Everyday Smoker (1 PPD) Type Used: Cigarettes 2nd Hand Smoke Exposure: Yes Recent Foreign Travel: No (N) Contact w/Someone Who Travel: No (N) Recent Infectious Disease Expo: No Recent Hopitalizations: No Immunizations Up To Date Tetanus Booster (TDap): Less than 5yrs PED Vaccines UTD: Yes Date of Influenza Vaccine: Dec 06, 2013 Seasonal Allergies Seasonal Allergies: Yes Past Medical History Surgeries: Yes (EXPLORATORY LAP;HIATAL HERNIA REPAIR;HYST/BSO;VENTRAL HERNIA REPAIR;L KNEE ) Abdominal, Section, Gallbladder, Hysterectomy, Oophorectomy, Orthopedic, Thyroidectomy Respiratory: Yes Pneumonia, Chronic Bronchitis Currently Using CPAP: No Currently Using BIPAP: No Cardiac: Yes (MITRAL VALVE PROLAPSE) High Cholesterol, Hypertension, Irregular Heartbeat, Valvular Heart Disease Neurological: Yes (PERIPHERAL NEUROPATHY-LEGS/FEET) Headaches /Migraines, Neuropathy : No 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 ) Hypothyroidsim HEENT: No Loss of Vision: Bilateral Hearing Impairment: Denies Cancer: No Psychosocial: Yes Anxiety, Bipolar, Schizophrenia, Depression Integumentary: Yes Herpes Blood Disorders: Yes (ANEMIA) Adverse Reaction/Blood Tranf: No Family Medical History Cardiovascular disease 19 FATHER Diabetes mellitus 19 FATHER 19 MOTHER FH: mental illness Mental Physical Exam Vital Signs Vital Signs - First Documented 02/23/20 23:30 Temp 36.3 Pulse 97 Resp 18 B/P (MAP) 153/90 (111) Pulse Ox 97 O2 Delivery Room Air Capillary Refill : Less Than 3 Seconds Height/Weight/BMI Height: 5'3.00" Weight: 190lbs. 4.0oz. 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, no motor/sensory deficits, alert, normal mood/affect, oriented x 3 Skin: normal color, warm/dry Progress/Results/Core Measures Results/Orders Lab Results Laboratory Tests Test 02/23/20 00:05 02/23/20 23:32 Range/Units White Blood Count 12.7 H 4.3-11.0 10^3/uL Red Blood Count 4.90 3.80-5.11 10^6/uL Hemoglobin 16.2 H 11.5-16.0 g/dL Hematocrit 48 35-52 % Mean Corpuscular Volume 99 80-99 fL Mean Corpuscular Hemoglobin 33 25-34 pg Mean Corpuscular Hemoglobin Concent 34 32-36 g/dL Red Cell Distribution Width 13.3 10.0-14.5 % Platelet Count 140 130-400 10^3/uL Mean Platelet Volume 12.2 9.0-12.2 fL Immature Granulocyte % (Auto) 0 % Neutrophils (%) (Auto) 42 42-75 % Lymphocytes (%) (Auto) 50 H 12-44 % Monocytes (%) (Auto) 6 0-12 % Eosinophils (%) (Auto) 2 0-10 % Basophils (%) (Auto) 1 0-10 % Neutrophils # (Auto) 5.4 1.8-7.8 10^3/uL Lymphocytes # (Auto) 6.3 H 1.0-4.0 10^3/uL Monocytes # (Auto) 0.8 0.0-1.0 10^3/uL Eosinophils # (Auto) 0.2 0.0-0.3 10^3/uL Basophils # (Auto) 0.1 0.0-0.1 10^3/uL Immature Granulocyte # (Auto) 0.0 0.0-0.1 10^3/uL Sodium Level 141 135-145 MMOL/L Potassium Level 3.5 L 3.6-5.0 MMOL/L Chloride Level 106 98-107 MMOL/L Carbon Dioxide Level 26 21-32 MMOL/L Anion Gap 9 5-14 MMOL/L Blood Urea Nitrogen 7 7-18 MG/DL Creatinine 0.78 0.60-1.30 MG/DL Estimat Glomerular Filtration Rate > 60 BUN/Creatinine Ratio 9 Glucose Level 83 70-105 MG/DL Calcium Level 8.7 8.5-10.1 MG/DL Corrected Calcium 8.9 8.5-10.1 MG/DL Total Bilirubin 0.4 0.1-1.0 MG/DL Aspartate Amino Transf (AST/SGOT) 42 H 5-34 U/L Alanine Aminotransferase (ALT/SGPT) 29 0-55 U/L Alkaline Phosphatase 106 40-136 U/L Total Protein 7.7 6.4-8.2 GM/DL Albumin 3.7 3.2-4.5 GM/DL Amylase Level 72 25-125 U/L Lipase 53 8-78 U/L Urine Color YELLOW Urine Clarity CLEAR Urine pH 6.5 5-9 Urine Specific [place] 1.010 L 1.016-1.022 Urine Protein NEGATIVE NEGATIVE Urine Glucose (UA) NEGATIVE NEGATIVE Urine Ketones NEGATIVE NEGATIVE Urine Nitrite NEGATIVE NEGATIVE Urine Bilirubin NEGATIVE NEGATIVE Urine Urobilinogen 2.0 < = 1.0 MG/DL Urine Leukocyte Esterase NEGATIVE NEGATIVE Urine RBC (Auto) NEGATIVE NEGATIVE Urine RBC NONE /HPF Urine WBC NONE /HPF Urine Squamous Epithelial Cells 5-10 /HPF Urine Crystals NONE /LPF Urine Bacteria NEGATIVE /HPF Urine Casts NONE /LPF Urine Mucus NEGATIVE /LPF Urine Culture Indicated NO Urine Opiates Screen NEGATIVE NEGATIVE Urine Oxycodone Screen NEGATIVE NEGATIVE Urine Methadone Screen NEGATIVE NEGATIVE Urine Propoxyphene Screen NEGATIVE NEGATIVE Urine Barbiturates Screen NEGATIVE NEGATIVE Ur Tricyclic Antidepressants Screen NEGATIVE NEGATIVE Urine Phencyclidine Screen NEGATIVE NEGATIVE Urine Amphetamines Screen NEGATIVE NEGATIVE Urine Methamphetamines Screen NEGATIVE NEGATIVE Urine Benzodiazepines Screen NEGATIVE NEGATIVE Urine Cocaine Screen NEGATIVE NEGATIVE Urine Cannabinoids Screen POSITIVE H NEGATIVE My Orders Orders - PAOLA TAVERAS DO Drug Screen Stat (Urine) (02/23/20 23:33) Ua Culture If Indicated (02/23/20 23:33) Ed Iv/Invasive Line Start (02/23/20 23:55) Amylase (02/23/20 23:55) Cbc With Automated Diff (02/23/20 23:55) Comprehensive Metabolic Panel (02/23/20 23:55) Lipase (02/23/20 23:55) Ed Iv/Invasive Line Start (02/23/20 23:55) Lactated Ringers (Lr 1000 Ml Iv Solution (02/24/20 00:00) Ondansetron Injection (Zofran Injectio (02/24/20 00:00) Acute Abd Series (02/24/20 00:00) Ct Abd/Pelv W (Appendicitis) (02/24/20 00:01) Iohexol Injection (Omnipaque 350 Mg/Ml 1 (02/24/20 01:00) Received Contrast (Hold Metformin- Contr (02/24/20 01:00) Sodium Chloride Flush (Catheter Flush Sy (02/24/20 01:00) Ns (Ivpb) (Sodium Chloride 0.9% Ivpb Bag (02/24/20 01:00) Ketorolac Injection (Toradol Injection) (02/24/20 01:15) Ciprofloxacin Tablet (Cipro Tablet) (02/24/20 01:15) Metronidazole Tablet (Flagyl Tablet) (02/24/20 01:15) Ketorolac Injection (Toradol Injection) (02/24/20 01:12) Ciprofloxacin Tablet (Cipro Tablet) (02/24/20 01:12) Metronidazole Tablet (Flagyl Tablet) (02/24/20 01:12) Medications Given in ED Current Medications Medications Dose Ordered Sig/Emeka Route Start Time Stop Time Status Last Admin Dose Admin Iohexol 100 ml ONCE ONCE IV 02/24/20 01:00 02/24/20 01:01 DC 02/24/20 01:03 100 ML Ketorolac Tromethamine 30 mg ONCE ONCE IVP 02/24/20 01:15 02/24/20 01:17 DC 02/24/20 01:18 30 MG Lactated Ringer's 1,000 ml @ 0 mls/hr Q0M ONCE IV 02/24/20 00:00 02/24/20 00:01 DC 02/24/20 00:10 0 MLS/HR Metronidazole 500 mg ONCE ONCE PO 02/24/20 01:15 02/24/20 01:17 DC 02/24/20 01:16 500 MG Ondansetron HCl 4 mg ONCE ONCE IVP 02/24/20 00:00 02/24/20 00:01 DC 02/24/20 00:10 4 MG Sodium Chloride 10 ml NEEDED PRN IV 02/24/20 01:00 02/24/20 01:20 DC 02/24/20 01:04 10 ML Sodium Chloride 100 ml ONCE ONCE IV 02/24/20 01:00 02/24/20 01:01 DC 02/24/20 01:03 80 ML Vital Signs/I&O 02/23/20 02/24/20 23:30 01:15 Temp 36.3 36.4 Pulse 97 90 Resp 18 16 B/P (MAP) 153/90 (111) 142/91 (111) Pulse Ox 97 96 O2 Delivery Room Air Room Air Blood Pressure Mean: 111 Progress Progress Note : Progress Note UNEVENTFUL ER STAY Diagnostic Imaging Comments ABDOMEN XRAYS--NON-SPECIFIC BOWEL GAS PATTERN, PENDING RADIOLOGIST REVIEW CT ABDOMEN/PELVIS--MILD INFLAMMATION ALONG UMBILICUS, MILD THICKENING OF TRANSVERSE COLON--COLITIS VS UNDERDISTENTION, HEPATOMEGALY WITH STEATOSIS AND EARLY CIRRHOTIC CHANGES--PER [facility] VIA FAX AT 0103 Reviewed: Reviewed by Me Departure Impression Primary Impression: UMBILICUS INFLAMMATION Additional Impression: Colitis Disposition: HOME, SELF-CARE Condition: Improved Departure-Patient Inst. Referrals: [facility] (PCP) Primary Care Physician HUGO BECKFORD APRN (Family) Primary Care Physician Patient Instructions: Colitis (DC) Add. Discharge Instructions: CLEAR LIQUIDS--WATER, BROTH, JELLO, GATORADE BRATS DIET--BANANAS, RICE, APPLESAUCE, TOAST, SALTINES FOLLOW UP WITH [facility] IN 3-4 DAYS FOR FURTHER CARE All discharge instructions reviewed with patient and/or family. Voiced understanding. Scripts Hyoscyamine Sulfate (Levsin-Sl) 0.125 Mg Tab.subl 0.25 MG SL Q4H, #20 TAB Prov: PAOLA TAVERAS DO 02/24/20 Famotidine (Pepcid) 40 Mg Tablet 40 MG PO DAILY, #10 TAB Prov: PAOLA TAVERAS DO 02/24/20 Ondansetron (Ondansetron Odt) 8 Mg Tab.rapdis 8 MG PO Q6H, #10 TAB Prov: PAOLA TAVERAS DO 02/24/20 Metronidazole (Flagyl) 500 Mg Tablet 500 MG PO QID, #40 TAB Prov: PAOLA TAVERAS DO 02/24/20 Ciprofloxacin HCl (Ciprofloxacin HCl) 500 Mg Tablet 500 MG PO BID, #20 TAB Prov: JENNIFER TAVERASA K DO 02/24/20 PAOLA TAVERAS DO Feb 23, 2020 23:49
[2020-02-23 23:53] LABS: BACTERIA,URINE NEGATIVE /HPF
[2020-02-23 23:58] LABS: AMPHETAMINE SCREEN, URINE NEGATIVE (NEGATIVE); BARBITURATE SCREEN URINE NEGATIVE (NEGATIVE); BENZODIAZEPINES SCREEN URINE NEGATIVE (NEGATIVE); CANNABINOID SCREEN, URINE POSITIVE (NEGATIVE); COCAINE SCREEN URINE NEGATIVE (NEGATIVE); METHADONE STAT NEGATIVE (NEGATIVE); METHAMPHETAMINE SCREEN URINE S NEGATIVE (NEGATIVE); OPIATE SCREEN URINE NEGATIVE (NEGATIVE); OXYCODONE STAT NEGATIVE (NEGATIVE); PROPOXYPHENE STAT NEGATIVE (NEGATIVE); TRICYCLIC ANTIDEPRESSANTS SCRE NEGATIVE (NEGATIVE)
[2020-02-24] MEDS ORDERED: LACTATED RINGERS 1,000 ML IV ONE
[2020-02-24] MEDS ORDERED: ONDANSETRON 4 MG/2 ML (SDV) Z0FRAN IVP ONE
[2020-02-24 00:23] LABS: BASOPHILS # (AUTO) 0.1 10^3/uL (0.0-0.1); BASOPHILS % (AUTO) 1 % (0-10); EOSINOPHILS # (AUTO) 0.2 10^3/uL (0.0-0.3); EOSINOPHILS % (AUTO) 2 % (0-10); HEMATOCRIT 48 % (35-52); HEMOGLOBIN 16.2 g/dL (11.5-16.0); LYMPHOCYTES # (AUTO) 6.3 10^3/uL (1.0-4.0); LYMPHOCYTES % (AUTO) 50 % (12-44); MEAN CORPUSCULAR HEMOGLOBIN 33 pg (25-34); MEAN CORPUSCULAR HGB CONC 34 g/dL (32-36); MEAN CORPUSCULAR VOLUME 99 fL (80-99); MEAN PLATELET VOLUME 12.2 fL (9.0-12.2); MONOCYTES # (AUTO) 0.8 10^3/uL (0.0-1.0); MONOCYTES % (AUTO) 6 % (0-12); NEUTROPHILS # (AUTO) 5.4 10^3/uL (1.8-7.8); NEUTROPHILS % (AUTO) 42 % (42-75); PLATELET COUNT 140 10^3/uL (130-400); WHITE BLOOD COUNT 12.7 10^3/uL (4.3-11.0)
[2020-02-24 00:46] LABS: BUN/CREATININE RATIO 9; CARBON DIOXIDE 26 MMOL/L (21-32); CHLORIDE 106 MMOL/L (98-107); CREATININE SERUM 0.78 MG/DL (0.60-1.30); GFR ESTIMATED > 60; GLUCOSE 83 MG/DL (70-105); POTASSIUM 3.5 MMOL/L (3.6-5.0); SODIUM 141 MMOL/L (135-145)
[2020-02-24 00:47] LABS: ALANINE AMINOTRANSFERASE 29 U/L (0-55); ALBUMIN 3.7 GM/DL (3.2-4.5); ALKALINE PHOSPHATASE 106 U/L (40-136); AMYLASE 72 U/L (25-125); BILIRUBIN,TOTAL 0.4 MG/DL (0.1-1.0); CALCIUM 8.7 MG/DL (8.5-10.1); LIPASE 53 U/L (8-78); TOTAL PROTEIN 7.7 GM/DL (6.4-8.2)
[2020-02-24] MEDS ORDERED: IOHEXOL 350 MG/ML 100 ML (OMNIPAQUE 350) VIAL IV ONE (01:00)
[2020-02-24] MEDS ORDERED: CATHETER FLUSH 10 ML SYR IV PRN (01:00)
[2020-02-24] MEDS ORDERED: HOLD METFORMIN - RECEIVED CONTRAST 20 ML VIAL IV SCH (01:00)
[2020-02-24] MEDS ORDERED: NS 100 ML (IVPB) BAG IV ONE (01:00)
[2020-02-24] MEDS ORDERED: ONDA8TAB13 PO (01:11)
[2020-02-24] MEDS ORDERED: METR500T PO (01:11)
[2020-02-24] MEDS ORDERED: CIPR500T4 PO (01:11)
[2020-02-24] MEDS ORDERED: FAMO40TA72 PO (01:11)
[2020-02-24] MEDS ORDERED: HYOS0.1283 SL (01:11)
[2020-02-24] MEDS ORDERED: CIPROFLOXACIN 500 MG (CIPRO) TABLET PO ONE (01:12)
[2020-02-24] MEDS ORDERED: metroNIDAZOLE 500 MG (FLAGYL) TAB ONE (01:12)
[2020-02-24] MEDS ORDERED: KETOROLAC 30 MG/ML VIAL ONE (01:12)
[2020-02-24 01:15] VITALS: BP 142/91
[2020-02-24] MEDS ORDERED: metroNIDAZOLE 500 MG (FLAGYL) TAB PO ONE (01:15)
[2020-02-24] MEDS ORDERED: CIPROFLOXACIN 500 MG (CIPRO) TABLET PO SCH (01:15)
[2020-02-24] MEDS ORDERED: KETOROLAC 30 MG/ML VIAL IVP ONE (01:15)
--- NOTE | 2020-02-24 05:25 | Diagnostic Imaging Report ---
EXAMINATION: Acute abdomen series The accompanying erect PA chest shows the heart size to be within normal limits and stable when compared to 12/27/2018. The lungs are generally clear. There is no evidence for failure, pneumonia or for a pleural effusion. The mediastinum is not widened. There is no sign of a pneumoperitoneum. Supine and erect views of the abdomen were obtained. There is some gas in both the large and small bowel in a nonspecific fashion. There is no evidence for a bowel obstruction. There is no mass or organomegaly appreciated. Surgical clips are evident in the right upper quadrant. The osseous structures are intact. IMPRESSION: 1. The bowel gas pattern is nonspecific. There is no acute abnormality identified. 2. Reportedly, CT of the abdomen and pelvis is pending for further study. Dictated by: Dictated on workstation # [id number]
--- NOTE | 2020-02-24 06:44 | Diagnostic Imaging Report ---
PROCEDURE: CT abdomen and pelvis with contrast, rule out appendicitis. TECHNIQUE: Multiple contiguous axial images were obtained through the abdomen and pelvis after the administration of intravenous contrast. All CT scans use one or more of the following dose optimizing techniques: automated exposure control, MA and/or KvP adjustment based on patient size and exam type or iterative reconstruction. INDICATION: Right lower quadrant pain. The CT abdomen/pelvis exam performed on 01/14/2020 failed to show any sign of an acute abnormality. The liver is enlarged and of lower density than usually seen. This appearance does suggest fatty metamorphosis. The caudate lobe is somewhat prominent and the possibility of mild cirrhosis of the liver should be considered. Clinical follow-up is recommended. The spleen, pancreas, adrenals, kidneys, aorta and inferior vena cava and portal vein show no sign of an acute abnormality. As noted on the prior exam, the gallbladder is surgically absent. The stomach is not well-distended and difficult to assess. The uterus is surgically absent. The urinary bladder is grossly unremarkable. The appendix was not well-visualized but there are no indirect signs of acute appendicitis. The proximal transverse colon wall does seem slightly thickened. This may be secondary to incomplete distention as opposed to colitis. Even so, clinical follow-up is recommended. There is no evidence for diverticulosis or diverticulitis. There is slight distortion of the subcutaneous fat about the umbilicus. This appearance is similar to the prior exam and may be a sequela of prior inflammatory/infectious process. As on the prior exam, there are mild chronic changes involving the lung bases. The bone windows are unremarkable for a fracture or for a destructive lesion. IMPRESSION: 1. The slightly thickened appearance of the wall of the proximal transverse colon does raise the question of colitis. Clinical follow-up is recommended. 2. There is no acute abnormality of the abdomen or pelvis noted otherwise. 3. There are mild chronic changes involving the lung bases. 4. I agree with the [facility] interpretation of this exam. Dictated by: Dictated on workstation # [id number]
== END 2020-02-24 01:20 | disposition home or self-care (01) ==
LOC: EDUNIT# 23:23 → ER 23:26
DX: L08.82 Omphalitis not of newborn (principal); K52.9 Noninfective gastroenteritis and colitis, unspecified; F41.9 Anxiety disorder, unspecified; K21.9 Gastro-esophageal reflux disease without esophagitis; G89.29 Other chronic pain; M54.9 Dorsalgia, unspecified; F31.9 Bipolar disorder, unspecified; F20.9 Schizophrenia, unspecified; E03.9 Hypothyroidism, unspecified; E78.00 Pure hypercholesterolemia, unspecified; I10 Essential (primary) hypertension; F17.210 Nicotine dependence, cigarettes, uncomplicated; Z82.49 Family history of ischemic heart disease and other diseases of the circulatory system; Z83.3 Family history of diabetes mellitus; Z88.8 Allergy status to other drugs, medicaments and biological substances; Z79.890 Hormone replacement therapy; Z79.891 Long term (current) use of opiate analgesic; Z79.52 Long term (current) use of systemic steroids
CPT/HCPCS: 36415; 74022; 74177; 80053; 80306; 81000; 82150; 83690; 85025; 96361; 96374; 96375

== ENCOUNTER 2020-04-03 14:25 | Emergency (ER) | payer MEDICARE, MEDICAID ==
[~2020-04-03] VITALS: Ht 162.5 cm; Wt 85.7 kg
[~2020-04-03 14:25] MED LIST changes: +CIPR500T4 PO; +FAMO40TA72 PO; +METR500T PO; +ONDA8TAB13 PO; +TIZA-169 PO; -TIZA2TAB7 PO
[2020-04-03 14:45] VITALS: BP 131/86
[2020-04-03] MEDS ORDERED: KETOROLAC 60 MG/2 ML VIAL IM ONE (15:15)
[2020-04-03] MEDS ORDERED: diphenhydrAMINE 50 MG/ML INJ (BENADRYL) IM ONE (15:15)
[2020-04-03] MEDS ORDERED: PROCHLORPERAZINE 10 MG/2ML INJ (COMPAZINE) IM ONE (15:15)
--- NOTE | 2020-04-03 16:17 | ED Headache ---
General Chief Complaint: Head/Cervical Problems Stated Complaint: MIGRAINE Nursing Triage Note: PT AMB TO TRIAGE WITH COMPLAINT OF MIGRAINE FOR 3 DAYS. STATES HAS TAKEN TYLENOL, ADVIL, AND ALEVE WITHOUT RELIEF. Nursing Sepsis Screen: No Definite Risk Source: patient Exam Limitations: no limitations History of Present Illness Date Seen by Provider: Apr 03, 2020 Time Seen by Provider: 15:00 Initial Comments 44-year-old female who presents to the emergency room with complaints of a migraine for the past 3 days. She reports she has taken Tylenol and Advil and Aleve without relief. She has history of migraines and reports that this 1 feels very similar. She denies any nausea or vomiting. Severity/Quality: achy Location: global Prior Headaches/Recent Trauma: frequent headaches Associated Symptoms: denies symptoms Allergies and Home Medications Allergies Coded Allergies: gabapentin (Verified Allergy, Severe, HIVES, 01/14/15) esomeprazole (Unverified Allergy, Mild, 08/19/15) niacin (Unverified Allergy, Mild, 05/13/14) Uncoded Allergies: "COCKTAIL FOR CHAN" (Allergy, Mild, ITCHING, 02/11/09) Home Medications ALPRAZolam 0.25 Mg Tablet, 0.25 MG PO TID PRN for ANXIETY, (Reported) Acetazolamide 250 Mg Tablet, 250 MG PO 1200,2100, (Reported) Acyclovir 400 Mg Tablet, 400 MG PO TID, (Reported) LAST FILLED #42 12-17-17 Benzonatate 100 Mg Capsule, 1-2 TAB PO TID Prescribed by: PAOLA TAVERAS on 03/02/18 034 Budesonide 90 Mcg Aer.pow.ba, 90 MCG IH BID Prescribed by: PAOLA TAVERAS on 03/02/18 034 Cefdinir 300 Mg Capsule, 300 MG PO BID Prescribed by: OMAR BLOUNT on 01/19/18 1404 Cefdinir 300 Mg Capsule, 300 MG PO BID Prescribed by: LOC MEDINA on 01/14/20 2215 Ciprofloxacin HCl 500 Mg Tablet, 500 MG PO BID Prescribed by: PAOLA TAVERAS on 02/24/20 0111 Cyclobenzaprine HCl 10 Mg Tablet, 10 MG PO TID PRN for MUSCLE SPASMS, (Reported) D-Methorphan Hb/Prometh HCl 118 Ml Syrup, 1-2 TSP PO Q4H Prescribed by: PAOLA TAVERAS on 03/02/18342 Duloxetine HCl 60 Mg Capsule.dr, 60 MG PO BID, (Reported) Ezetimibe 10 Mg Tablet, 10 MG PO HS, (Reported) Famotidine 40 Mg Tablet, 40 MG PO DAILY Prescribed by: PAOLA TAVERAS on 02/24/20110 Hydrocodone/Acetaminophen 1 Each Tablet, 1 EACH PO Q6H PRN for PAIN-BREAKTHROUGH Prescribed by: LOC MEDINA on 01/14/202215 Hyoscyamine Sulfate 0.125 Mg Tab.subl, 0.25 MG SL Q4H Prescribed by: PAOLA TAVERAS on 02/24/20110 Ibuprofen 200 Mg Tablet, 600 MG PO TID PRN for PAIN-MILD, (Reported) Levofloxacin 500 Mg Tablet, 500 MG PO DAILY Prescribed by: PAOLA TAVERAS on 03/02/18342 Levothyroxine Sodium 112 Mcg Tablet, 1,125 MCG PO HS, (Reported) Methylprednisolone 4 Mg Tab.ds.pk, 4 MG PO UD Prescribed by: PAOLA TAVERAS on 03/02/18342 Metronidazole 500 Mg Tablet, 500 MG PO QID Prescribed by: PAOLA TAVERAS on 02/24/20110 Naproxen Sodium 220 Mg Tablet, 440 MG PO TID PRN for PAIN-MILD, (Reported) Ondansetron 4 Mg Tab.rapdis, 4 MG PO Q6H PRN for NAUSEA/VOMITING Prescribed by: LOC MEDINA on 01/14/202214 Ondansetron 8 Mg Tab.rapdis, 8 MG PO Q6H Prescribed by: PAOLA TAVERAS on 02/24/20110 Pramipexole Di-HCl 0.125 Mg Tablet, 0.125 MG PO HS, (Reported) Pregabalin 100 Mg Capsule, 100 MG PO BID, (Reported) Promethazine HCl 25 Mg Tablet, 25 MG PO Q6H PRN for NAUSEA/VOMITING Prescribed by: JESUSITA DAVIS on 06/03/19216 Risperidone 0.25 Mg Tablet, 0.5 MG PO HS, (Reported) TAKES 2 (0.25MG) TABLETS Tizanidine HCl 2 Mg Tablet, 4 MG PO HS, (Reported) TAKES 2 (2MG) TABLETS Tramadol HCl 50 Mg Tablet, 50 MG PO Q6H PRN for PAIN Prescribed by: JAIME TAMAYO on 10/22/18 1750 Verapamil HCl 120 Mg Tablet, 120 MG PO HS, (Reported) Patient Home Medication List Home Medication List Reviewed: Yes Review of Systems Review of Systems Constitutional: see HPI; No chills, No fever Psychiatric/Neurological: See HPI, Headache All Other Systems Reviewed Negative Unless Noted: Yes Past Bobbvlu-Odhrud-Uehznf Hx Past Med/Social Hx: Reviewed Nursing Past Med/Soc Hx Patient Social History Alcohol Use: Denies Use Drug of Choice: cannabis Smoking Status: Current Everyday Smoker Type Used: Cigarettes 2nd Hand Smoke Exposure: Yes Recent Infectious Disease Expo: No Recent Hopitalizations: No Immunizations Up To Date Tetanus Booster (TDap): Less than 5yrs PED Vaccines UTD: Yes Date of Influenza Vaccine: Dec 06, 2013 Seasonal Allergies Seasonal Allergies: Yes Past Medical History Surgeries: Yes (EXPLORATORY LAP;HIATAL HERNIA REPAIR;HYST/BSO;VENTRAL HERNIA REPAIR;L KNEE ) Abdominal, Section, Gallbladder, Hysterectomy, Oophorectomy, Orthopedic, Thyroidectomy Respiratory: Yes Pneumonia, Chronic Bronchitis Currently Using CPAP: No Currently Using BIPAP: No Cardiac: Yes (MITRAL VALVE PROLAPSE) High Cholesterol, Hypertension, Irregular Heartbeat, Valvular Heart Disease Neurological: Yes (PERIPHERAL NEUROPATHY-LEGS/FEET) Headaches /Migraines, Neuropathy 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 ) Hypothyroidsim HEENT: No Loss of Vision: Bilateral Hearing Impairment: Denies Cancer: No Psychosocial: Yes Anxiety, Bipolar, Schizophrenia, Depression Integumentary: Yes Herpes Blood Disorders: Yes (ANEMIA) Adverse Reaction/Blood Tranf: No Family Medical History Reviewed Nursing Family Hx Cardiovascular disease 19 FATHER Diabetes mellitus 19 FATHER 19 MOTHER FH: mental illness Mental Physical Exam Vital Signs Vital Signs - First Documented 04/03/20 14:45 Temp 36.0 Pulse 82 Resp 16 B/P (MAP) 131/86 (101) Pulse Ox 100 O2 Delivery Room Air Capillary Refill : Less Than 3 Seconds Height, Weight, BMI Height: 5'3.00" Weight: 190lbs. 4.0oz. 86.104623mi; 32.00 BMI Method:Stated General Appearance: WD/WN, no apparent distress HEENT: PERRL/EOMI, normal ENT inspection, TMs normal, pharynx normal Neck: non-tender, full range of motion Cardiovascular: normal peripheral pulses, regular rate, rhythm, no edema, no gallop, no JVD, no murmur Respiratory: chest non-tender, lungs clear, normal breath sounds, no respiratory distress, no accessory muscle use Gastrointestinal: normal bowel sounds, non tender, soft, no organomegaly, no pulsatile mass Extremities: normal capillary refill Psychiatric: alert, oriented x 3 Crainal Nerves: normal hearing, normal speech Coordination/Gait: normal gait Skin: normal color, warm/dry Progress/Results/Core Measures Results/Orders My Orders Orders - MARYJO HARRIS Ketorolac Injection (Toradol Injection) (04/03/20 15:15) Prochlorperazine Injection (Compazine In (04/03/20 15:15) Diphenhydramine Injection (Benadryl Inje (04/03/20 15:15) Medications Given in ED Current Medications Medications Dose Ordered Sig/Emeka Route Start Time Stop Time Status Last Admin Dose Admin Diphenhydramine HCl 25 mg ONCE ONCE IM 04/03/20 15:15 04/03/20 15:16 DC 04/03/20 15:14 25 MG Ketorolac Tromethamine 60 mg ONCE ONCE IM 04/03/20 15:15 04/03/20 15:16 DC 04/03/20 15:14 60 MG Prochlorperazine Edisylate 10 mg ONCE ONCE IM 04/03/20 15:15 04/03/20 15:16 DC 04/03/20 15:14 10 MG Vital Signs/I&O 04/03/20 14:45 Temp 36.0 Pulse 82 Resp 16 B/P (MAP) 131/86 (101) Pulse Ox 100 O2 Delivery Room Air Blood Pressure Mean: 101 Departure Impression Primary Impression: Migraine Disposition: 01 HOME, SELF-CARE Condition: Stable/Unchanged Departure-Patient Inst. Decision time for Depature: 16:16 Referrals: [facility] (PCP) Primary Care Physician HUGO BECKFORD APRN (Family) Primary Care Physician Patient Instructions: Migraines (DC) Add. Discharge Instructions: You can continue to use ibuprofen and Tylenol as needed for pain relief. Follow-up with your primary care provider within 1 week for recheck. Drink plenty of fluids to stay hydrated. Return back to emergency room for worsening symptoms or concerns as needed. All discharge instructions reviewed with patient and/or family. Voiced understanding. MARYJO HARRIS Apr 03, 2020 16:17
== END 2020-04-03 16:21 | disposition home or self-care (01) ==
LOC: EDUNIT# 14:25 → ER 14:27
DX: G43.909 Migraine, unspecified, not intractable, without status migrainosus (principal); F20.9 Schizophrenia, unspecified; F31.9 Bipolar disorder, unspecified; F41.9 Anxiety disorder, unspecified; K21.9 Gastro-esophageal reflux disease without esophagitis; E03.9 Hypothyroidism, unspecified; G89.29 Other chronic pain; M54.9 Dorsalgia, unspecified; E78.00 Pure hypercholesterolemia, unspecified; I10 Essential (primary) hypertension; Z88.8 Allergy status to other drugs, medicaments and biological substances; F17.210 Nicotine dependence, cigarettes, uncomplicated; Z82.49 Family history of ischemic heart disease and other diseases of the circulatory system; Z83.3 Family history of diabetes mellitus; Z79.890 Hormone replacement therapy; Z79.891 Long term (current) use of opiate analgesic
CPT/HCPCS: 99284

== ENCOUNTER → 2020-06-11 | Outpatient (CLI) | payer MEDICARE, MEDICAID ==
[~2020-06-11] MED LIST changes: -CIPR500T4 PO; +CIPR500T5 PO
== END ==
LOC: LAB 11:16
PROVIDERS: ATTEND Internal Medicine
DX: K76.0 Fatty (change of) liver, not elsewhere classified (principal); R79.9 Abnormal finding of blood chemistry, unspecified
CPT/HCPCS: 36415; 83036

== ENCOUNTER → 2020-07-16 | Outpatient (RCR) | payer MEDICARE, MEDICAID ==
[~2020-07-16] MED LIST changes: -ACYC400T PO; +ACYC400T21 PO
== END | disposition home or self-care (01) ==
PROVIDERS: ATTEND Orthopaedic Surgery
DX: S83.511D Sprain of anterior cruciate ligament of right knee, subsequent encounter (principal)

== ENCOUNTER 2020-08-08 14:28 | Outpatient (RCR) | payer MEDICARE, MEDICAID ==
[~2020-08-08 14:28] MED LIST changes: +DOXY-311 PO; -DOXY100C42 PO; -SULF1TAB35 PO; +SULF1TAB38 PO
== END 2020-10-16 | disposition home or self-care (01) ==
PROVIDERS: ATTEND Orthopaedic Surgery
DX: S83.511D Sprain of anterior cruciate ligament of right knee, subsequent encounter (principal); I10 Essential (primary) hypertension; F32.9 Major depressive disorder, single episode, unspecified; Z98.890 Other specified postprocedural states

== ENCOUNTER 2020-12-23 18:06 | Emergency (ER) | payer MEDICARE, MEDICAID ==
[~2020-12-23] VITALS: Ht 160 cm; Wt 86.0 kg
[2020-12-23 18:17] VITALS: BP 144/86
--- NOTE | 2020-12-23 18:57 | ED Back Pain ---
General Chief Complaint: Back Problems Stated Complaint: FALL - BACK PAIN Nursing Triage Note: Pt ambulatory to ED by POV with c/o back pain. Pt reports falling on her porch and landing on a stair last . Pt rates pain 7/10 and describes it as "constant and sharp" and states it is on the R side of her spine. Source of Information: Patient Exam Limitations: No Limitations History of Present Illness Date Seen by Provider: Dec 23, 2020 Time Seen by Provider: 18:52 Initial Comments Patient is a 45-year-old female presents ED with low back pain. Patient states last she fell on her back steps. She missed the second to last step landing on her lower back. Denies hitting her head, loss of consciousness or blood thinners. She had immediate pain with worsening pain today. Difficulty with ambulate. She reports normal urination and bowel movements. She reports chronic neuropathy with distal numbness and tingling distally bilateral. Denies vomiting, extremity pain, neck pain, headache, chest pain, abdominal pain, fever, chills, swelling, ecchymosis, erythema. Has been taken Tylenol and left over Nelson without much improvement. Allergies and Home Medications Allergies Coded Allergies: gabapentin (Verified Allergy, Severe, HIVES, 01/14/15) esomeprazole (Unverified Allergy, Mild, 08/19/15) niacin (Unverified Allergy, Mild, 05/13/14) Uncoded Allergies: "COCKTAIL FOR CHAN" (Allergy, Mild, ITCHING, 02/11/09) Patient Home Medication List Home Medication List Reviewed: Yes ALPRAZolam (Xanax Tablet) 0.25 Mg Tablet, 0.25 MG PO TID PRN for ANXIETY, (Reported) Entered as Reported by: RITA RACHEL on 11/04/17 0115 Acetazolamide (Acetazolamide) 250 Mg Tablet, 250 MG PO 1200,2100, (Reported) Entered as Reported by: CHANDANA CANCINO on 01/18/18 0901 Acyclovir (Acyclovir) 400 Mg Tablet, 400 MG PO TID, (Reported) Entered as Reported by: IZABEL VELASCO on 04/12/162128 Benzonatate (Tessalon Perles) 100 Mg Capsule, 1-2 TAB PO TID Prescribed by: PAOLA TAVERAS on 03/02/18 0343 Budesonide (Pulmicort Flexhaler) 90 Mcg Aer.pow.ba, 90 MCG IH BID Prescribed by: PAOLA TAVEARS on 03/02/18342 Cefdinir (Cefdinir) 300 Mg Capsule, 300 MG PO BID Prescribed by: OMAR BLOUNT on 01/19/18 1404 Cefdinir (Cefdinir) 300 Mg Capsule, 300 MG PO BID Prescribed by: LOC MEDINA on 01/14/202214 Ciprofloxacin HCl (Ciprofloxacin HCl) 500 Mg Tablet, 500 MG PO BID Prescribed by: PAOLA TAVERAS on 02/24/20110 Cyclobenzaprine HCl (Cyclobenzaprine HCl) 10 Mg Tablet, 10 MG PO TID PRN for MUSCLE SPASMS, (Reported) Entered as Reported by: CHANDANA CANCINO on 01/18/18900 Cyclobenzaprine HCl (Cyclobenzaprine HCl) 10 Mg Tablet, 10 MG PO TID Prescribed by: AMBERLY CABALLERO on 12/23/201939 D-Methorphan Hb/Prometh HCl (Promethazine-Dm Syrup) 118 Ml Syrup, 1-2 TSP PO Q4H Prescribed by: PAOLA TAVERAS on 03/02/18342 Duloxetine HCl (Duloxetine HCl) 60 Mg Capsule.dr, 60 MG PO BID, (Reported) Entered as Reported by: CHANDANA CANCINO on 01/18/18900 Ezetimibe (Ezetimibe) 10 Mg Tablet, 10 MG PO HS, (Reported) Entered as Reported by: CHANDANA CANCINO on 01/18/18900 Famotidine (Pepcid) 40 Mg Tablet, 40 MG PO DAILY Prescribed by: PAOLA TAVERAS on 02/24/20110 Hydrocodone/Acetaminophen (Hydrocodone-Acetamin 5-325 mg) 1 Each Tablet, 1 EACH PO Q6H PRN for PAIN-BREAKTHROUGH Prescribed by: LOC MEDINA on 01/14/202215 Hyoscyamine Sulfate (Levsin-Sl) 0.125 Mg Tab.subl, 0.25 MG SL Q4H Prescribed by: PAOLA TAVERAS on 02/24/20110 Ibuprofen (Advil) 200 Mg Tablet, 600 MG PO TID PRN for PAIN-MILD, (Reported) Entered as Reported by: CHANDANA CANCINO on 01/18/18 09 Levofloxacin (Levaquin) 500 Mg Tablet, 500 MG PO DAILY Prescribed by: PAOLA TAVERAS on 03/02/18 034 Levothyroxine Sodium (Levothyroxine Sodium) 112 Mcg Tablet, 1,125 MCG PO HS, (Reported) Entered as Reported by: CHANDANA CANCINO on 01/18/18 09 Meloxicam (Meloxicam) 15 Mg Tablet, 15 MG PO DAILY Prescribed by: AMBERLY CABALLERO on 12/23/201939 Methylprednisolone (Medrol) 4 Mg Tab.ds.pk, 4 MG PO UD Prescribed by: PAOLA TAVERAS on 03/02/18342 Metronidazole (Flagyl) 500 Mg Tablet, 500 MG PO QID Prescribed by: PAOLA TAVERAS on 02/24/20 011 Naproxen Sodium (Aleve) 220 Mg Tablet, 440 MG PO TID PRN for PAIN-MILD, (Reported) Entered as Reported by: CHANDANA CANCINO on 01/18/18906 Ondansetron (Ondansetron Odt) 4 Mg Tab.rapdis, 4 MG PO Q6H PRN for NAUSEA/VOMITING Prescribed by: LOC MEDINA on 01/14/20 2215 Ondansetron (Ondansetron Odt) 8 Mg Tab.rapdis, 8 MG PO Q6H Prescribed by: PAOLA TAVERAS on 02/24/20 011 Pramipexole Di-HCl (Pramipexole Dihydrochloride) 0.125 Mg Tablet, 0.125 MG PO HS, (Reported) Entered as Reported by: RITA RACHEL on 11/04/17 0115 Pregabalin (Lyrica) 100 Mg Capsule, 100 MG PO BID, (Reported) Entered as Reported by: TREV SANTIAGO on 11/13/16 1031 Promethazine HCl (Promethazine Tablet) 25 Mg Tablet, 25 MG PO Q6H PRN for NAUSEA/VOMITING Prescribed by: JESUSITA DAVIS on 06/03/19 0217 Risperidone (Risperidone) 0.25 Mg Tablet, 0.5 MG PO HS, (Reported) Entered as Reported by: CHANDANA CANCINO on 01/18/18 09 Tizanidine HCl (Tizanidine HCl) 2 Mg Tablet, 4 MG PO HS, (Reported) Entered as Reported by: CHANDANA CANCINO on 01/18/18 09 Tramadol HCl (Tramadol HCl) 50 Mg Tablet, 50 MG PO Q6H PRN for PAIN Prescribed by: JAIME TAMAYO on 10/22/18 1750 Verapamil HCl (Verapamil HCl) 120 Mg Tablet, 120 MG PO HS, (Reported) Entered as Reported by: CHANDANA CANCINO on 01/18/18 09 [z-pack] Prescribed by: OMAR BLOUNT on 01/19/18 1404 Review of Systems Constitutional: no symptoms reported; No chills, No dizziness, No fever EENTM: see HPI; No ear pain, No blurred vision Respiratory: no symptoms reported Cardiovascular: No chest pain Gastrointestinal: No RUQ, No LUQ, No RLQ, No LLQ, No abdominal pain Musculoskeletal: back pain, joint pain Skin: no symptoms reported Psychiatric/Neurological: Denies Anxiety, Denies Depressed Past Jglyyyc-Ljwlox-Rkavgy Hx Immunizations Up To Date Tetanus Booster (TDap): Less than 5yrs PED Vaccines UTD: Yes Seasonal Allergies Seasonal Allergies: Yes Past Medical History Surgeries: Yes (EXPLORATORY LAP;HIATAL HERNIA REPAIR;HYST/BSO;VENTRAL HERNIA REPAIR;L KNEE ) Abdominal, Section, Gallbladder, Hysterectomy, Oophorectomy, Orthopedic, Thyroidectomy Respiratory: Yes Pneumonia, Chronic Bronchitis Currently Using CPAP: No Currently Using BIPAP: No Cardiac: Yes (MITRAL VALVE PROLAPSE) High Cholesterol, Hypertension, Irregular Heartbeat, Valvular Heart Disease Neurological: Yes (PERIPHERAL NEUROPATHY-LEGS/FEET) Headaches /Migraines, Neuropathy Reproductive Disorders: No 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 ) Hypothyroidsim HEENT: No Loss of Vision: Bilateral Hearing Impairment: Denies Cancer: No Psychosocial: Yes Anxiety, Bipolar, Schizophrenia, Depression Integumentary: Yes Herpes Blood Disorders: Yes (ANEMIA) Adverse Reaction/Blood Tranf: No Family Medical History Cardiovascular disease 19 FATHER Diabetes mellitus 19 FATHER 19 MOTHER FH: mental illness Mental Physical Exam Vital Signs Vital Signs - First Documented 12/23/20 18:17 Temp 36.8 Pulse 89 Resp 18 B/P (MAP) 144/86 (105) Pulse Ox 96 O2 Delivery Room Air Capillary Refill : Less Than 3 Seconds Height, Weight, BMI Height: 5'3.00" Weight: 190lbs. 4.0oz. 86.269529mn; 33.00 BMI Method:Stated General Appearance: No Apparent Distress, WD/WN HEENT: PERRL/EOMI, TMs Normal, Normal ENT Inspection Neck: Full Range of Motion, Normal Inspection, Non Tender, Supple Cardiovascular: Regular Rate, Rhythm, No Edema Respiratory: Chest Non Tender, Lungs Clear, Normal Breath Sounds Gastrointestinal: Normal Bowel Sounds, No Organomegaly, No Pulsatile Mass, Non Tender Back: Other (Lumbar midline tenderness., Right lumbar paraspinal muscle tenderness. No swelling, erythema or ecchymosis) Extremity: Normal Capillary Refill, Normal Inspection, Normal Range of Motion, Non Tender Progress/Results/Core Measures Results/Orders My Orders Orders - LOR PHELPS Ct Lumbar Spine Wo (12/23/20 18:48) Ketorolac Injection (Toradol Injection) (12/23/20 19:00) Orphenadrine Inj (Ed Only) (Norflex Inje (12/23/20 19:00) Medications Given in ED Current Medications Medications Dose Ordered Sig/Emeka Route Start Time Stop Time Status Last Admin Dose Admin Ketorolac Tromethamine 60 mg ONCE ONCE IM 12/23/20 19:00 12/23/20 19:01 DC 12/23/20 19:00 60 MG Orphenadrine Citrate 60 mg ONCE ONCE IM 12/23/20 19:00 12/23/20 19:01 DC 12/23/20 18:59 60 MG Vital Signs/I&O 12/23/20 18:17 Temp 36.8 Pulse 89 Resp 18 B/P (MAP) 144/86 (105) Pulse Ox 96 O2 Delivery Room Air Blood Pressure Mean: 105 Departure Communication (Admissions) Patient with lumbar midline tenderness. No bowel or urine continence, saddle paresthesia. No neurological deficits that is acute. Chronic lumbar radiculopathy. CT scan of the lumbar spine negative for acute fracture. Appears to be low back strain. Recommend anti-inflammatories nd muscle relaxers. Was given IM Toradol and Norflex here in the ED. Outpatient follow- up if pain progresses such as MRI versus physical therapy. Return precautions were discussed with patient. Impression Primary Impression: Back pain Disposition: 01 HOME, SELF-CARE Condition: Stable Departure-Patient Inst. Decision time for Depature: 19:36 Referrals: [facility] (PCP/Family) Primary Care Physician Patient Instructions: Back Muscle Strain (DC), Low Back Pain (DC) Scripts Cyclobenzaprine HCl (Cyclobenzaprine HCl) 10 Mg Tablet 10 MG PO TID, #20 TAB Prov: LOR PHELPS 12/23/20 Meloxicam (Meloxicam) 15 Mg Tablet 15 MG PO DAILY, #20 TAB Prov: LOR PHELPS 12/23/20 LOR PHELPS Dec 23, 2020 18:57
[2020-12-23] MEDS: ORPHENADRINE 60 MG/2 ML (NORFLEX) AMP (ED ONLY) IM ONE (18:59)
[2020-12-23] MEDS: KETOROLAC 60 MG/2 ML VIAL IM ONE (19:00)
--- NOTE | 2020-12-23 19:25 | Diagnostic Imaging Report ---
PROCEDURE: CT lumbar spine without contrast. TECHNIQUE: Multiple contiguous axial images were obtained through the lumbar spine without the use of intravenous contrast. Sagittal and coronal reformations were then performed. Auto Exposure Controls were utilized during the CT exam to meet ALARA standards for radiation dose reduction. INDICATION: Back pain status post fall. COMPARISON: CT dated 02/24/2020 FINDINGS: For the purposes of this exam, the last well-formed disc space is noted at the L5-S1 level. Static alignment is maintained. There is no significant anteroretrolisthesis. There is no evidence of jumped facets. Vertebral body heights are maintained. There is no acute fracture. No bony fragments are seen within the spinal canal. Intervertebral disc heights are well-preserved. Pre and paravertebral soft tissue structures are unremarkable. Note is made of mild to moderate scattered calcified aortic and arterial atherosclerosis. IMPRESSION: 1. No acute fracture or dislocation of the lumbar spine. Dictated by: Dictated on workstation # [id number]
[2020-12-23] MEDS ORDERED: CYCL10TA9 PO (19:40)
[2020-12-23] MEDS ORDERED: MELO15TA39 PO (19:40)
== END 2020-12-23 19:55 | disposition home or self-care (01) ==
LOC: EDUNIT# 18:06 → ER 18:08
DX: G89.29 Other chronic pain (principal); M54.50 Low back pain, unspecified; I10 Essential (primary) hypertension; E78.00 Pure hypercholesterolemia, unspecified; K21.9 Gastro-esophageal reflux disease without esophagitis; F41.9 Anxiety disorder, unspecified; F20.9 Schizophrenia, unspecified; F31.9 Bipolar disorder, unspecified; E03.9 Hypothyroidism, unspecified; Z79.899 Other long term (current) drug therapy; Z79.890 Hormone replacement therapy; Z79.891 Long term (current) use of opiate analgesic
CPT/HCPCS: 72131; 96372

== ENCOUNTER 2021-04-13 16:30 | Emergency (ER) | payer MEDICARE, MEDICAID ==
[~2021-04-13] VITALS: Ht 160 cm; Wt 86.2 kg
[~2021-04-13 16:30] MED LIST changes: +CYCL10TA25 PO; +MELO15TA39 PO
[2021-04-13] MEDS ORDERED: NAPR-1071 PO (16:58)
--- NOTE | 2021-04-13 16:58 | ED Fall/Injury ---
General Chief Complaint: Lower Extremity Stated Complaint: FELL AT HOME ON ICE HURT RIGHT KNEE Nursing Triage Note: Pt arrives via POV from home for c/o right knee pain post fall on ice. Pt reports she was helping her daughter move when she slipped on the ice landing on her right knee. Pt reports hx of right knee surgery one year ago for an ACL repair. Some swelling noted on triage, no discoloration noted. Pt reports chronic numbness/tingling r/t neuropathy. Pt ambulatory without difficulty on arrival to ED. Source: patient Exam Limitations: no limitations History of Present Illness Date Seen by Provider: Apr 13, 2021 Time Seen by Provider: 16:35 Initial Comments Patient walked from her POV to the ER with minimal antalgic gait and chief complaint that just prior to arrival she had fallen on the ice near her home. She says it had a twisting motion when she fell. She is not having swelling in her right knee compared to left. Few years ago she had a cadaveric ACL replacement by [facility] in [place], [place]. She has not taken anything for the pain yet. No ice. She is not having any numbness but she is having some pain and burning going down the front of her leg into her foot. She has not wrapped her leg. Allergies and Home Medications Allergies Coded Allergies: gabapentin (Verified Allergy, Severe, HIVES, 01/14/15) esomeprazole (Unverified Allergy, Mild, 08/19/15) niacin (Unverified Allergy, Mild, 05/13/14) Uncoded Allergies: "COCKTAIL FOR CHAN" (Allergy, Mild, ITCHING, 02/11/09) Patient Home Medication List Home Medication List Reviewed: Yes ALPRAZolam (Xanax Tablet) 0.25 Mg Tablet, 0.25 MG PO TID PRN for ANXIETY, (Reported) Entered as Reported by: RITA RACHEL on 11/04/17 0115 Acetazolamide (Acetazolamide) 250 Mg Tablet, 250 MG PO 1200,2100, (Reported) Entered as Reported by: CHANDANA CANCINO on 01/18/18 0901 Acyclovir (Acyclovir) 400 Mg Tablet, 400 MG PO TID, (Reported) Entered as Reported by: IZABEL VELASCO on 04/12/162128 Benzonatate (Tessalon Perles) 100 Mg Capsule, 1-2 TAB PO TID Prescribed by: PAOLA TAVERAS on 03/02/18342 Budesonide (Pulmicort Flexhaler) 90 Mcg Aer.pow.ba, 90 MCG IH BID Prescribed by: PAOLA TAVERAS on 03/02/18342 Cefdinir (Cefdinir) 300 Mg Capsule, 300 MG PO BID Prescribed by: OMAR BLOUNT on 01/19/18 1404 Cefdinir (Cefdinir) 300 Mg Capsule, 300 MG PO BID Prescribed by: LOC MEDINA on 01/14/202214 Ciprofloxacin HCl (Ciprofloxacin HCl) 500 Mg Tablet, 500 MG PO BID Prescribed by: PAOLA TAVERAS on 02/24/20110 Cyclobenzaprine HCl (Cyclobenzaprine HCl) 10 Mg Tablet, 10 MG PO TID PRN for MUSCLE SPASMS, (Reported) Entered as Reported by: CHANDANA CANCINO on 01/18/18900 Cyclobenzaprine HCl (Cyclobenzaprine HCl) 10 Mg Tablet, 10 MG PO TID Prescribed by: AMBERLY CABALLERO on 12/23/201939 D-Methorphan Hb/Prometh HCl (Promethazine-Dm Syrup) 118 Ml Syrup, 1-2 TSP PO Q4H Prescribed by: PAOLA TAVERAS on 03/02/18342 Duloxetine HCl (Duloxetine HCl) 60 Mg Capsule.dr, 60 MG PO BID, (Reported) Entered as Reported by: CHANDANA CANCINO on 01/18/18900 Ezetimibe (Ezetimibe) 10 Mg Tablet, 10 MG PO HS, (Reported) Entered as Reported by: CHANDANA CANCINO on 01/18/18900 Famotidine (Pepcid) 40 Mg Tablet, 40 MG PO DAILY Prescribed by: PAOLA TAVERAS on 02/24/20110 Hydrocodone/Acetaminophen (Hydrocodone-Acetamin 5-325 mg) 1 Each Tablet, 1 EACH PO Q6H PRN for PAIN-BREAKTHROUGH Prescribed by: LOC MEDINA on 01/14/202215 Hyoscyamine Sulfate (Levsin-Sl) 0.125 Mg Tab.subl, 0.25 MG SL Q4H Prescribed by: PAOLA TAVERAS on 02/24/20110 Ibuprofen (Advil) 200 Mg Tablet, 600 MG PO TID PRN for PAIN-MILD, (Reported) Entered as Reported by: CHANDANA CANCINO on 01/18/18 09 Levofloxacin (Levaquin) 500 Mg Tablet, 500 MG PO DAILY Prescribed by: PAOLA TAVERAS on 03/02/18 0343 Levothyroxine Sodium (Levothyroxine Sodium) 112 Mcg Tablet, 1,125 MCG PO HS, (Reported) Entered as Reported by: CHANDANA CANCINO on 01/18/18 09 Meloxicam (Meloxicam) 15 Mg Tablet, 15 MG PO DAILY Prescribed by: AMBERLY CABALLERO on 12/23/20 194 Methylprednisolone (Medrol) 4 Mg Tab.ds.pk, 4 MG PO UD Prescribed by: PAOLA TAVERAS on 03/02/18 034 Metronidazole (Flagyl) 500 Mg Tablet, 500 MG PO QID Prescribed by: PAOLA TAVERAS on 02/24/20 011 Naproxen (Naprosyn) 500 Mg Tablet, 500 MG PO BID Prescribed by: LOC MEDINA on 04/13/21 1658 Naproxen Sodium (Aleve) 220 Mg Tablet, 440 MG PO TID PRN for PAIN-MILD, (Reported) Entered as Reported by: CHANDANA CANCINO on 01/18/18 09 Ondansetron (Ondansetron Odt) 4 Mg Tab.rapdis, 4 MG PO Q6H PRN for NAUSEA/VOMITING Prescribed by: LOC MEDINA on 01/14/20 2215 Ondansetron (Ondansetron Odt) 8 Mg Tab.rapdis, 8 MG PO Q6H Prescribed by: PAOLA TAVERAS on 02/24/20 011 Pramipexole Di-HCl (Pramipexole Dihydrochloride) 0.125 Mg Tablet, 0.125 MG PO HS, (Reported) Entered as Reported by: RITA RACHEL on 11/04/17 0115 Pregabalin (Lyrica) 100 Mg Capsule, 100 MG PO BID, (Reported) Entered as Reported by: TREV SANTIAGO on 11/13/16 1031 Promethazine HCl (Promethazine Tablet) 25 Mg Tablet, 25 MG PO Q6H PRN for NAUSEA/VOMITING Prescribed by: JESUSITA DAVIS on 06/03/19 0217 Risperidone (Risperidone) 0.25 Mg Tablet, 0.5 MG PO HS, (Reported) Entered as Reported by: CHANDANA CANCINO on 01/18/18 09 Tizanidine HCl (Tizanidine HCl) 2 Mg Tablet, 4 MG PO HS, (Reported) Entered as Reported by: CHANDANA CANCINO on 01/18/18 09 Tramadol HCl (Tramadol HCl) 50 Mg Tablet, 50 MG PO Q6H PRN for PAIN Prescribed by: JAIME TAMAYO on 10/22/18 1750 Verapamil HCl (Verapamil HCl) 120 Mg Tablet, 120 MG PO HS, (Reported) Entered as Reported by: CHANDANA CANCINO on 01/18/18 09 [z-pack] Prescribed by: OMAR BLOUNT on 01/19/18 1404 Review of Systems Review of Systems Constitutional: No chills, No diaphoresis Eyes: Denies Blindness, Denies Drainage Ears, Nose, Mouth, Throat: denies ear pain, denies ear discharge Respiratory: No cough, No short of breath Cardiovascular: No edema, No palpitations Gastrointestinal: No abdominal pain, No constipation, No diarrhea Genitourinary: No discharge, No dysuria Musculoskeletal: see HPI, joint pain All Other Systems Reviewed Negative Unless Noted: Yes Past Pceytrc-Hzxpxd-Fnjdip Hx Patient Social History Tobacco Use?: Yes Tobacco type used: Cigarettes Smoking Status: Current Everyday Smoker Use of E-Cig and/or Vaping dev: No Substance use?: Yes Substance type: Marijuana Alcohol Use?: No Pt feels they are or have been: No Immunizations Up To Date Tetanus Booster (TDap): Less than 5yrs PED Vaccines UTD: Yes Influenza Vaccine Up-to-Date: No; Not Current Seasonal Allergies Seasonal Allergies: Yes Past Medical History Surgeries: Yes (EXPLORATORY LAP;HIATAL HERNIA REPAIR;HYST/BSO;VENTRAL HERNIA REPAIR;L KNEE ) Abdominal, Section, Gallbladder, Hysterectomy, Oophorectomy, Orthopedic, Thyroidectomy Respiratory: Yes Pneumonia, Chronic Bronchitis Currently Using CPAP: No Currently Using BIPAP: No Cardiac: Yes (MITRAL VALVE PROLAPSE) High Cholesterol, Hypertension, Irregular Heartbeat, Valvular Heart Disease Neurological: Yes (PERIPHERAL NEUROPATHY-LEGS/FEET) Headaches /Migraines, Neuropathy Reproductive Disorders: No [employer]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 ) Hypothyroidsim HEENT: No Loss of Vision: Bilateral Hearing Impairment: Denies Cancer: No Psychosocial: Yes Anxiety, Bipolar, Schizophrenia, Depression Integumentary: Yes Herpes Blood Disorders: Yes (ANEMIA) Adverse Reaction/Blood Tranf: No Family Medical History Cardiovascular disease 19 FATHER Diabetes mellitus 19 FATHER 19 MOTHER FH: mental illness Mental Physical Exam Vital Signs Vital Signs - First Documented 04/13/21 16:40 Temp 36.8 Pulse 94 Resp 18 B/P (MAP) 124/83 (97) Pulse Ox 98 Capillary Refill : Height, Weight, BMI Height: 5'3.00" Weight: 190lbs. 4.0oz. 86.300529cg; 33.00 BMI Method:Stated General Appearance: WD/WN, mild distress HEENT: PERRL/EOMI, pharynx normal Neck: supple, normal inspection Cardiovascular: normal peripheral pulses, regular rate, rhythm Respiratory: no respiratory distress, no accessory muscle use Peripheral Pulses: 2+ Dorsalis Pedis (R), 2+ Left Dors-Pedis (L) Extremities: normal range of motion, no pedal edema, no calf tenderness, normal capillary refill, other (Suprapatellar swelling and tenderness of the suprapatellar ligament as well as some tenderness along the anterior medial margin of the proximal tibia on the right side. LCL and MCL are tight. Unable to tolerate further knee exam but no crepitus palpable and full range of motion passively.) Neurologic/Psychiatric: alert, normal mood/affect, oriented x 3 Skin: normal color, warm/dry David Coma Score Best Eye Response: (4) Open Spontaneously Best Verbal Response: (5) Oriented Best Motor Response: (6) Obeys Commands Lynn Total: 15 Progress/Results/Core Measures Results/Orders My Orders Orders - LOC MEDINA Ketorolac Injection (Toradol Injection) (04/13/21 17:00) Knee, Right, 3 Views (04/13/21 16:49) Medications Given in ED Current Medications Medications Dose Ordered Sig/Emeka Route Start Time Stop Time Status Last Admin Dose Admin Ketorolac Tromethamine 60 mg ONCE ONCE IM 04/13/21 17:00 04/13/21 17:01 DC 04/13/21 17:05 60 MG Vital Signs/I&O 04/13/21 16:40 Temp 36.8 Pulse 94 Resp 18 B/P (MAP) 124/83 (97) Pulse Ox 98 Blood Pressure Mean: 97 Progress Progress Note : Time: 16:53 Progress Note Patient has some swelling of her knee and may have some ligamentous injury/sprain however she is unable to tolerate a full knee exam so we will have her follow-up with her orthopedic surgeon at [address] Put her on naproxen for 1 to 2 weeks and wrapped her knee. Since she is able to walk in she can bear weight as tolerated and probably does not need crutches but they were offered. Plain film to review osseous structures and joint spaces. Diagnostic Imaging Diagonstic Imaging: Xray Plain Films/CT/US/NM/MRI: knee (Right) Reviewed: Reviewed by Me Departure Impression Primary Impression: Fall on same level from slipping Qualified Codes: W01.0XXA - Fall on same level from slipping, tripping and stumbling without subsequent striking against object, initial encounter Additional Impressions: Contusion of right knee Qualified Codes: S80.01XA - Contusion of right knee, initial encounter Right knee sprain Qualified Codes: S83.91XA - Sprain of unspecified site of right knee, init ial encounter Paresthesia of right lower extremity Disposition: HOME, SELF-CARE Condition: Stable Departure-Patient Inst. Decision time for Depature: 17:19 Referrals: [facility] (PCP/Family) Primary Care Physician Patient Instructions: Knee Sprain (DC) Add. Discharge Instructions: For the first 3 days apply ice 20 minutes every 2 hours while awake as necessary for swelling and pain. Keep the knee wrapped with a compression bandage such as Mark wrap until swelling and pain go away. Bear weight as tolerated. It is okay to use crutches, cane or other assistive device for walking as necessary. Call your orthopedic surgeon at [address] and request follow-up appointment in the next 1 to 2 weeks for reexamination of your right knee. Topical creams such as icy hot or Biofreeze are recommended. After the first 4 days then you can use heat to help reduce pain. Elevate your knee above the level of your heart while at rest and limit use when not necessary. Naproxen 500 mg twice a day for the next 1 to 2 weeks until pain and swelling go away. Tylenol 1000 mg every 8 hours as necessary for breakthrough pain. All discharge instructions reviewed with patient and/or family. Voiced understanding. Scripts Naproxen (Naprosyn) 500 Mg Tablet 500 MG PO BID for 14 Days, #30 TAB 0 Refills Prov: LOC MEDINA 04/13/21 Work/School Note: Work Release Form Date Seen in the Emergency Department: Apr 13, 2021 Return to Work: Apr 15, 2021 Restrictions: Need Release from Doctor Other Restrictions Listed Below: Weight-bear as tolerated. May use crutches until 04/28/2021. LOC MEDINA Apr 13, 2021 16:58
[2021-04-13] MEDS ORDERED: KETOROLAC 60 MG/2 ML VIAL IM ONE (17:00)
--- NOTE | 2021-04-13 17:06 | Diagnostic Imaging Report ---
INDICATION: Knee pain. EXAMINATION: Right knee, 04/13/2021. COMPARISON: 09/08/2015. FINDINGS: 3 views of the knee. There is postoperative change likely due to previous ACL repair. There are no acute fractures or dislocations. There is a moderate joint effusion. IMPRESSION: Joint effusion with no acute osseous abnormality. Postsurgical changes as above. Dictated by: Dictated on workstation # [id number]
[2021-04-13 17:41] VITALS: BP 124/83
== END 2021-04-13 17:44 | disposition home or self-care (01) ==
LOC: EDUNIT# 16:30 → ER 16:35
DX: S83.91XA Sprain of unspecified site of right knee, initial encounter (principal); R20.2 Paresthesia of skin; E78.00 Pure hypercholesterolemia, unspecified; I10 Essential (primary) hypertension; E03.9 Hypothyroidism, unspecified; K21.9 Gastro-esophageal reflux disease without esophagitis; F41.9 Anxiety disorder, unspecified; F20.9 Schizophrenia, unspecified; F31.9 Bipolar disorder, unspecified; G89.29 Other chronic pain; M54.9 Dorsalgia, unspecified; F17.210 Nicotine dependence, cigarettes, uncomplicated; Z79.890 Hormone replacement therapy; Z79.899 Other long term (current) drug therapy; Z79.891 Long term (current) use of opiate analgesic; W01.0XXA Fall on same level from slipping, tripping and stumbling without subsequent striking against object, initial encounter
CPT/HCPCS: 73562

== ENCOUNTER 2021-04-20 19:02 | Emergency (ER) | payer MEDICARE, MEDICAID ==
[~2021-04-20] VITALS: Ht 160 cm; Wt 90.7 kg
[~2021-04-20 19:02] MED LIST changes: +NAPR-1071 PO
--- NOTE | 2021-04-20 19:29 | ED EENT ---
History of Present Illness General Chief Complaint: Dental Problems/Pain Stated Complaint: TOOTH ACHE Source: patient Exam Limitations: no limitations History of Present Illness Date Seen by Provider: Apr 20, 2021 Time Seen by Provider: 19:20 Initial Comments Patient is a 45-year-old female who presents today with a chief complaint of left lower dental pain. Patient states that she woke up yesterday with right- sided facial pain due to her teeth, went to [facility] urgent care and was given a shot of Rocephin and prescriptions for Augmentin. Patient states when she went to bed and woke up this morning the opposite side is hurting. She denies fevers, chills, URI symptoms. No chest pain or shortness of breath. She is not a diabetic. She does smoke cigarettes. She complains of significant pain to the lower jaw. All other review of systems reviewed and negative except as stated. Timing/Duration: abrupt Location: dental Prearrival Treatment: prescription meds Associated Symptoms: tooth pain Allergies and Home Medications Allergies Coded Allergies: gabapentin (Verified Allergy, Severe, HIVES, 01/14/15) esomeprazole (Unverified Allergy, Mild, 08/19/15) niacin (Unverified Allergy, Mild, 05/13/14) Uncoded Allergies: "COCKTAIL FOR CHAN" (Allergy, Mild, ITCHING, 02/11/09) Patient Home Medication List Home Medication List Reviewed: Yes ALPRAZolam (Xanax Tablet) 0.25 Mg Tablet, 0.25 MG PO TID PRN for ANXIETY, (Reported) Entered as Reported by: RITA RACHEL on 11/04/17 0115 Acetazolamide (Acetazolamide) 250 Mg Tablet, 250 MG PO 1200,2100, (Reported) Entered as Reported by: CHANDANA CANCINO on 01/18/18 0901 Acyclovir (Acyclovir) 400 Mg Tablet, 400 MG PO TID, (Reported) Entered as Reported by: IZABEL VELASCO on 04/12/162128 Benzonatate (Tessalon Perles) 100 Mg Capsule, 1-2 TAB PO TID Prescribed by: PAOLA TAVERAS on 03/02/18 034 Budesonide (Pulmicort Flexhaler) 90 Mcg Aer.pow.ba, 90 MCG IH BID Prescribed by: PAOLA TAVERAS on 03/02/18 342 Cefdinir (Cefdinir) 300 Mg Capsule, 300 MG PO BID Prescribed by: OMAR BLOUNT on 01/19/18 1404 Cefdinir (Cefdinir) 300 Mg Capsule, 300 MG PO BID Prescribed by: LCO MEDINA on 01/14/202214 Ciprofloxacin HCl (Ciprofloxacin HCl) 500 Mg Tablet, 500 MG PO BID Prescribed by: PAOLA TAVERAS on 02/24/20110 Cyclobenzaprine HCl (Cyclobenzaprine HCl) 10 Mg Tablet, 10 MG PO TID PRN for MUSCLE SPASMS, (Reported) Entered as Reported by: CHANDANA CANCINO on 01/18/18900 Cyclobenzaprine HCl (Cyclobenzaprine HCl) 10 Mg Tablet, 10 MG PO TID Prescribed by: AMBERLY CABALLERO on 12/23/201939 D-Methorphan Hb/Prometh HCl (Promethazine-Dm Syrup) 118 Ml Syrup, 1-2 TSP PO Q4H Prescribed by: PAOLA TAVERAS on 03/02/18342 Duloxetine HCl (Duloxetine HCl) 60 Mg Capsule.dr, 60 MG PO BID, (Reported) Entered as Reported by: CHANDANA CANCINO on 01/18/18900 Ezetimibe (Ezetimibe) 10 Mg Tablet, 10 MG PO HS, (Reported) Entered as Reported by: CHANDANA CANCINO on 01/18/18900 Famotidine (Pepcid) 40 Mg Tablet, 40 MG PO DAILY Prescribed by: PAOLA TAVERAS on 02/24/20110 Hydrocodone/Acetaminophen (Hydrocodone-Acetamin 5-325 mg) 1 Each Tablet, 1 EACH PO Q6H PRN for PAIN-BREAKTHROUGH Prescribed by: LOC MEDINA on 01/14/202215 Hyoscyamine Sulfate (Levsin-Sl) 0.125 Mg Tab.subl, 0.25 MG SL Q4H Prescribed by: PAOLA TAVERAS on 02/24/20110 Ibuprofen (Advil) 200 Mg Tablet, 600 MG PO TID PRN for PAIN-MILD, (Reported) Entered as Reported by: CHANDANA CANCINO on 01/18/18906 Levofloxacin (Levaquin) 500 Mg Tablet, 500 MG PO DAILY Prescribed by: PAOLA TAVERAS on 03/02/18342 Levothyroxine Sodium (Levothyroxine Sodium) 112 Mcg Tablet, 1,125 MCG PO HS, (Reported) Entered as Reported by: CHANDANA CANCINO on 01/18/18 09 Meloxicam (Meloxicam) 15 Mg Tablet, 15 MG PO DAILY Prescribed by: AMBERLY CABALLERO on 12/23/20 194 Methylprednisolone (Medrol) 4 Mg Tab.ds.pk, 4 MG PO UD Prescribed by: POALA TAVERAS on 03/02/18 034 Metronidazole (Flagyl) 500 Mg Tablet, 500 MG PO QID Prescribed by: PAOLA TAVERAS on 02/24/20 011 Naproxen (Naprosyn) 500 Mg Tablet, 500 MG PO BID Prescribed by: LOC MEDINA on 04/13/21 1658 Naproxen Sodium (Aleve) 220 Mg Tablet, 440 MG PO TID PRN for PAIN-MILD, (Reported) Entered as Reported by: CHANDANA CANCINO on 01/18/18 09 Ondansetron (Ondansetron Odt) 4 Mg Tab.rapdis, 4 MG PO Q6H PRN for NAUSEA/VOMITING Prescribed by: LOC MEDINA on 01/14/20 2215 Ondansetron (Ondansetron Odt) 8 Mg Tab.rapdis, 8 MG PO Q6H Prescribed by: PAOLA TAVERAS on 02/24/20 011 Pramipexole Di-HCl (Pramipexole Dihydrochloride) 0.125 Mg Tablet, 0.125 MG PO HS, (Reported) Entered as Reported by: RITA RACHEL on 11/04/17 0115 Pregabalin (Lyrica) 100 Mg Capsule, 100 MG PO BID, (Reported) Entered as Reported by: TREV SANTIAGO on 11/13/16 1031 Promethazine HCl (Promethazine Tablet) 25 Mg Tablet, 25 MG PO Q6H PRN for NAUSEA/VOMITING Prescribed by: JESUSITA DAVIS on 06/03/19 0217 Risperidone (Risperidone) 0.25 Mg Tablet, 0.5 MG PO HS, (Reported) Entered as Reported by: CHANDANA CANCINO on 01/18/18 09 Tizanidine HCl (Tizanidine HCl) 2 Mg Tablet, 4 MG PO HS, (Reported) Entered as Reported by: CHANDANA CANCINO on 01/18/18 09 Tramadol HCl (Tramadol HCl) 50 Mg Tablet, 50 MG PO Q6H PRN for PAIN Prescribed by: JAIME TAMAYO on 10/22/18 1750 Verapamil HCl (Verapamil HCl) 120 Mg Tablet, 120 MG PO HS, (Reported) Entered as Reported by: CHANDANA CANCINO on 01/18/18 09 [z-pack] Prescribed by: OMAR BLOUNT on 01/19/18 1404 Review of Systems Review of Systems Constitutional: see HPI Eyes: No Symptoms Reported Ears: No Symptoms Reported Nose: no symptoms reported Mouth: other (Dental pain left lower) Throat: no symptoms reported Respiratory: no symptoms reported Cardiovascular: no symptoms reported Gastrointestinal: no symptoms reported Musculoskeletal: no symptoms reported Skin: no symptoms reported All Other Systems Reviewed Negative Unless Noted: Yes Past Bagnwsm-Dzoyna-Cnzykf Hx Immunizations Up To Date Tetanus Booster (TDap): Less than 5yrs PED Vaccines UTD: Yes Seasonal Allergies Seasonal Allergies: Yes Past Medical History Surgeries: Yes (EXPLORATORY LAP;HIATAL HERNIA REPAIR;HYST/BSO;VENTRAL HERNIA REPAIR;L KNEE ) Abdominal, Section, Gallbladder, Hysterectomy, Oophorectomy, Orthopedic, Thyroidectomy Respiratory: Yes Pneumonia, Chronic Bronchitis Currently Using CPAP: No Currently Using BIPAP: No Cardiac: Yes (MITRAL VALVE PROLAPSE) High Cholesterol, Hypertension, Irregular Heartbeat, Valvular Heart Disease Neurological: Yes (PERIPHERAL NEUROPATHY-LEGS/FEET) Headaches /Migraines, Neuropathy 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 ) Hypothyroidsim HEENT: No Loss of Vision: Bilateral Hearing Impairment: Denies Cancer: No Psychosocial: Yes Anxiety, Bipolar, Schizophrenia, Depression Integumentary: Yes Herpes Blood Disorders: Yes (ANEMIA) Adverse Reaction/Blood Tranf: No Family Medical History Cardiovascular disease 19 FATHER Diabetes mellitus 19 FATHER 19 MOTHER FH: mental illness Mental Physical Exam Vital Signs Vital Signs - First Documented 04/20/21 19:15 Temp 36.6 Pulse 78 Resp 18 B/P (MAP) 135/75 (95) Pulse Ox 98 O2 Delivery Room Air Height, Weight, BMI Height: 5'3.00" Weight: 190lbs. 4.0oz. 86.650328dz; 33.00 BMI Method:Stated General Appearance: WD/WN, mild distress (Secondary to jaw pain) Eyes: bilateral eye normal inspection, bilateral eye PERRL, bilateral eye EOMI Ears: bilateral ear auricle normal, bilateral ear canal normal, bilateral ear TM normal Nose: normal inspection Mouth/Throat: other (Edentulous uppers. Multiple necrotic/carious lower teeth. Left premolars in the lower jaw are at least skilled nursing necrotic down to the gumline. The most posterior no above tooth is quite tender to percussion with surrounding gingivitis. No swelling or abscess is noted at the base of the tooth. No lymphadenopathy in the neck.) Neck: full range of motion, supple Cardiovascular: regular rate, rhythm Respiratory: lungs clear, normal breath sounds, no respiratory distress, no accessory muscle use Skin: normal color, warm/dry Procedures/Interventions Dental Procedures: block Progress/Results/Core Measures Results/Orders My Orders Orders - TOM ACUÑA MD Lidocaine 1% Inj 20 Ml (Xylocaine 1% Inj (04/20/21 19:30) Bupivacaine 0.25% 30 Ml Inj (Sensorcaine (04/20/21 19:30) Medications Given in ED Current Medications Medications Dose Ordered Sig/Emeka Route Start Time Stop Time Status Last Admin Dose Admin Lidocaine HCl 20 ml ONCE ONCE INJ 04/20/21 19:30 04/20/21 19:31 DC 04/20/21 19:42 20 ML Vital Signs/I&O 04/20/21 19:15 Temp 36.6 Pulse 78 Resp 18 B/P (MAP) 135/75 (95) Pulse Ox 98 O2 Delivery Room Air Progress Progress Note : Time: 19:44 Progress Note Dental block - left lower pre-molar with 1% plain lidocaine and 0.5% bupivicaine approxicately 1.5cc used. Patient had good relief of symptoms. Home with take home pack of hydrocodone Departure Impression Primary Impression: Pain, dental Additional Impression: Dental caries into pulp Disposition: 01 HOME, SELF-CARE Condition: Stable Departure-Patient Inst. Decision time for Depature: 19:28 [facility]Family) Primary Care Physician Patient Instructions: Dental Pain ED Add. Discharge Instructions: Use a good Listerine mouth rinse twice daily. Finish the antibiotics as prescribed. You can also use zjjt-ild-tlifeib Orajel medications to help numb the gumline. Please make an appointment with [facility] dental tomorrow. Return to the emergency room for fever, increased swelling of the jaw or any other emergent concerning symptoms that may develop. TOM ACUÑA MD Apr 20, 2021 19:28
[2021-04-20] MEDS ORDERED: BUPIVACAINE 0.25% 30 ML (SENSORCAINE) VIAL INJ ONE (19:30)
[2021-04-20] MEDS ORDERED: LIDOCAINE 1% INJ 20 ML VIAL INJ ONE (19:30)
[2021-04-20 19:57] VITALS: BP 135/75
== END 2021-04-20 19:57 | disposition home or self-care (01) ==
LOC: EDUNIT# 19:02 → ER 19:05
DX: K02.9 Dental caries, unspecified (principal); I10 Essential (primary) hypertension; E78.00 Pure hypercholesterolemia, unspecified; K21.9 Gastro-esophageal reflux disease without esophagitis; E03.9 Hypothyroidism, unspecified; F41.9 Anxiety disorder, unspecified; F31.9 Bipolar disorder, unspecified; F20.9 Schizophrenia, unspecified; G89.29 Other chronic pain; M54.9 Dorsalgia, unspecified; Z79.890 Hormone replacement therapy; Z79.899 Other long term (current) drug therapy; Z79.891 Long term (current) use of opiate analgesic
CPT/HCPCS: 99284

== ENCOUNTER 2021-05-24 15:57 | Emergency (ER) | payer MEDICARE, MEDICAID ==
[~2021-05-24] VITALS: Ht 160 cm; Wt 90.0 kg
--- NOTE | 2021-05-24 16:25 | ED Chest Pain ---
General Chief Complaint: Chest Pain Stated Complaint: CP,N/V Source: patient Exam Limitations: no limitations (NERISSA MOYA STUDENT) History of Present Illness Date Seen by Provider: May 24, 2021 Time Seen by Provider: 16:10 Initial Comments Patient is a 45 year old female who presents to the ED with complaints of chest pain, nausea, and vomiting. PMH significant for HTN, HLP, tobacco use disorder, cirrhosis, and bipolar disorder. Reports that she began having chest pain yesterday evening. The pain was left side and was constant and described as an "elephant on her chest". She states she had some pain radiate to her left shoulder and part way down her arm and described it as sharp and intermittent. She took nothing for the pain. Nothing makes the pain better. Nothing makes the pain worse. She states she was at a family members constitution party today and it was crowded and she began having more chest pain. She reports the pain to be a 6/10 currently and constant. She reports feeling anxious. Has had associated nausea and 2 bouts of vomiting nonbloody non bilious today. No recent sick contacts. Denies headache, SOB, dysuria, and body aches. States she last had a cardiac workup about 10 years ago. Timing/Duration: 24 hours Severity/Quality: moderate, pressure, stabbing Radiation: arms, shoulders (left) Activities at Onset: none ASA po MACHINE ROOM ENGINEER: No NTG SL MACHINE ROOM ENGINEER: No Associated Symptoms: No abdominal pain, No diaphoresis, No edema, No fever/chills, No headache; nausea/vomiting; No shortness of breath (NERISSA MOYA STUDENT) Initial Comments I have seen and evaluated the patient. Performed my own history of present illness, review of systems. Physical examination performed by me. I have reviewed and agree with the medical students documentation. (INDIGO SULLIVAN MD) Allergies and Home Medications Allergies Coded Allergies: gabapentin (Verified Allergy, Severe, HIVES, 01/14/15) esomeprazole (Unverified Allergy, Mild, 08/19/15) niacin (Unverified Allergy, Mild, 05/13/14) Uncoded Allergies: "COCKTAIL FOR CHAN" (Allergy, Mild, ITCHING, 02/11/09) Patient Home Medication List Home Medication List Reviewed: Yes (INDIGO SULLIVAN MD) ALPRAZolam (Xanax Tablet) 0.25 Mg Tablet, 0.25 MG PO TID PRN for ANXIETY, (Reported) Entered as Reported by: RITA RACHEL on 11/04/17 0115 Acetazolamide (Acetazolamide) 250 Mg Tablet, 250 MG PO 1200,2100, (Reported) Entered as Reported by: CHANDANA CANCINO on 01/18/18 09 Acyclovir (Acyclovir) 400 Mg Tablet, 400 MG PO TID, (Reported) Entered as Reported by: IZABEL VELASCO on 04/12/162128 Benzonatate (Tessalon Perles) 100 Mg Capsule, 1-2 TAB PO TID Prescribed by: PAOLA TAVERAS on 03/02/18 034 Budesonide (Pulmicort Flexhaler) 90 Mcg Aer.pow.ba, 90 MCG IH BID Prescribed by: PAOLA TAVERAS on 03/02/18 034 Cefdinir (Cefdinir) 300 Mg Capsule, 300 MG PO BID Prescribed by: OMAR BLOUNT on 01/19/18 1404 Cefdinir (Cefdinir) 300 Mg Capsule, 300 MG PO BID Prescribed by: LOC MEDINA on 01/14/20 2215 Ciprofloxacin HCl (Ciprofloxacin HCl) 500 Mg Tablet, 500 MG PO BID Prescribed by: PAOLA TAVERAS on 02/24/20 011 Cyclobenzaprine HCl (Cyclobenzaprine HCl) 10 Mg Tablet, 10 MG PO TID PRN for MUSCLE SPASMS, (Reported) Entered as Reported by: CHANDANA CANCINO on 01/18/18900 Cyclobenzaprine HCl (Cyclobenzaprine HCl) 10 Mg Tablet, 10 MG PO TID Prescribed by: AMBERLY CABALLERO on 12/23/20 194 D-Methorphan Hb/Prometh HCl (Promethazine-Dm Syrup) 118 Ml Syrup, 1-2 TSP PO Q4H Prescribed by: PAOLA TAVERAS on 03/02/18 034 Duloxetine HCl (Duloxetine HCl) 60 Mg Capsule.dr, 60 MG PO BID, (Reported) Entered as Reported by: CHANDANA CANCINO on 01/18/18 09 Ezetimibe (Ezetimibe) 10 Mg Tablet, 10 MG PO HS, (Reported) Entered as Reported by: CHANDANA CANCINO on 01/18/18 09 Famotidine (Pepcid) 40 Mg Tablet, 40 MG PO DAILY Prescribed by: PAOLA TAVERAS on 02/24/20 011 Hydrocodone/Acetaminophen (Hydrocodone-Acetamin 5-325 mg) 1 Each Tablet, 1 EACH PO Q6H PRN for PAIN-BREAKTHROUGH Prescribed by: LOC MEDINA on 01/14/202215 Hyoscyamine Sulfate (Levsin-Sl) 0.125 Mg Tab.subl, 0.25 MG SL Q4H Prescribed by: PAOLA TAVERAS on 02/24/20110 Ibuprofen (Advil) 200 Mg Tablet, 600 MG PO TID PRN for PAIN-MILD, (Reported) Entered as Reported by: CHANDANA CANCINO on 01/18/18906 Levofloxacin (Levaquin) 500 Mg Tablet, 500 MG PO DAILY Prescribed by: PAOLA TAVERAS on 03/02/18 034 Levothyroxine Sodium (Levothyroxine Sodium) 112 Mcg Tablet, 1,125 MCG PO HS, (Reported) Entered as Reported by: CHANDANA CANCINO on 01/18/18900 Meloxicam (Meloxicam) 15 Mg Tablet, 15 MG PO DAILY Prescribed by: AMBERLY CABALLERO on 12/23/20 194 Methylprednisolone (Medrol) 4 Mg Tab.ds.pk, 4 MG PO UD Prescribed by: PAOLA TAVERAS on 03/02/18342 Metronidazole (Flagyl) 500 Mg Tablet, 500 MG PO QID Prescribed by: PAOLA TAVERAS on 02/24/20110 Naproxen (Naprosyn) 500 Mg Tablet, 500 MG PO BID Prescribed by: LOC MEDINA on 04/13/21 1658 Naproxen Sodium (Aleve) 220 Mg Tablet, 440 MG PO TID PRN for PAIN-MILD, (Reported) Entered as Reported by: CHANDANA CANCINO on 01/18/18906 Ondansetron (Ondansetron Odt) 4 Mg Tab.rapdis, 4 MG PO Q6H PRN for NAUSEA/VOMITING Prescribed by: LOC MEDINA on 01/14/202214 Ondansetron (Ondansetron Odt) 8 Mg Tab.rapdis, 8 MG PO Q6H Prescribed by: PAOLA TAVERAS on 02/24/20 0111 Pramipexole Di-HCl (Pramipexole Dihydrochloride) 0.125 Mg Tablet, 0.125 MG PO HS, (Reported) Entered as Reported by: RITA RACHEL on 11/04/17 0115 Pregabalin (Lyrica) 100 Mg Capsule, 100 MG PO BID, (Reported) Entered as Reported by: TREV SANTIAGO on 11/13/16 1031 Promethazine HCl (Promethazine Tablet) 25 Mg Tablet, 25 MG PO Q6H PRN for NAUSEA/VOMITING Prescribed by: JESUSITA DAVIS on 06/03/19 0217 Risperidone (Risperidone) 0.25 Mg Tablet, 0.5 MG PO HS, (Reported) Entered as Reported by: CHANDANA CANCINO on 01/18/18 09 Tizanidine HCl (Tizanidine HCl) 2 Mg Tablet, 4 MG PO HS, (Reported) Entered as Reported by: CHANDANA CANCINO on 01/18/18 09 Tramadol HCl (Tramadol HCl) 50 Mg Tablet, 50 MG PO Q6H PRN for PAIN Prescribed by: JAIME TAMAYO on 10/22/18 1750 Verapamil HCl (Verapamil HCl) 120 Mg Tablet, 120 MG PO HS, (Reported) Entered as Reported by: CHANDANA CANCINO on 01/18/18 09 [z-pack] Prescribed by: OMAR BLOUNT on 01/19/18 1404 Review of Systems Review of Systems Constitutional: no symptoms reported; No chills, No diaphoresis, No fever EENTM: No Blurred Vision, No Double Vision; Other (nose bleed left nare x 1 today) Respiratory: No Symptoms Reported; Denies Cough, Denies Shortness of Air Cardiovascular: See HPI, Chest Pain; Denies Edema; Palpitations Gastrointestinal: Denies Constipated, Denies Diarrhea; Nausea, Vomiting Genitourinary: No Symptoms Reported; Denies Burning, Denies Discharge, Denies Drainage Musculoskeletal: no symptoms reported; No back pain, No joint pain Skin: no symptoms reported; No change in color, No change in hair/nails Psychiatric/Neurological: No Symptoms Reported; Denies Anxiety, Denies Depressed, Denies Headache Endocrine: No Symptoms Reported; Denies Excessive Sweating, Denies Flushing Hematologic/Lymphatic: No Symptoms Reported; Denies Easy Bleeding, Denies Easy Bruising (NERISSA MOYA [employer] STUDENT) All Other Systems Reviewed Negative Unless Noted: Yes (NERISSA MOYA [employer] DELORES) Past Xdjnnsb-Kfvmjh-Fciygf Hx Patient Social History Tobacco Use?: Yes Tobacco type used: Cigarettes Smoking Status: Current Everyday Smoker Smokeless Tobacco Frequency: Never a User Use of E-Cig and/or Vaping dev: No Use of E-Cig and/or Vaping Tyree: Never a User Substance use?: Yes Substance type: Marijuana (edibles) Substance frequency: Several times a month Alcohol Use?: No Pt feels they are or have been: No (NERISSA MOYA [employer] STUDENT) Immunizations Up To Date Tetanus Booster (TDap): Less than 5yrs PED Vaccines UTD: Yes Influenza Vaccine Up-to-Date: No; Not Current First/Initial COVID19 Vaccinat: N/A Second COVID19 Vaccination Klaus: N/A Third COVID19 Vaccination Date: N/A (NERISSA MOYA [employer] DELORES) Seasonal Allergies Seasonal Allergies: Yes (NERISSA MOYA) Past Medical History Surgery/Hospitalization HX: HTN, HLD, ANXIETY, MANIC ANXIETY, LIVER CIRHOSIS Surgeries: Yes (EXPLORATORY LAP;HIATAL HERNIA REPAIR;HYST/BSO;VENTRAL HERNIA REPAIR;L KNEE ) Abdominal, Section, Gallbladder, Hysterectomy, Oophorectomy, Orthopedic, Thyroidectomy Respiratory: Yes Pneumonia, Chronic Bronchitis Currently Using CPAP: No Currently Using BIPAP: No Cardiac: Yes (MITRAL VALVE PROLAPSE) High Cholesterol, Hypertension, Irregular Heartbeat, Valvular Heart Disease (mitral valve prolapse) Neurological: Yes (PERIPHERAL NEUROPATHY-LEGS/FEET) Headaches /Migraines, Neuropathy : No Reproductive Disorders: No Female Reproductive Disorders: Denies 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 ) Hypothyroidsim HEENT: No Loss of Vision: Denies Hearing Impairment: Denies Cancer: No Psychosocial: Yes Anxiety, Bipolar, Schizophrenia, Depression Integumentary: Yes Herpes Blood Disorders: Yes (ANEMIA) Adverse Reaction/Blood Tranf: No (NERISSA MOYA [employer] STUDENT) Family Medical History Cardiovascular disease 19 FATHER Diabetes mellitus 19 FATHER 19 MOTHER FH: mental illness Mental Physical Exam Vital Signs Vital Signs - First Documented 05/24/21 16:03 Temp 37.0 Pulse 91 Resp 17 B/P (MAP) 127/80 (96) (INDIGO SULLIVAN MD) Vital Signs Capillary Refill : (NERISSA MOYA STUDENT) Height, Weight, BMI Height: 5'3.00" Weight: 190lbs. 4.0oz. 86.732155bj; 35.00 BMI Method:Stated General Appearance: No Apparent Distress, WD/WN HEENT: PERRL/EOMI, Pharynx Normal, Moist Mucous Membranes Neck: Full Range of Motion, Normal Inspection, Non Tender Respiratory: Chest Non Tender, Normal Breath Sounds, No Accessory Muscle Use Cardiovascular: Regular Rate, Rhythm, No Edema, Normal Peripheral Pulses Gastrointestinal: Normal Bowel Sounds, Non Tender, Soft Rectal: Deferred Extremity: Normal Capillary Refill, Normal Inspection, Non Tender, No Calf Tend erness Neurologic/Psychiatric: Alert, Oriented x3, No Motor/Sensory Deficits Skin: Normal Color, Warm/Dry Lymphatic: No Adenopathy (Head and Neck) (NERISSA MOYA STUDENT) Procedures/Interventions Dental Procedures: block (NERISSA MOYA STUDENT) Progress/Results/Core Measures Results/Orders Lab Results Laboratory Tests Test 05/24/21 16:10 Range/Units White Blood Count 10.7 4.3-11.0 10^3/uL Red Blood Count 4.91 3.80-5.11 10^6/uL Hemoglobin 16.0 11.5-16.0 g/dL Hematocrit 47 35-52 % Mean Corpuscular Volume 95 80-99 fL Mean Corpuscular Hemoglobin 33 25-34 pg Mean Corpuscular Hemoglobin Concent 34 32-36 g/dL Red Cell Distribution Width 13.1 10.0-14.5 % Platelet Count 143 130-400 10^3/uL Mean Platelet Volume 12.4 H 9.0-12.2 fL Immature Granulocyte % (Auto) 0 % Neutrophils (%) (Auto) 38 L 42-75 % Lymphocytes (%) (Auto) 54 H 12-44 % Monocytes (%) (Auto) 5 0-12 % Eosinophils (%) (Auto) 2 0-10 % Basophils (%) (Auto) 1 0-10 % Neutrophils # (Auto) 4.1 1.8-7.8 10^3/uL Lymphocytes # (Auto) 5.8 H 1.0-4.0 10^3/uL Monocytes # (Auto) 0.6 0.0-1.0 10^3/uL Eosinophils # (Auto) 0.2 0.0-0.3 10^3/uL Basophils # (Auto) 0.1 0.0-0.1 10^3/uL Immature Granulocyte # (Auto) 0.0 0.0-0.1 10^3/uL Sodium Level 141 135-145 MMOL/L Potassium Level 3.7 3.6-5.0 MMOL/L Chloride Level 112 H 98-107 MMOL/L Carbon Dioxide Level 17 L 21-32 MMOL/L Anion Gap 12 5-14 MMOL/L Blood Urea Nitrogen 8 7-18 MG/DL Creatinine 0.68 0.60-1.30 MG/DL Estimat Glomerular Filtration Rate 110 BUN/Creatinine Ratio 12 Glucose Level 111 H 70-105 MG/DL Calcium Level 9.2 8.5-10.1 MG/DL Troponin I < 0.028 <0.028 NG/ML (INDIGO SULLIVAN MD) My Orders Orders - INDIGO SULLIVAN MD Ed Iv/Invasive Line Start (05/24/21 16:29) Cbc With Automated Diff (05/24/21 16:29) Basic Metabolic Panel (05/24/21 16:29) Troponin I [place] (05/24/21 16:29) Ekg Tracing (05/24/21 16:29) Chest 1 View, Ap/Pa Only (05/24/21 16:29) Aspirin Chewable Tablet (Baby Aspirin Ch (05/24/21 16:30) Nitroglycerin 0.4 Mg Btl 25's (Nitrostat (05/24/21 16:30) Ketorolac Injection (Toradol Injection) (05/24/21 17:45) Ondansetron Oral Dissolve Tab (Zofran (05/24/21 17:50) (INDIGO SULLIVAN MD) Medications Given in ED (INDIGO SULLIVAN MD) Vital Signs/I&O 05/24/21 05/24/21 16:03 18:20 Temp 37.0 37.0 Pulse 91 74 Resp 17 17 B/P (MAP) 127/80 (96) 78/80 (INDIGO SULLIVAN MD) Progress Progress Note : Time: 17:53 Progress Note Patient's chest pain is slightly better after nitro x2 and 324 mg of aspirin. She did develop a mild headache with the nitro. I have given her 30 of Toradol IV for the remaining chest pain. Troponin is negative in light of almost 24 hours of continuous chest pain and normal EKG. Chest x-ray demonstrates changes consistent with COPD. Rest of her labs/electrolytes are within normal limits. I discussed follow-up with patient regarding her ongoing chest pain as well as smoking cessation. She verbalized understanding. Will follow up with her primary care doctor. All questions are sought and answered (INDIGO SULLIVAN MD) Initial ECG Impression Date: May 24, 2021 Initial ECG Impression Time: 16:44 Initial ECG Rate: 96 Initial ECG Rhythm: Normal Sinus Initial ECG Intervals: Normal Initial ECG Impression: Normal (INDIGO SULLIVAN MD) Diagnostic Imaging Diagonstic Imaging: Xray Plain Films/CT/US/NM/MRI: chest Comments [facility], [facility]. [place], [place] NAME: TRDUI RIVERA [facility] REC#: [id number] PT STATUS: REG ER : 1975 PHYSICIAN: INDIGO SULLIVAN MD ADMIT DATE: 05/24/21/ER Signed Date of Exam:05/24/21 CHEST 1 VIEW, AP/PA ONLY EXAMINATION: Portable chest. INDICATION: Chest pain. COMPARISON: Prior study from 12/27/2018. FINDINGS: The lungs demonstrate no evidence of pneumonia or of an effusion. There is no pneumothorax. Heart size is unchanged. There is some slight flattening of the diaphragms and chronic interstitial changes. Heart size is appropriate. Pulmonary vascularity is normal. IMPRESSION: Features suggesting the possibility of underlying COPD. Correlation for smoking history appreciated. There is no acute superimposed cardiopulmonary process evident. Dictated by: Dictated on workstation # [id number] Dict: 05/24/211648 Trans: 05/24/211658 [facility] [id number] Interpreted by: JULIETH DOMÍNGUEZ MD Electronically signed by: JULIETH DOMÍNGUEZ MD 05/24/211658 (INDIGO SULLIVAN MD) Counseling-Symptomatic: 3-10 Minutes Follow-up with PCP to: Discuss Further Options (INDIGO SULLIVAN MD) Departure Impression Primary Impression: Chest pain Qualified Codes: R07.9 - Chest pain, unspecified Additional Impression: Tobacco abuse Disposition: HOME, SELF-CARE Condition: Stable Departure-Patient Inst. Decision time for Depature: 17:52 (INDIGO SULLIVAN MD) Referrals: [facility] [place] (PCP/Family) Primary Care Physician Patient Instructions: Chest Pain That Is Not Caused by the Heart (DC) Add. Discharge Instructions: Continue your daily prescribed medications. Sqwi-foy-luwyyzj ibuprofen, 3 tablets which is 600 mg every 6-8 hours as needed for pain. Always take ibuprofen with food Return to the emergency department for any new, concerning or emergent complaints. Please follow-up with [facility]. Verification and Attestation of Medical Student E/M Service A medical student performed and documented this service in my presence. I reviewed and verified all information documented by the medical student and made modifications to such information, when appropriate. I personally performed the physical exam and medical decision making. Indigo Sullivan, May 24, 2021,17:54 (INDIGO SULLIVAN MD) Copy Copies To 1: ERVIN MATTHEWS [employer] STUDENT May 24, 2021 16:25 INDIGO SULLIVAN MD May 24, 2021 17:32
[2021-05-24] MEDS ORDERED: NITROGLYCERIN 0.4 MG SL TABS BTL 25'S SL ONE (16:30)
[2021-05-24] MEDS ORDERED: ASPIRIN 81 MG CHEW (CHILDREN'S ASA) PO ONE (16:30)
[2021-05-24 16:37] LABS: BASOPHILS # (AUTO) 0.1 10^3/uL (0.0-0.1); BASOPHILS % (AUTO) 1 % (0-10); EOSINOPHILS # (AUTO) 0.2 10^3/uL (0.0-0.3); EOSINOPHILS % (AUTO) 2 % (0-10); HEMATOCRIT 47 % (35-52); LYMPHOCYTES # (AUTO) 5.8 10^3/uL (1.0-4.0); LYMPHOCYTES % (AUTO) 54 % (12-44); MEAN CORPUSCULAR HEMOGLOBIN 33 pg (25-34); MEAN CORPUSCULAR HGB CONC 34 g/dL (32-36); MEAN CORPUSCULAR VOLUME 95 fL (80-99); MEAN PLATELET VOLUME 12.4 fL (9.0-12.2); MONOCYTES # (AUTO) 0.6 10^3/uL (0.0-1.0); MONOCYTES % (AUTO) 5 % (0-12); NEUTROPHILS # (AUTO) 4.1 10^3/uL (1.8-7.8); NEUTROPHILS % (AUTO) 38 % (42-75); PLATELET COUNT 143 10^3/uL (130-400); WHITE BLOOD COUNT 10.7 10^3/uL (4.3-11.0)
[2021-05-24 16:44] LABS: CHLORIDE 112 MMOL/L (98-107); POTASSIUM 3.7 MMOL/L (3.6-5.0); SODIUM 141 MMOL/L (135-145)
[2021-05-24 16:45] LABS: CALCIUM 9.2 MG/DL (8.5-10.1)
[2021-05-24 16:46] LABS: GLUCOSE 111 MG/DL (70-105)
[2021-05-24 16:47] LABS: CARBON DIOXIDE 17 MMOL/L (21-32)
[2021-05-24 16:49] LABS: CREATININE SERUM 0.68 MG/DL (0.60-1.30); GFR ESTIMATED 110
[2021-05-24 16:50] LABS: BUN/CREATININE RATIO 12
--- NOTE | 2021-05-24 16:52 | Diagnostic Imaging Report ---
EXAMINATION: Portable chest. INDICATION: Chest pain. COMPARISON: Prior study from 12/27/2018. FINDINGS: The lungs demonstrate no evidence of pneumonia or of an effusion. There is no pneumothorax. Heart size is unchanged. There is some slight flattening of the diaphragms and chronic interstitial changes. Heart size is appropriate. Pulmonary vascularity is normal. IMPRESSION: Features suggesting the possibility of underlying COPD. Correlation for smoking history appreciated. There is no acute superimposed cardiopulmonary process evident. Dictated by: Dictated on workstation # [id number]
[2021-05-24] MEDS ORDERED: KETOROLAC 30 MG/ML VIAL IVP ONE (17:45)
[2021-05-24] MEDS ORDERED: ONDANSETRON 4 MG (ZOFRAN) ORAL DISSOLVE TAB ONE (17:50)
[2021-05-24 18:20] VITALS: BP 78/80
== END 2021-05-24 18:24 | disposition home or self-care (01) ==
LOC: EDUNIT# 15:57 → ER 15:58
DX: R07.9 Chest pain, unspecified (principal); F17.210 Nicotine dependence, cigarettes, uncomplicated
CPT/HCPCS: 36415; 71045; 80048; 84484; 85025; 93005

== ENCOUNTER 2021-09-03 19:13 | Emergency (ER) | payer MEDICARE, MEDICAID ==
[2021-09-03] MEDS ORDERED: ONDANSETRON 4 MG (ZOFRAN) ORAL DISSOLVE TAB SL STA (19:57)
[2021-09-03] MEDS ORDERED: KETOROLAC 60 MG/2 ML VIAL IM STA (19:57)
--- NOTE | 2021-09-03 20:00 | ED Headache ---
General Chief Complaint: Head/Cervical Problems Stated Complaint: HEADACHE, NAUSEA Source: patient History of Present Illness Date Seen by Provider: Sep 03, 2021 Time Seen by Provider: 19:51 Initial Comments PT ARRIVES VIA POV FROM HOME C/O " MIGRAINE" SINCE WEDNESDAY NIGHT, ALONG WITH NAUSEA NO VOMITING HEADACHE IS IN BOTH TEMPLES AND BOTH SIDES OF HEAD VISION IS SLIGHTLY BLURRY NO FEVER OR RECENT ILLNESS NO URI SYMPTOMS NO CHANGE IN CHRONIC NUMBNESS/TINGLING IN HANDS AND FEET--HAS FIBROMYALGIA AND PERIPHERAL NEUROPATHY STATES SHE HAS CHRONIC HEADACHES--GETS HEADACHES ABOUT ONCE A WEEK, AND GETS HEADACHES THIS BAD ABOUT EVERY 6 MONTHS THIS IS EXACTLY THE SAME HER CHRONIC HEADACHES/"MIGRAINES" PT HAS HAD HYSTERECTOMY HAS HTN AND COPD, AND HYPOTHYROIDISM NO RECENT MEDICATION CHANGES TOOK VISTARIL X 1 THIS AM TOOK TYLENOL AT 1630 TOOK TIZANIDINE ONE TIME TODAY ABOUT 2 HOURS AGO HAS NOT SOUGHT CARE UNTIL TONIGHT SYMPTOMS NO DIFFERENT TONIGHT PCP: MARIELLE TUCKER TORCHINegra Allergies and Home Medications Allergies Coded Allergies: niacin (Unverified Allergy, Mild, 05/13/14) Patient Home Medication List Home Medication List Reviewed: Yes ALPRAZolam (Xanax Tablet) 0.25 Mg Tablet, 0.25 MG PO TID PRN for ANXIETY, (Reported) Entered as Reported by: RITA RACHEL on 11/04/17 0115 Acetazolamide (Acetazolamide) 250 Mg Tablet, 250 MG PO 1200,2100, (Reported) Entered as Reported by: CHANDANA CANCINO on 01/18/18 0901 Acyclovir (Acyclovir) 400 Mg Tablet, 400 MG PO TID, (Reported) Entered as Reported by: IZABEL VELASCO on 04/12/162128 Benzonatate (Tessalon Perles) 100 Mg Capsule, 1-2 TAB PO TID Prescribed by: PAOLA TAVERAS on 03/02/18 034 Budesonide (Pulmicort Flexhaler) 90 Mcg Aer.pow.ba, 90 MCG IH BID Prescribed by: PAOLA TAVERAS on 03/02/18 034 Cefdinir (Cefdinir) 300 Mg Capsule, 300 MG PO BID Prescribed by: OMAR BLOUNT on 01/19/18 1404 Cefdinir (Cefdinir) 300 Mg Capsule, 300 MG PO BID Prescribed by: LOC MEDINA on 01/14/202214 Ciprofloxacin HCl (Ciprofloxacin HCl) 500 Mg Tablet, 500 MG PO BID Prescribed by: PAOLA TAVERAS on 02/24/20110 Cyclobenzaprine HCl (Cyclobenzaprine HCl) 10 Mg Tablet, 10 MG PO TID PRN for MUSCLE SPASMS, (Reported) Entered as Reported by: CHANDANA CANCINO on 01/18/18900 Cyclobenzaprine HCl (Cyclobenzaprine HCl) 10 Mg Tablet, 10 MG PO TID Prescribed by: AMBERLY CABALLERO on 12/23/201939 D-Methorphan Hb/Prometh HCl (Promethazine-Dm Syrup) 118 Ml Syrup, 1-2 TSP PO Q4H Prescribed by: PAOLA TAVERAS on 03/02/18342 Duloxetine HCl (Duloxetine HCl) 60 Mg Capsule.dr, 60 MG PO BID, (Reported) Entered as Reported by: CHANDANA CANCINO on 01/18/18900 Ezetimibe (Ezetimibe) 10 Mg Tablet, 10 MG PO HS, (Reported) Entered as Reported by: CHANDANA CANCINO on 01/18/18900 Famotidine (Pepcid) 40 Mg Tablet, 40 MG PO DAILY Prescribed by: PAOLA TAVERAS on 02/24/20110 Hydrocodone/Acetaminophen (Hydrocodone-Acetamin 5-325 mg) 1 Each Tablet, 1 EACH PO Q6H PRN for PAIN-BREAKTHROUGH Prescribed by: LOC MEDINA on 01/14/202215 Hyoscyamine Sulfate (Levsin-Sl) 0.125 Mg Tab.subl, 0.25 MG SL Q4H Prescribed by: PAOLA TAVERAS on 02/24/20110 Ibuprofen (Advil) 200 Mg Tablet, 600 MG PO TID PRN for PAIN-MILD, (Reported) Entered as Reported by: CHANDANA CANCINO on 01/18/18906 Ketorolac Tromethamine (Ketorolac Tromethamine) 10 Mg Tablet, 10 MG PO Q6H Prescribed by: PAOLA TAVERAS on 09/03/212022 Levofloxacin (Levaquin) 500 Mg Tablet, 500 MG PO DAILY Prescribed by: PAOLA TAVERAS on 03/02/18342 Levothyroxine Sodium (Levothyroxine Sodium) 112 Mcg Tablet, 1,125 MCG PO HS, (Reported) Entered as Reported by: CHANDANA CANCINO on 01/18/18 0901 Meloxicam (Meloxicam) 15 Mg Tablet, 15 MG PO DAILY Prescribed by: AMBERLY CABALLERO on 12/23/20 194 Methylprednisolone (Medrol) 4 Mg Tab.ds.pk, 4 MG PO UD Prescribed by: PAOLA TAVERAS on 03/02/18 0343 Metronidazole (Flagyl) 500 Mg Tablet, 500 MG PO QID Prescribed by: PAOLA TAVERAS on 02/24/20 011 Naproxen (Naprosyn) 500 Mg Tablet, 500 MG PO BID Prescribed by: LOC MEDINA on 04/13/21 1658 Naproxen Sodium (Aleve) 220 Mg Tablet, 440 MG PO TID PRN for PAIN-MILD, (Reported) Entered as Reported by: CHANDANA CANCINO on 01/18/18 0907 Ondansetron (Ondansetron Odt) 4 Mg Tab.rapdis, 4 MG PO Q6H PRN for NAUSEA/VOMITING Prescribed by: LOC MEDINA on 01/14/20 2215 Ondansetron (Ondansetron Odt) 8 Mg Tab.rapdis, 8 MG PO Q6H Prescribed by: PAOLA TAVERAS on 02/24/20 011 Ondansetron (Ondansetron Odt) 8 Mg Tab.rapdis, 8 MG PO Q6H Prescribed by: PAOLA TAVERAS on 09/03/212022 Pramipexole Di-HCl (Pramipexole Dihydrochloride) 0.125 Mg Tablet, 0.125 MG PO HS, (Reported) Entered as Reported by: RITA RACHEL on 11/04/17 0115 Pregabalin (Lyrica) 100 Mg Capsule, 100 MG PO BID, (Reported) Entered as Reported by: TREV SANTIAGO on 11/13/16 1031 Promethazine HCl (Promethazine Tablet) 25 Mg Tablet, 25 MG PO Q6H PRN for NAUSEA/VOMITING Prescribed by: JESUSITA DAVIS on 06/03/19 0217 Risperidone (Risperidone) 0.25 Mg Tablet, 0.5 MG PO HS, (Reported) Entered as Reported by: CHANDANA CANCINO on 01/18/18900 Tizanidine HCl (Tizanidine HCl) 2 Mg Tablet, 4 MG PO HS, (Reported) Entered as Reported by: CHANDANA CANCINO on 01/18/18900 Tramadol HCl (Tramadol HCl) 50 Mg Tablet, 50 MG PO Q6H PRN for PAIN Prescribed by: JAIME TAMAYO on 10/22/18 1750 Verapamil HCl (Verapamil HCl) 120 Mg Tablet, 120 MG PO HS, (Reported) Entered as Reported by: CHANDANA CANCINO on 01/18/18900 [z-pack] Prescribed by: OMAR BLOUNT on 01/19/18 1404 Review of Systems Review of Systems Constitutional: no symptoms reported Eyes: See HPI, Blurred Vision Ears, Nose, Mouth, Throat: no symptoms reported Respiratory: no symptoms reported Cardiovascular: no symptoms reported Gastrointestinal: see HPI; No diarrhea; nausea; No vomiting Genitourinary: no symptoms reported : No (HYSTERECTOMY) Musculoskeletal: no symptoms reported; No neck pain Skin: no symptoms reported Psychiatric/Neurological: See HPI, Headache Past Lpbitir-Nzqqyn-Ctezxi Hx Patient Social History Tobacco Use?: Yes (SMOKED 1 /2 PPD, QUIT) Tobacco type used: Cigarettes Smoking Status: Former Smoker Substance use?: Yes Substance type: Marijuana Substance frequency: Once in a while Alcohol Use?: Yes (HX OF ETOH ABUSE, QUIT 20 YEARS AGO) Pt feels they are or have been: No Immunizations Up To Date Tetanus Booster (TDap): Less than 5yrs PED Vaccines UTD: Yes Influenza Vaccine Up-to-Date: No; Not Current First/Initial COVID19 Vaccinat: N/A Second COVID19 Vaccination Klaus: N/A Third COVID19 Vaccination Date: N/A Seasonal Allergies Seasonal Allergies: Yes Past Medical History Surgery/Hospitalization HX: HTN, HLD, ANXIETY, MANIC ANXIETY, LIVER CIRHOSIS, MIGRAINES, NEUROPATHY Surgeries: Yes (EXPLORATORY LAP;HIATAL HERNIA REPAIR;HYST/BSO;VENTRAL HERNIA REPAIR;L KNEE ) Abdominal, Section, Gallbladder, Hysterectomy, Oophorectomy, Orthopedic, Thyroidectomy Respiratory: Yes Pneumonia, Chronic Bronchitis, COPD Currently Using CPAP: No Currently Using BIPAP: No Cardiac: Yes (MITRAL VALVE PROLAPSE) High Cholesterol, Hypertension, Irregular Heartbeat, Valvular Heart Disease Neurological: Yes (PERIPHERAL NEUROPATHY-LEGS/FEET/HANDS) Headaches /Migraines, Neuropathy Reproductive Disorders: No Female 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 ) Hypothyroidsim HEENT: No Loss of Vision: Denies Hearing Impairment: Denies Cancer: No Psychosocial: Yes Anxiety, Bipolar, Schizophrenia, Depression Integumentary: Yes Herpes Blood Disorders: Yes (ANEMIA) Adverse Reaction/Blood Tranf: No Family Medical History Cardiovascular disease 19 FATHER Diabetes mellitus 19 FATHER 19 MOTHER FH: mental illness Mental Physical Exam Vital Signs Capillary Refill : Height, Weight, BMI Height: 5'3.00" Weight: 190lbs. 4.0oz. 86.372176ed; 35.00 BMI Method:Stated General Appearance: WD/WN, no apparent distress, obese HEENT: PERRL/EOMI, normal ENT inspection Neck: non-tender, full range of motion, supple, normal inspection Cardiovascular: regular rate, rhythm, no murmur Respiratory: normal breath sounds, no respiratory distress, no accessory muscle use Gastrointestinal: non tender, soft Extremities: normal inspection Psychiatric: alert, oriented x 3 Crainal Nerves: normal hearing, normal speech, PERRL Coordination/Gait: normal gait Motor/Sensory: no motor deficit, no sensory deficit Reflexes: 1+ Bicep (R), 1+ Bicep (L), 1+ Knee (R), 1+ Knee (L) Skin: normal color, warm/dry Procedures/Interventions Dental Procedures: block Progress/Results/Core Measures Results/Orders My Orders Orders - PAOLA TAEVRAS DO Ondansetron Oral Dissolve Tab (Zofran (09/03/21 19:57) Ketorolac Injection (Toradol Injection) (09/03/21 19:57) Progress Progress Note : Progress Note GIVEN ZOFAN AND TORADOL WITH IMPROVEMENT IN SYMPTOMS Departure Impression Primary Impression: Headache Additional Impression: Chronic headaches Disposition: 01 HOME, SELF-CARE Condition: Stable Departure-Patient Inst. Decision time for Depature: 20:22 Referrals: [facility] (PCP/Family) Primary Care Physician Patient Instructions: Headache, Adult Add. Discharge Instructions: HOME, REST LOTS OF CLEAR LIQUIDS CONTINUE YOUR REGULAR MEDICATION PRESCRIBED FOLLOW UP WITH [facility] IN 1-2 DAYS IF NO BETTER, RETURN TO ER IF WORSE All discharge instructions reviewed with patient and/or family. Voiced understanding. Scripts Ketorolac Tromethamine (Ketorolac Tromethamine) 10 Mg Tablet 10 MG PO Q6H for Pain, #15 TAB Prov: PAOLA TAVERAS DO 09/03/21 Ondansetron (Ondansetron Odt) 8 Mg Tab.rapdis 8 MG PO Q6H, #10 TAB Prov: PAOLA TAVERAS DO 09/03/21 PAOLA TAVERAS DO Sep 03, 2021 20:00
[2021-09-03] MEDS ORDERED: KETO10TA PO (20:23)
[2021-09-03] MEDS ORDERED: ONDA8TAB13 PO (20:23)
[2021-09-03 20:36] VITALS: BP 134/70
== END 2021-09-03 20:37 | disposition home or self-care (01) ==
LOC: EDUNIT# 19:13 → ER 19:14
DX: G89.29 Other chronic pain (principal); R51.9 Headache, unspecified; Z87.891 Personal history of nicotine dependence; Z28.310 Unvaccinated for COVID-19
CPT/HCPCS: 99284

== ENCOUNTER 2021-10-29 20:01 | Emergency (ER) | payer MEDICARE, MEDICAID ==
[~2021-10-29] VITALS: Ht 157.4 cm; Wt 93.0 kg
[~2021-10-29 20:01] MED LIST changes: +KETO10TA PO
--- NOTE | 2021-10-29 20:54 | ED Cough/URI ---
General Chief Complaint: COVID19 Suspect/Confirmed Stated Complaint: CONGESTION,COUGH,CHAN,BODY ACHES Nursing Triage Note: STARTED HAVING SX OF COUGH, FULL SINUS, SOB, ACHING MUSCLES "FEEL LIKE JEFF BEEN HIT BY A TRUCK" YESTERDAY DESCRIBES A NON PRODUCTIVE PERSISTANT COUGH, DENIES FEVER, NOT VACCINATED FOR COVID Source: patient History of Present Illness Date Seen by Provider: Oct 29, 2021 Time Seen by Provider: 20:29 Initial Comments PT ARRIVES VIA POV FROM HOME STATES SHE STARTED GETTING SICK LAST NIGHT, WITH THE FOLLOWING: -BODY ACHES -FATIGUE -NON-PRODUCTIVE COUGH -SINUS CONGESTION AND PRESSURE -SHORTNESS OF BREATH NO KNOWN FEVER NO CHEST PAIN NO HEADACHE NO GI SYMPTOMS NO LOSS OF TASTE/SMELL PT IS NOT COVID OR FLU VACCINATED DENIES ANY KNOWN SICK CONTACTS, BUT LIVES WITH HER BOYFRIEND, HER DAUGHTER AND 4 CHILDREN PT HAS COPD AND HAS RAN OUT OF HER INHALER OVER A MONTH AGO--DOES NOT KNOW IF SHE HAS REFILLS ON IT OR NOT, AND HAS NOT ATTEMPTED TO CALL PHARMACY AT ANY TIME. PCP: CAITLIN Allergies and Home Medications Allergies Coded Allergies: niacin (Unverified Allergy, Mild, 05/13/14) Patient Home Medication List Home Medication List Reviewed: Yes ALPRAZolam (Xanax Tablet) 0.25 Mg Tablet, 0.25 MG PO TID PRN for ANXIETY, (Reported) Entered as Reported by: RITA RACHEL on 11/04/17 0115 Acetazolamide (Acetazolamide) 250 Mg Tablet, 250 MG PO 1200,2100, (Reported) Entered as Reported by: CHANDANA CANCINO on 01/18/18 0901 Acyclovir (Acyclovir) 400 Mg Tablet, 400 MG PO TID, (Reported) Entered as Reported by: IZABEL VELASCO on 04/12/162128 Albuterol Sulfate (Proair Hfa) 1 Puff Puff, 2 PUFF IH Q4H Prescribed by: PAOLA TAVERAS on 10/29/212155 Benzonatate (Tessalon Perles) 100 Mg Capsule, 1-2 TAB PO TID Prescribed by: PAOLA TAVERAS on 03/02/18 034 Budesonide (Pulmicort Flexhaler) 90 Mcg Aer.pow.ba, 90 MCG IH BID Prescribed by: PAOLA TAVERAS on 03/02/18 034 Cefdinir (Cefdinir) 300 Mg Capsule, 300 MG PO BID Prescribed by: OMAR BLOUNT on 01/19/18 1404 Cefdinir (Cefdinir) 300 Mg Capsule, 300 MG PO BID Prescribed by: LOC MEDINA on 01/14/202214 Ciprofloxacin HCl (Ciprofloxacin HCl) 500 Mg Tablet, 500 MG PO BID Prescribed by: PAOLA TAVERAS on 02/24/20110 Cyclobenzaprine HCl (Cyclobenzaprine HCl) 10 Mg Tablet, 10 MG PO TID PRN for MUSCLE SPASMS, (Reported) Entered as Reported by: CHANDANA CANCINO on 01/18/18900 Cyclobenzaprine HCl (Cyclobenzaprine HCl) 10 Mg Tablet, 10 MG PO TID Prescribed by: AMBERLY CABALLERO on 12/23/201939 D-Methorphan Hb/Prometh HCl (Promethazine-Dm Syrup) 118 Ml Syrup, 1-2 TSP PO Q4H Prescribed by: PAOLA TAVERAS on 03/02/18342 Duloxetine HCl (Duloxetine HCl) 60 Mg Capsule.dr, 60 MG PO BID, (Reported) Entered as Reported by: CHANDANA CANCINO on 01/18/18900 Ezetimibe (Ezetimibe) 10 Mg Tablet, 10 MG PO HS, (Reported) Entered as Reported by: CHANDANA CANCINO on 01/18/18900 Famotidine (Pepcid) 40 Mg Tablet, 40 MG PO DAILY Prescribed by: PAOLA TAVERAS on 02/24/20110 Hydrocodone/Acetaminophen (Hydrocodone-Acetamin 5-325 mg) 1 Each Tablet, 1 EACH PO Q6H PRN for PAIN-BREAKTHROUGH Prescribed by: LOC MEDINA on 01/14/202215 Hyoscyamine Sulfate (Levsin-Sl) 0.125 Mg Tab.subl, 0.25 MG SL Q4H Prescribed by: PAOLA TAVERAS on 02/24/20110 Ibuprofen (Advil) 200 Mg Tablet, 600 MG PO TID PRN for PAIN-MILD, (Reported) Entered as Reported by: CHANDANA CANCINO on 01/18/18906 Ketorolac Tromethamine (Ketorolac Tromethamine) 10 Mg Tablet, 10 MG PO Q6H Prescribed by: PAOLA TAVERAS on 09/03/212022 Levofloxacin (Levaquin) 500 Mg Tablet, 500 MG PO DAILY Prescribed by: PAOLA TAVERAS on 03/02/18 034 Levothyroxine Sodium (Levothyroxine Sodium) 112 Mcg Tablet, 1,125 MCG PO HS, (Reported) Entered as Reported by: CHANDANA CANCINO on 01/18/18 09 Meloxicam (Meloxicam) 15 Mg Tablet, 15 MG PO DAILY Prescribed by: AMBERLY CABALLERO on 12/23/201939 Methylprednisolone (Medrol) 4 Mg Tab.ds.pk, 4 MG PO UD Prescribed by: PAOLA TAVERAS on 03/02/18342 Metronidazole (Flagyl) 500 Mg Tablet, 500 MG PO QID Prescribed by: PAOLA TAVERAS on 02/24/20 011 Naproxen (Naprosyn) 500 Mg Tablet, 500 MG PO BID Prescribed by: LOC MEDINA on 04/13/21 1658 Naproxen Sodium (Aleve) 220 Mg Tablet, 440 MG PO TID PRN for PAIN-MILD, (Reported) Entered as Reported by: CHANDANA CANCINO on 01/18/18 09 Ondansetron (Ondansetron Odt) 4 Mg Tab.rapdis, 4 MG PO Q6H PRN for NAUSEA /VOMITING Prescribed by: LOC MEDINA on 01/14/20 2215 Ondansetron (Ondansetron Odt) 8 Mg Tab.rapdis, 8 MG PO Q6H Prescribed by: PAOLA TAVERAS on 02/24/20 011 Ondansetron (Ondansetron Odt) 8 Mg Tab.rapdis, 8 MG PO Q6H Prescribed by: PAOLA TAVERAS on 09/03/212022 Pramipexole Di-HCl (Pramipexole Dihydrochloride) 0.125 Mg Tablet, 0.125 MG PO HS, (Reported) Entered as Reported by: RITA RACHEL on 11/04/17 011 Pregabalin (Lyrica) 100 Mg Capsule, 100 MG PO BID, (Reported) Entered as Reported by: TREV SANTIAGO on 11/13/16 1031 Promethazine HCl (Promethazine Tablet) 25 Mg Tablet, 25 MG PO Q6H PRN for NAUSEA/VOMITING Prescribed by: JESUSITA DAVIS on 06/03/19 0217 Risperidone (Risperidone) 0.25 Mg Tablet, 0.5 MG PO HS, (Reported) Entered as Reported by: CHANDANA CANCINO on 01/18/18 09 Tizanidine HCl (Tizanidine HCl) 2 Mg Tablet, 4 MG PO HS, (Reported) Entered as Reported by: CHANDANA CANCINO on 01/18/18 09 Tramadol HCl (Tramadol HCl) 50 Mg Tablet, 50 MG PO Q6H PRN for PAIN Prescribed by: JAIME TAMAYO on 10/22/18 1750 Verapamil HCl (Verapamil HCl) 120 Mg Tablet, 120 MG PO HS, (Reported) Entered as Reported by: CHANDANA CANCINO on 01/18/18 09 [z-pack] Prescribed by: OMAR BLOUNT on 01/19/18 1404 Review of Systems Review of Systems Constitutional: see HPI, fever, malaise, weakness EENTM: see HPI, nose congestion Respiratory: see HPI, cough, short of breath Cardiovascular: no symptoms reported Gastrointestinal: no symptoms reported Genitourinary: no symptoms reported Musculoskeletal: see HPI Skin: no symptoms reported Psychiatric/Neurological: No Symptoms Reported Hematologic/Lymphatic: No Symptoms Reported Immunological/Allergic: no symptoms reported Past Atkxqqg-Taxfqh-Fjdztl Hx Patient Social History Tobacco Use?: Yes Smoking Status: Former Smoker Use of E-Cig and/or Vaping dev: Yes E-Cig or Vaping type used: Nicotine Substance use?: Yes Substance type: Marijuana Alcohol Use?: No Pt feels they are or have been: No Immunizations Up To Date Tetanus Booster (TDap): Less than 5yrs PED Vaccines UTD: Yes First/Initial COVID19 Vaccinat: DECLINED Second COVID19 Vaccination Klaus: N/A Third COVID19 Vaccination Date: N/A Seasonal Allergies Seasonal Allergies: Yes Past Medical History Surgery/Hospitalization HX: HTN, HLD, ANXIETY, MANIC ANXIETY, LIVER CIRHOSIS, MIGRAINES, NEUROPATHY, FIBROMYALGA THYROIDECTOMY, GALLBLADDER, EXPLORATORY LAPAROTOMY, 2 C SECTIONS, HYSTERECTOMY,HIATIAL HERNIA, BILATERAL KNEE REPLACEMENT. 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 ) Hypothyroidsim HEENT: No Loss of Vision: Denies Hearing Impairment: Denies Cancer: No Psychosocial: Yes Anxiety, Bipolar, Schizophrenia, Depression Integumentary: Yes Herpes Blood Disorders: Yes (ANEMIA) Adverse Reaction/Blood Tranf: No Family Medical History Cardiovascular disease 19 FATHER Diabetes mellitus 19 FATHER 19 MOTHER FH: mental illness Mental Physical Exam Vital Signs - First Documented 10/29/21 20:20 Temp 36.7 Pulse 77 Resp 14 B/P (MAP) 119/77 (91) Pulse Ox 94 O2 Delivery Room Air Capillary Refill : Less Than 3 Seconds Height: 5'3.00" Weight: 190lbs. 4.0oz. 86.339669zb; 37.00 BMI Method:Stated General Appearance: WD/WN, no apparent distress, other (DOES NOT APPEAR ILL OR TO BE IN ANY DISCOMFORT OR DISTRESS. OCCASIONAL NON-PRODUCTIVE COUGH DURING EXAM, BUT NOT NOTED AT ANY OTHER TIME. ) HEENT: PERRL/EOMI, TMs normal, pharynx normal, other (NASAL CONGESTION AND CLEAR POST NASAL DRAINAGE. 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, no motor/sensory deficits, a lert, normal mood/affect, oriented x 3 Skin: normal color, warm/dry Procedures/Interventions Dental Procedures: block Progress/Results/Core Measures Suspected Sepsis SIRS Temperature: Pulse: 77 Respiratory Rate: 14 Blood Pressure 119 /77 Mean: 91 Results/Orders Lab Results Laboratory Tests Test 10/29/21 20:24 Range/Units Influenza Type A (RT-PCR) Not Detected Not Detecte Influenza Type B (RT-PCR) Not Detected Not Detecte SARS-CoV-2 RNA (RT-PCR) Not Detected Not Detecte My Orders Orders - PAOLA TAVERAS DO Covid 19 Inhouse Test (10/29/21 20:29) Influenza A And B By Pcr (10/29/21 20:29) Isolation Central Supply Req (10/29/21 20:29) Vital Signs/I&O 10/29/21 10/29/21 20:20 22:30 Temp 36.7 36.7 Pulse 77 77 Resp 14 14 B/P (MAP) 119/77 (91) 119/77 Pulse Ox 94 94 O2 Delivery Room Air Room Air Capillary Refill : Less Than 3 Seconds Blood Pressure Mean: 91 Progress Note : Progress Note PPE WORN COVID AND FLU TESTING DONE NO DYSPNEA NO HYPOXIA NO FEVER DURING ER STAY [facility] AND NEED FOR RE-TESTING FOR COVID SPACER SENT HOME WITH PT AND INSTRUCTED ON USE. Departure Impression Primary Impression: COVID LIKE ILLNESS Additional Impression: COPD (chronic obstructive pulmonary disease) Disposition: 01 HOME, SELF-CARE Condition: Stable Departure-Patient Inst. Decision time for Depature: 21:49 Referrals: [facility] (PCP/Family) Primary Care Physician Patient Instructions: COVID-19 Home Care/Discharge, VIRAL RESP ILLNESS-ADULT Add. Discharge Instructions: HOME, REST LOTS OF CLEAR LIQUIDS USE YOUR INHALER WITH SPACER AT ALL TIMES TYLENOL AND MOTRIN NEEDED FOR PAIN OR FEVER OVER THE COUNTER MEDICATIONS NEEDED FOR COUGH AND CONGESTION QUARANTINE YOURSELF AND ALL HOUSEHOLD AND CLOSE CONTACTS, AND FOLLOW UP WITH [facility] IN 2 DAYS TO GET RE-TESTED. All discharge instructions reviewed with patient and/or family. Voiced understanding. Scripts Albuterol Sulfate (PROAIR HFA) 1 Puff Puff 2 PUFF IH Q4H, #1 EA 1 PUFF = 90 MCG Prov: PAOLA TAVERAS DO 10/29/21 PAOLA TAVERAS DO Oct 29, 2021 20:54
[2021-10-29] MEDS ORDERED: RT-ALBUINH IH (21:56)
[2021-10-29 22:30] VITALS: BP 119/77
== END 2021-10-29 22:39 | disposition home or self-care (01) ==
LOC: EDUNIT# 20:01 → ER 20:03
DX: J44.9 Chronic obstructive pulmonary disease, unspecified (principal); Z87.891 Personal history of nicotine dependence; Z20.822 Contact with and (suspected) exposure to COVID-19; Z28.310 Unvaccinated for COVID-19
CPT/HCPCS: 87636

== ENCOUNTER 2022-02-22 19:25 | Emergency (ER) | payer MEDICARE, MEDICAID ==
[~2022-02-22] VITALS: Ht 160 cm; Wt 95.0 kg
[~2022-02-22 19:25] MED LIST changes: +ALBU8.5H6 IH; -DOXY-311 PO; +DOXY-444 PO
--- NOTE | 2022-02-22 19:49 | ED Headache ---
General Chief Complaint: Head/Cervical Problems Stated Complaint: MIGRAINE/VOMITING Nursing Triage Note: Patient advised that she has had a migraine x 3 days that has become progressively worse. She advises previous hx. of migraines and states she took tylenol and pepto at 1500 today. Currently rates her migraine at an 8/10. (JAYLAN LAZAR APRN) History of Present Illness Date Seen by Provider: Feb 22, 2022 Time Seen by Provider: 19:43 Initial Comments Patient is a 46-year-old female who presents to the emergency department for evaluation of a migraine headache that has been present for 3 days. She states the pain has been progressively worsening during that time. She says she has a history of migraines and took some Tylenol today with minimal improvement in symptoms. States her headache is mostly frontal in location. Endorses photophobia. Denies any vision change or significant dizziness. (JAYLAN LAZAR APRN) Allergies and Home Medications Allergies Coded Allergies: niacin (Unverified Allergy, Mild, 05/13/14) Patient Home Medication List Home Medication List Reviewed: Yes (JAYLAN LAZAR APRN) ALPRAZolam (Xanax Tablet) 0.25 Mg Tablet, 0.25 MG PO TID PRN for ANXIETY, (Reported) Entered as Reported by: RITA RACHEL on 11/04/17 0115 Acetazolamide (Acetazolamide) 250 Mg Tablet, 250 MG PO 1200,2100, (Reported) Entered as Reported by: CHANDANA CANCINO on 01/18/18 0901 Acyclovir (Acyclovir) 400 Mg Tablet, 400 MG PO TID, (Reported) Entered as Reported by: IZABEL VELASCO on 04/12/162128 Albuterol Sulfate (Ventolin Hfa) 1 Puff Puff, 2 PUFF IH Q4H Prescribed by: PAOLA TAVERAS on 10/29/21 215 Benzonatate (Tessalon Perles) 100 Mg Capsule, 1-2 TAB PO TID Prescribed by: PAOLA TAVERAS on 03/02/18 034 Budesonide (Pulmicort Flexhaler) 90 Mcg Aer.pow.ba, 90 MCG IH BID Prescribed by: PAOLA TAVERAS on 03/02/18 034 Cefdinir (Cefdinir) 300 Mg Capsule, 300 MG PO BID Prescribed by: OMAR BLOUNT on 01/19/18 1404 Cefdinir (Cefdinir) 300 Mg Capsule, 300 MG PO BID Prescribed by: LOC MEDINA on 01/14/202214 Ciprofloxacin HCl (Ciprofloxacin HCl) 500 Mg Tablet, 500 MG PO BID Prescribed by: PAOLA TAVERAS on 02/24/20110 Cyclobenzaprine HCl (Cyclobenzaprine HCl) 10 Mg Tablet, 10 MG PO TID PRN for MUSCLE SPASMS, (Reported) Entered as Reported by: CHANDANA CANCINO on 01/18/18900 Cyclobenzaprine HCl (Cyclobenzaprine HCl) 10 Mg Tablet, 10 MG PO TID Prescribed by: AMBERLY CABALLERO on 12/23/201939 D-Methorphan Hb/Prometh HCl (Promethazine-Dm Syrup) 118 Ml Syrup, 1-2 TSP PO Q4H Prescribed by: PAOLA TAVERAS on 03/02/18 034 Duloxetine HCl (Duloxetine HCl) 60 Mg Capsule.dr, 60 MG PO BID, (Reported) Entered as Reported by: CHANDANA CANCINO on 01/18/18900 Ezetimibe (Ezetimibe) 10 Mg Tablet, 10 MG PO HS, (Reported) Entered as Reported by: CHANDANA CANCINO on 01/18/18900 Famotidine (Pepcid) 40 Mg Tablet, 40 MG PO DAILY Prescribed by: PAOLA TAVERAS on 02/24/20110 Hydrocodone/Acetaminophen (Hydrocodone-Acetamin 5-325 mg) 1 Each Tablet, 1 EACH PO Q6H PRN for PAIN-BREAKTHROUGH Prescribed by: LOC MEDINA on 01/14/202215 Hyoscyamine Sulfate (Levsin-Sl) 0.125 Mg Tab.subl, 0.25 MG SL Q4H Prescribed by: PAOLA TAVERAS on 02/24/20110 Ibuprofen (Advil) 200 Mg Tablet, 600 MG PO TID PRN for PAIN-MILD, (Reported) Entered as Reported by: CHANDANA CANCINO on 01/18/18906 Ketorolac Tromethamine (Ketorolac Tromethamine) 10 Mg Tablet, 10 MG PO Q6H Prescribed by: PAOLA TAVERAS on 09/03/212022 Levofloxacin (Levaquin) 500 Mg Tablet, 500 MG PO DAILY Prescribed by: PAOLA TAVERAS on 03/02/18 0343 Levothyroxine Sodium (Levothyroxine Sodium) 112 Mcg Tablet, 1,125 MCG PO HS, (Reported) Entered as Reported by: CHANDANA CANCINO on 01/18/18 0901 Meloxicam (Meloxicam) 15 Mg Tablet, 15 MG PO DAILY Prescribed by: AMBERLY CABALLERO on 12/23/20 194 Methylprednisolone (Medrol) 4 Mg Tab.ds.pk, 4 MG PO UD Prescribed by: PAOLA TAVERAS on 03/02/18 034 Metronidazole (Flagyl) 500 Mg Tablet, 500 MG PO QID Prescribed by: PAOLA TAVERAS on 02/24/20 011 Naproxen (Naprosyn) 500 Mg Tablet, 500 MG PO BID Prescribed by: LOC MEDINA on 04/13/21 1658 Naproxen Sodium (Aleve) 220 Mg Tablet, 440 MG PO TID PRN for PAIN-MILD, (Reported) Entered as Reported by: CHANDANA CANCINO on 01/18/18 0907 Ondansetron (Ondansetron Odt) 4 Mg Tab.rapdis, 4 MG PO Q6H PRN for NAUSEA/VOMITING Prescribed by: LOC MEDINA on 01/14/20 2215 Ondansetron (Ondansetron Odt) 8 Mg Tab.rapdis, 8 MG PO Q6H Prescribed by: PAOLA TAVERAS on 02/24/20 011 Ondansetron (Ondansetron Odt) 8 Mg Tab.rapdis, 8 MG PO Q6H Prescribed by: PAOLA TAVERAS on 09/03/212022 Pramipexole Di-HCl (Pramipexole Dihydrochloride) 0.125 Mg Tablet, 0.125 MG PO HS, (Reported) Entered as Reported by: RITA RACHEL on 11/04/17 011 Pregabalin (Lyrica) 100 Mg Capsule, 100 MG PO BID, (Reported) Entered as Reported by: TREV SANTIAGO on 11/13/16 1031 Prochlorperazine Maleate (Prochlorperazine Maleate) 10 Mg Tablet, 10 MG PO TID PRN for HEADACHE Prescribed by: Jaylan Lazar on 02/22/22 2111 Promethazine HCl (Promethazine Tablet) 25 Mg Tablet, 25 MG PO Q6H PRN for NAUSEA/VOMITING Prescribed by: JESUSITA DAVIS on 06/03/19 0217 Risperidone (Risperidone) 0.25 Mg Tablet, 0.5 MG PO HS, (Reported) Entered as Reported by: CHANDANA CANCINO on 01/18/18 09 Tizanidine HCl (Tizanidine HCl) 2 Mg Tablet, 4 MG PO HS, (Reported) Entered as Reported by: CHANDANA CANCINO on 01/18/18 09 Tramadol HCl (Tramadol HCl) 50 Mg Tablet, 50 MG PO Q6H PRN for PAIN Prescribed by: JAIME TAMAYO on 10/22/18 1750 Verapamil HCl (Verapamil HCl) 120 Mg Tablet, 120 MG PO HS, (Reported) Entered as Reported by: CHANDANA CANCINO on 01/18/18 09 [z-pack] Prescribed by: OMAR BLOUNT on 01/19/18 1404 Review of Systems Review of Systems Constitutional: no symptoms reported Eyes: No Symptoms Reported Ears, Nose, Mouth, Throat: no symptoms reported Respiratory: no symptoms reported Cardiovascular: no symptoms reported Gastrointestinal: no symptoms reported Genitourinary: no symptoms reported Musculoskeletal: no symptoms reported Skin: no symptoms reported Psychiatric/Neurological: See HPI, Headache (JAYLAN LAZAR APRN) Past Qnnhipo-Gkpoap-Bdkrgm Hx Patient Social History Tobacco Use?: Yes Tobacco type used: Cigarettes Smoking Status: Current Everyday Smoker Substance use?: No Alcohol Use?: No (JAYLAN LAZAR APRN) Immunizations Up To Date Tetanus Booster (TDap): Less than 5yrs PED Vaccines UTD: Yes First/Initial COVID19 Vaccinat: DECLINED Second COVID19 Vaccination Klaus: N/A Third COVID19 Vaccination Date: N/A (JAYLAN LAZAR APRN) Seasonal Allergies Seasonal Allergies: Yes (JAYLAN LAZAR APRN) Past Medical History Surgery/Hospitalization HX: HTN, HLD, ANXIETY, MANIC ANXIETY, LIVER CIRHOSIS, MIGRAINES, NEUROPATHY, FIBROMYALGA THYROIDECTOMY, GALLBLADDER, EXPLORATORY LAPAROTOMY, 2 C SECTIONS, HYSTERECTOMY,HIATIAL HERNIA, BILATERAL KNEE REPLACEMENT. Surgeries: Yes (EXPLORATORY LAP;HIATAL HERNIA REPAIR;HYST/BSO;VENTRAL HERNIA REPAIR;L KNEE ) Abdominal, Section, Gallbladder, Hysterectomy, Oophorectomy, Orthopedic, Thyroidectomy Respiratory: Yes Pneumonia, Chronic Bronchitis, COPD Currently Using CPAP: No Currently Using BIPAP: No Cardiac: Yes (MITRAL VALVE PROLAPSE) High Cholesterol, Hypertension, Irregular Heartbeat, Valvular Heart Disease Neurological: Yes (PERIPHERAL NEUROPATHY-LEGS/FEET/HANDS) Headaches /Migraines, Neuropathy Reproductive Disorders: Yes Female Reproductive Disorders: Denies, Menstrual Problems [employer] 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 Sexually Transmitted Disease: Yes (HERPES) HIV/AIDS: No Genitourinary: No Gastrointestinal: Yes (ELEVATED LFT'S; S/P HIATAL AND VENTRAL HERNIA REPAIRS) Abdominal Hernia, Gastroesophageal Reflux, Liver Disease/Jaundice, Hiatal Hernia, Cirrhosis Musculoskeletal: Yes (LEFT KNEE SCOPE) Arthritis, Fibromyalgia, Chronic Back Pain Endocrine: Yes (THYROIDECTOMY FOR GOITER. ) Hypothyroidsim HEENT: No Loss of Vision: Denies Hearing Impairment: Denies Cancer: No Psychosocial: Yes Anxiety, Bipolar, Schizophrenia, Depression Integumentary: Yes Herpes Blood Disorders: Yes (ANEMIA) Adverse Reaction/Blood Tranf: No (JAYLAN LAZAR APRN) Family Medical History Cardiovascular disease 19 FATHER Diabetes mellitus 19 FATHER 19 MOTHER FH: mental illness Mental Physical Exam Vital Signs Vital Signs - First Documented 02/22/22 19:43 Temp 36.4 Pulse 73 Resp 18 B/P (MAP) 139/82 (101) Pulse Ox 98 O2 Delivery Room Air ([place],PAOLA K DO) Vital Signs Capillary Refill : Less Than 3 Seconds (JAYLAN LAZAR APRN) Height, Weight, BMI Height: 5'3.00" Weight: 190lbs. 4.0oz. 86.323329rl; 37.00 BMI Method:Stated General Appearance: WD/WN, no apparent distress HEENT: PERRL/EOMI, normal ENT inspection, TMs normal, pharynx normal Neck: non-tender, full range of motion, supple, normal inspection Cardiovascular: regular rate, rhythm Respiratory: chest non-tender, lungs clear, normal breath sounds, no respiratory distress, no accessory muscle use Gastrointestinal: normal bowel sounds, non tender, soft Extremities: normal range of motion, non-tender, normal inspection, no pedal edema, no calf tenderness Skin: normal color, warm/dry (JAYLAN LAZAR APRN) Procedures/Interventions Dental Procedures: block (JAYLAN LAZAR APRN) Progress/Results/Core Measures Results/Orders Lab Results Laboratory Tests Test 02/22/22 19:57 Range/Units Influenza Type A (RT-PCR) Not Detected Not Detecte Influenza Type B (RT-PCR) Not Detected Not Detecte SARS-CoV-2 RNA (RT-PCR) Not Detected Not Detecte (PAOLA TAVERAS DO) My Orders Orders - PAOLA ATVERAS DO Covid 19 Inhouse Test (02/22/22 19:43) Influenza A And B By Pcr (02/22/22 19:43) Isolation Central Supply Req (02/22/22 19:43) (PAOLA TAVERAS DO) Medications Given in ED Current Medications Medications Dose Ordered Sig/Emeka Route Start Time Stop Time Status Last Admin Dose Admin Diphenhydramine HCl 25 mg ONCE ONCE IVP 02/22/22 20:00 02/22/22 20:01 DC 02/22/22 19:53 25 MG Ketorolac Tromethamine 15 mg ONCE ONCE IVP 02/22/22 20:00 02/22/22 20:01 DC 02/22/22 19:54 15 MG Prochlorperazine Edisylate 10 mg ONCE ONCE IV 02/22/22 20:00 02/22/22 20:01 DC 02/22/22 19:54 10 MG (PAOLA TAVERAS DO) Vital Signs/I&O 02/22/22 02/22/22 19:43 21:16 Temp 36.4 Pulse 73 74 Resp 18 18 B/P (MAP) 139/82 (101) 109/78 Pulse Ox 98 96 O2 Delivery Room Air Room Air (PAOLA TAVERAS DO) Blood Pressure Mean: 101 Progress Progress Note : Progress Note Patient is nontoxic and well-hydrated on exam. No focal neurologic deficits appreciated. She is awake alert and orient answers all questions appropriately. Extraocular meds are intact. Pupils reground reactive to light. No obvious cerebellar dysfunction with intact ceph-eb-iyym and nose to finger. Patient was amatory to the room without issue. She was given a migraine cocktail consisting of ketorolac, Compazine, and Benadryl. She had moderate improvement in symptoms thereafter. She states she is ready to go home. Upon further discussion she st ates she was diagnosed in the past with idiopathic intracranial hypertension. She states she was unable to tolerate Diamox but did have an LP that led to resolution of her headaches for several months. She states she has not seen her neurologist "for a long time". States she used to be on preventative migraine medicines as well as abortive migraine medicines but has not been on either for quite a while. Discussed importance of close follow-up with PCP for discussion of possible pharmacologic therapies to prevent/treat her migraines. No indication for further diagnostic testing at this time. Will discharge home with recommendations for supportive care and close follow-up with PCP. Return precautions for urgent symptomology discussed. Patient verbalized understanding. (JAYLAN LAZAR APRN) Departure Impression Primary Impression: Migraine Qualified Codes: G43.901 - Migraine, unspecified, not intractable, with s tatus migrainosus Disposition: 01 HOME, SELF-CARE Condition: Stable Departure-Patient Inst. Decision time for Depature: 21:10 (JAYLAN LAZAR APRN) Referrals: [facility] (PCP/Family) Primary Care Physician Patient Instructions: Migraines (DC) Scripts Prochlorperazine Maleate (Prochlorperazine Maleate) 10 Mg Tablet 10 MG PO TID PRN for HEADACHE, #12 TAB 0 Refills Prov: JAYLAN LAZAR APRN 02/22/22 ATTENDING PHYSICIAN NOTE: I WAS PHYSICALLY PRESENT ER PHYSICIAN, BUT I WAS NOT INVOLVED IN ANY DECISION MAKING OR ANY CARE OF THIS PATIENT, AND I AM NOT COLLABORATING PHYSICIAN. (PAOLA TAVERAS DO) JAYLAN LAZAR APRN Feb 22, 2022 19:48 PAOLA TAVERAS DO Feb 23, 2022 01:43
[2022-02-22] MEDS ORDERED: KETOROLAC 15 MG/ML VIAL IVP ONE (20:00)
[2022-02-22] MEDS ORDERED: LACTATED RINGERS 1,000 ML IV SCH (20:00)
[2022-02-22] MEDS ORDERED: diphenhydrAMINE 50 MG/ML INJ (BENADRYL) IVP ONE (20:00)
[2022-02-22] MEDS ORDERED: PROCHLORPERAZINE 10 MG/2ML INJ (COMPAZINE) IV ONE (20:00)
[2022-02-22] MEDS ORDERED: PROC10TA10 PO (21:11)
[2022-02-22 21:16] VITALS: BP 109/78
== END 2022-02-22 21:18 | disposition home or self-care (01) ==
LOC: EDUNIT# 19:25 → ER 19:27
DX: G43.909 Migraine, unspecified, not intractable, without status migrainosus (principal); F17.210 Nicotine dependence, cigarettes, uncomplicated; Z28.310 Unvaccinated for COVID-19; Z20.822 Contact with and (suspected) exposure to COVID-19
CPT/HCPCS: 87636; 99283

== ENCOUNTER 2022-03-24 20:34 | Emergency (ER) | payer MEDICARE, MEDICAID ==
[~2022-03-24] VITALS: Ht 160 cm; Wt 90.7 kg
[~2022-03-24 20:34] MED LIST changes: -POTA10CA43 PO; +POTA10CA44 PO; +PROC10TA10 PO
--- NOTE | 2022-03-24 20:59 | ED Headache ---
General Chief Complaint: Head/Cervical Problems Stated Complaint: MIGRAINE Nursing Triage Note: PT AMB TO RM 5 W C/O MIGRAINE AND NAUSEA X3 DAYS, A&OX4. (CHARBEL DE LA CRUZ) History of Present Illness Date Seen by Provider: Mar 24, 2022 Time Seen by Provider: 20:35 Initial Comments 46yo F with h/o migraines and liver cirrhosis presents to the ED for migraine that started 3 days. Pt states that CHAN is similar to her other migraines, starting 3 days ago. Pt rates CHAN a 7-810 and states it's been constant since onset. Normal at home interventions were not successful for relief, pt states that she tried taking anti-emetics and tylenol at 5pm today and had no relief. Pt has associated nausea, photophobia, and phonophobia. Pt also notes some burning periumbilical abd pain that started a few weeks ago and states that she feels it might be a hernia. Pt denies fever, chills, cough, changes in BMs, and urinary symptoms. (CHARBEL DE LA CRUZ) Initial Comments I have seen and evaluated the patient personally. I agree with history and physical as documented. All edits made by me. (GENARO SOLOMON DO) Allergies and Home Medications Allergies Coded Allergies: niacin (Unverified Allergy, Mild, 05/13/14) Patient Home Medication List Home Medication List Reviewed: Yes (CHARBEL DE LA CRUZ) ALPRAZolam (Xanax Tablet) 0.25 Mg Tablet, 0.25 MG PO TID PRN for ANXIETY, (Reported) Entered as Reported by: RITA RACHEL on 11/04/17 0115 Acetazolamide (Acetazolamide) 250 Mg Tablet, 250 MG PO 1200,2100, (Reported) Entered as Reported by: CHANDANA CANCINO on 01/18/18 0901 Acyclovir (Acyclovir) 400 Mg Tablet, 400 MG PO TID, (Reported) Entered as Reported by: IZABEL VELASCO on 04/12/162128 Albuterol Sulfate (Ventolin Hfa) 1 Puff Puff, 2 PUFF IH Q4H Prescribed by: PAOLA TAVERAS on 10/29/21 215 Benzonatate (Tessalon Perles) 100 Mg Capsule, 1-2 TAB PO TID Prescribed by: PAOLA TAVERAS on 03/02/18342 Budesonide (Pulmicort Flexhaler) 90 Mcg Aer.pow.ba, 90 MCG IH BID Prescribed by: PAOLA TAVERAS on 03/02/18342 Cefdinir (Cefdinir) 300 Mg Capsule, 300 MG PO BID Prescribed by: OMAR BLOUNT on 01/19/18 1404 Cefdinir (Cefdinir) 300 Mg Capsule, 300 MG PO BID Prescribed by: LOC MEDINA on 01/14/202214 Ciprofloxacin HCl (Ciprofloxacin HCl) 500 Mg Tablet, 500 MG PO BID Prescribed by: PAOLA TAVERAS on 02/24/20110 Cyclobenzaprine HCl (Cyclobenzaprine HCl) 10 Mg Tablet, 10 MG PO TID PRN for MUSCLE SPASMS, (Reported) Entered as Reported by: CHANDANA CANCINO on 01/18/18900 Cyclobenzaprine HCl (Cyclobenzaprine HCl) 10 Mg Tablet, 10 MG PO TID Prescribed by: AMBERLY CABALLERO on 12/23/201939 D-Methorphan Hb/Prometh HCl (Promethazine-Dm Syrup) 118 Ml Syrup, 1-2 TSP PO Q4H Prescribed by: APOLA TAVERAS on 03/02/18342 Duloxetine HCl (Duloxetine HCl) 60 Mg Capsule.dr, 60 MG PO BID, (Reported) Entered as Reported by: CHANDANA CANCINO on 01/18/18900 Ezetimibe (Ezetimibe) 10 Mg Tablet, 10 MG PO HS, (Reported) Entered as Reported by: CHANDANA CANCINO on 01/18/18900 Famotidine (Pepcid) 40 Mg Tablet, 40 MG PO DAILY Prescribed by: PAOLA TAVERAS on 02/24/20110 Hydrocodone/Acetaminophen (Hydrocodone-Acetamin 5-325 mg) 1 Each Tablet, 1 EACH PO Q6H PRN for PAIN-BREAKTHROUGH Prescribed by: LOC MEDINA on 01/14/202215 Hyoscyamine Sulfate (Levsin-Sl) 0.125 Mg Tab.subl, 0.25 MG SL Q4H Prescribed by: PAOLA TAVERAS on 02/24/20110 Ibuprofen (Advil) 200 Mg Tablet, 600 MG PO TID PRN for PAIN-MILD, (Reported) Entered as Reported by: CHANDANA CANCINO on 01/18/18906 Ketorolac Tromethamine (Ketorolac Tromethamine) 10 Mg Tablet, 10 MG PO Q6H Prescribed by: PAOLA TAVERAS on 09/03/212022 Levofloxacin (Levaquin) 500 Mg Tablet, 500 MG PO DAILY Prescribed by: PAOLA TAVERAS on 03/02/18342 Levothyroxine Sodium (Levothyroxine Sodium) 112 Mcg Tablet, 1,125 MCG PO HS, (Reported) Entered as Reported by: CHANDANA CANCINO on 01/18/18900 Meloxicam (Meloxicam) 15 Mg Tablet, 15 MG PO DAILY Prescribed by: AMBERLY CABALLERO on 12/23/201939 Methylprednisolone (Medrol) 4 Mg Tab.ds.pk, 4 MG PO UD Prescribed by: PAOLA TAVERAS on 03/02/18342 Metronidazole (Flagyl) 500 Mg Tablet, 500 MG PO QID Prescribed by: PAOLA TAVERAS on 02/24/20 011 Naproxen (Naprosyn) 500 Mg Tablet, 500 MG PO BID Prescribed by: LCO MEDINA on 04/13/21 165 Naproxen Sodium (Aleve) 220 Mg Tablet, 440 MG PO TID PRN for PAIN-MILD, (Repor abiel) Entered as Reported by: CHANDANA CANCINO on 01/18/18906 Ondansetron (Ondansetron Odt) 4 Mg Tab.rapdis, 4 MG PO Q6H PRN for NAUSEA/VOMITING Prescribed by: LOC MEDINA on 01/14/20 2215 Ondansetron (Ondansetron Odt) 8 Mg Tab.rapdis, 8 MG PO Q6H Prescribed by: PAOLA TAVERAS on 02/24/20110 Ondansetron (Ondansetron Odt) 8 Mg Tab.rapdis, 8 MG PO Q6H Prescribed by: PAOLA TAVERAS on 09/03/212022 Pramipexole Di-HCl (Pramipexole Dihydrochloride) 0.125 Mg Tablet, 0.125 MG PO HS, (Reported) Entered as Reported by: RITA RACHEL on 11/04/17114 Pregabalin (Lyrica) 100 Mg Capsule, 100 MG PO BID, (Reported) Entered as Reported by: TREV SANTIAGO on 11/13/16 1031 Prochlorperazine Maleate (Prochlorperazine Maleate) 10 Mg Tablet, 10 MG PO TID PRN for HEADACHE Prescribed by: Jaylan Lazar on 02/22/22 2111 Promethazine HCl (Promethazine Tablet) 25 Mg Tablet, 25 MG PO Q6H PRN for NAUSEA/VOMITING Prescribed by: JESUSITA DAVIS on 06/03/19 0217 Risperidone (Risperidone) 0.25 Mg Tablet, 0.5 MG PO HS, (Reported) Entered as Reported by: CHANDANA CANCINO on 01/18/18 0901 Tizanidine HCl (Tizanidine HCl) 2 Mg Tablet, 4 MG PO HS, (Reported) Entered as Reported by: CHANDANA CANCINO on 01/18/18 0901 Tramadol HCl (Tramadol HCl) 50 Mg Tablet, 50 MG PO Q6H PRN for PAIN Prescribed by: JAIME TAMAYO on 10/22/18 1750 Verapamil HCl (Verapamil HCl) 120 Mg Tablet, 120 MG PO HS, (Reported) Entered as Reported by: CHANDANA CANCINO on 01/18/18 0901 [z-pack] Prescribed by: OMAR BLOUNT on 01/19/18 1404 Review of Systems Review of Systems Constitutional: No chills, No fever Eyes: Photophobia Ears, Nose, Mouth, Throat: no symptoms reported Respiratory: no symptoms reported Cardiovascular: no symptoms reported Gastrointestinal: abdominal pain (periumbilical ), nausea; No vomiting Genitourinary: No dysuria, No hematuria Musculoskeletal: no symptoms reported Skin: no symptoms reported Psychiatric/Neurological: No Symptoms Reported (CHARBEL DE LA CRUZ) Past Hnhlqrz-Wqteaj-Bkjnoy Hx Patient Social History Tobacco Use?: Yes Tobacco type used: Cigarettes Smoking Status: Current Everyday Smoker Use of E-Cig and/or Vaping dev: Yes E-Cig or Vaping type used: Nicotine Use of E-Cig and/or Vaping Tyree: Current Everyday User Substance use?: Yes Substance type: Marijuana Alcohol Use?: No (CHARBEL DE LA CRUZ) Immunizations Up To Date Tetanus Booster (TDap): Less than 5yrs PED Vaccines UTD: Yes Influenza Vaccine Up-to-Date: No; Not Current First/Initial COVID19 Vaccinat: N/A Second COVID19 Vaccination Klaus: N/A Third COVID19 Vaccination Date: N/A COVID19 Vaccine Doping Supervisor: N/A (CHARBEL DE LA CRUZ) Seasonal Allergies Seasonal Allergies: Yes (CHARBEL DE LA CRUZ) Past Medical History Surgery/Hospitalization HX: HTN, HLD, ANXIETY, MANIC ANXIETY, LIVER CIRRHOSIS, MIGRAINES, NEUROPATHY, FIBROMYALGA THYROIDECTOMY, GALLBLADDER, EXPLORATORY LAPAROTOMY, 2 C SECTIONS, HYSTERECTOMY, HIATIAL HERNIA, BILATERAL KNEE REPLACEMENT. 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 ) Hypothyroidsim HEENT: No Loss of Vision: Denies Hearing Impairment: Denies Cancer: No Psychosocial: Yes Anxiety, Bipolar, Schizophrenia, Depression Integumentary: Yes Herpes Blood Disorders: Yes (ANEMIA) Adverse Reaction/Blood Tranf: No (CHARBEL DE LA CRUZ) Family Medical History Cardiovascular disease 19 FATHER Diabetes mellitus 19 FATHER 19 MOTHER FH: mental illness Mental Physical Exam Vital Signs Vital Signs - First Documented 03/24/22 20:40 Temp 36.2 Pulse 79 Resp 22 B/P (MAP) 136/84 (101) Pulse Ox 96 O2 Delivery Room Air (NEHA,GENARO L DO) Vital Signs Capillary Refill : Less Than 3 Seconds (CHARBEL DE LA CRUZ) Height, Weight, BMI Height: 5'3.00" Weight: 190lbs. 4.0oz. [id number]; 35.00 BMI Method:Stated General Appearance: no apparent distress, obese HEENT: PERRL/EOMI, pharynx normal Neck: non-tender, supple Cardiovascular: regular rate, rhythm, no murmur Respiratory: no respiratory distress, no accessory muscle use, crackles (b/l diffuse) Gastrointestinal: soft, tenderness (some tenderness over RUQ (pt states this is chronic), and periumbilical); No hernia Back: no CVA tenderness, no vertebral tenderness Extremities: no pedal edema, no calf tenderness Psychiatric: alert, oriented x 3 Crainal Nerves: normal hearing, normal speech, PERRL Motor/Sensory: no motor deficit, no sensory deficit Skin: normal color, warm/dry (CHARBEL DE LA CRUZ) Procedures/Interventions Dental Procedures: block (CHARBEL DE LA CRUZ) Progress/Results/Core Measures Results/Orders My Orders Orders - GENARO SOLOMON DO Prochlorperazine Injection (Compazine In (03/24/22 21:00) Diphenhydramine Injection (Benadryl Inje (03/24/22 21:00) (GENARO SOLOMON DO) Medications Given in ED Current Medications Medications Dose Ordered Sig/Emeka Route Start Time Stop Time Status Last Admin Dose Admin Diphenhydramine HCl 50 mg ONCE ONCE IM 03/24/22 21:00 03/24/22 21:01 DC 03/24/22 21:06 50 MG Prochlorperazine Edisylate 10 mg ONCE ONCE IM 03/24/22 21:00 03/24/22 21:01 DC 03/24/22 21:06 10 MG (GENARO SOLOMON DO) Vital Signs/I&O 03/24/22 20:40 Temp 36.2 Pulse 79 Resp 22 B/P (MAP) 136/84 (101) Pulse Ox 96 O2 Delivery Room Air (GENARO SOLOMON DO) Blood Pressure Mean: 101 Departure Communication (Admissions) Hemodynamically stable with no red flag symptoms related to headaches. She states his symptoms are typical migraine headaches starting in the back of her head. This morning is normal for her on her head she has no red flag symptoms such as upper or lower extremity weakness numbness tingling, dysarthria or changes in vision. She does have significant nausea which is usually a component of migraines as well. This is improved with the provided medicines here. She does have what she believes to be a hernia. There is no evidence for incarceration or strangulation at this time. She is having normal bowel movements for her. She does struggle with chronic constipation type issues. She states her symptoms feel better and she is comfortable going home to rest at this time. She is discharged in stable condition. (GENARO SOLOMON DO) Impression Primary Impression: Migraine Disposition: 01 HOME, SELF-CARE Condition: Stable Departure-Patient Inst. Referrals: [facility] (PCP/Family) Primary Care Physician Patient Instructions: Migraines (DC) Add. Discharge Instructions: He was seen in the emergency department today for what you have described as her typical migraine headache. You have indicated your symptoms are improving. Please rest at home, use medications as previously prescribed. Return to the emergency department for any severe concerns All discharge instructions reviewed with patient and/or family. Voiced understanding. CHARBEL DE LA CRUZ Mar 24, 2022 20:59 GENARO SOLOMON DO Mar 24, 2022 21:37
[2022-03-24] MEDS ORDERED: PROCHLORPERAZINE 10 MG/2ML INJ (COMPAZINE) IM ONE (21:00)
[2022-03-24] MEDS ORDERED: diphenhydrAMINE 50 MG/ML INJ (BENADRYL) IM ONE (21:00)
[2022-03-24 21:41] VITALS: BP 130/85
== END 2022-03-24 21:41 | disposition home or self-care (01) ==
LOC: EDUNIT# 20:34 → ER 20:36
DX: G43.909 Migraine, unspecified, not intractable, without status migrainosus (principal); F17.210 Nicotine dependence, cigarettes, uncomplicated; Z28.310 Unvaccinated for COVID-19
CPT/HCPCS: 99284

== ENCOUNTER 2022-06-02 21:10 | Emergency (ER) | payer MEDICARE, MEDICAID ==
[~2022-06-02] VITALS: Ht 160 cm; Wt 95.3 kg
[~2022-06-02 21:10] MED LIST changes: +LIDO15SO6 MM; -LIDO20SO23 MM
[2022-06-02] MEDS ORDERED: ONDANSETRON 4 MG/2 ML (SDV) Z0FRAN IVP ONE (21:30)
[2022-06-02] MEDS ORDERED: KETOROLAC 30 MG/ML VIAL IVP ONE (21:30)
[2022-06-02] MEDS ORDERED: LACTATED RINGERS 1,000 ML IV ONE (21:30)
--- NOTE | 2022-06-02 21:32 | ED General ---
General Chief Complaint: Cough/Cold/Flu Symptoms Stated Complaint: VOMITING/HEADACHE Nursing Triage Note: PT AMB TO ED BY POV WITH C/O COUGH, CHAN, VOMITING. PT REPORTS SHE HAS HAD INTERMITTENT VOMITING X 2 WEEKS, PRODUCTIVE COUGH AND CHAN X3-4 DAYS. PT REPORTS SHE WAS SEEN AT [facility] TODAY AND GIVEN ZOFRAN, Z PACK, AND TESSALON PEARLS. Source of Information: Patient, Old Records History of Present Illness Date Seen by Provider: Jun 02, 2022 Time Seen by Provider: 21:21 Initial Comments PT ARRIVES VIA POV FROM HOME WITH MALE PT STATES SHE HAS BEEN SICK FOR THE LAST 3 DAYS WITH: -PRODUCTIVE COUGH WITH OCCASIONAL GREEN SPUTUM -CHEST AND NASAL CONGESTION -FRONTAL HEADACHE--HAS HISTORY OF MIGRAINES -LOW GRADE FEVER UP TO 99.7 -BODY ACHES -FATIGUE ADDITIONALLY, SHE HAS HAD NAUSEA AND VOMITING OFF AND ON X 2 WEEKS SHE HAS VOMITED X 2 TODAY NO DIARRHEA--SHE IS CHRONICALLY CONSTIPATED, LAST BM WAS 4 DAYS AGO--NORMAL FOR PT. SHE TOOK A DOSE OF MIRALAX YESTERDAY, OTHERWISE HAS NOT TAKEN ANYTHING ELSE FOR CONSTIPATION. NO ABDOMINAL PAIN SHE HAS VOIDED X 3 TODAY, LAST VOID JUST PRIOR TO ARRIVAL. SHE NORMALLY URINATES MORE FREQUENTLY. NO PAIN OR DISCOMFORT ON URINATION. SHE HAS BEEN DRINKING SODA / POP ALL DAY TODAY--AT LEAST 64 OZ SHE ATE [employer] AROUND 1830 TONIGHT. STATES THE KIDS ARE ALL SICK WITH COUGHS/COLDS PT IS NOT COVID OR FLU VACCINATED. SHE WENT TO [facility] THIS AFTERNOON AROUND 1600 FOR THIS PROBLEM. SHE STATES NO TESTS WERE DONE, BUT WAS PRESCRIBED A "Z-PACK", ZOFRAN AND TESSALON SHE TOOK THEM AROUND 1830 TONIGHT, SHE STATES NO RELIEF, SO SHE CAME HERE. SHE TOOK TYLENOL AT 1600 TODAY PT HAS A MULTITUDE OF VISITS HERE FOR VARIOUS COMPLAINTS. SHE HAS FIBROMYALGIA, MIGRAINES, CIRRHOSIS, NEUROPATHY AND CHRONIC GENERALIZED PAIN, HYPOTHYROIDISM, HYPERTENSION AND HYPERLIPIDEMIA SHE CONTINUES TO SMOKE REGULAR CIGARETTES WELL MARIJUANA PCP: [facility] Allergies and Home Medications Allergies Coded Allergies: niacin (Unverified Allergy, Mild, 05/13/14) Patient Home Medication List Home Medication List Reviewed: Yes ALPRAZolam (Xanax Tablet) 0.25 Mg Tablet, 0.25 MG PO TID PRN for ANXIETY, ( Reported) Entered as Reported by: RITA RACHEL on 11/04/17 0115 Acetazolamide (Acetazolamide) 250 Mg Tablet, 250 MG PO 1200,2100, (Reported) Entered as Reported by: CHANDANA CANCINO on 01/18/18 09 Acyclovir (Acyclovir) 400 Mg Tablet, 400 MG PO TID, (Reported) Entered as Reported by: IZABEL VELASCO on 04/12/162128 Albuterol Sulfate (Ventolin Hfa) 1 Puff Puff, 2 PUFF IH Q4H Prescribed by: PAOLA TAVERAS on 10/29/21 215 Benzonatate (Tessalon Perles) 100 Mg Capsule, 1-2 TAB PO TID Prescribed by: PAOLA TAVERAS on 03/02/18 034 Budesonide (Pulmicort Flexhaler) 90 Mcg Aer.pow.ba, 90 MCG IH BID Prescribed by: PAOLA TAVERAS on 03/02/18 034 Cefdinir (Cefdinir) 300 Mg Capsule, 300 MG PO BID Prescribed by: OMAR BLOUNT on 01/19/18 1404 Cefdinir (Cefdinir) 300 Mg Capsule, 300 MG PO BID Prescribed by: LOC MEDINA on 01/14/20 2215 Ciprofloxacin HCl (Ciprofloxacin HCl) 500 Mg Tablet, 500 MG PO BID Prescribed by: PAOLA TAVERAS on 02/24/20 011 Cyclobenzaprine HCl (Cyclobenzaprine HCl) 10 Mg Tablet, 10 MG PO TID PRN for MUSCLE SPASMS, (Reported) Entered as Reported by: CHANDANA CANCINO on 01/18/18900 Cyclobenzaprine HCl (Cyclobenzaprine HCl) 10 Mg Tablet, 10 MG PO TID Prescribed by: AMBERLY CABALLERO on 12/23/20 194 D-Methorphan Hb/Prometh HCl (Promethazine-Dm Syrup) 118 Ml Syrup, 1-2 TSP PO Q4H Prescribed by: PAOLA TAVERAS on 03/02/18 034 Duloxetine HCl (Duloxetine HCl) 60 Mg Capsule.dr, 60 MG PO BID, (Reported) Entered as Reported by: CHANDANA CANCINO on 01/18/18 09 Ezetimibe (Ezetimibe) 10 Mg Tablet, 10 MG PO HS, (Reported) Entered as Reported by: CHANDANA CANCINO on 01/18/18900 Famotidine (Pepcid) 40 Mg Tablet, 40 MG PO DAILY Prescribed by: PAOLA TAVERAS on 02/24/20110 Hydrocodone/Acetaminophen (Hydrocodone-Acetamin 5-325 mg) 1 Each Tablet, 1 EACH PO Q6H PRN for PAIN-BREAKTHROUGH Prescribed by: LOC MEDINA on 01/14/202215 Hyoscyamine Sulfate (Levsin-Sl) 0.125 Mg Tab.subl, 0.25 MG SL Q4H Prescribed by: PAOLA TAVERAS on 02/24/20110 Ibuprofen (Advil) 200 Mg Tablet, 600 MG PO TID PRN for PAIN-MILD, (Reported) Entered as Reported by: CHANDANA CANCINO on 01/18/18906 Ketorolac Tromethamine (Ketorolac Tromethamine) 10 Mg Tablet, 10 MG PO Q6H Prescribed by: PAOLA TAVERAS on 09/03/212022 Levofloxacin (Levaquin) 500 Mg Tablet, 500 MG PO DAILY Prescribed by: PAOLA TAVERAS on 03/02/18342 Levothyroxine Sodium (Levothyroxine Sodium) 112 Mcg Tablet, 1,125 MCG PO HS, (Reported) Entered as Reported by: CHANDANA CANCINO on 01/18/18900 Meloxicam (Meloxicam) 15 Mg Tablet, 15 MG PO DAILY Prescribed by: AMBERLY CABALLERO on 12/23/201939 Methylprednisolone (Medrol) 4 Mg Tab.ds.pk, 4 MG PO UD Prescribed by: PAOLA TAVERAS on 03/02/18342 Metronidazole (Flagyl) 500 Mg Tablet, 500 MG PO QID Prescribed by: PAOLA TAVERAS on 02/24/20110 Naproxen (Naprosyn) 500 Mg Tablet, 500 MG PO BID Prescribed by: LOC MEDINA on 04/13/21 165 Naproxen Sodium (Aleve) 220 Mg Tablet, 440 MG PO TID PRN for PAIN-MILD, (Reported) Entered as Reported by: CHANDANA CANCINO on 01/18/18906 Ondansetron (Ondansetron Odt) 4 Mg Tab.rapdis, 4 MG PO Q6H PRN for NAUSEA/VOMITING Prescribed by: LOC MEDINA on 01/14/20 2215 Ondansetron (Ondansetron Odt) 8 Mg Tab.rapdis, 8 MG PO Q6H Prescribed by: PAOLA TAVERAS on 02/24/20 011 Ondansetron (Ondansetron Odt) 8 Mg Tab.rapdis, 8 MG PO Q6H Prescribed by: PAOLA TAVERAS on 09/03/212022 Pramipexole Di-HCl (Pramipexole Dihydrochloride) 0.125 Mg Tablet, 0.125 MG PO HS, (Reported) Entered as Reported by: RITA RACHEL on 11/04/17 011 Pregabalin (Lyrica) 100 Mg Capsule, 100 MG PO BID, (Reported) Entered as Reported by: TREV SANTIAGO on 11/13/16 1031 Prochlorperazine Maleate (Prochlorperazine Maleate) 10 Mg Tablet, 10 MG PO TID PRN for HEADACHE Prescribed by: Jaylan Lazar on 02/22/222110 Promethazine HCl (Promethazine Tablet) 25 Mg Tablet, 25 MG PO Q6H PRN for NAUSEA/VOMITING Prescribed by: JESUSITA DAVIS on 06/03/19 0217 Risperidone (Risperidone) 0.25 Mg Tablet, 0.5 MG PO HS, (Reported) Entered as Reported by: CHANDANA CANCINO on 01/18/18 09 Tizanidine HCl (Tizanidine HCl) 2 Mg Tablet, 4 MG PO HS, (Reported) Entered as Reported by: CHANDANA CANCINO on 01/18/18 09 Tramadol HCl (Tramadol HCl) 50 Mg Tablet, 50 MG PO Q6H PRN for PAIN Prescribed by: JAIME TAMAYO on 10/22/18 1750 Verapamil HCl (Verapamil HCl) 120 Mg Tablet, 120 MG PO HS, (Reported) Entered as Reported by: CHANDANA CANCINO on 01/18/18 09 [z-pack] Prescribed by: OMAR BLOUNT on 01/19/18 1404 Review of Systems Review of Systems Constitutional: see HPI, fever, malaise, weakness EENTM: see HPI, nose congestion, other (SINUS PAIN ) Respiratory: see HPI, cough Cardiovascular: no symptoms reported Gastrointestinal: see HPI; No abdominal pain; constipation, loss of appetite, nausea, vomiting Genitourinary: no symptoms reported Musculoskeletal: see HPI Skin: no symptoms reported Psychiatric/Neurological: See HPI Hematologic/Lymphatic: No Symptoms Reported Immunological/Allergic: no symptoms reported Past Cylhqin-Mhuyxu-Vqhkgk Hx Patient Social History Tobacco Use?: Yes (03/09 PPD) Tobacco type used: Cigarettes Smoking Status: Current Everyday Smoker Use of E-Cig and/or Vaping dev: No Substance use?: Yes Substance type: Marijuana Substance frequency: Daily Alcohol Use?: Yes (HX OF ABUSE, QUIT > 20 YEARS AGO) Pt feels they are or have been: No Immunizations Up To Date Tetanus Booster (TDap): Less than 5yrs PED Vaccines UTD: Yes Influenza Vaccine Up-to-Date: No; Not Current First/Initial COVID19 Vaccinat: N/A Second COVID19 Vaccination Klaus: N/A Third COVID19 Vaccination Date: N/A Seasonal Allergies Seasonal Allergies: Yes Past Medical History Surgery/Hospitalization HX: HTN, HLD, ANXIETY, MANIC ANXIETY, LIVER CIRRHOSIS, MIGRAINES, NEUROPATHY, FIBROMYALGA THYROIDECTOMY, GALLBLADDER, EXPLORATORY LAPAROTOMY, 2 C SECTIONS, HYSTERECTOMY, HIATIAL HERNIA, BILATERAL KNEE REPLACEMENT. 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 ) Hypothyroidsim HEENT: No Loss of Vision: Denies Hearing Impairment: Denies Cancer: No Psychosocial: Yes Anxiety, Bipolar, Schizophrenia, Depression Integumentary: Yes Herpes Blood Disorders: Yes (ANEMIA) Adverse Reaction/Blood Tranf: No Family Medical History Cardiovascular disease 19 FATHER Diabetes mellitus 19 FATHER 19 MOTHER FH: mental illness Mental SOCIAL HISTORY: -SMOKES 1 1/2 PPD -ETOH--HX OF ABUSE, CLAIMS NO USE FOR > 20 YEARS -DRUGS--THC USE DAILY. Physical Exam Vital Signs Vital Signs - First Documented 06/02/22 21:15 Temp 36.4 Pulse 101 Resp 18 B/P (MAP) 111/73 (86) Pulse Ox 93 O2 Delivery Room Air Capillary Refill : Less Than 3 Seconds Height, Weight, BMI Height: 5'3.00" Weight: 190lbs. 4.0oz. [id number]; 37.00 BMI Method:Stated General Appearance: No Apparent Distress, WD/WN, Obese, Other (REEKS OF CIGARETTES) HEENT: PERRL/EOMI, TMs Normal, Pharynx Normal, Moist Mucous Membranes, Other (POST NASAL DRAINAGE. MILD DIFFUSE SINUS TENDERNESS. ) Neck: Normal Inspection Respiratory: Normal Breath Sounds, No Accessory Muscle Use, No Respiratory Distress Cardiovascular: Regular Rate, Rhythm, No Edema, No JVD, No Murmur, Normal Peripheral Pulses Gastrointestinal: Non Tender, Soft Back: No CVA Tenderness Extremity: Normal Capillary Refill, Normal Inspection, No Pedal Edema Neurologic/Psychiatric: Alert, Oriented x3, No Motor/Sensory Deficits, ticketing agent II- XII Norm as Tested Skin: Normal Color, Warm/Dry Procedures/Interventions Dental Procedures: block Progress/Results/Core Measures Suspected Sepsis SIRS Temperature: Pulse: 101 Respiratory Rate: 18 Laboratory Tests 06/02/22 21:38: White Blood Count 8.1 Blood Pressure 111 /73 Mean: 86 Laboratory Tests 06/02/22 21:38: Creatinine 0.83, Platelet Count 105L, Total Bilirubin 1.0 Results/Orders Lab Results Laboratory Tests Test 06/02/22 21:27 06/02/22 21:32 06/02/22 21:38 Range/Units Influenza Type A (RT-PCR) Not Detected Not Detecte Influenza Type B (RT-PCR) Not Detected Not Detecte SARS-CoV-2 RNA (RT-PCR) Not Detected Not Detecte Urine Color MARISEL H Urine Clarity SL CLOUDY Urine pH 6.0 5-9 Urine Specific Mellette >=1.030 1.016-1.022 Urine Protein NEGATIVE NEGATIVE Urine Glucose (UA) NEGATIVE NEGATIVE Urine Ketones NEGATIVE NEGATIVE Urine Nitrite NEGATIVE NEGATIVE Urine Bilirubin NEGATIVE NEGATIVE Urine Urobilinogen 4.0 < = 1.0 MG/DL Urine Leukocyte Esterase NEGATIVE NEGATIVE Urine RBC (Auto) NEGATIVE NEGATIVE Urine RBC RARE /HPF Urine WBC RARE /HPF Urine Squamous Epithelial Cells >50 H /HPF Urine Crystals NONE /LPF Urine Bacteria LARGE H /HPF Urine Casts NONE /LPF Urine Mucus LARGE H /LPF Urine Culture Indicated NO Urine Opiates Screen POSITIVE H NEGATIVE Urine Oxycodone Screen NEGATIVE NEGATIVE Urine Methadone Screen NEGATIVE NEGATIVE Urine Propoxyphene Screen NEGATIVE NEGATIVE Urine Barbiturates Screen NEGATIVE NEGATIVE Ur Tricyclic Antidepressants Screen NEGATIVE NEGATIVE Urine Phencyclidine Screen NEGATIVE NEGATIVE Urine Amphetamines Screen NEGATIVE NEGATIVE Urine Methamphetamines Screen NEGATIVE NEGATIVE Urine Benzodiazepines Screen NEGATIVE NEGATIVE Urine Cocaine Screen NEGATIVE NEGATIVE Urine Cannabinoids Screen POSITIVE H NEGATIVE White Blood Count 8.1 4.3-11.0 10^3/uL Red Blood Count 5.20 H 3.80-5.11 10^6/uL Hemoglobin 17.3 H 11.5-16.0 g/dL Hematocrit 49 35-52 % Mean Corpuscular Volume 95 80-99 fL Mean Corpuscular Hemoglobin 33 25-34 pg Mean Corpuscular Hemoglobin Concent 35 32-36 g/dL Red Cell Distribution Width 13.4 10.0-14.5 % Platelet Count 105 L 130-400 10^3/uL Mean Platelet Volume 12.3 H 9.0-12.2 fL Immature Granulocyte % (Auto) 0 % Neutrophils (%) (Auto) 34 L 42-75 % Lymphocytes (%) (Auto) 53 H 12-44 % Monocytes (%) (Auto) 10 0-12 % Eosinophils (%) (Auto) 2 0-10 % Basophils (%) (Auto) 1 0-10 % Neutrophils # (Auto) 2.8 1.8-7.8 10^3/uL Lymphocytes # (Auto) 4.3 H 1.0-4.0 10^3/uL Monocytes # (Auto) 0.8 0.0-1.0 10^3/uL Eosinophils # (Auto) 0.2 0.0-0.3 10^3/uL Basophils # (Auto) 0.1 0.0-0.1 10^3/uL Immature Granulocyte # (Auto) 0.0 0.0-0.1 10^3/uL Percent Immature Platelet Fraction 7.8 H 0.0-7.6 % Sodium Level 140 135-145 MMOL/L Potassium Level 3.5 L 3.6-5.0 MMOL/L Chloride Level 108 H 98-107 MMOL/L Carbon Dioxide Level 22 21-32 MMOL/L Anion Gap 10 5-14 MMOL/L Blood Urea Nitrogen 7 7-18 MG/DL Creatinine 0.83 0.60-1.30 MG/DL Estimat Glomerular Filtration Rate 89 BUN/Creatinine Ratio 8 Glucose Level 101 70-105 MG/DL Calcium Level 8.9 8.5-10.1 MG/DL Corrected Calcium 9.2 8.5-10.1 MG/DL Magnesium Level 1.9 1.6-2.4 MG/DL Total Bilirubin 1.0 0.1-1.0 MG/DL Aspartate Amino Transf (AST/SGOT) 67 H 5-34 U/L Alanine Aminotransferase (ALT/SGPT) 45 0-55 U/L Alkaline Phosphatase 122 40-136 U/L Total Protein 8.5 H 6.4-8.2 GM/DL Albumin 3.6 3.2-4.5 GM/DL Amylase Level 66 25-125 U/L Lipase 39 8-78 U/L Serum Alcohol < 10 <10 MG/DL Smear Scan YES My Orders Orders - PAOLA TAVERAS DO Ed Iv/Invasive Line Start (06/02/22 21:25) Monitor-Rhythm Ecg Trace Only (06/02/22 21:25) Amylase (06/02/22 21:25) Cbc With Automated Diff (06/02/22 21:25) Comprehensive Metabolic Panel (06/02/22 21:25) Lipase (06/02/22 21:25) Magnesium (06/02/22 21:25) Ua Culture If Indicated (06/02/22 21:25) Ed Iv/Invasive Line Start (06/02/22 21:25) Lactated Ringers (Lr 1000 Ml Iv Solution (06/02/22 21:30) Ondansetron Injection (Zofran Injectio (06/02/22 21:30) Chest 1 View, Ap/Pa Only (06/02/22 21:25) Covid 19 Inhouse Test (06/02/22 21:25) Influenza A And B By Pcr (06/02/22 21:25) Isolation Central Supply Req (06/02/22 21:25) Ketorolac Injection (Toradol Injection) (06/02/22 21:30) Alcohol (06/02/22 22:35) Drug Screen Stat (Urine) (06/02/22 22:35) Medications Given in ED Current Medications Medications Dose Ordered Sig/Emeka Route Start Time Stop Time Status Last Admin Dose Admin Ketorolac Tromethamine 30 mg ONCE ONCE IVP 06/02/22 21:30 06/02/22 21:31 DC 06/02/22 21:42 30 MG Lactated Ringer's 1,000 ml @ 0 mls/hr Q0M ONCE IV 06/02/22 21:30 06/02/22 21:31 DC 06/02/22 21:42 0 MLS/HR Ondansetron HCl 4 mg ONCE ONCE IVP 06/02/22 21:30 06/02/22 21:31 DC 06/02/22 21:42 4 MG Vital Signs/I&O 06/02/22 06/02/22 06/02/22 21:15 21:42 22:44 Temp 36.4 36.4 36.4 Pulse 101 83 Resp 18 16 B/P (MAP) 111/73 (86) 126/84 Pulse Ox 93 97 O2 Delivery Room Air Room Air Capillary Refill : Less Than 3 Seconds Blood Pressure Mean: 86 Progress Note : Progress Note PPE WORN COVID AND FLU TESTING DONE GIVEN: -IV FLUIDS -ZOFRAN -TORADOL SYMPTOMS IMPROVED WITH THE ABOVE -NO VOMITING AND NAUSEA IS IMPROVED -HEADACHE IS IMPROVED VITALS STABLE AFEBRILE PT ONLY COUGHED ONE TIME DURING ER STAY NO DYSPNEA NO HYPOXIA NO FEVER DURING ER STAY DIFFERENTIAL DX INCLUDES: COVID/FLU; OTHER VIRAL SYNDROME: UPPER/LOWER RESPIRATORY TRACT ILLNESS; SINUSITIS; PNEUMONIA; GASTROENTERITIS; MIGRAINE; DEHYDRATION; MARIJUANA / CANNIBUS HYPEREMESIS REVIEWED PRIOR RECORDS, INCLUDING A MULTITUDE OF ER VISITS, ADMITS/H&P'S/CONSULTS/DISCHARGE SUMMARIES, TESTS/PROCEDURES DISCUSSED TEST RESULTS, ANTICIPATED COURSE, DIET, SYMPTOMATIC TREATMENT, MEDICATIONS, NEED FOR FOLLOW UP AND RETURN PRECAUTIONS. Diagnostic Imaging Comments CXR--PER RADIOLOGIST REPORT AT 2159 FINDINGS: Heart size and pulmonary vasculature are normal. The lungs are clear without consolidation, pleural effusion, or pneumothorax. The osseous structures are intact. IMPRESSION: 1. No acute radiographic abnormality in the chest. Reviewed: Reviewed by Me Departure Impression Primary Impression: Upper respiratory infection Additional Impressions: Chronic constipation Chronic headaches Nausea & vomiting Disposition: 01 HOME, SELF-CARE Condition: Improved Departure-Patient Inst. Decision time for Depature: 22:30 Referrals: [facility] (PCP/Family) Primary Care Physician Patient Instructions: Constipation, Adult ED, Upper Respiratory Infection ED, Nausea and Vomiting, Adult ED, Headache, Adult ED Add. Discharge Instructions: TAKE MIRALAX 1 CAPFUL IN 8 OZ OF WATER--DO THIS EVERY HOUR UNTIL YOU HAVE A BOWEL MOVEMENT, THEN TAKE MIRALAX 1-2 TIMES A DAY EVERY DAY. USE DULCOLAX SUPPOSITORIES AND FLEET'S ENEMAS RECTALLY FOR BOWEL MOVEMENT LOTS OF CLEAR LIQUIDS--WATER, BROTH, JELLO, GATORADE NO COFFEE, POP OR TEA NO FOOD UNTIL YOUR NAUSEA IS BETTER, AND YOU HAVE HAD A BOWEL MOVEMENT. AFTER THAT, YOU MAY ADD A BRATS DIET TO CLEAR LIQUIDS--BANANAS, RICE, APPLESAUCE, TOAST, SALTINES TYLENOL AND MOTRIN NEEDED FOR PAIN OR FEVER CONTINUE YOUR PRESCRIBED MEDICATIONS DIRECTED FOLLOW UP WITH [facility] IN 2-3 DAYS IF NO BETTER All discharge instructions reviewed with patient and/or family. Voiced understanding. PAOLA TAVERAS DO Jun 02, 2022 21:32
[2022-06-02 21:41] LABS: BILIRUBIN,URINE NEGATIVE (NEGATIVE); CLARITY,URINE SL CLOUDY; COLOR,URINE AMBER; GLUCOSE, URINE (UA) NEGATIVE (NEGATIVE); KETONES,URINE NEGATIVE (NEGATIVE); LEUKOCYTE ESTERASE ,URINE NEGATIVE (NEGATIVE); NITRITE,URINE NEGATIVE (NEGATIVE); PROTEIN,URINE NEGATIVE (NEGATIVE)
[2022-06-02 21:51] LABS: BACTERIA,URINE LARGE /HPF; RBC,URINE RARE /HPF; SQUAMOUS EPITHELIAL CELL,UR >50 /HPF; WBC,URINE RARE /HPF
[2022-06-02 21:52] LABS: BASOPHILS # (AUTO) 0.1 10^3/uL (0.0-0.1); BASOPHILS % (AUTO) 1 % (0-10); EOSINOPHILS # (AUTO) 0.2 10^3/uL (0.0-0.3); EOSINOPHILS % (AUTO) 2 % (0-10); HEMATOCRIT 49 % (35-52); HEMOGLOBIN 17.3 g/dL (11.5-16.0); LYMPHOCYTES # (AUTO) 4.3 10^3/uL (1.0-4.0); LYMPHOCYTES % (AUTO) 53 % (12-44); MEAN CORPUSCULAR HEMOGLOBIN 33 pg (25-34); MEAN CORPUSCULAR HGB CONC 35 g/dL (32-36); MEAN CORPUSCULAR VOLUME 95 fL (80-99); MEAN PLATELET VOLUME 12.3 fL (9.0-12.2); MONOCYTES # (AUTO) 0.8 10^3/uL (0.0-1.0); MONOCYTES % (AUTO) 10 % (0-12); NEUTROPHILS # (AUTO) 2.8 10^3/uL (1.8-7.8); NEUTROPHILS % (AUTO) 34 % (42-75); PLATELET COUNT 105 10^3/uL (130-400); WHITE BLOOD COUNT 8.1 10^3/uL (4.3-11.0)
--- NOTE | 2022-06-02 21:53 | Diagnostic Imaging Report ---
EXAMINATION: Chest 1 view HISTORY: COUGH, FEVER COMPARISON: 05/24/2021 FINDINGS: Heart size and pulmonary vasculature are normal. The lungs are clear without consolidation, pleural effusion, or pneumothorax. The osseous structures are intact. IMPRESSION: 1. No acute radiographic abnormality in the chest. Dictated by: Dictated on workstation # [id number]
[2022-06-02 21:54] LABS: SMEAR SCAN COMMENT YES
[2022-06-02 22:01] LABS: ALBUMIN 3.6 GM/DL (3.2-4.5); POTASSIUM 3.5 MMOL/L (3.6-5.0)
[2022-06-02 22:02] LABS: CALCIUM 8.9 MG/DL (8.5-10.1)
[2022-06-02 22:04] LABS: TOTAL PROTEIN 8.5 GM/DL (6.4-8.2)
[2022-06-02 22:07] LABS: CREATININE SERUM 0.83 MG/DL (0.60-1.30)
[2022-06-02 22:10] LABS: MAGNESIUM 1.9 MG/DL (1.6-2.4)
[2022-06-02 22:44] VITALS: BP 126/84
[2022-06-02 22:56] LABS: AMPHETAMINE SCREEN, URINE NEGATIVE (NEGATIVE); BARBITURATE SCREEN URINE NEGATIVE (NEGATIVE); BENZODIAZEPINES SCREEN URINE NEGATIVE (NEGATIVE); CANNABINOID SCREEN, URINE POSITIVE (NEGATIVE); COCAINE SCREEN URINE NEGATIVE (NEGATIVE); METHADONE STAT NEGATIVE (NEGATIVE); OPIATE SCREEN URINE POSITIVE (NEGATIVE); OXYCODONE STAT NEGATIVE (NEGATIVE); PROPOXYPHENE STAT NEGATIVE (NEGATIVE); TRICYCLIC ANTIDEPRESSANTS SCRE NEGATIVE (NEGATIVE)
== END 2022-06-02 22:47 | disposition home or self-care (01) ==
LOC: EDUNIT# 21:10 → ER 21:13
DX: J06.9 Acute upper respiratory infection, unspecified (principal); K59.09 Other constipation; R51.9 Headache, unspecified; R11.2 Nausea with vomiting, unspecified; G89.29 Other chronic pain; F17.210 Nicotine dependence, cigarettes, uncomplicated; Z20.822 Contact with and (suspected) exposure to COVID-19; Z28.310 Unvaccinated for COVID-19
CPT/HCPCS: 36415; 71045; 80053; 80306; 80320; 81000; 82150; 83690; 83735; 85025; 87636

== ENCOUNTER 2022-08-09 18:30 | Emergency (ER) | payer MEDICARE, MEDICAID ==
[~2022-08-09] VITALS: Ht 160 cm; Wt 98.0 kg
[~2022-08-09 18:30] MED LIST changes: +LIDO15SO3 MM; -LIDO15SO6 MM
[2022-08-09] MEDS ORDERED: ONDANSETRON 4 MG/2 ML (SDV) Z0FRAN IVP ONE (19:30)
[2022-08-09] MEDS ORDERED: fentaNYL INJ 100 MCG/2 ML AMP IVP ONE (19:30)
--- NOTE | 2022-08-09 19:32 | ED Abdominal Pain ---
General Chief Complaint: Abdominal/GI Problems Stated Complaint: RIGHT SIDE AB PAIN Nursing Triage Note: PT AMB TO RM 6 PT CO OF R UPPER ABD PAIN AND EPIGASTRIC AREA PAIN. PT HAS RECENTLY HAD ESPHOGEAL VARICIES BANDED ON 07/31/22 IN . PT STATES FEEL LIKE SHE IS HAVING A GALL BLADDER ATTACK BUT DOES NOT HAVE A GALL BLADDER. PT CO OF NAUSEA BUT NO VOMITING. PT HAS HX OF CIRROSIS OF LIVER FROM FATTY LIVER DISEASE. Source of Information: Patient Exam Limitations: No Limitations History of Present Illness Date Seen by Provider: Aug 09, 2022 Time Seen by Provider: 18:47 Initial Comments 46-year-old female presents to the ER with complaints of right upper quadrant abdominal pain starting today. She is also complaining of mid epigastric pain, but states this pain has been constant since she had an upper endoscopy on 07/31 with banding. She states she has not been able to eat solid foods since she had the upper GI. Denies fevers, vomiting, diarrhea. Last bowel movement was yesterday. She does endorse nausea. She has had her gallbladder removed and a hysterectomy. Allergies and Home Medications Allergies Coded Allergies: niacin (Unverified Allergy, Mild, 05/13/14) gabapentin (Verified Allergy, Unknown, MADE FEEL SHAKEY AND LIGHT HEADED, 08/09/22) Patient Home Medication List Home Medication List Reviewed: Yes ALPRAZolam (Xanax Tablet) 0.25 Mg Tablet, 0.25 MG PO TID PRN for ANXIETY, (Reported) Entered as Reported by: RITA RACHEL on 11/04/17 0115 Acetazolamide (Acetazolamide) 250 Mg Tablet, 250 MG PO 1200,2100, (Reported) Entered as Reported by: CHANDANA CANCINO on 01/18/18 0901 Acyclovir (Acyclovir) 400 Mg Tablet, 400 MG PO TID, (Reported) Entered as Reported by: IZABEL VELASCO on 04/12/162128 Albuterol Sulfate (Ventolin Hfa) 1 Puff Puff, 2 PUFF IH Q4H Prescribed by: PAOLA TAVERAS on 10/29/21 215 Benzonatate (Tessalon Perles) 100 Mg Capsule, 1-2 TAB PO TID Prescribed by: PAOLA TAVERAS on 03/02/18 0343 Budesonide (Pulmicort Flexhaler) 90 Mcg Aer.pow.ba, 90 MCG IH BID Prescribed by: PAOLA TAVERAS on 03/02/18 034 Cefdinir (Cefdinir) 300 Mg Capsule, 300 MG PO BID Prescribed by: OMAR BLOUNT on 01/19/18 1404 Cefdinir (Cefdinir) 300 Mg Capsule, 300 MG PO BID Prescribed by: LOC MEDINA on 01/14/202214 Ciprofloxacin HCl (Ciprofloxacin HCl) 500 Mg Tablet, 500 MG PO BID Prescribed by: PAOLA TAVERAS on 02/24/20110 Cyclobenzaprine HCl (Cyclobenzaprine HCl) 10 Mg Tablet, 10 MG PO TID PRN for MUSCLE SPASMS, (Reported) Entered as Reported by: CHANDANA CANCINO on 01/18/18900 Cyclobenzaprine HCl (Cyclobenzaprine HCl) 10 Mg Tablet, 10 MG PO TID Prescribed by: AMBERLY CABALLERO on 12/23/201939 D-Methorphan Hb/Prometh HCl (Promethazine-Dm Syrup) 118 Ml Syrup, 1-2 TSP PO Q4H Prescribed by: PAOLA TAVERAS on 03/02/18342 Duloxetine HCl (Duloxetine HCl) 60 Mg Capsule.dr, 60 MG PO BID, (Reported) Entered as Reported by: CHANDANA CANCINO on 01/18/18900 Ezetimibe (Ezetimibe) 10 Mg Tablet, 10 MG PO HS, (Reported) Entered as Reported by: CHANDANA CANCINO on 01/18/18900 Famotidine (Pepcid) 40 Mg Tablet, 40 MG PO DAILY Prescribed by: PAOLA TAVERAS on 02/24/20110 Hydrocodone/Acetaminophen (Hydrocodone-Acetamin 5-325 mg) 1 Each Tablet, 1 EACH PO Q6H PRN for PAIN-BREAKTHROUGH Prescribed by: LOC MEDINA on 01/14/202215 Hyoscyamine Sulfate (Levsin-Sl) 0.125 Mg Tab.subl, 0.25 MG SL Q4H Prescribed by: PAOLA TAVERAS on 02/24/20110 Ibuprofen (Advil) 200 Mg Tablet, 600 MG PO TID PRN for PAIN-MILD, (Reported) Entered as Reported by: CHANDANA CANCINO on 01/18/18906 Ketorolac Tromethamine (Ketorolac Tromethamine) 10 Mg Tablet, 10 MG PO Q6H Prescribed by: PAOLA TAVERAS on 09/03/212022 Levofloxacin (Levaquin) 500 Mg Tablet, 500 MG PO DAILY Prescribed by: PAOLA TAVERAS on 03/02/18 034 Levothyroxine Sodium (Levothyroxine Sodium) 112 Mcg Tablet, 1,125 MCG PO HS, (Reported) Entered as Reported by: CHANDANA CANCINO on 01/18/18 09 Meloxicam (Meloxicam) 15 Mg Tablet, 15 MG PO DAILY Prescribed by: AMBERLY CABALLERO on 12/23/20 194 Methylprednisolone (Medrol) 4 Mg Tab.ds.pk, 4 MG PO UD Prescribed by: PAOLA TAVERAS on 03/02/18342 Metronidazole (Flagyl) 500 Mg Tablet, 500 MG PO QID Prescribed by: PAOLA TAVERAS on 02/24/20 011 Naproxen (Naprosyn) 500 Mg Tablet, 500 MG PO BID Prescribed by: LOC MEDINA on 04/13/21 165 Naproxen Sodium (Aleve) 220 Mg Tablet, 440 MG PO TID PRN for PAIN-MILD, (Reported) Entered as Reported by: CHANDANA CANCINO on 01/18/18906 Ondansetron (Ondansetron Odt) 4 Mg Tab.rapdis, 4 MG PO Q6H PRN for NAUSEA/VOMITING Prescribed by: LOC MEDINA on 01/14/20 2215 Ondansetron (Ondansetron Odt) 8 Mg Tab.rapdis, 8 MG PO Q6H Prescribed by: PAOLA TAVERAS on 02/24/20 011 Ondansetron (Ondansetron Odt) 8 Mg Tab.rapdis, 8 MG PO Q6H Prescribed by: PAOLA TAVERAS on 09/03/212022 Potassium Chloride (Potassium Chloride) 20 Meq Tablet.er, 20 MEQ PO DAILY Prescribed by: Madhavi Dao on 08/09/222101 Pramipexole Di-HCl (Pramipexole Dihydrochloride) 0.125 Mg Tablet, 0.125 MG PO HS, (Reported) Entered as Reported by: RITA RACHEL on 11/04/17 0115 Pregabalin (Lyrica) 100 Mg Capsule, 100 MG PO BID, (Reported) Entered as Reported by: TREV SANTIAGO on 11/13/16 1031 Prochlorperazine Maleate (Prochlorperazine Maleate) 10 Mg Tablet, 10 MG PO TID PRN for HEADACHE Prescribed by: Jaylan Lazar on 02/22/22 2111 Promethazine HCl (Promethazine Tablet) 25 Mg Tablet, 25 MG PO Q6H PRN for NAUSEA/VOMITING Prescribed by: JESUSITA DAVIS on 06/03/19 0217 Risperidone (Risperidone) 0.25 Mg Tablet, 0.5 MG PO HS, (Reported) Entered as Reported by: CHANDANA CANCINO on 01/18/18 0901 Tizanidine HCl (Tizanidine HCl) 2 Mg Tablet, 4 MG PO HS, (Reported) Entered as Reported by: CHANDANA CANCINO on 01/18/18 0901 Tramadol HCl (Tramadol HCl) 50 Mg Tablet, 50 MG PO Q6H PRN for PAIN Prescribed by: JAIME TAMAYO on 10/22/18 1750 Verapamil HCl (Verapamil HCl) 120 Mg Tablet, 120 MG PO HS, (Reported) Entered as Reported by: CHANDANA CANCINO on 01/18/18 0901 [z-pack] Prescribed by: OMAR BLOUNT on 01/19/18 1404 Review of Systems Review of Systems Constitutional: see HPI Past Icjcplc-Mzsmbo-Nsiiml Hx Patient Social History Tobacco Use?: Yes Tobacco type used: Cigarettes Smoking Status: Current Everyday Smoker Substance use?: No Alcohol Use?: No Pt feels they are or have been: No Immunizations Up To Date Tetanus Booster (TDap): Less than 5yrs PED Vaccines UTD: Yes First/Initial COVID19 Vaccinat: N/A Second COVID19 Vaccination Klaus: N/A Third COVID19 Vaccination Date: N/A Seasonal Allergies Seasonal Allergies: Yes Past Medical History Surgery/Hospitalization HX: HTN, HLD, ANXIETY, MANIC ANXIETY, LIVER CIRRHOSIS, MIGRAINES, NEUROPATHY, FIBROMYALGA THYROIDECTOMY, GALLBLADDER, EXPLORATORY LAPAROTOMY, 2 C SECTIONS, HYSTERECTOMY, HIATIAL HERNIA, BILATERAL KNEE REPLACEMENT. ESPHOGEAL VARCIES. COLONSCOPY, EGD Surgeries: Yes (EXPLORATORY LAP;HIATAL HERNIA REPAIR;HYST/BSO;VENTRAL HERNIA REPAIR;L KNEE ) Abdominal, Section, Gallbladder, Hysterectomy, Joint Replacement, Oophorectomy, Orthopedic, Thyroidectomy Respiratory: Yes Pneumonia, Chronic Bronchitis, COPD Currently Using CPAP: No Currently Using BIPAP: No Cardiac: Yes (MITRAL VALVE PROLAPSE) High Cholesterol, Hypertension, Irregular Heartbeat, Valvular Heart Disease Neurological: Yes (PERIPHERAL NEUROPATHY-LEGS/FEET/HANDS) Headaches /Migraines, Neuropathy Reproductive Disorders: Yes Female Reproductive Disorders: Denies, Menstrual Problems [employer] 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 Sexually Transmitted Disease: Yes (HERPES) HIV/AIDS: No Genitourinary: No Gastrointestinal: Yes (ELEVATED LFT'S; S/P HIATAL AND VENTRAL HERNIA REPAIRS) Abdominal Hernia, Gastroesophageal Reflux, Liver Disease/Jaundice, Hiatal Hernia, Cirrhosis Musculoskeletal: Yes (LEFT KNEE SCOPE) Arthritis, Fibromyalgia, Chronic Back Pain Endocrine: Yes (THYROIDECTOMY FOR GOITER. ) Hypothyroidsim HEENT: No Loss of Vision: Denies Hearing Impairment: Denies Cancer: No Psychosocial: Yes Anxiety, Bipolar, Schizophrenia, Depression Integumentary: Yes Herpes Blood Disorders: Yes (ANEMIA) Adverse Reaction/Blood Tranf: No Family Medical History Cardiovascular disease 19 FATHER Diabetes mellitus 19 FATHER 19 MOTHER FH: mental illness Mental SOCIAL HISTORY: -SMOKES 1 1/2 PPD -ETOH--HX OF ABUSE, CLAIMS NO USE FOR > 20 YEARS -DRUGS--THC USE DAILY. Physical Exam Vital Signs Vital Signs - First Documented 08/09/22 18:49 Temp 36.9 Pulse 87 Resp 18 B/P (MAP) 146/80 (102) Pulse Ox 95 Capillary Refill : Less Than 3 Seconds Height/Weight/BMI Height: 5'3.00" Weight: 190lbs. 4.0oz. 86.713609bt; 38.00 BMI Method:Stated General Appearance: WD/WN, mild distress Neck: supple, normal inspection Respiratory: lungs clear, normal breath sounds, no respiratory distress, no accessory muscle use Cardiovascular: regular rate, rhythm Gastrointestinal: normal bowel sounds, soft, tenderness (Right upper quadrant tenderness) Extremities: normal range of motion, normal inspection Neurologic/Psychiatric: alert, normal mood/affect Skin: normal color, warm/dry Procedures/Interventions Dental Procedures: block Progress/Results/Core Measures Results/Orders Lab Results Laboratory Tests Test 08/09/22 19:40 Range/Units White Blood Count 8.0 4.3-11.0 10^3/uL Red Blood Count 4.61 3.80-5.11 10^6/uL Hemoglobin 15.7 11.5-16.0 g/dL Hematocrit 45 35-52 % Mean Corpuscular Volume 98 80-99 fL Mean Corpuscular Hemoglobin 34 25-34 pg Mean Corpuscular Hemoglobin Concent 35 32-36 g/dL Red Cell Distribution Width 13.6 10.0-14.5 % Platelet Count 97 L 130-400 10^3/uL Mean Platelet Volume 12.3 H 9.0-12.2 fL Immature Granulocyte % (Auto) 0 % Neutrophils (%) (Auto) 37 L 42-75 % Lymphocytes (%) (Auto) 54 H 12-44 % Monocytes (%) (Auto) 6 0-12 % Eosinophils (%) (Auto) 2 0-10 % Basophils (%) (Auto) 1 0-10 % Neutrophils # (Auto) 3.0 1.8-7.8 10^3/uL Lymphocytes # (Auto) 4.3 H 1.0-4.0 10^3/uL Monocytes # (Auto) 0.5 0.0-1.0 10^3/uL Eosinophils # (Auto) 0.2 0.0-0.3 10^3/uL Basophils # (Auto) 0.1 0.0-0.1 10^3/uL Immature Granulocyte # (Auto) 0.0 0.0-0.1 10^3/uL Urine Color ORANGE Urine Clarity CLEAR Urine pH 6.0 5-9 Urine Specific [place] 1.025 H 1.016-1.022 Urine Protein NEGATIVE NEGATIVE Urine Glucose (UA) NEGATIVE NEGATIVE Urine Ketones NEGATIVE NEGATIVE Urine Nitrite NEGATIVE NEGATIVE Urine Bilirubin NEGATIVE NEGATIVE Urine Urobilinogen >=8.0 < = 1.0 MG/DL Urine Leukocyte Esterase NEGATIVE NEGATIVE Urine RBC (Auto) NEGATIVE NEGATIVE Urine RBC NONE /HPF Urine WBC NONE /HPF Urine Squamous Epithelial Cells 0-2 /HPF Urine Crystals NONE /LPF Urine Bacteria NEGATIVE /HPF Urine Casts NONE /LPF Urine Mucus MODERATE H /LPF Urine Culture Indicated NO Sodium Level 141 135-145 MMOL/L Potassium Level 3.0 L 3.6-5.0 MMOL/L Chloride Level 110 H 98-107 MMOL/L Carbon Dioxide Level 22 21-32 MMOL/L Anion Gap 9 5-14 MMOL/L Blood Urea Nitrogen 4 L 7-18 MG/DL Creatinine 0.78 0.60-1.30 MG/DL Estimat Glomerular Filtration Rate 95 BUN/Creatinine Ratio 5 Glucose Level 134 H 70-105 MG/DL Calcium Level 8.8 8.5-10.1 MG/DL Corrected Calcium 9.4 8.5-10.1 MG/DL Total Bilirubin 1.0 0.1-1.0 MG/DL Aspartate Amino Transf (AST/SGOT) 42 H 5-34 U/L Alanine Aminotransferase (ALT/SGPT) 20 0-55 U/L Alkaline Phosphatase 140 H 40-136 U/L Total Protein 7.9 6.4-8.2 GM/DL Albumin 3.3 3.2-4.5 GM/DL Amylase Level 89 25-125 U/L Lipase 67 8-78 U/L Smear Scan YES My Orders Orders - MADHAVI DAO APRN Comprehensive Metabolic Panel (08/09/22 18:47) Lipase (08/09/22 18:47) Amylase (08/09/22 18:47) Ua Culture If Indicated (08/09/22 18:47) Urine Bedside (08/09/22 18:47) Cbc With Automated Diff (08/09/22 18:47) Ct Abdomen/Pelvis W (08/09/22 19:25) Fentanyl Inj (Sublimaze Injection) (08/09/22 19:30) Ondansetron Injection (Zofran Injectio (08/09/22 19:30) Iohexol Injection (Omnipaque 350 Mg/Ml 1 (08/09/22 19:45) Received Contrast (Hold Metformin- Contr (08/09/22 19:45) Ns (Ivpb) (Sodium Chloride 0.9% Ivpb Bag (08/09/22 19:45) Pantoprazole Injection (Protonix Injecti (08/09/22 20:00) Ed Iv/Invasive Line Start (08/09/22 20:11) Ns Iv 1000 Ml (Sodium Chloride 0.9%) (08/09/22 20:15) Potassium Chloride (Tablet) (K Dur Table (08/09/22 21:00) Medications Given in ED Current Medications Medications Dose Ordered Sig/Emeka Route Start Time Stop Time Status Last Admin Dose Admin Fentanyl Citrate 50 mcg ONCE ONCE IVP 08/09/22 19:30 08/09/22 19:31 DC 08/09/22 19:43 50 MCG Iohexol 100 ml ONCE ONCE IV 08/09/22 19:45 08/09/22 19:46 DC 08/09/22 20:03 80 ML Ondansetron HCl 4 mg ONCE ONCE IVP 08/09/22 19:30 08/09/22 19:31 DC 08/09/22 19:42 4 MG Pantoprazole 40 mg ONCE ONCE IV 08/09/22 20:00 08/09/22 20:01 DC 08/09/22 20:50 40 MG Sodium Chloride 100 ml ONCE ONCE IV 08/09/22 19:45 08/09/22 19:46 DC 08/09/22 20:03 80 ML Vital Signs/I&O 08/09/22 18:49 Temp 36.9 Pulse 87 Resp 18 B/P (MAP) 146/80 (102) Pulse Ox 95 Blood Pressure Mean: 102 Progress Progress Note : Progress Note Patient seen and evaluated, resting in bed, mild distress. Based on exam and symptoms, work-up initiated including CBC, CMP, amylase, lipase, UA, CT abdomen pelvis. Zofran fentanyl, and Protonix ordered. Fluids ordered. Labs and CT reviewed. CBC shows decreased platelet count 97, patient had decreased platelet count in May as well. CMP shows decreased potassium 3.0. Increased chloride 110. Glucose elevated 134. AST elevated 42, this is better than labs in May. Alkaline phosphatase elevated 140, previous in May was 122. Amylase and lipase normal. Urinalysis shows elevated urine specific gravity 1.025. Negative for infection. CT shows no acute abnormality in the abdomen or pelvis. No current sizable gastroesophageal varices. There is a cystic left retroperitoneal mass which was present in February 2020, it has increased in size. The neurologist favors benign etiology. CT also shows a small right renal lesion. Patient reports her abdominal pain improved after the fentanyl, but she is still having some pain. All results discussed with patient. Nursing staff is just now starting IV fluids and giving Protonix. This is likely gastritis or peptic ulcer disease. Patient was prescribed omeprazole on 07/31 by her GI specialist. Patient was unaware of this, she states she has not been taking the medication. I instructed patient to start taking this medication. Patient was instructed to follow-up with primary care provider regarding renal lesion as well as her decreased platelet level. I instructed her to follow-up with general surgery regarding the cystic retroperitoneal mass. Will discharge patient after IV fluids. Discharge instructions and return precautions discussed with patient. Diagnostic Imaging Diagonstic Imaging: CT Plain Films/CT/US/NM/MRI: abdomen, pelvis Comments [facility]. [place], [place] NAME: TRUDI RIVERA [facility] REC#: [id number] PT STATUS: REG ER : 1975 PHYSICIAN: MADHAVI DAO APRN ADMIT DATE: 08/09/22/ER Draft Date of Exam:08/09/22 CT ABDOMEN/PELVIS W PROCEDURE: CT abdomen and pelvis with contrast. TECHNIQUE: Multiple contiguous axial images were obtained through the abdomen and pelvis after administration of intravenous contrast. Auto Exposure Controls were utilized during the CT exam to meet ALARA standards for radiation dose reduction. All CT scans use one or more of the following dose optimizing techniques: automated exposure control, MA and/or KvP adjustment based on patient size and exam type or iterative reconstruction. DATE: August 09, 2022. COMPARISON: CT abdomen and pelvis February 24, 2020. INDICATION: 46-year-old female, right upper quadrant abdominal pain and epigastric pain. Recent esophageal varices banding on July 31, 2022. FINDINGS: There is mild atelectasis in the lung bases. The heart is not enlarged. There is no identified pericardial effusion. The liver is unremarkable in size and contour. There is no identified liver lesion. The main, right, left portal veins are patent. The gallbladder is surgically absent. There is no biliary ductal dilation. Unremarkable appearance of the pancreas. The spleen is normal in size. The adrenal glands are unremarkable. There is a 6 mm low-attenuation right renal lesion on axial image 68 which is too small to characterize. The urinary collecting systems are not distended. There is no identified renal or ureteral stone. Urinary bladder is unremarkable. The uterus is not seen and likely is surgically absent. The intestinal tract is not distended. There is no evidence of acute appendicitis. The appendix may be surgically absent. There are no prominent gastroesophageal varices currently present. There is no free intraperitoneal air. There is a cystic mass in the left retroperitoneum measuring up to 5.2 cm in size on axial image 110. This increased in size in 2019, previously measuring 3.6 cm in size. There is no identified abnormally enlarged lymph node in the abdomen or pelvis meeting CT size criteria for adenopathy. There are atherosclerotic calcifications. There is no identified acute bony abnormality. IMPRESSION: CT ABDOMEN AND PELVIS. 1. No identified acute abnormality in the abdomen or pelvis. 2. No current sizable gastroesophageal varices. 3. Cystic left retroperitoneal mass is present in February 2020 although increased in size on current exam. This may reflect a lymphocele or other nonspecific fluid collection or cystic mass. Benign etiology is favored. Dictated on workstation # [id number] Dict: 08/09/222013 Trans: 08/09/222022 CV [id number] Interpreted by: TUSHAR HARRIS MD Electronically signed by: Departure Impression Primary Impression: Abdominal pain Qualified Codes: R10.11 - Right upper quadrant pain Additional Impressions: Low platelet count Renal lesion Retroperitoneal mass Hypokalemia Disposition: HOME, SELF-CARE Condition: Stable Departure-Patient Inst. Referrals: BEATA PINO TAKAAKI MD Patient Instructions: Gastritis (DC) Add. Discharge Instructions: supervisor wound your prescription for omeprazole and start taking as prescribed. Omeprazole does not start working right away, you may also take Tums as needed for pain until the omeprazole starts working. Take potassium once daily for the next 5 days. Avoid taking medications like ibuprofen or other NSAIDs. You should also stay away from spicy foods, caffeine, and acidic foods. Follow-up with Dr. Pino regarding your low potassium, low platelet count, and renal lesion. Follow-up with general surgery regarding your cystic retroperitoneal mass. Return for severe pain, recurrent vomiting, or any other new, concerning, or worsening symptoms. All discharge instructions reviewed with patient and/or family. Voiced understanding. Scripts Potassium Chloride (Potassium Chloride) 20 Meq Tablet.er 20 MEQ PO DAILY for 5 Days, #5 TAB 0 Refills Prov: MADHAVI DAO APRN 08/09/22 Copy Copies To 1: BEATA PINO BRITTANY R APRN Aug 09, 2022 19:31
[2022-08-09] MEDS ORDERED: HOLD METFORMIN - RECEIVED CONTRAST 20 ML VIAL IV SCH (19:45)
[2022-08-09] MEDS ORDERED: IOHEXOL 350 MG/ML 100 ML (OMNIPAQUE 350) VIAL IV ONE (19:45)
[2022-08-09] MEDS ORDERED: NS 100 ML (IVPB) BAG IV ONE (19:45)
[2022-08-09 19:49] LABS: BASOPHILS # (AUTO) 0.1 10^3/uL (0.0-0.1); BASOPHILS % (AUTO) 1 % (0-10); EOSINOPHILS # (AUTO) 0.2 10^3/uL (0.0-0.3); EOSINOPHILS % (AUTO) 2 % (0-10); HEMATOCRIT 45 % (35-52); HEMOGLOBIN 15.7 g/dL (11.5-16.0); LYMPHOCYTES # (AUTO) 4.3 10^3/uL (1.0-4.0); LYMPHOCYTES % (AUTO) 54 % (12-44); MEAN CORPUSCULAR HEMOGLOBIN 34 pg (25-34); MEAN CORPUSCULAR HGB CONC 35 g/dL (32-36); MEAN CORPUSCULAR VOLUME 98 fL (80-99); MEAN PLATELET VOLUME 12.3 fL (9.0-12.2); MONOCYTES # (AUTO) 0.5 10^3/uL (0.0-1.0); MONOCYTES % (AUTO) 6 % (0-12); NEUTROPHILS % (AUTO) 37 % (42-75); PLATELET COUNT 97 10^3/uL (130-400)
[2022-08-09 19:53] LABS: BILIRUBIN,URINE NEGATIVE (NEGATIVE); CLARITY,URINE CLEAR; COLOR,URINE ORANGE; GLUCOSE, URINE (UA) NEGATIVE (NEGATIVE); KETONES,URINE NEGATIVE (NEGATIVE); LEUKOCYTE ESTERASE ,URINE NEGATIVE (NEGATIVE); NITRITE,URINE NEGATIVE (NEGATIVE); PROTEIN,URINE NEGATIVE (NEGATIVE)
[2022-08-09] MEDS ORDERED: PANTOPRAZOLE 40 MG (PROTONIX) VIAL IV ONE (20:00)
[2022-08-09 20:05] LABS: SMEAR SCAN COMMENT YES
[2022-08-09 20:08] LABS: ALBUMIN 3.3 GM/DL (3.2-4.5); CALCIUM 8.8 MG/DL (8.5-10.1); CREATININE SERUM 0.78 MG/DL (0.60-1.30); TOTAL PROTEIN 7.9 GM/DL (6.4-8.2)
[2022-08-09 20:11] LABS: BACTERIA,URINE NEGATIVE /HPF; SQUAMOUS EPITHELIAL CELL,UR 0-2 /HPF
[2022-08-09] MEDS ORDERED: NS IV 1000 ML 1,000 ML IV SCH (20:15)
--- NOTE | 2022-08-09 20:23 | Diagnostic Imaging Report ---
PROCEDURE: CT abdomen and pelvis with contrast. TECHNIQUE: Multiple contiguous axial images were obtained through the abdomen and pelvis after administration of intravenous contrast. Auto Exposure Controls were utilized during the CT exam to meet ALARA standards for radiation dose reduction. All CT scans use one or more of the following dose optimizing techniques: automated exposure control, MA and/or KvP adjustment based on patient size and exam type or iterative reconstruction. DATE: August 09, 2022. COMPARISON: CT abdomen and pelvis February 24, 2020. INDICATION: 46-year-old female, right upper quadrant abdominal pain and epigastric pain. Recent esophageal varices banding on July 31, 2022. FINDINGS: There is mild atelectasis in the lung bases. The heart is not enlarged. There is no identified pericardial effusion. The liver is unremarkable in size and contour. There is no identified liver lesion. The main, right, left portal veins are patent. The gallbladder is surgically absent. There is no biliary ductal dilation. Unremarkable appearance of the pancreas. The spleen is normal in size. The adrenal glands are unremarkable. There is a 6 mm low-attenuation right renal lesion on axial image 68 which is too small to characterize. The urinary collecting systems are not distended. There is no identified renal or ureteral stone. Urinary bladder is unremarkable. The uterus is not seen and likely is surgically absent. The intestinal tract is not distended. There is no evidence of acute appendicitis. The appendix may be surgically absent. There are no prominent gastroesophageal varices currently present. There is no free intraperitoneal air. There is a cystic mass in the left retroperitoneum measuring up to 5.2 cm in size on axial image 110. This increased in size in 2019, previously measuring 3.6 cm in size. There is no identified abnormally enlarged lymph node in the abdomen or pelvis meeting CT size criteria for adenopathy. There are atherosclerotic calcifications. There is no identified acute bony abnormality. IMPRESSION: CT ABDOMEN AND PELVIS. 1. No identified acute abnormality in the abdomen or pelvis. 2. No current sizable gastroesophageal varices. 3. Cystic left retroperitoneal mass is present in February 2020 although increased in size on current exam. This may reflect a lymphocele or other nonspecific fluid collection or cystic mass. Benign etiology is favored. Dictated by: Dictated on workstation # [id number]
[2022-08-09] MEDS ORDERED: KCL 20 MEQ TAB (K-DUR) PO ONE (21:00)
[2022-08-09] MEDS ORDERED: POTA-51 PO (21:02)
[2022-08-09 21:35] VITALS: BP 126/82
== END 2022-08-09 21:35 | disposition home or self-care (01) ==
LOC: EDUNIT# 18:30 → ER 18:33
DX: R10.13 Epigastric pain (principal); R10.11 Right upper quadrant pain; R11.0 Nausea; E87.6 Hypokalemia; D69.6 Thrombocytopenia, unspecified; N28.9 Disorder of kidney and ureter, unspecified; R19.09 Other intra-abdominal and pelvic swelling, mass and lump; F17.210 Nicotine dependence, cigarettes, uncomplicated; Z87.19 Personal history of other diseases of the digestive system; Z90.49 Acquired absence of other specified parts of digestive tract; Z28.310 Unvaccinated for COVID-19
CPT/HCPCS: 36415; 74177; 80053; 81000; 82150; 83690; 84703; 85025

== ENCOUNTER 2022-08-30 21:15 | Emergency (ER) | payer MEDICARE, MEDICAID ==
[~2022-08-30] VITALS: Ht 160 cm; Wt 94.3 kg
[~2022-08-30 21:15] MED LIST changes: +POTA-330 PO
[2022-08-30 21:30] LABS: EOSINOPHILS % (AUTO) 2 % (0-10); HEMATOCRIT 47 % (35-52); MEAN CORPUSCULAR HGB CONC 34 g/dL (32-36)
[2022-08-30 21:32] LABS: BASOPHILS # (AUTO) 0.1 10^3/uL (0.0-0.1); BASOPHILS % (AUTO) 1 % (0-10); EOSINOPHILS # (AUTO) 0.2 10^3/uL (0.0-0.3); LYMPHOCYTES # (AUTO) 5.4 10^3/uL (1.0-4.0); LYMPHOCYTES % (AUTO) 47 % (12-44); MEAN CORPUSCULAR HEMOGLOBIN 34 pg (25-34); MEAN CORPUSCULAR VOLUME 100 fL (80-99); MEAN PLATELET VOLUME 12.7 fL (9.0-12.2); MONOCYTES # (AUTO) 0.8 10^3/uL (0.0-1.0); MONOCYTES % (AUTO) 7 % (0-12); NEUTROPHILS # (AUTO) 4.9 10^3/uL (1.8-7.8); NEUTROPHILS % (AUTO) 43 % (42-75); PLATELET COUNT 103 10^3/uL (130-400); WHITE BLOOD COUNT 11.4 10^3/uL (4.3-11.0)
--- NOTE | 2022-08-30 21:34 | ED GI ---
General Chief Complaint: Chest Pain Stated Complaint: CHEST/AB/BACK PAIN Nursing Triage Note: PT AMB TO ED BY POV WITH C/O CP, ABD PAIN, AND UPPER BACK PAIN X 3 DAYS. PT REPORTS PAIN HAS GRADUALLY GOTTEN WORSE OVER THE LAST 3 DAYS. PT REPORTS SOB AND NAUSEA WITH PAIN. Source of Information: Patient, Old Records History of Present Illness Date Seen by Provider: Aug 30, 2022 Time Seen by Provider: 21:21 Initial Comments PT ARRIVES VIA POV FROM HOME C/O EPIGASTRIC PAIN RADIATING INTO CHEST AND BACK X 3 DAYS THIS IS A RECURRENT PROBLEM PT HAS ESOPHAGEAL VARICES, AND THIS FEELS THE SAME C/O NAUSEA, NO VOMITING + SHORTNESS OF BREATH WHEN PAIN IS BAD NO SWELLING IN LEGS/FEET TODAY, BUT WERE SWOLLEN YESTERDAY NO COUGH NO FEVER SHE ATE [employer] AND A [employer] AT 1800, AND GRAPES FOR BREAKFAST STATES SHE "HURT TOO BAD TO EAT ANYTHING ELSE TODAY" PT HAS HAD 8 VARICES BANDED, AND NEEDS MORE BANDING DONE SHE WAS AT 08/26 THIS WEEK FOR THIS PROBLEM, AND HAD AN EGD, BUT STATES "THEY COULDN'T DO IT BECAUSE MY STOMACH WAS FULL OF FOOD" SHE IS NOT ON ANY GI MEDICATIONS. SHE HAS BEEN PRESCRIBED OMEPRAZOLE IN THE PAST, BUT HAS NOT TAKEN ANY FOR A FEW WEEKS LAST ESOPHAGEAL BANDING 07/31/22 SHE STATES SHE HAS BEEN TAKING TYLENOL FOR THE PAIN "BECAUSE I CAN'T TAKE IBUPROFEN BECAUSE OF MY LIVER FAILURE" IN ADDITION TO CIRRHOSIS, SHE HAS HTN, CHRONIC BACK PAIN , RENAL MASS, FIBROMYALGIA, NEUROPATHY, HYPOTHYROIDISM. SHE CONTINUES TO SMOKE CIGARETTES DAILY, HAS NOT SMOKED MARIJUANA FOR 2 WEEKS SHE QUIT DRINKING ALCOHOL 27 YEARS AGO, WITH HISTORY OF ETOH ABUSE. PCP: MARIELLE BECKFORD AT [facility] Allergies and Home Medications Allergies Coded Allergies: niacin (Unverified Allergy, Mild, 05/13/14) gabapentin (Verified Allergy, Unknown, MADE FEEL SHAKEY AND LIGHT HEADED, 08/09/22) Patient Home Medication List Home Medication List Reviewed: Yes ALPRAZolam (Xanax Tablet) 0.25 Mg Tablet, 0.25 MG PO TID PRN for ANXIETY, (Reported) Entered as Reported by: RITA RACHEL on 11/04/17 0115 Acetazolamide (Acetazolamide) 250 Mg Tablet, 250 MG PO 1200,2100, (Reported) Entered as Reported by: CHANDANA CANCINO on 01/18/18900 Acyclovir (Acyclovir) 400 Mg Tablet, 400 MG PO TID, (Reported) Entered as Reported by: IZABEL VELASCO on 04/12/162128 Albuterol Sulfate (Ventolin Hfa) 1 Puff Puff, 2 PUFF IH Q4H Prescribed by: PAOLA TAVERAS on 10/29/21 215 Azithromycin (Zithromax) 500 Mg Tablet, 500 MG PO DAILY Prescribed by: PAOLA TAVERAS on 08/31/22 000 Benzonatate (Tessalon Perles) 100 Mg Capsule, 1-2 TAB PO TID Prescribed by: PAOLA TAVERAS on 03/02/18 034 Budesonide (Pulmicort Flexhaler) 90 Mcg Aer.pow.ba, 90 MCG IH BID Prescribed by: PAOLA TAVERAS on 03/02/18342 Cefdinir (Cefdinir) 300 Mg Capsule, 300 MG PO BID Prescribed by: OMAR BLOUNT on 01/19/18 1404 Cefdinir (Cefdinir) 300 Mg Capsule, 300 MG PO BID Prescribed by: LOC MEDINA on 01/14/20 2215 Cefdinir (Cefdinir) 300 Mg Capsule, 300 MG PO BID Prescribed by: PAOLA TAVERAS on 08/31/226 Ciprofloxacin HCl (Ciprofloxacin HCl) 500 Mg Tablet, 500 MG PO BID Prescribed by: PAOLA TAVERAS on 02/24/20 0111 Cyclobenzaprine HCl (Cyclobenzaprine HCl) 10 Mg Tablet, 10 MG PO TID PRN for MUSCLE SPASMS, (Reported) Entered as Reported by: CHANDANA CANCINO on 01/18/18900 Cyclobenzaprine HCl (Cyclobenzaprine HCl) 10 Mg Tablet, 10 MG PO TID Prescribed by: AMBERLY CABALLERO on 12/23/20 194 D-Methorphan Hb/Prometh HCl (Promethazine-Dm Syrup) 118 Ml Syrup, 1-2 TSP PO Q4H Prescribed by: PAOLA TAVERAS on 03/02/18 034 Duloxetine HCl (Duloxetine HCl) 60 Mg Capsule.dr, 60 MG PO BID, (Reported) Entered as Reported by: CHANDANA CANCINO on 01/18/18900 Ezetimibe (Ezetimibe) 10 Mg Tablet, 10 MG PO HS, (Reported) Entered as Reported by: CHANDANA CANCINO on 01/18/18900 Famotidine (Pepcid) 40 Mg Tablet, 40 MG PO DAILY Prescribed by: PAOLA TAVERAS on 02/24/20110 Hydrocodone/Acetaminophen (Hydrocodone-Acetamin 5-325 mg) 1 Each Tablet, 1 EACH PO Q6H PRN for PAIN-BREAKTHROUGH Prescribed by: LOC MEDINA on 01/14/202215 Hyoscyamine Sulfate (Levsin-Sl) 0.125 Mg Tab.subl, 0.25 MG SL Q4H Prescribed by: PAOLA TAVERAS on 02/24/20110 Ibuprofen (Advil) 200 Mg Tablet, 600 MG PO TID PRN for PAIN-MILD, (Reported) Entered as Reported by: CHANDANA CNACINO on 01/18/18906 Ketorolac Tromethamine (Ketorolac Tromethamine) 10 Mg Tablet, 10 MG PO Q6H Prescribed by: PAOLA TAVERAS on 09/03/212022 Levofloxacin (Levaquin) 500 Mg Tablet, 500 MG PO DAILY Prescribed by: PAOLA TAVERAS on 03/02/18342 Levothyroxine Sodium (Levothyroxine Sodium) 112 Mcg Tablet, 1,125 MCG PO HS, (Reported) Entered as Reported by: CHANDANA CANCINO on 01/18/18900 Meloxicam (Meloxicam) 15 Mg Tablet, 15 MG PO DAILY Prescribed by: AMBERLY CABALLERO on 12/23/20 194 Methylprednisolone (Medrol) 4 Mg Tab.ds.pk, 4 MG PO UD Prescribed by: PAOLA TAVERAS on 03/02/18342 Metronidazole (Flagyl) 500 Mg Tablet, 500 MG PO QID Prescribed by: PAOLA TAVERAS on 02/24/20110 Naproxen (Naprosyn) 500 Mg Tablet, 500 MG PO BID Prescribed by: LOC MEDINA on 04/13/21 1658 Naproxen Sodium (Aleve) 220 Mg Tablet, 440 MG PO TID PRN for PAIN-MILD, (Reported) Entered as Reported by: CHANDANA CANCINO on 01/18/18906 Ondansetron (Ondansetron Odt) 4 Mg Tab.rapdis, 4 MG PO Q6H PRN for NAUSEA/VOMITING Prescribed by: LOC MEDINA on 01/14/202214 Ondansetron (Ondansetron Odt) 8 Mg Tab.rapdis, 8 MG PO Q6H Prescribed by: PAOLA TAVERAS on 02/24/20 011 Ondansetron (Ondansetron Odt) 8 Mg Tab.rapdis, 8 MG PO Q6H Prescribed by: PAOLA TAVERAS on 09/03/212022 Ondansetron (Ondansetron Odt) 8 Mg Tab.rapdis, 8 MG PO Q6H Prescribed by: PAOLA TAVERAS on 08/31/226 Pantoprazole Sodium (Protonix) 40 Mg Tablet.dr, 40 MG PO DAILY Prescribed by: PAOLA TAVERAS on 08/31/226 Potassium Chloride (Potassium Chloride) 20 Meq Tablet.er, 20 MEQ PO DAILY Prescribed by: Madhavi Bates on 08/09/222101 Pramipexole Di-HCl (Pramipexole Dihydrochloride) 0.125 Mg Tablet, 0.125 MG PO HS, (Reported) Entered as Reported by: RITA RACHEL on 11/04/17 011 Pregabalin (Lyrica) 100 Mg Capsule, 100 MG PO BID, (Reported) Entered as Reported by: TREV SANTIAGO on 11/13/16 1031 Prochlorperazine Maleate (Prochlorperazine Maleate) 10 Mg Tablet, 10 MG PO TID PRN for HEADACHE Prescribed by: Jaylan Lazar on 02/22/222110 Promethazine HCl (Promethazine Tablet) 25 Mg Tablet, 25 MG PO Q6H PRN for NAUSEA/VOMITING Prescribed by: JESUSITA DAVIS on 06/03/19 0217 Risperidone (Risperidone) 0.25 Mg Tablet, 0.5 MG PO HS, (Reported) Entered as Reported by: CHANDANA CANCINO on 01/18/18 09 Tizanidine HCl (Tizanidine HCl) 2 Mg Tablet, 4 MG PO HS, (Reported) Entered as Reported by: CHANDANA CANCINO on 01/18/18 0901 Tramadol HCl (Tramadol HCl) 50 Mg Tablet, 50 MG PO Q6H PRN for PAIN Prescribed by: JAIME TAMAYO on 10/22/18 1750 Verapamil HCl (Verapamil HCl) 120 Mg Tablet, 120 MG PO HS, (Reported) Entered as Reported by: CHANDANA CANCINO on 01/18/18 0901 [z-pack] Prescribed by: OMAR BLOUNT on 01/19/18 1404 Review of Systems Review of Systems Constitutional: no symptoms reported; No diaphoresis, No fever EENTM: No Symptoms Reported Respiratory: See HPI; Denies Cough; Shortness of Air Cardiovascular: See HPI, Chest Pain Gastrointestinal: See HPI, Abdominal Pain; Denies Constipated, Denies Diarrhea; Nausea; Denies Vomiting Genitourinary: No Symptoms Reported Musculoskeletal: see HPI, back pain Skin: no symptoms reported Psychiatric/Neurological: No Symptoms Reported Endocrine: No Symptoms Reported Hematologic/Lymphatic: No Symptoms Reported Past Gtwgvpm-Jctfpb-Pegemn Hx Patient Social History Tobacco Use?: Yes Tobacco type used: Cigarettes Smoking Status: Current Everyday Smoker Use of E-Cig and/or Vaping dev: No Substance use?: Yes Substance type: Marijuana Substance frequency: Daily Alcohol Use?: Yes Pt feels they are or have been: No Immunizations Up To Date Tetanus Booster (TDap): Less than 5yrs PED Vaccines UTD: Yes Influenza Vaccine Up-to-Date: No; Not Current First/Initial COVID19 Vaccinat: N/A Second COVID19 Vaccination Klaus: N/A Third COVID19 Vaccination Date: N/A Seasonal Allergies Seasonal Allergies: Yes Past Medical History Surgery/Hospitalization HX: HTN, HLD, ANXIETY, MANIC ANXIETY, LIVER CIRRHOSIS, MIGRAINES, NEUROPATHY, FIBROMYALGA THYROIDECTOMY, GALLBLADDER, EXPLORATORY LAPAROTOMY, 2 C SECTIONS, HYSTERECTOMY, HIATIAL HERNIA, BILATERAL KNEE REPLACEMENT. ESPHOGEAL VARCIES. COLONSCOPY, EGD Surgeries: Yes (EXPLORATORY LAP;HIATAL HERNIA REPAIR;HYST/BSO;VENTRAL HERNIA REPAIR;L KNEE ) Abdominal, Section, Gallbladder, Hysterectomy, Joint Replacement, Oophorectomy, Orthopedic, Thyroidectomy Respiratory: Yes Pneumonia, Chronic Bronchitis, COPD Currently Using CPAP: No Currently Using BIPAP: No Cardiac: Yes (MITRAL VALVE PROLAPSE) High Cholesterol, Hypertension, Irregular Heartbeat, Valvular Heart Disease Neurological: Yes (PERIPHERAL NEUROPATHY-LEGS/FEET/HANDS) Headaches /Migraines, Neuropathy Reproductive Disorders: Yes Female Reproductive Disorders: Denies, Menstrual Problems 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 ) Hypothyroidsim HEENT: No Loss of Vision: Denies Hearing Impairment: Denies Cancer: No Psychosocial: Yes (OVERDOSED 2015 AFTER CAUGHT STEALING FROM Projjix) Anxiety, Suicide Attempts, Bipolar, Schizophrenia, Depression Integumentary: Yes Herpes Blood Disorders: Yes (ANEMIA) Adverse Reaction/Blood Tranf: No Family Medical History Cardiovascular disease 19 FATHER Diabetes mellitus 19 FATHER 19 MOTHER FH: mental illness Mental SOCIAL HISTORY: -SMOKES 1 1/2 PPD -ETOH--HX OF ABUSE, CLAIMS NO USE FOR > 20 YEARS -DRUGS--THC USE DAILY. PAST SURGICAL HISTORY: -THYROIDECTOMY - X 2 -HYSTERECTOMY / BILATERAL SALPINGO-OOPHORECTOMY -EGD'S/COLONOSCOPIES -ESOPHAGEAL BANDING X 8 -CHOLECYSTECTOMY -HIATAL HERNIA REPAIR -VENTRAL HERNIA REPAIRS -EXPLORATORY LAPAROTOMY -LEFT KNEE SCOPE -BILATERAL KNEE REPLACEMENTS Physical Exam Vital Signs Vital Signs - First Documented 08/30/22 21:20 Temp 36.3 Pulse 72 Resp 20 B/P (MAP) 146/77 (100) Pulse Ox 96 O2 Delivery Room Air Capillary Refill : Less Than 3 Seconds Height/Weight/BMI Height: 5'3.00" Weight: 190lbs. 4.0oz. 86.042435ut; 36.00 BMI Method:Stated General Appearance: WD/WN, no apparent distress HEENT: PERRL/EOMI; No scleral icterus (R), No scleral icterus (L) Neck: normal inspection Respiratory: normal breath sounds, no respiratory distress, no accessory muscle use Cardiovascular: regular rate, rhythm, no murmur Gastrointestinal: soft, tenderness (EPIGASTRIC) Extremities: normal inspection, normal capillary refill Back: no CVA tenderness Neurologic/Psychiatric: bail bonding agent II-XII nml as tested, no motor/sensory deficits, alert, normal mood/affect, oriented x 3 Skin: normal color, warm/dry, other (MULTIPLE SORES TO FACE) Procedures/Interventions Dental Procedures: block Progress/Results/Core Measures Results/Orders Lab Results Laboratory Tests Test 08/30/22 21:25 08/30/22 21:31 Range/Units White Blood Count 11.4 H 4.3-11.0 10^3/uL Red Blood Count 4.72 3.80-5.11 10^6/uL Hemoglobin 16.0 11.5-16.0 g/dL Hematocrit 47 35-52 % Mean Corpuscular Volume 100 H 80-99 fL Mean Corpuscular Hemoglobin 34 25-34 pg Mean Corpuscular Hemoglobin Concent 34 32-36 g/dL Red Cell Distribution Width 13.3 10.0-14.5 % Platelet Count 103 L 130-400 10^3/uL Mean Platelet Volume 12.7 H 9.0-12.2 fL Immature Granulocyte % (Auto) 0 % Neutrophils (%) (Auto) 43 42-75 % Lymphocytes (%) (Auto) 47 H 12-44 % Monocytes (%) (Auto) 7 0-12 % Eosinophils (%) (Auto) 2 0-10 % Basophils (%) (Auto) 1 0-10 % Neutrophils # (Auto) 4.9 1.8-7.8 10^3/uL Lymphocytes # (Auto) 5.4 H 1.0-4.0 10^3/uL Monocytes # (Auto) 0.8 0.0-1.0 10^3/uL Eosinophils # (Auto) 0.2 0.0-0.3 10^3/uL Basophils # (Auto) 0.1 0.0-0.1 10^3/uL Immature Granulocyte # (Auto) 0.0 0.0-0.1 10^3/uL Percent Immature Platelet Fraction 9.7 H 0.0-7.6 % Erythrocyte Sedimentation Rate 27 H 0-20 MM/HR Prothrombin Time 14.9 H 12.2-14.7 SEC INR Comment 1.2 0.8-1.4 Activated Partial Thromboplast Time 37 H 24-35 SEC D-Dimer 0.56 H 0.00-0.49 UG/ML Sodium Level 142 135-145 MMOL/L Potassium Level 3.8 3.6-5.0 MMOL/L Chloride Level 111 H 98-107 MMOL/L Carbon Dioxide Level 23 21-32 MMOL/L Anion Gap 8 5-14 MMOL/L Blood Urea Nitrogen 4 L 7-18 MG/DL Creatinine 0.80 0.60-1.30 MG/DL Estimat Glomerular Filtration Rate 93 BUN/Creatinine Ratio 5 Glucose Level 118 H 70-105 MG/DL Calcium Level 8.6 8.5-10.1 MG/DL Corrected Calcium 9.2 8.5-10.1 MG/DL Magnesium Level 2.0 1.6-2.4 MG/DL Total Bilirubin 0.6 0.1-1.0 MG/DL Aspartate Amino Transf (AST/SGOT) 50 H 5-34 U/L Alanine Aminotransferase (ALT/SGPT) 25 0-55 U/L Alkaline Phosphatase 155 H 40-136 U/L Total Creatine Kinase 81 29-168 U/L Creatine Kinase MB 0.8 <6.6 NG/ML Myoglobin 20.5 10.0-92.0 NG/ML Troponin I < 0.028 <0.028 NG/ML C-Reactive Protein High Sensitivity 0.91 H 0.00-0.50 MG/DL B-Type Natriuretic Peptide 37.5 <100.0 PG/ML Total Protein 7.8 6.4-8.2 GM/DL Albumin 3.3 3.2-4.5 GM/DL Amylase Level 68 25-125 U/L Lipase 73 8-78 U/L Serum Test, Qualitative NEGATIVE NEGATIVE Serum Alcohol < 10 <10 MG/DL Smear Scan YES Urine Color YELLOW Urine Clarity CLEAR Urine pH 6.0 5-9 Urine Specific [place] <=1.005 1.016-1.022 Urine Protein NEGATIVE NEGATIVE Urine Glucose (UA) NEGATIVE NEGATIVE Urine Ketones NEGATIVE NEGATIVE Urine Nitrite NEGATIVE NEGATIVE Urine Bilirubin NEGATIVE NEGATIVE Urine Urobilinogen 4.0 < = 1.0 MG/DL Urine Leukocyte Esterase NEGATIVE NEGATIVE Urine RBC (Auto) NEGATIVE NEGATIVE Urine RBC NONE /HPF Urine WBC NONE /HPF Urine Squamous Epithelial Cells 0-2 /HPF Urine Crystals NONE /LPF Urine Bacteria NEGATIVE /HPF Urine Casts NONE /LPF Urine Mucus NEGATIVE /LPF Urine Culture Indicated NO Urine Opiates Screen NEGATIVE NEGATIVE Urine Oxycodone Screen NEGATIVE NEGATIVE Urine Methadone Screen NEGATIVE NEGATIVE Urine Propoxyphene Screen NEGATIVE NEGATIVE Urine Barbiturates Screen NEGATIVE NEGATIVE Ur Tricyclic Antidepressants Screen NEGATIVE NEGATIVE Urine Phencyclidine Screen NEGATIVE NEGATIVE Urine Amphetamines Screen NEGATIVE NEGATIVE Urine Methamphetamines Screen NEGATIVE NEGATIVE Urine Benzodiazepines Screen NEGATIVE NEGATIVE Urine Cocaine Screen NEGATIVE NEGATIVE Urine Cannabinoids Screen NEGATIVE NEGATIVE My Orders Orders - PAOLA TAVERAS DO Ekg Tracing (08/30/22 21:18) Ed Iv/Invasive Line Start (08/30/22 21:21) O2 (08/30/22 21:21) Monitor-Rhythm Ecg Trace Only (08/30/22 21:21) Alcohol (08/30/22 21:21) Amylase (08/30/22 21:21) Bnp Garcia (08/30/22 21:21) Cbc With Automated Diff (08/30/22 21:21) Comprehensive Metabolic Panel (08/30/22 21:21) Creatine Kinase (08/30/22 21:21) Creatine Kinase Mb (08/30/22 21:21) Hs C Reactive Protein (08/30/22 21:21) Fibrin Degradation Products (08/30/22 21:21) Drug Screen Stat (Urine) (08/30/22 21:21) Hcg,Qualitative Serum (08/30/22 21:21) Lipase (08/30/22 21:21) Magnesium (08/30/22 21:21) Protime With Inr (08/30/22 21:21) Partial Thromboplastin Time (08/30/22 21:21) Ua Culture If Indicated (08/30/22 21:21) Erythrocyte Sedimentation Rate (08/30/22 21:21) Myoglobin Serum (08/30/22 21:21) Troponin I [place] (08/30/22 21:21) Chest 1 View, Ap/Pa Only (08/30/22 21:21) Ct Ledy Chest/Noang Abd-Pelv W (08/30/22 22:06) Ondansetron Injection (Zofran Injectio (08/30/22 22:15) Pantoprazole Injection (Protonix Injecti (08/30/22 22:15) Ceftriaxone Iv/Im (Rocephin Iv/Im) (08/31/22 00:00) Azithromycin Tablet (Zithromax Tablet) (08/31/22 00:00) Medications Given in ED Current Medications Medications Dose Ordered Sig/Emeka Route Start Time Stop Time Status Last Admin Dose Admin Azithromycin 500 mg ONCE ONCE PO 08/31/22 00:00 08/31/22 00:01 DC 08/31/22 00:09 500 MG Ceftriaxone Sodium 1000 mg/ Sodium Chloride 50 ml @ 100 mls/hr ONCE ONCE IV 08/31/22 00:00 08/31/22 00:28 DC 08/31/22 00:08 100 MLS/HR Ondansetron HCl 8 mg ONCE ONCE IVP 08/30/22 22:15 08/30/22 22:16 DC 08/30/22 22:19 8 MG Pantoprazole 40 mg ONCE ONCE IV 08/30/22 22:15 08/30/22 22:16 DC 08/30/22 22:19 40 MG Vital Signs/I&O 08/30/22 08/31/22 21:20 00:27 Temp 36.3 Pulse 72 70 Resp 20 18 B/P (MAP) 146/77 (100) 137/71 Pulse Ox 96 96 O2 Delivery Room Air Room Air Blood Pressure Mean: 100 Progress Progress Note : Progress Note LABS INCLUDING CBC, CMP, AMYLASE, LIPASE, PT/PTT/INR, UA, WELL EKG AND CXR ORDERED, FOLLOWED BY CT ANGIOGRAM OF CHEST/ABDOMEN/PELVIS EKG AND CXR ARE UNREMARKABLE. PERTINENT LAB FINDINGS: CARDIAC ENZYMES ARE NEGATIVE, IS BNP AST SLIGHTLY ELEVATED AT 50, AND AMYLASE/LIPASE ARE NORMAL. RENAL FUNCTION AND ELECTROLYTES ARE NORMAL CBC IS UNREMARKABLE URINE IS CLEAR. VITALS ON ARRIVAL: BP 146/77, THEN 134/77, HR 68 RR 17 O2 SAT 97% ON ROOM AIR GIVEN: -ZOFRAN -PROTONIX -ANTIBIOTICS NO DETERIORATION IN PT'S CONDITION DURING ER STAY REVIEWED PRIOR RECORDS--MULTITUDE OF VISITS--NEARLY ALL ARE ER VISITS, FOR THIS SAME COMPLAINT WELL VARIOUS OTHER COMPLAINTS. LAST VISIT HERE 08/09/22 FOR THIS SAME COMPLAINT Initial ECG Impression Date: Aug 30, 2022 Initial ECG Impression Time: 21:23 Initial ECG Rate: 69 Initial ECG Rhythm: Normal Sinus Initial ECG Intervals: Normal Initial ECG Impression: Normal Initial ECG Comparisson: Unchanged Comment INTERPRETED BY ME Diagnostic Imaging Comments CXR--PER RADIOLOGIST REPORT AT 2140 FINDINGS: The heart size, mediastinal configuration and pulmonary vascularity are within normal limits. There is no pleural effusion, pneumothorax or pneumonia. The osseous structures are unremarkable. IMPRESSION: No acute cardiopulmonary abnormality. CT CHEST ANGIOGRAM / ABDOMEN-PELVIS--PER [facility] VIA FAX AT 5012 -NO P.E. -GROUND GLASS OPACITIES AND MILD INTERSTITIAL PROMINENCE--MILD VOLUME OVERLOAD VS INFECTION -BILATERAL LOWER LOBE ATELECTASIS VS INFILTRATES -UNCHANGED PROMINENT PRE-TRACHEAL LYMPH NODE -ENLARGED LIVER WITH FATTY INFILTRATION -CYSTIC LESION OF LEFT RETROPERITONEUM IS STABLE. Reviewed: Reviewed by Me Departure Impression Primary Impression: Epigastric pain Additional Impressions: Hx of esophageal varices Cirrhosis POSSIBLE PNEUMONIA Disposition: HOME, SELF-CARE Condition: Stable Departure-Patient Inst. Decision time for Depature: 00:01 Referrals: [facility] (PCP/Family) Primary Care Physician Patient Instructions: Abdominal Pain, Adult ED, Community-Acquired Pneumonia, Adult (DC) Add. Discharge Instructions: LOTS OF CLEAR LIQUIDS, SIPS AT A TIME--WATER, BROTH, JELLO, GATORADE TOMORROW IF YOUR NAUSEA IS BETTER, ADD BRATS DIET TO CLEAR LIQUIDS--BANANAS, RICE, APPLESAUCE, TOAST, SALTINES FOLLOW UP WITH [facility] SOON POSSIBLE TO HAVE FURTHER EVALUATION AND TREATMENT OF YOUR ESOPHAGEAL VARICES. CONTINUE YOUR REGULAR MEDICATIONS PRESCRIBED All discharge instructions reviewed with patient and/or family. Voiced understanding. Scripts Azithromycin (Zithromax) 500 Mg Tablet 500 MG PO DAILY for 5 Days, #5 TAB Prov: PAOLA TAVERAS DO 08/31/22 Cefdinir (Cefdinir) 300 Mg Capsule 300 MG PO BID, #20 CAP Prov: PAOLA TAVERAS DO 08/31/22 Ondansetron (Ondansetron Odt) 8 Mg Tab.rapdis 8 MG PO Q6H, #15 TAB Prov: PAOLA TAVERAS DO 08/31/22 Pantoprazole Sodium (Protonix) 40 Mg Tablet.dr 40 MG PO DAILY, #30 TAB Prov: PAOLA TAVERAS DO 08/31/22 PAOLA TAVERAS DO Aug 30, 2022 21:34
--- NOTE | 2022-08-30 21:34 | Diagnostic Imaging Report ---
INDICATION: Chest pain. COMPARISON: Prior examination from 06/02/2022. FINDINGS: The heart size, mediastinal configuration and pulmonary vascularity are within normal limits. There is no pleural effusion, pneumothorax or pneumonia. The osseous structures are unremarkable. IMPRESSION: No acute cardiopulmonary abnormality. Dictated by: Dictated on workstation # [id number]
[2022-08-30 21:42] LABS: BILIRUBIN,URINE NEGATIVE (NEGATIVE); CLARITY,URINE CLEAR; COLOR,URINE YELLOW; GLUCOSE, URINE (UA) NEGATIVE (NEGATIVE); KETONES,URINE NEGATIVE (NEGATIVE); LEUKOCYTE ESTERASE ,URINE NEGATIVE (NEGATIVE); NITRITE,URINE NEGATIVE (NEGATIVE); PROTEIN,URINE NEGATIVE (NEGATIVE)
[2022-08-30 21:44] LABS: INR 1.2 (0.8-1.4); PROTHROMBIN TIME PATIENT 14.9 SEC (12.2-14.7)
[2022-08-30 21:45] LABS: ALBUMIN 3.3 GM/DL (3.2-4.5); CHLORIDE 111 MMOL/L (98-107); POTASSIUM 3.8 MMOL/L (3.6-5.0); SODIUM 142 MMOL/L (135-145)
[2022-08-30 21:46] LABS: CALCIUM 8.6 MG/DL (8.5-10.1)
[2022-08-30 21:47] LABS: AMYLASE 68 U/L (25-125); FIBRIN DEGRADATION PRODUCTS 0.56 UG/ML (0.00-0.49); GLUCOSE 118 MG/DL (70-105)
[2022-08-30 21:48] LABS: CARBON DIOXIDE 23 MMOL/L (21-32); TOTAL PROTEIN 7.8 GM/DL (6.4-8.2)
[2022-08-30 21:49] LABS: BILIRUBIN,TOTAL 0.6 MG/DL (0.1-1.0)
[2022-08-30 21:51] LABS: ALKALINE PHOSPHATASE 155 U/L (40-136); GFR ESTIMATED 93
[2022-08-30 21:52] LABS: BUN/CREATININE RATIO 5
[2022-08-30 21:53] LABS: AMPHETAMINE SCREEN, URINE NEGATIVE (NEGATIVE); BARBITURATE SCREEN URINE NEGATIVE (NEGATIVE); BENZODIAZEPINES SCREEN URINE NEGATIVE (NEGATIVE); CANNABINOID SCREEN, URINE NEGATIVE (NEGATIVE); COCAINE SCREEN URINE NEGATIVE (NEGATIVE); METHADONE STAT NEGATIVE (NEGATIVE); OPIATE SCREEN URINE NEGATIVE (NEGATIVE); OXYCODONE STAT NEGATIVE (NEGATIVE); PROPOXYPHENE STAT NEGATIVE (NEGATIVE); TRICYCLIC ANTIDEPRESSANTS SCRE NEGATIVE (NEGATIVE)
[2022-08-30 21:54] LABS: ALANINE AMINOTRANSFERASE 25 U/L (0-55); ERYTHROCYTE SEDIMENTATION RATE 27 MM/HR (0-20)
[2022-08-30 21:55] LABS: CREATINE KINASE 81 U/L (29-168); LIPASE 73 U/L (8-78); SMEAR SCAN COMMENT YES
[2022-08-30 22:02] LABS: CREATINE KINASE MB 0.8 NG/ML (<6.6)
[2022-08-30 22:03] LABS: BACTERIA,URINE NEGATIVE /HPF; SQUAMOUS EPITHELIAL CELL,UR 0-2 /HPF
[2022-08-30] MEDS ORDERED: PANTOPRAZOLE 40 MG (PROTONIX) VIAL IV ONE (22:15)
[2022-08-30] MEDS ORDERED: ONDANSETRON 4 MG/2 ML (SDV) Z0FRAN IVP ONE (22:15)
[2022-08-31] MEDS ORDERED: AZITHROMYCIN 250 MG TAB (ZITHROMAX) PO ONE
[2022-08-31] MEDS ORDERED: cefTRIAXone IV/IM 1,000 MG in NS (IVPB) 50 ML IV ONE ×2
[2022-08-31] MEDS ORDERED: ONDA8TAB13 PO (00:07)
[2022-08-31] MEDS ORDERED: CEFD300C3 PO (00:07)
[2022-08-31] MEDS ORDERED: AZIT500T PO (00:07)
[2022-08-31] MEDS ORDERED: PANT40TA2 PO (00:07)
[2022-08-31 00:27] VITALS: BP 137/71
--- NOTE | 2022-08-31 05:32 | Diagnostic Imaging Report ---
INDICATION: CP, EPIG PAIN, HX ESOPH VARICES, ELEV D-DIMER CTA chest, abdomen and pelvis Thin axial sections through the chest, abdomen and pelvis are obtained following intravenous contrast bolus. Multiplanar MIP images were reconstructed and reviewed. All CT scans use one or more of the following dose optimizing techniques: automated exposure control, MA and/or KvP adjustment based on patient size and exam type or iterative reconstruction. INDICATION: Chest pain, epigastric pain, varices COMPARISON: 03/02/2018 and 08/09/2022 FINDINGS: Mildly prominent precarinal lymph nodes are present, largest measuring up to 1.3 cm in short dimension. These lymph nodes are slightly less prominent than in 2018. No aneurysmal dilatation of the thoracic aorta. Mild scattered vascular calcifications. The heart is mildly enlarged. No significant pericardial effusion. No significant pleural effusion. The trachea is patent. No pneumothorax. Peripheral reticular and groundglass opacities are identified within the bilateral lungs. No significant filling defect within the central or segmental pulmonary arteries. No acute osseous abnormality within the chest. Cholecystectomy. The liver is heterogeneous without focal hepatic mass lesion. The spleen is unremarkable. The adrenal glands are unremarkable. The pancreas is unremarkable. The kidneys are unremarkable. Mild vascular calcifications without aneurysmal dilatation of the abdominal aorta. 4.9 cm cystic structure is noted within the left retroperitoneum; this is not significantly changed since 09/15/2016. Prior appendectomy. The urinary bladder is unremarkable. The uterus is not visualized, likely surgically absent. No bowel obstruction or pneumatosis. No significant adenopathy, free air, or free fluid within the abdomen or pelvis. Mild scattered osseous degenerative changes. Disc bulge and disc protrusion is noted at L4/L5 resulting in likely severe central canal stenosis. IMPRESSION: Bilateral pulmonary opacities, likely related to pulmonary infiltrate, including atypical pneumonia. Atelectasis could be considered. Mildly prominent precarinal lymph nodes. These are likely reactive in nature. These are actually smaller than prior imaging from 2018. Heterogeneous liver, related to fatty infiltration of the liver versus chronic liver disease. Recommend clinical correlation. Stable left retroperitoneal cystic structure, not significantly changed since 2017. Disc bulge/protrusion at L4/L5 resulting in high-grade central canal stenosis. This could be further evaluated with MRI of the lumbar spine as clinically indicated. No significant pulmonary embolus. Additional findings as above. Agree with preliminary interpretation. Dictated by: Dictated on workstation # [id number]
== END 2022-08-31 00:27 | disposition home or self-care (01) ==
LOC: EDUNIT# 21:15 → ER 21:17
DX: K74.60 Unspecified cirrhosis of liver (principal); F17.210 Nicotine dependence, cigarettes, uncomplicated; Z87.19 Personal history of other diseases of the digestive system; Z90.49 Acquired absence of other specified parts of digestive tract
CPT/HCPCS: 36415; 71045; 71275; 74177; 80053; 80306; 80320; 81000; 82150; 82550; 82553; 83690; 83735; 83874; 83880; 84484; 84703; 85025; 85379; 85610; 85652; 85730; 86141; 93005; 93041

== ENCOUNTER 2022-10-08 19:38 | Emergency (ER) | payer MEDICARE, MEDICAID ==
[~2022-10-08] VITALS: Ht 160 cm; Wt 90.7 kg
[~2022-10-08 19:38] MED LIST changes: +AZIT500T PO; +PANT40TA2 PO; -POTA10CA44 PO; +POTA10CA84 PO
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
[2022-10-08] MEDS ORDERED: LACTATED RINGERS 1,000 ML IV ONE (20:00)
[2022-10-08] MEDS ORDERED: PANTOPRAZOLE 40 MG (PROTONIX) VIAL IV ONE (20:00)
[2022-10-08] MEDS ORDERED: ONDANSETRON 4 MG/2 ML (SDV) Z0FRAN IVP ONE (20:00)
[2022-10-08 20:07] LABS: BASOPHILS # (AUTO) 0.1 10^3/uL (0.0-0.1); BASOPHILS % (AUTO) 1 % (0-10); HEMOGLOBIN 15.1 g/dL (11.5-16.0); MEAN CORPUSCULAR VOLUME 101 fL (80-99)
[2022-10-08 20:09] LABS: EOSINOPHILS # (AUTO) 0.2 10^3/uL (0.0-0.3); EOSINOPHILS % (AUTO) 2 % (0-10); HEMATOCRIT 44 % (35-52); LYMPHOCYTES % (AUTO) 53 % (12-44); MEAN CORPUSCULAR HEMOGLOBIN 34 pg (25-34); MEAN CORPUSCULAR HGB CONC 34 g/dL (32-36); MEAN PLATELET VOLUME 12.8 fL (9.0-12.2); MONOCYTES # (AUTO) 0.5 10^3/uL (0.0-1.0); MONOCYTES % (AUTO) 5 % (0-12); NEUTROPHILS # (AUTO) 3.6 10^3/uL (1.8-7.8); NEUTROPHILS % (AUTO) 38 % (42-75); PLATELET COUNT 99 10^3/uL (130-400); WHITE BLOOD COUNT 9.4 10^3/uL (4.3-11.0)
[2022-10-08 20:12] LABS: SMEAR SCAN COMMENT YES
[2022-10-08 20:20] LABS: INR 1.3 (0.8-1.4); PROTHROMBIN TIME PATIENT 16.2 SEC (12.2-14.7)
[2022-10-08 20:27] LABS: ALANINE AMINOTRANSFERASE 23 U/L (0-55); ALBUMIN 3.1 GM/DL (3.2-4.5); ALKALINE PHOSPHATASE 153 U/L (40-136); AMYLASE 82 U/L (25-125); BILIRUBIN,TOTAL 0.8 MG/DL (0.1-1.0); BUN/CREATININE RATIO 5; CALCIUM 8.1 MG/DL (8.5-10.1); CARBON DIOXIDE 19 MMOL/L (21-32); CHLORIDE 109 MMOL/L (98-107); CREATININE SERUM 0.84 MG/DL (0.60-1.30); GFR ESTIMATED 87; GLUCOSE 235 MG/DL (70-105); LIPASE 60 U/L (8-78); POTASSIUM 3.5 MMOL/L (3.6-5.0); SODIUM 139 MMOL/L (135-145); TOTAL PROTEIN 7.5 GM/DL (6.4-8.2)
[2022-10-08] MEDS ORDERED: NS 100 ML (IVPB) BAG IV ONE (20:30)
[2022-10-08] MEDS ORDERED: IOHEXOL 350 MG/ML 100 ML (OMNIPAQUE 350) VIAL IV ONE (20:30)
[2022-10-08 20:52] LABS: COLOR,URINE YELLOW
[2022-10-08 20:53] LABS: AMORPHOUS SEDIMENT,UR FEW AMOR URATES /LPF; BACTERIA,URINE TRACE /HPF; BILIRUBIN,URINE NEGATIVE (NEGATIVE); CLARITY,URINE CLEAR; GLUCOSE, URINE (UA) NEGATIVE (NEGATIVE); KETONES,URINE TRACE (NEGATIVE); LEUKOCYTE ESTERASE ,URINE NEGATIVE (NEGATIVE); NITRITE,URINE NEGATIVE (NEGATIVE); RBC,URINE 0-2 /HPF
[2022-10-08 20:55] LABS: PROTEIN,URINE TRACE (NEGATIVE)
[2022-10-08 20:57] LABS: AMPHETAMINE SCREEN, URINE NEGATIVE (NEGATIVE); BARBITURATE SCREEN URINE NEGATIVE (NEGATIVE); BENZODIAZEPINES SCREEN URINE NEGATIVE (NEGATIVE); CANNABINOID SCREEN, URINE NEGATIVE (NEGATIVE); COCAINE SCREEN URINE NEGATIVE (NEGATIVE); METHADONE STAT NEGATIVE (NEGATIVE); OPIATE SCREEN URINE POSITIVE (NEGATIVE); OXYCODONE STAT NEGATIVE (NEGATIVE); PROPOXYPHENE STAT NEGATIVE (NEGATIVE); TRICYCLIC ANTIDEPRESSANTS SCRE NEGATIVE (NEGATIVE)
--- NOTE | 2022-10-08 20:58 | Diagnostic Imaging Report ---
PROCEDURE: CT head without contrast. TECHNIQUE: Multiple contiguous axial images were obtained through the brain without the use of intravenous contrast. Auto Exposure Controls were utilized during the CT exam to meet ALARA standards for radiation dose reduction. INDICATION: Headache, syncope. COMPARISON: 02/15/2017. FINDINGS: The ventricles and cortical sulci are age-appropriate. There is no midline shift or mass effect. No acute intracranial hemorrhage is seen. There is no CT evidence of acute territorial ischemia. The calvarium appears intact. Visualized paranasal sinuses are clear. IMPRESSION: No acute intracranial hemorrhage or CT evidence of acute territorial ischemia. Dictated by: Dictated on workstation # [id number]
--- NOTE | 2022-10-08 21:22 | Diagnostic Imaging Report ---
PROCEDURE: CT chest, abdomen, and pelvis with contrast. TECHNIQUE: Multiple contiguous axial images were obtained through the chest, abdomen, and pelvis after the administration of intravenous contrast. Auto Exposure Controls were utilized during the CT exam to meet ALARA standards for radiation dose reduction. INDICATION: Recent EGD with esophageal banding, epigastric pain, nausea and vomiting. COMPARISON: 08/30/2022. FINDINGS: CT CHEST: The heart is normal in size. There is no pericardial effusion. There are a few mildly prominent mediastinal lymph nodes without significant enlargement. The aorta has mild atherosclerosis but appears normal in caliber. No axillary adenopathy is seen. There is atelectasis and scarring in the lungs, particularly the lung bases and the periphery of the lungs. Mild emphysematous changes are seen in the lung apices. No mass is seen. No central endobronchial lesions are identified. No acute osseous abnormality is seen. CT ABDOMEN/PELVIS: The liver demonstrates no focal lesion. There may be a subtle nodular contour suggestive of cirrhosis. The spleen is mildly prominent measuring 12 cm. Cholecystectomy clips are noted. The pancreas appears normal. The adrenal glands are normal. The kidneys demonstrate no enhancing lesion and no hydronephrosis. A few distal esophageal varices are noted, which appear small. The bowel loops are nondistended without obstruction. The appendix appears to be resected. No free fluid or free air is seen. There is a nonspecific simple appearing fluid collection in the left retroperitoneum measuring up to 5.5 cm in size. This is stable since the prior study. This is considered benign, possibly a lymphocele. No acute osseous abnormality is seen. The aorta is normal in caliber. No lymphadenopathy is seen. IMPRESSION: 1. Chronic findings in the lungs with no acute pulmonary abnormality seen. 2. Mild cirrhotic appearance of the liver. Borderline splenomegaly. Esophageal varices appear small. No extravasation of contrast is seen. There is no free air or free fluid. Dictated by: Dictated on workstation # [id number]
[2022-10-08] MEDS ORDERED: PANT40TA2 PO (21:33)
[2022-10-08] MEDS ORDERED: SUCR1TAB36 PO (21:33)
[2022-10-08] MEDS ORDERED: METO-310 PO (21:33)
[2022-10-08] MEDS ORDERED: ONDA8TAB13 PO (21:33)
[2022-10-08 21:38] VITALS: BP 153/85
== END 2022-10-08 21:38 | disposition home or self-care (01) ==
LOC: EDUNIT# 19:38 → ER 19:42
DX: K74.60 Unspecified cirrhosis of liver (principal); R51.9 Headache, unspecified; G89.29 Other chronic pain; R73.9 Hyperglycemia, unspecified; Z86.59 Personal history of other mental and behavioral disorders; Z90.49 Acquired absence of other specified parts of digestive tract; F17.210 Nicotine dependence, cigarettes, uncomplicated; Z98.890 Other specified postprocedural states
CPT/HCPCS: 36415; 70450; 71260; 74177; 80053; 80306; 80320; 81000; 82010; 82150; 83036; 83690; 83735; 85025; 85610; 85730; 96361; 96374; 96375

== ENCOUNTER → 2022-11-08 | Outpatient (CLI) | payer MEDICARE, MEDICAID ==
[~2022-11-08] MED LIST changes: +METO-310 PO
--- NOTE | 2022-11-08 15:19 | Diagnostic Imaging Report ---
CHEST PA/LAT (2 VIEW) INDICATION: COPD. COMPARISON: CT of the chest on 10/08/2022. FINDINGS: Lungs: Normal lung volume. No focal consolidation. Redemonstration of multifocal areas of scarring. Pleura: No pleural effusion or pneumothorax. Heart and Mediastinum: Cardiomediastinal silhouette and great vessels of the thorax are stable. Osseous Structures and Soft Tissues: No acute osseous abnormality. Normal soft tissues. IMPRESSION: Redemonstration of multifocal scarring in the lungs. No focal consolidation or sherry pulmonary edema. Dictated by: Dictated on workstation # [id number]
== END ==
LOC: RAD 14:59
DX: J44.1 Chronic obstructive pulmonary disease with (acute) exacerbation (principal)
CPT/HCPCS: 71046

== ENCOUNTER 2022-11-12 14:12 | Emergency (ER) | payer MEDICARE, MEDICAID ==
[~2022-11-12] VITALS: Ht 160 cm; Wt 95.0 kg
[2022-11-12 14:18] VITALS: BP 121/77
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
[2022-11-12] MEDS ORDERED: Tetanus/Diphtheria/Pertussis (Acell) ADULT Vaccine 0.5 ML IM ONE (14:45)
[2022-11-12] MEDS ORDERED: HYDROcodone/ACETAMINOPHEN 5 MG/325 MG TABLET PO ONE (14:45)
--- NOTE | 2022-11-12 14:58 | Diagnostic Imaging Report ---
EXAMINATION: Left foot radiographs, 3 views. COMPARISON: Left foot radiographs February 22, 2017. HISTORY: 47-year-old female, left foot pain. Injury. FINDINGS: There is no identified acute fracture. Bone mineralization and alignment appears to be unremarkable. The joint spaces are well preserved. There is mild degenerative type enthesopathy at the Achilles tendon insertion. IMPRESSION: 1. No acute bony abnormality of the left foot. Dictated by: Dictated on workstation # [id number]
--- NOTE | 2022-11-12 15:21 | Diagnostic Imaging Report ---
EXAMINATION: Right knee radiographs, 3 views. Left knee radiographs, 3 views. COMPARISON: Right knee radiographs April 13, 2021. HISTORY: 47-year-old female, bilateral knee pain. FINDINGS: There are prior procedural related changes of the right knee. There is no acute fracture. The joint spaces are well preserved. There is no right or left knee joint effusion. IMPRESSION: 1. No acute bony abnormality of the right or left knee. 2. Well-preserved joint spaces without knee joint effusion. 3. Prior procedural related changes of the right knee. Dictated by: Dictated on workstation # [id number]
[2022-11-12] MEDS ORDERED: ACHD5005 PO (15:23)
== END 2022-11-12 15:32 | disposition home or self-care (01) ==
LOC: EDUNIT# 14:12 → ER 14:15
DX: S80.212A Abrasion, left knee, initial encounter (principal); S90.812A Abrasion, left foot, initial encounter; M25.561 Pain in right knee; F17.210 Nicotine dependence, cigarettes, uncomplicated; Z28.310 Unvaccinated for COVID-19; Z23 Encounter for immunization; Z98.890 Other specified postprocedural states; W10.9XXA Fall (on) (from) unspecified stairs and steps, initial encounter
CPT/HCPCS: 73630; 90715

== ENCOUNTER 2022-12-23 12:49 | Emergency (ER) | payer MEDICARE, MEDICAID ==
[~2022-12-23] VITALS: Ht 162 cm; Wt 95.2 kg
[~2022-12-23 12:49] MED LIST changes: -PROC10TA10 PO; +PROC10TA15 PO
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
[2022-12-23] MEDS ORDERED: IBUPROFEN 800 MG TABLET PO ONE (13:30)
[2022-12-23] MEDS ORDERED: predniSONE 20 MG TABLET PO ONE (13:30)
[2022-12-23] MEDS ORDERED: RT-Ipratropium/Albuterol NEB 3 ML VIAL INH ONE (13:30)
--- NOTE | 2022-12-23 14:09 | Diagnostic Imaging Report ---
INDICATION: Cough. COMPARISON: Exam compared to 08/30/2022. FINDINGS: The lungs are clear. There is no infiltrate, effusion, pneumothorax, or failure pattern. IMPRESSION: Normal frontal chest. Dictated by: Dictated on workstation # [id number]
[2022-12-23] MEDS ORDERED: PRD20T PO (14:24)
[2022-12-23] MEDS ORDERED: DOXY100T31 PO (14:24)
[2022-12-23 14:28] VITALS: BP 140/83
== END 2022-12-23 14:28 | disposition home or self-care (01) ==
LOC: EDUNIT# 12:49 → ER 12:51
DX: J06.9 Acute upper respiratory infection, unspecified (principal); J44.9 Chronic obstructive pulmonary disease, unspecified; F17.210 Nicotine dependence, cigarettes, uncomplicated; Z79.51 Long term (current) use of inhaled steroids
CPT/HCPCS: 71045; 87636; 94640

== ENCOUNTER 2023-01-08 21:59 | Emergency (ER) | payer MEDICARE, MEDICAID ==
[~2023-01-08] VITALS: Ht 162 cm; Wt 95.2 kg
[~2023-01-08 21:59] MED LIST changes: +DOXY100T31 PO
[2023-01-08] MEDS ORDERED: KETOROLAC INJ 60 MG/2 ML VIAL IM ONE (22:15)
[2023-01-08] MEDS ORDERED: ONDANSETRON 4 MG ORAL DISSOLVE TABLET PO STA (22:15)
--- NOTE | 2023-01-08 22:17 | ED Headache ---
General Chief Complaint: Head/Cervical Problems Stated Complaint: MIGRANE Nursing Triage Note: POSTERIOR HEADACHE X3 DAYS, WORSE TODAY. Source: patient, old records History of Present Illness Date Seen by Provider: Jan 08, 2023 Time Seen by Provider: 22:10 Initial Comments PT ARRIVES VIA POV FROM HOME C/O HEADACHE X 3 DAYS, WORSE TODAY PAIN IS MOSTLY IN THE BACK OF HER HEAD PT WITH CHRONIC HEADACHES AND THIS IS SIMILAR TO PRIOR HEADACHE NO FEVER OR RECENT ILLNESS SHE HAS HAD NAUSEA AND HAS ZOFRAN AT HOME BUT HAS NOT TAKEN ANY SHE HAD SOME VOMITING THE FIRST DAY, BUT NO VOMITING SINCE THEN PT STATES SHE TOOK ONE HYDROCODONE AT 11 AM, AND 2 TYLENOL AT 1700--NO RELIEF PT HAS NOT SOUGHT CARE UNTIL TONIGHT ( WEDNESDAY NIGHT) PT WITH A MULTITUDE OF VISITS FOR THIS PROBLEM WELL MULTIPLE OTHER CHRONIC COMPLAINTS PT WITH LONGSTANDING MARIJUANA USE AND CIGARETTE USE. SHE HAS CIRRHOSIS WITH ESOPHAGEAL VARICES, HTN, FIBROMYALGIA, DIABETES, CHRONIC NAUSEA/VOMITING/ABDOMINAL PAIN Allergies and Home Medications Allergies Coded Allergies: niacin (Unverified Allergy, Mild, 05/13/14) gabapentin (Verified Allergy, Unknown, MADE FEEL SHAKEY AND LIGHT HEADED, 08/09/22) Patient Home Medication List Home Medication List Reviewed: Yes ALPRAZolam (Xanax Tablet) 0.25 Mg Tablet, 0.25 MG PO TID PRN for ANXIETY, (Reported) Entered as Reported by: RITA RACHEL on 11/04/17 0115 Acetazolamide (Acetazolamide) 250 Mg Tablet, 250 MG PO 1200,2100, (Reported) Entered as Reported by: CHANDANA CANCINO on 01/18/18 0901 Acyclovir (Acyclovir) 400 Mg Tablet, 400 MG PO TID, (Reported) Entered as Reported by: IZABEL VELASCO on 04/12/162128 Albuterol Sulfate (Ventolin Hfa) 1 Puff Puff, 2 PUFF IH Q4H Prescribed by: PAOLA TAVERAS on 10/29/212155 Azithromycin (Zithromax) 500 Mg Tablet, 500 MG PO DAILY Prescribed by: PAOLA TAVERAS on 08/31/22 0007 Benzonatate (Tessalon Perles) 100 Mg Capsule, 1-2 TAB PO TID Prescribed by: PAOLA TAVERAS on 03/02/18 0343 Budesonide (Pulmicort Flexhaler) 90 Mcg Aer.pow.ba, 90 MCG IH BID Prescribed by: PAOLA TAVERAS on 03/02/18 034 Cefdinir (Cefdinir) 300 Mg Capsule, 300 MG PO BID Prescribed by: OMAR BLOUNT on 01/19/18 1404 Cefdinir (Cefdinir) 300 Mg Capsule, 300 MG PO BID Prescribed by: LOC MEDINA on 01/14/202214 Cefdinir (Cefdinir) 300 Mg Capsule, 300 MG PO BID Prescribed by: PAOLA TAVERAS on 08/31/22 0007 Ciprofloxacin HCl (Ciprofloxacin HCl) 500 Mg Tablet, 500 MG PO BID Prescribed by: PAOLA TAVERAS on 02/24/20 011 Cyclobenzaprine HCl (Cyclobenzaprine HCl) 10 Mg Tablet, 10 MG PO TID PRN for MUSCLE SPASMS, (Reported) Entered as Reported by: CHANDANA CANCINO on 01/18/18900 Cyclobenzaprine HCl (Cyclobenzaprine HCl) 10 Mg Tablet, 10 MG PO TID Prescribed by: AMBERLY CABALLERO on 12/23/20 194 D-Methorphan Hb/Prometh HCl (Promethazine-Dm Syrup) 118 Ml Syrup, 1-2 TSP PO Q4H Prescribed by: PAOLA TAVERAS on 03/02/18342 Doxycycline Monohydrate (Doxycycline Monohydrate) 100 Mg Tablet, 100 MG PO BID Prescribed by: AMBERLY CABALLERO on 12/23/22 1424 Duloxetine HCl (Duloxetine HCl) 60 Mg Capsule.dr, 60 MG PO BID, (Reported) Entered as Reported by: CHANDANA CANCINO on 01/18/18900 Ezetimibe (Ezetimibe) 10 Mg Tablet, 10 MG PO HS, (Reported) Entered as Reported by: CHANDANA CANCINO on 01/18/18900 Famotidine (Pepcid) 40 Mg Tablet, 40 MG PO DAILY Prescribed by: PAOLA TAVERAS on 02/24/20 011 Hydrocodone/Acetaminophen (Hydrocodone-Acetamin 5-325 mg) 1 Each Tablet, 1 EACH PO Q6H PRN for PAIN-BREAKTHROUGH Prescribed by: LOC MEDINA on 01/14/202215 Hydrocodone/Acetaminophen (Hydrocodone-Acetamin 5-325 mg) 5 Mg-325 Mg Tablet, 1 TAB PO Q4H PRN for PAIN-MODERATE (5-7) Prescribed by: AMBERLY CABALLERO on 11/12/22 1523 Hyoscyamine Sulfate (Levsin-Sl) 0.125 Mg Tab.subl, 0.25 MG SL Q4H Prescribed by: PAOLA TAVERAS on 02/24/20 011 Ibuprofen (Advil) 200 Mg Tablet, 600 MG PO TID PRN for PAIN-MILD, (Reported) Entered as Reported by: CHANDANA CANCINO on 01/18/18 09 Ketorolac Tromethamine (Ketorolac Tromethamine) 10 Mg Tablet, 10 MG PO Q6H Prescribed by: PAOLA TAVERAS on 09/03/212022 Levofloxacin (Levaquin) 500 Mg Tablet, 500 MG PO DAILY Prescribed by: PAOLA TAVERAS on 03/02/18 034 Levothyroxine Sodium (Levothyroxine Sodium) 112 Mcg Tablet, 1,125 MCG PO HS, (Reported) Entered as Reported by: CHANDANA CANCINO on 01/18/18 09 Meloxicam (Meloxicam) 15 Mg Tablet, 15 MG PO DAILY Prescribed by: AMBERLY CABALLERO on 12/23/20 194 Methylprednisolone (Medrol) 4 Mg Tab.ds.pk, 4 MG PO UD Prescribed by: PAOLA TAVERAS on 03/02/18342 Metoclopramide HCl (Reglan) 10 Mg Tablet, 10 MG PO Q6H Prescribed by: PAOLA TAVERAS on 10/08/22 213 Metronidazole (Flagyl) 500 Mg Tablet, 500 MG PO QID Prescribed by: PAOLA TAVERAS on 02/24/20 011 Naproxen (Naprosyn) 500 Mg Tablet, 500 MG PO BID Prescribed by: LOC MEDINA on 04/13/21 1658 Naproxen Sodium (Aleve) 220 Mg Tablet, 440 MG PO TID PRN for PAIN-MILD, (Reported) Entered as Reported by: CHANDANA CANCINO on 01/18/18 09 Ondansetron (Ondansetron Odt) 4 Mg Tab.rapdis, 4 MG PO Q6H PRN for NAUSEA/VOMITING Prescribed by: LOC MEDINA on 01/14/20 221 Ondansetron (Ondansetron Odt) 8 Mg Tab.rapdis, 8 MG PO Q6H Prescribed by: PAOLA TAVERAS on 02/24/20 011 Ondansetron (Ondansetron Odt) 8 Mg Tab.rapdis, 8 MG PO Q6H Prescribed by: PAOLA TAVERAS on 09/03/212022 Ondansetron (Ondansetron Odt) 8 Mg Tab.rapdis, 8 MG PO Q6H Prescribed by: PAOLA TAVERAS on 08/31/226 Ondansetron (Ondansetron Odt) 8 Mg Tab.rapdis, 8 MG PO Q6H Prescribed by: PAOLA TAVERAS on 10/08/222132 Pantoprazole Sodium (Protonix) 40 Mg Tablet.dr, 40 MG PO DAILY Prescribed by: PAOLA TAVERAS on 08/31/226 Pantoprazole Sodium (Protonix) 40 Mg Tablet.dr, 40 MG PO BID Prescribed by: PAOLA TAVERAS on 10/08/222132 Potassium Chloride (Potassium Chloride) 20 Meq Tablet.er, 20 MEQ PO DAILY Prescribed by: Madhavi Bates on 08/09/222101 Pramipexole Di-HCl (Pramipexole Dihydrochloride) 0.125 Mg Tablet, 0.125 MG PO HS, (Reported) Entered as Reported by: RITA RACHEL on 11/04/17 011 Prednisone (Prednisone) 20 Mg Tab, 40 MG PO DAILY Prescribed by: AMBERLY CABALLERO on 12/23/22 1424 Pregabalin (Lyrica) 100 Mg Capsule, 100 MG PO BID, (Reported) Entered as Reported by: TREV SANTIAGO on 11/13/16 1031 Prochlorperazine Maleate (Prochlorperazine Maleate) 10 Mg Tablet, 10 MG PO TID PRN for HEADACHE Prescribed by: Jaylan Lazar on 02/22/222110 Promethazine HCl (Promethazine Tablet) 25 Mg Tablet, 25 MG PO Q6H PRN for NAUSEA/VOMITING Prescribed by: JESUSITA DAVIS on 06/03/19 021 Risperidone (Risperidone) 0.25 Mg Tablet, 0.5 MG PO HS, (Reported) Entered as Reported by: CHANDANA CANCINO on 01/18/18 09 Sucralfate (Carafate) 1 Gram Tablet, 1 GM PO QID Prescribed by: PAOLA TAVERAS on 10/08/22 2133 Tizanidine HCl (Tizanidine HCl) 2 Mg Tablet, 4 MG PO HS, (Reported) Entered as Reported by: CHANDANA CANCINO on 01/18/18 09 Tramadol HCl (Tramadol HCl) 50 Mg Tablet, 50 MG PO Q6H PRN for PAIN Prescribed by: JAIME TAMAYO on 10/22/18 1750 Verapamil HCl (Verapamil HCl) 120 Mg Tablet, 120 MG PO HS, (Reported) Entered as Reported by: CHANDANA CANCINO on 01/18/18900 [z-pack] Prescribed by: OMAR BLOUNT on 01/19/18 1404 Review of Systems Review of Systems Constitutional: no symptoms reported Eyes: No Symptoms Reported Ears, Nose, Mouth, Throat: no symptoms reported Respiratory: no symptoms reported Cardiovascular: no symptoms reported Gastrointestinal: see HPI Genitourinary: no symptoms reported Musculoskeletal: no symptoms reported Skin: no symptoms reported Psychiatric/Neurological: See HPI Past Xygekch-Vksbrl-Urnhlg Hx Patient Social History Tobacco Use?: Yes Tobacco type used: Cigarettes Smoking Status: Current Everyday Smoker Substance use?: Yes Substance type: Marijuana Substance frequency: Daily Alcohol Use?: Yes Pt feels they are or have been: No Immunizations Up To Date Tetanus Booster (TDap): Less than 5yrs PED Vaccines UTD: Yes First/Initial COVID19 Vaccinat: N/A Second COVID19 Vaccination Klaus: N/A Third COVID19 Vaccination Date: N/A Seasonal Allergies Seasonal Allergies: Yes Past Medical History Surgery/Hospitalization HX: HTN, HLD, ANXIETY, MANIC ANXIETY, LIVER CIRRHOSIS, MIGRAINES, NEUROPATHY, FIBROMYALGATHYROIDECTOMY, GALLBLADDER, EXPLORATORY LAPAROTOMY, 2 C SECTIONS,HYSTERECTOMY,HIATIAL HERNIA, BILATERAL KNEE REPLACEMENT. BANDING OF ESPHOGEAL VARCIES.COLONSCOPY, EGD Surgeries: Yes (EXPLORATORY LAP;HIATAL HERNIA REPAIR;HYST/BSO;VENTRAL HERNIA REPAIR;L KNEE ) Abdominal, Section, Gallbladder, Hysterectomy, Joint Replacement, Oophorectomy, Orthopedic, Thyroidectomy Respiratory: Yes Pneumonia, Chronic Bronchitis, COPD Currently Using CPAP: No Currently Using BIPAP: No Cardiac: Yes (MITRAL VALVE PROLAPSE) High Cholesterol, Hypertension, Irregular Heartbeat, Valvular Heart Disease Neurological: Yes (PERIPHERAL NEUROPATHY-LEGS/FEET/HANDS) Headaches /Migraines, Neuropathy Reproductive Disorders: Yes Female Reproductive Disorders: Denies, Menstrual Problems 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 ) Hypothyroidsim HEENT: No Loss of Vision: Denies Hearing Impairment: Denies Cancer: No Psychosocial: Yes (OVERDOSED 2014 AFTER CAUGHT STEALING FROM [place]) Anxiety, Suicide Attempts, Bipolar, Schizophrenia, Depression Integumentary: Yes Herpes Blood Disorders: Yes (ANEMIA) Adverse Reaction/Blood Tranf: No Family Medical History Cardiovascular disease 19 FATHER Diabetes mellitus 19 FATHER 19 MOTHER FH: mental illness Mental SOCIAL HISTORY: -SMOKES 1 1/2 PPD -ETOH--HX OF ABUSE, CLAIMS NO USE FOR > 20 YEARS -DRUGS--THC USE DAILY. PAST SURGICAL HISTORY: -THYROIDECTOMY - X 2 -HYSTERECTOMY / BILATERAL SALPINGO-OOPHORECTOMY -EGD'S/COLONOSCOPIES -ESOPHAGEAL BANDING X 9 -CHOLECYSTECTOMY -HIATAL HERNIA REPAIR -VENTRAL HERNIA REPAIRS -EXPLORATORY LAPAROTOMY -LEFT KNEE SCOPE -BILATERAL KNEE REPLACEMENTS Physical Exam Vital Signs Vital Signs - First Documented 01/08/23 22:04 Temp 36.6 Pulse 86 Resp 16 B/P (MAP) 177/90 (119) Pulse Ox 95 O2 Delivery Room Air Capillary Refill : Less Than 3 Seconds Height, Weight, BMI Height: 5'3.00" Weight: 190lbs. 4.0oz. 86.699661py; 36.00 BMI Method:Stated General Appearance: WD/WN, no apparent distress, obese, other (VERY MALODOROUS, REEKS OF CIGARETTES AND MARIJUANA. UNKEMPT. ) HEENT: PERRL/EOMI, normal ENT inspection, TMs normal, pharynx normal, other (MULTIPLE SORES/SCARS/SCABS TO FACE) Neck: non-tender, full range of motion, supple, normal inspection Cardiovascular: regular rate, rhythm, no murmur Respiratory: normal breath sounds Gastrointestinal: non tender Back: normal inspection Extremities: normal inspection Psychiatric: alert, oriented x 3 Crainal Nerves: normal hearing, normal speech, PERRL Coordination/Gait: normal gait Motor/Sensory: no motor deficit, no sensory deficit Skin: normal color, warm/dry Procedures/Interventions Dental Procedures: block Progress/Results/Core Measures Results/Orders My Orders Orders - PAOLA TAVERAS DO Ondansetron Oral Dissolve Tab (Ondanset (01/08/23 22:15) Ketorolac Injection (Ketorolac Injection (01/08/23 22:15) Medications Given in ED Current Medications Medications Dose Ordered Sig/Emeka Route Start Time Stop Time Status Last Admin Dose Admin Ketorolac Tromethamine 60 mg ONCE ONCE IM 01/08/23 22:15 01/08/23 22:17 DC 01/08/23 22:24 60 MG Vital Signs/I&O 01/08/23 01/08/23 22:04 22:28 Temp 36.6 Pulse 86 Resp 16 B/P (MAP) 177/90 (119) 167/95 Pulse Ox 95 O2 Delivery Room Air Blood Pressure Mean: 119 Progress Progress Note : Progress Note VITALS STABLE, AFEBRILE GIVEN: -ZOFRAN -TORADOL -NORFLEX UNEVENTFUL ER STAY DISCUSSED ANTICIPATED COURSE, SYMPTOMATIC TREATMENT, NEED FOR FOLLOW UP AND RETURN PRECAUTIONS REVIEWED PRIOR RECORDS--MULTITUDE OF ER VISITS, WELL ADMITS/H&P'S/CONSULTS/DISCHARGE SUMMARIES, TESTS /PROCEDURES Departure Impression Primary Impression: Chronic headaches Disposition: 01 HOME, SELF-CARE Condition: Stable Departure-Patient Inst. Decision time for Depature: 22:17 Referrals: BEATA PINO DO (PCP/Family) Primary Care Physician Patient Instructions: Headache, Adult (DC) Add. Discharge Instructions: TAKE YOUR REGULAR MEDICATIONS PRESCRIBED FOLLOW UP WITH [facility] IN 2-3 DAYS IF NO BETTER All discharge instructions reviewed with patient and/or family. Voiced understanding. PAOLA TAVERAS DO Jan 08, 2023 22:17
[2023-01-08 22:28] VITALS: BP 167/95
== END 2023-01-08 22:29 | disposition home or self-care (01) ==
LOC: EDUNIT# 21:59 → ER 22:00
DX: R51.9 Headache, unspecified (principal); F17.210 Nicotine dependence, cigarettes, uncomplicated; Z86.69 Personal history of other diseases of the nervous system and sense organs
CPT/HCPCS: 96372; 99284

== ENCOUNTER 2023-01-22 18:48 | Emergency (ER) | payer MEDICARE, MEDICAID ==
[~2023-01-22] VITALS: Ht 162.5 cm; Wt 97.9 kg
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
[2023-01-22] MEDS ORDERED: ASPIRIN 81 MG CHEWABLE TABLET PO ONE (19:15)
[2023-01-22] MEDS ORDERED: RT-Ipratropium/Albuterol NEB 3 ML VIAL INH ONE (19:15)
[2023-01-22 19:23] LABS: BASOPHILS # (AUTO) 0.1 10^3/uL (0.0-0.1); BASOPHILS % (AUTO) 1 % (0-10); EOSINOPHILS # (AUTO) 0.2 10^3/uL (0.0-0.3); EOSINOPHILS % (AUTO) 2 % (0-10); HEMATOCRIT 48 % (35-52); HEMOGLOBIN 16.4 g/dL (11.5-16.0); LYMPHOCYTES # (AUTO) 4.7 10^3/uL (1.0-4.0); LYMPHOCYTES % (AUTO) 51 % (12-44); MEAN CORPUSCULAR HEMOGLOBIN 34 pg (25-34); MEAN CORPUSCULAR HGB CONC 34 g/dL (32-36); MEAN CORPUSCULAR VOLUME 99 fL (80-99); MONOCYTES # (AUTO) 0.7 10^3/uL (0.0-1.0); MONOCYTES % (AUTO) 8 % (0-12); NEUTROPHILS # (AUTO) 3.5 10^3/uL (1.8-7.8); NEUTROPHILS % (AUTO) 38 % (42-75); PLATELET COUNT 100 10^3/uL (130-400); WHITE BLOOD COUNT 9.2 10^3/uL (4.3-11.0)
[2023-01-22 19:38] LABS: INR 1.2 (0.8-1.4); PROTHROMBIN TIME PATIENT 15.9 SEC (12.2-14.7)
[2023-01-22 19:42] LABS: ALANINE AMINOTRANSFERASE 22 U/L (0-55); ALBUMIN 3.3 GM/DL (3.2-4.5); ALKALINE PHOSPHATASE 174 U/L (40-136); BILIRUBIN,TOTAL 1.5 MG/DL (0.1-1.0); BUN/CREATININE RATIO 6; CALCIUM 8.6 MG/DL (8.5-10.1); CARBON DIOXIDE 24 MMOL/L (21-32); CHLORIDE 110 MMOL/L (98-107); CREATININE SERUM 0.69 MG/DL (0.60-1.30); GFR ESTIMATED 108; GLUCOSE 74 MG/DL (70-105); MAGNESIUM 2.1 MG/DL (1.6-2.4); POTASSIUM 3.2 MMOL/L (3.6-5.0); SODIUM 142 MMOL/L (135-145); TOTAL PROTEIN 8.1 GM/DL (6.4-8.2)
--- NOTE | 2023-01-22 19:43 | Diagnostic Imaging Report ---
INDICATION: Chest pain, shortness of breath, nausea and vomiting. COMPARISON: 12/23/2022. FINDINGS: Single portable film of the chest is slightly underpenetrated. Cardiac contour is normal. There are coarse opacities in both lungs, the pattern of which is similar to the previous study. No confluent consolidation is seen. There is no effusion or pneumothorax. Soft tissues and bony thorax are unchanged. There is left shoulder arthropathy. IMPRESSION: 1. Coarse interstitial opacities in both lungs with a few scattered alveolar infiltrates but no confluent consolidation. 2. Left shoulder arthropathy. Dictated by: Dictated on workstation # [id number]
[2023-01-22] MEDS ORDERED: KETOROLAC INJ 15 MG/ML VIAL IVP ONE (21:15)
[2023-01-22] MEDS ORDERED: ONDANSETRON INJECTION 4 MG/2 ML (SDV) IVP ONE (21:15)
[2023-01-22] MEDS ORDERED: predniSONE 20 MG TABLET PO ONE (22:15)
[2023-01-22 22:18] VITALS: BP 113/63
[2023-01-22] MEDS ORDERED: PRD50T PO (22:18)
== END 2023-01-22 22:30 | disposition home or self-care (01) ==
LOC: EDUNIT# 18:48 → ER 18:50
DX: R07.89 Other chest pain (principal); J44.9 Chronic obstructive pulmonary disease, unspecified; R11.0 Nausea; E66.9 Obesity, unspecified; F17.210 Nicotine dependence, cigarettes, uncomplicated; Z68.36 Body mass index [BMI] 36.0-36.9, adult; Z79.899 Other long term (current) drug therapy
CPT/HCPCS: 36415; 71045; 80053; 82947; 83735; 83874; 84484; 85025; 85610; 85730; 93005; 93041; 96374; 96375

== ENCOUNTER 2023-02-03 16:57 | Observation (INO) | payer MEDICARE, MEDICAID ==
[~2023-02-03] VITALS: Ht 162 cm; Wt 98.4 kg
[~2023-02-03 16:57] MED LIST changes: +PRD50T PO
[2023-02-03] MEDS ORDERED: methylPREDNISolone INJ 125 MG VIAL IVP ONE (17:15)
[2023-02-03] MEDS ORDERED: cefTRIAXone IV/IM 1,000 MG in NS (IVPB) 50 ML 50 ML IV ONE (17:15)
[2023-02-03] MEDS ORDERED: NS IV 1000 ML 1,000 ML IV SCH (17:15)
[2023-02-03] MEDS ORDERED: RT-Ipratropium/Albuterol NEB 3 ML VIAL INH ONE (17:15)
--- NOTE | 2023-02-03 17:17 | ED Respiratory ---
General Chief Complaint: Respiratory Problems Stated Complaint: SOB, HEADACHE Nursing Triage Note: PT AMBULATES TO [facility] 5 WITH C/O SOB. PT REPORTS COUGH, CONGESTION AND INCREASED SPUTUM LAST 2 WEEKS. PT SEEN AT [facility] AND GIVEN BREATHING TX. PT GIVEN STERIODS LAST VISIT IN ER. PT DENIES FEVER. PT REPORTS USING 1L O2 AT HOME PRN. PT 88% O2 ON RA ON ARRIVAL, UP TO 95% ON 3L. Source: patient Exam Limitations: no limitations (LOR PHELPS) History of Present Illness Date Seen by Provider: Feb 03, 2023 Time Seen by Provider: 17:15 Initial Comments Patient is a 47-year-old female history of COPD, cirrhosis, smoking who presents to ED with shortness of breath and cough. She states she has been feeling short of breath over the past 2 weeks. She did have some chest pain about a week ago was seen here in the ED and discharged with prednisone. She did get some improvement with the prednisone but the symptoms continue to worsen. Was seen at [facility] today found to be hypoxic 86% on room air did receive a breathing treatment and was sent to the ED by POV. On arrival 88% on room air. She was placed on 2 L. Denies of any current chest pain. Abdominal discomfort with a cough. She denies any fever vomiting diarrhea. Bilateral leg swelling but states this is chronic. No history of PE, known coronary artery disease or CHF. She has been using her nebulizer treatments at home. Patient reports malaise and weakness. (LOR PHELPS) Allergies and Home Medications Allergies Coded Allergies: niacin (Unverified Allergy, Mild, 05/13/14) gabapentin (Verified Allergy, Unknown, MADE FEEL SHAKEY AND LIGHT HEADED, 08/09/22) Patient Home Medication List Home Medication List Reviewed: Yes (LOR PHELPS) ALPRAZolam (Xanax Tablet) 0.25 Mg Tablet, 0.25 MG PO TID PRN for ANXIETY, (Reported) Entered as Reported by: RITA RACHEL on 11/04/17 0115 Acetazolamide (Acetazolamide) 250 Mg Tablet, 250 MG PO 1200,2100, (Reported) Entered as Reported by: CHANDANA CANCINO on 01/18/18 0901 Acyclovir (Acyclovir) 400 Mg Tablet, 400 MG PO TID, (Reported) Entered as Reported by: IZABEL VELASCO on 04/12/162128 Albuterol Sulfate (Ventolin Hfa) 1 Puff Puff, 2 PUFF IH Q4H Prescribed by: PAOLA TAVERAS on 10/29/212155 Azithromycin (Zithromax) 500 Mg Tablet, 500 MG PO DAILY Prescribed by: PAOLA TAVERAS on 08/31/22 000 Benzonatate (Tessalon Perles) 100 Mg Capsule, 1-2 TAB PO TID Prescribed by: PAOLA TAVERAS on 03/02/18 034 Budesonide (Pulmicort Flexhaler) 90 Mcg Aer.pow.ba, 90 MCG IH BID Prescribed by: PAOLA TAVERAS on 03/02/18342 Cefdinir (Cefdinir) 300 Mg Capsule, 300 MG PO BID Prescribed by: OMAR BLOUNT on 01/19/18 1404 Cefdinir (Cefdinir) 300 Mg Capsule, 300 MG PO BID Prescribed by: LOC MEDINA on 01/14/20 221 Cefdinir (Cefdinir) 300 Mg Capsule, 300 MG PO BID Prescribed by: PAOLA TAVERAS on 08/31/226 Ciprofloxacin HCl (Ciprofloxacin HCl) 500 Mg Tablet, 500 MG PO BID Prescribed by: PAOLA TAVERAS on 02/24/20 011 Cyclobenzaprine HCl (Cyclobenzaprine HCl) 10 Mg Tablet, 10 MG PO TID PRN for MUSCLE SPASMS, (Reported) Entered as Reported by: CHANDANA CANCINO on 01/18/18900 Cyclobenzaprine HCl (Cyclobenzaprine HCl) 10 Mg Tablet, 10 MG PO TID Prescribed by: AMBERLY CABALLERO on 12/23/20 194 D-Methorphan Hb/Prometh HCl (Promethazine-Dm Syrup) 118 Ml Syrup, 1-2 TSP PO Q4H Prescribed by: PAOLA TAVERAS on 03/02/18342 Doxycycline Monohydrate (Doxycycline Monohydrate) 100 Mg Tablet, 100 MG PO BID Prescribed by: AMBERLY CABALLERO on 12/23/22 1424 Duloxetine HCl (Duloxetine HCl) 60 Mg Capsule.dr, 60 MG PO BID, (Reported) Entered as Reported by: CHANDANA CANCINO on 01/18/18 09 Ezetimibe (Ezetimibe) 10 Mg Tablet, 10 MG PO HS, (Reported) Entered as Reported by: CHANDANA CANCINO on 01/18/18900 Famotidine (Pepcid) 40 Mg Tablet, 40 MG PO DAILY Prescribed by: PAOLA TAVERAS on 02/24/20 011 Hydrocodone/Acetaminophen (Hydrocodone-Acetamin 5-325 mg) 1 Each Tablet, 1 EACH PO Q6H PRN for PAIN-BREAKTHROUGH Prescribed by: LOC MEDINA on 01/14/20 221 Hydrocodone/Acetaminophen (Hydrocodone-Acetamin 5-325 mg) 5 Mg-325 Mg Tablet, 1 TAB PO Q4H PRN for PAIN-MODERATE (5-7) Prescribed by: AMBERLY CABALLERO on 11/12/22 152 Hyoscyamine Sulfate (Levsin-Sl) 0.125 Mg Tab.subl, 0.25 MG SL Q4H Prescribed by: PAOLA TAVERAS on 02/24/20110 Ibuprofen (Advil) 200 Mg Tablet, 600 MG PO TID PRN for PAIN-MILD, (Reported) Entered as Reported by: CHANDANA CANCINO on 01/18/18906 Ketorolac Tromethamine (Ketorolac Tromethamine) 10 Mg Tablet, 10 MG PO Q6H Prescribed by: PAOLA TAVERAS on 09/03/212022 Levofloxacin (Levaquin) 500 Mg Tablet, 500 MG PO DAILY Prescribed by: PAOLA TAVERAS on 03/02/18 034 Levothyroxine Sodium (Levothyroxine Sodium) 112 Mcg Tablet, 1,125 MCG PO HS, (Reported) Entered as Reported by: CHANDANA CANCINO on 01/18/18900 Meloxicam (Meloxicam) 15 Mg Tablet, 15 MG PO DAILY Prescribed by: AMBERLY CABALLERO on 12/23/20 194 Methylprednisolone (Medrol) 4 Mg Tab.ds.pk, 4 MG PO UD Prescribed by: PAOLA TAVERAS on 03/02/18 034 Metoclopramide HCl (Reglan) 10 Mg Tablet, 10 MG PO Q6H Prescribed by: PAOLA TAVERAS on 10/08/222132 Metronidazole (Flagyl) 500 Mg Tablet, 500 MG PO QID Prescribed by: PAOLA TAVERAS on 02/24/20 011 Naproxen (Naprosyn) 500 Mg Tablet, 500 MG PO BID Prescribed by: LOC MEDINA on 04/13/21 165 Naproxen Sodium (Aleve) 220 Mg Tablet, 440 MG PO TID PRN for PAIN-MILD, (Reported) Entered as Reported by: CHANDANA CANCINO on 01/18/18 0907 Ondansetron (Ondansetron Odt) 4 Mg Tab.rapdis, 4 MG PO Q6H PRN for NAUSEA/VO MITING Prescribed by: LOC MEDINA on 01/14/20 221 Ondansetron (Ondansetron Odt) 8 Mg Tab.rapdis, 8 MG PO Q6H Prescribed by: PAOLA TAVERAS on 02/24/20110 Ondansetron (Ondansetron Odt) 8 Mg Tab.rapdis, 8 MG PO Q6H Prescribed by: PAOLA TAVERAS on 09/03/212022 Ondansetron (Ondansetron Odt) 8 Mg Tab.rapdis, 8 MG PO Q6H Prescribed by: PAOLA TAVERAS on 08/31/226 Ondansetron (Ondansetron Odt) 8 Mg Tab.rapdis, 8 MG PO Q6H Prescribed by: PAOLA TAVERAS on 10/08/222132 Pantoprazole Sodium (Protonix) 40 Mg Tablet.dr, 40 MG PO DAILY Prescribed by: PAOLA TAVERAS on 08/31/226 Pantoprazole Sodium (Protonix) 40 Mg Tablet.dr, 40 MG PO BID Prescribed by: PAOLA TAVERAS on 10/08/222132 Potassium Chloride (Potassium Chloride) 20 Meq Tablet.er, 20 MEQ PO DAILY Prescribed by: Madhavi Bates on 08/09/222101 Pramipexole Di-HCl (Pramipexole Dihydrochloride) 0.125 Mg Tablet, 0.125 MG PO H S, (Reported) Entered as Reported by: RITA RACHEL on 11/04/17 011 Prednisone (Prednisone) 20 Mg Tab, 40 MG PO DAILY Prescribed by: AMBERLY CABALLERO on 12/23/22 1424 Prednisone (Prednisone) 50 Mg Tab, 50 MG PO DAILY Prescribed by: TOM ACUÑA on 01/22/23 2218 Pregabalin (Lyrica) 100 Mg Capsule, 100 MG PO BID, (Reported) Entered as Reported by: TREV SANTIAGO on 11/13/16 1031 Prochlorperazine Maleate (Prochlorperazine Maleate) 10 Mg Tablet, 10 MG PO TID PRN for HEADACHE Prescribed by: Jaylan Lazar on 02/22/22 2111 Promethazine HCl (Promethazine Tablet) 25 Mg Tablet, 25 MG PO Q6H PRN for NAUSEA/VOMITING Prescribed by: JESUSITA DAVIS on 06/03/19 0217 Risperidone (Risperidone) 0.25 Mg Tablet, 0.5 MG PO HS, (Reported) Entered as Reported by: CHANDANA CANCINO on 01/18/18 09 Sucralfate (Carafate) 1 Gram Tablet, 1 GM PO QID Prescribed by: PAOLA TAVERAS on 10/08/22 2133 Tizanidine HCl (Tizanidine HCl) 2 Mg Tablet, 4 MG PO HS, (Reported) Entered as Reported by: CHANDANA CANCINO on 01/18/18 09 Tramadol HCl (Tramadol HCl) 50 Mg Tablet, 50 MG PO Q6H PRN for PAIN Prescribed by: JAIME TAMAYO on 10/22/18 1750 Verapamil HCl (Verapamil HCl) 120 Mg Tablet, 120 MG PO HS, (Reported) Entered as Reported by: CHANDANA CANCINO on 01/18/18 09 [z-pack] Prescribed by: OMAR BLOUNT on 01/19/18 1404 Review of Systems Review of Systems Constitutional: No chills, No diaphoresis, No fever, No malaise, No weakness EENTM: No ear pain, No blurred vision, No double vision Respiratory: cough, dyspnea on exertion, short of breath Cardiovascular: No chest pain, No edema Gastrointestinal: No abdominal pain, No constipation, No diarrhea, No nausea, No vomiting Genitourinary: No decreased output, No discharge Musculoskeletal: No back pain, No joint pain Skin: No change in color, No change in hair/nails (LOR PHELPS) All Other Systems Reviewed Negative Unless Noted: Yes (LOR PHELPS) Past Rmdfrlv-Iiixfi-Woczgb Hx Patient Social History Tobacco Use?: Yes Tobacco type used: Cigarettes Smoking Status: Current Everyday Smoker Substance use?: Yes Substance type: Marijuana Additional substance use comme: THC EDIBLES FOR PAIN Substance frequency: Once in a while Alcohol Use?: No (LOR PHELPS) Immunizations Up To Date Tetanus Booster (TDap): Less than 5yrs PED Vaccines UTD: Yes First/Initial COVID19 Vaccinat: N/A Second COVID19 Vaccination Klaus: N/A Third COVID19 Vaccination Date: N/A (LOR PHELPS) Seasonal Allergies Seasonal Allergies: Yes (LOR PHELPS) Past Medical History Surgery/Hospitalization HX: HTN, HLD, ANXIETY, MANIC ANXIETY, LIVER CIRRHOSIS, MIGRAINES, NEUROPATHY, FIBROMYALGATHYROIDECTOMY, GALLBLADDER, EXPLORATORY LAPAROTOMY, 2 C SECTIONS,HYSTERECTOMY,HIATIAL HERNIA, BILATERAL KNEE REPLACEMENT. BANDING OF ESPHOGEAL VARCIES.COLONSCOPY, EGD, diabetic, COPD Surgeries: Yes (EXPLORATORY LAP;HIATAL HERNIA REPAIR;HYST/BSO;VENTRAL HERNIA REPAIR;L KNEE ) Abdominal, Section, Gallbladder, Hysterectomy, Joint Replacement, Oophorectomy, Orthopedic, Thyroidectomy Respiratory: Yes Pneumonia, Chronic Bronchitis, COPD Currently Using CPAP: No Currently Using BIPAP: No Cardiac: Yes (MITRAL VALVE PROLAPSE) High Cholesterol, Hypertension, Irregular Heartbeat, Valvular Heart Disease Neurological: Yes (PERIPHERAL NEUROPATHY-LEGS/FEET/HANDS) Headaches /Migraines, Neuropathy Reproductive Disorders: Yes Female Reproductive Disorders: Denies, 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 ) Hypothyroidsim HEENT: No Loss of Vision: Denies Hearing Impairment: Denies Cancer: No Psychosocial: Yes (OVERDOSED 2015 AFTER CAUGHT STEALING FROM [employer]) Anxiety, Suicide Attempts, Bipolar, Schizophrenia, Depression Integumentary: Yes Herpes Blood Disorders: Yes (ANEMIA) Adverse Reaction/Blood Tranf: No (LOR PHELPS) Family Medical History Cardiovascular disease 19 FATHER Diabetes mellitus 19 FATHER 19 MOTHER FH: mental illness Mental SOCIAL HISTORY: -SMOKES 1 1/2 PPD -ETOH--HX OF ABUSE, CLAIMS NO USE FOR > 20 YEARS -DRUGS--THC USE DAILY. PAST SURGICAL HISTORY: -THYROIDECTOMY - X 2 -HYSTERECTOMY / BILATERAL SALPINGO-OOPHORECTOMY -EGD'S/COLONOSCOPIES -ESOPHAGEAL BANDING X 9 -CHOLECYSTECTOMY -HIATAL HERNIA REPAIR -VENTRAL HERNIA REPAIRS -EXPLORATORY LAPAROTOMY -LEFT KNEE SCOPE -BILATERAL KNEE REPLACEMENTS (LOR PHELPS) Physical Exam Vital Signs - First Documented 02/03/23 17:03 Pulse 87 Resp 20 Pulse Ox 96 O2 Delivery Nasal Cannula O2 Flow Rate 3.00 Capillary Refill : Less Than 3 Seconds Height: 5'3.00" Weight: 190lbs. 4.0oz. [id number]; 37.00 BMI Method:Stated General Appearance: WD/WN, no apparent distress Eyes: Bilateral Eye Normal Inspection, Bilateral Eye PERRL, Bilateral Eye EOMI HEENT: PERRL/EOMI, normal ENT inspection, TMs normal, pharynx normal Neck: non-tender, supple Respiratory: normal breath sounds, no respiratory distress, wheezing Cardiovascular: regular rate, rhythm, no edema, no gallop, no JVD Gastrointestinal: normal bowel sounds, non tender, soft Extremities: normal range of motion, non-tender, normal inspection Neurologic/Psychiatric: lead cook II-XII nml as tested, no motor/sensory deficits, alert, normal mood/affect Skin: normal color (LOR PHELPS) Focused Exam Lactate Level 02/03/23 17:10: Lactic Acid Level 1.55 (LOR PHELPS) Lactic Acid Level Laboratory Tests Test 02/03/23 17:10 Lactic Acid Level 1.55 MMOL/L (0.50-2.00) (LOR PHELPS) Procedures/Interventions Dental Procedures: block (LOR PHELPS) Progress/Results/Core Measures Suspected Sepsis SIRS Temperature: Pulse: 87 Respiratory Rate: 20 Laboratory Tests 02/03/23 17:10: White Blood Count 11.9H Blood Pressure / Mean: 02/03/23 17:10: Lactic Acid Level 1.55 Laboratory Tests 02/03/23 17:10: Creatinine 0.87, INR Comment 1.1, Platelet Count 104L, Total Bilirubin 0.7 (LOR PHELPS) Results/Orders Lab Results Laboratory Tests Test 02/03/23 17:09 02/03/23 17:10 02/03/23 17:38 02/03/23 18:00 Range/Units Influenza Type A (RT-PCR) Not Detected Not Detecte Influenza Type B (RT-PCR) Not Detected Not Detecte SARS-CoV-2 RNA (RT-PCR) Not Detected Not Detecte White Blood Count 11.9 H 4.3-11.0 10^3/uL Red Blood Count 5.12 H 3.80-5.11 10^6/uL Hemoglobin 17.4 H 11.5-16.0 g/dL Hematocrit 51 35-52 % Mean Corpuscular Volume 100 H 80-99 fL Mean Corpuscular Hemoglobin 34 25-34 pg Mean Corpuscular Hemoglobin Concent 34 32-36 g/dL Red Cell Distribution Width 14.5 10.0-14.5 % Platelet Count 104 L 130-400 10^3/uL Mean Platelet Volume 12.6 H 9.0-12.2 fL Immature Granulocyte % (Auto) 0 % Neutrophils (%) (Auto) 39 L 42-75 % Lymphocytes (%) (Auto) 51 H 12-44 % Monocytes (%) (Auto) 7 0-12 % Eosinophils (%) (Auto) 2 0-10 % Basophils (%) (Auto) 1 0-10 % Neutrophils # (Auto) 4.6 1.8-7.8 10^3/uL Lymphocytes # (Auto) 6.1 H 1.0-4.0 10^3/uL Monocytes # (Auto) 0.9 0.0-1.0 10^3/uL Eosinophils # (Auto) 0.2 0.0-0.3 10^3/uL Basophils # (Auto) 0.1 0.0-0.1 10^3/uL Immature Granulocyte # (Auto) 0.0 0.0-0.1 10^3/uL Percent Immature Platelet Fraction 8.4 H 0.0-7.6 % Prothrombin Time 14.8 H 12.2-14.7 SEC INR Comment 1.1 0.8-1.4 Activated Partial Thromboplast Time 37 H 24-35 SEC Sodium Level 142 135-145 MMOL/L Potassium Level 3.2 L 3.6-5.0 MMOL/L Chloride Level 107 98-107 MMOL/L Carbon Dioxide Level 27 21-32 MMOL/L Anion Gap 8 5-14 MMOL/L Blood Urea Nitrogen 4 L 7-18 MG/DL Creatinine 0.87 0.60-1.30 MG/DL Estimat Glomerular Filtration Rate 83 BUN/Creatinine Ratio 5 Glucose Level 112 H 70-105 MG/DL Lactic Acid Level 1.55 0.50-2.00 MMOL/L Calcium Level 8.5 8.5-10.1 MG/DL Corrected Calcium 9.1 8.5-10.1 MG/DL Total Bilirubin 0.7 0.1-1.0 MG/DL Aspartate Amino Transf (AST/SGOT) 50 H 5-34 U/L Alanine Aminotransferase (ALT/SGPT) 29 0-55 U/L Alkaline Phosphatase 195 H 40-136 U/L Troponin I < 0.028 <0.028 NG/ML B-Type Natriuretic Peptide < 10.0 <100.0 PG/ML Total Protein 8.1 6.4-8.2 GM/DL Albumin 3.2 3.2-4.5 GM/DL Arterial Blood pH 7.47 H 7.37-7.43 Arterial Blood Partial Pressure CO2 36 35-45 MMHG Arterial Blood Partial Pressure O2 68 L 79-93 MMHG Arterial Blood HCO3 26 23-27 MMOL/L Arterial Blood Total CO2 27.3 21.0-31.0 MMOL/L Arterial Blood Oxygen Saturation 94 94-100 % Arterial Blood Base Excess 2.7 H -2.5-2.5 MMOL/L Blood Gas Ventilator Setting NO Blood Gas Inspired Oxygen 2 Urine Color YELLOW Urine Clarity CLEAR Urine pH 6.0 5-9 Urine Specific Sherman 1.025 H 1.016-1.022 Urine Protein NEGATIVE NEGATIVE Urine Glucose (UA) NEGATIVE NEGATIVE Urine Ketones NEGATIVE NEGATIVE Urine Nitrite NEGATIVE NEGATIVE Urine Bilirubin NEGATIVE NEGATIVE Urine Urobilinogen 2.0 < = 1.0 MG/DL Urine Leukocyte Esterase NEGATIVE NEGATIVE Urine RBC (Auto) NEGATIVE NEGATIVE Urine RBC NONE /HPF Urine WBC RARE /HPF Urine Squamous Epithelial Cells 2-5 /HPF Urine Crystals NONE /LPF Urine Bacteria FEW H /HPF Urine Casts NONE /LPF Urine Mucus NEGATIVE /LPF Urine Culture Indicated NO My Orders Orders - LOR PHELPS Cbc And Automated Diff (02/03/23 17:04) Comprehensive Metabolic Panel (02/03/23 17:04) Blood Culture (02/03/23 17:04) Urinalysis (02/03/23 17:04) Protime With Inr (02/03/23 17:04) Partial Thromboplastin Time (02/03/23 17:04) Chest 1 View, Ap/Pa Only (02/03/23 17:04) Ed Iv/Invasive Line Start (02/03/23 17:04) Troponin I Garcia (02/03/23 17:04) Vital Signs Adult Sepsis Patie Q15M (02/03/23 17:04) O2 (02/03/23 17:04) Remove Rings In Anticipation O (02/03/23 17:04) Lactic Acid Analyzer (02/03/23 17:04) Influenza A And B By Pcr (02/03/23 17:04) Ns Iv 1000 Ml (Ns Iv 1000 Ml) (02/03/23 17:15) Ceftriaxone Iv/Im (Ceftriaxone Iv/Im) (02/03/23 17:15) Covid 19 Inhouse Test (02/03/23 17:04) Bnp Garcia (02/03/23 17:04) Ekg Tracing (02/03/23 17:04) Methylprednisolone Sod Succ (Methylpredn (02/03/23 17:15) Ipratropium/Albuterol Inh Soln (Ipratrop (02/03/23 17:15) Svn Small Volume Nebulizer (02/03/23 17:07) Arterial Blood Gas (02/03/23 17:40) Acetaminophen Tablet (Acetaminophen Ta (02/03/23 18:30) Fibrin Degradation Products (02/03/23 18:42) Ed Admission (Communication) (02/03/23 18:42) Medications Given in ED Current Medications Medications Dose Ordered Sig/Emeka Route Start Time Stop Time Status Last Admin Dose Admin Acetaminophen 650 mg ONCE ONCE PO 02/03/23 18:30 02/03/23 18:31 DC 02/03/23 18:30 650 MG Albuterol/ Ipratropium 3 ml ONCE ONCE INH 02/03/23 17:15 02/03/23 17:16 DC 02/03/23 17:39 3 ML Ceftriaxone Sodium 1000 mg/ Sodium Chloride 50 ml @ 100 mls/hr ONCE ONCE IV 02/03/23 17:15 02/03/23 17:44 DC 02/03/23 17:24 100 MLS/HR Methylprednisolone Sodium Succinate 125 mg ONCE ONCE IVP 02/03/23 17:15 02/03/23 17:16 DC 02/03/23 17:22 125 MG Vital Signs/I&O 02/03/23 02/03/23 17:03 17:12 Pulse 87 Resp 20 B/P (MAP) Pulse Ox 96 97 O2 Delivery Nasal Cannula Nasal Cannula O2 Flow Rate 3.00 3.00 Capillary Refill : Less Than 3 Seconds (LOR PHELPS) ECG Comment Sinus rhythm with occasional ventricular premature complexes, possible left atrial enlargement, prolonged QT interval, 81 bpm, QRS duration 105 MS, QTc 472 MS. (LOR PHELPS) Departure Communication (PCP) Reviewed previous ER visits, H&P, lab testing. History of COPD, hypertension, diabetes, cirrhosis. Denies drinking alcohol. Patient with shortness of breath cough wheezing over the past 2 weeks. No improvement with her breathing treatment. Was found to be 86% on room air at [facility] today and was sent to the ED by POV. On arrival 86 to 88%. Patient Was placed on 2 L. Wheezing noted throughout. Septic workup was initiated. Differential diagnosis COPD exacerbation, pneumonia, viral syndrome, CHF. ABG was ordered which showed a pH of 7.47, pCO2 of 37, pO2 of 68. CBC showed of 11. Chemistry was grossly unremarkable. Normal troponin and BNP. Normal lactic acid. COVID influenza negative. She does report bilateral lower leg swelling but denies of any specific pain, recent travels or surgeries or risk factors for PE. EKG showed sinus rhythm with occasional ventricular premature complexes. No A-fib, a flutter ST elevation or depression. This clinically does not appear to be cardiac. COVID influenza was negative. Chest x-ray was negative for pneumonia, pneumothorax. She did receive a DuoNeb breathing treatment Solu-Medrol with some improvement. She did continue to remain wheezy and after removing oxygen she did drop back down into the upper 80s. She states typically she runs in the mid 90s. Suspect this is likely secondary to COPD exacerbation. She did receive Rocephin here in the ED. Due to failed outpatient therapy with continued worsening symptoms patient will be admitted for further evaluation. Patient was discussed with Dr. Wood who agreed to accept the patient. She recommend adding a D-dimer which is currently pending. She will follow (LOR PHELPS) Impression Primary Impression: Respiratory failure Disposition: ADMITTED INPATIENT Condition: Stable Admissions Decision to Admit Reason: Admit from ER (General) Decision to Admit/Date: Feb 03, 2023 Time/Decision to Admit Time: 19:11 (LOR PHELPS) Departure-Patient Inst. Decision time for Depature: 19:11 (LOR PHELPS) Referrals: BEATA PINO DO (PCP/Family) Primary Care Physician ATTENDING PHYSICIAN NOTE: I was physically present as attending physician in the emergency department during the care of this patient, but I was not directly involved in the decision making or delivery of care for this patient. (JESUSITA SIMON MD) LOR PHELPS Feb 03, 2023 17:17 JESUSITA SIMON MD Feb 03, 2023 20:39
[2023-02-03 17:23] LABS: BASOPHILS # (AUTO) 0.1 10^3/uL (0.0-0.1); BASOPHILS % (AUTO) 1 % (0-10); MEAN PLATELET VOLUME 12.6 fL (9.0-12.2)
[2023-02-03 17:24] LABS: EOSINOPHILS # (AUTO) 0.2 10^3/uL (0.0-0.3); EOSINOPHILS % (AUTO) 2 % (0-10); HEMATOCRIT 51 % (35-52); HEMOGLOBIN 17.4 g/dL (11.5-16.0); LYMPHOCYTES # (AUTO) 6.1 10^3/uL (1.0-4.0); LYMPHOCYTES % (AUTO) 51 % (12-44); MEAN CORPUSCULAR HEMOGLOBIN 34 pg (25-34); MEAN CORPUSCULAR HGB CONC 34 g/dL (32-36); MEAN CORPUSCULAR VOLUME 100 fL (80-99); MONOCYTES # (AUTO) 0.9 10^3/uL (0.0-1.0); MONOCYTES % (AUTO) 7 % (0-12); NEUTROPHILS # (AUTO) 4.6 10^3/uL (1.8-7.8); NEUTROPHILS % (AUTO) 39 % (42-75); PLATELET COUNT 104 10^3/uL (130-400); WHITE BLOOD COUNT 11.9 10^3/uL (4.3-11.0)
[2023-02-03 17:31] LABS: ALBUMIN 3.2 GM/DL (3.2-4.5); CHLORIDE 107 MMOL/L (98-107); POTASSIUM 3.2 MMOL/L (3.6-5.0); SODIUM 142 MMOL/L (135-145)
[2023-02-03 17:32] LABS: CALCIUM 8.5 MG/DL (8.5-10.1)
[2023-02-03 17:34] LABS: GLUCOSE 112 MG/DL (70-105); TOTAL PROTEIN 8.1 GM/DL (6.4-8.2)
[2023-02-03 17:35] LABS: BILIRUBIN,TOTAL 0.7 MG/DL (0.1-1.0); CARBON DIOXIDE 27 MMOL/L (21-32)
[2023-02-03 17:37] LABS: ALKALINE PHOSPHATASE 195 U/L (40-136); CREATININE SERUM 0.87 MG/DL (0.60-1.30); GFR ESTIMATED 83; INR 1.1 (0.8-1.4); PROTHROMBIN TIME PATIENT 14.8 SEC (12.2-14.7)
[2023-02-03 17:38] LABS: BUN/CREATININE RATIO 5
[2023-02-03 17:40] LABS: ALANINE AMINOTRANSFERASE 29 U/L (0-55)
[2023-02-03 17:46] LABS: ABG BASE EXCESS 2.7 MMOL/L (-2.5-2.5); ABG OXYGEN SATURATION 94 % (94-100); ABG PCO2 36 MMHG (35-45); ABG PH 7.47 (7.37-7.43); ABG PO2 68 MMHG (79-93); ABG TCO2 27.3 MMOL/L (21.0-31.0); INSPIRED O2 2; VENTILATOR NO
--- NOTE | 2023-02-03 17:57 | Diagnostic Imaging Report ---
INDICATION: Shortness of breath. EXAMINATION: Portable chest at 5:40 PM. FINDINGS: Heart size and pulmonary vascularity are normal. Lungs are clear. There is no effusion or pneumothorax. IMPRESSION: No acute abnormality in the chest. Dictated by: Dictated on workstation # [id number]
[2023-02-03 18:25] LABS: CLARITY,URINE CLEAR; COLOR,URINE YELLOW; GLUCOSE, URINE (UA) NEGATIVE (NEGATIVE); KETONES,URINE NEGATIVE (NEGATIVE); NITRITE,URINE NEGATIVE (NEGATIVE); PROTEIN,URINE NEGATIVE (NEGATIVE)
[2023-02-03 18:30] LABS: BILIRUBIN,URINE NEGATIVE (NEGATIVE); LEUKOCYTE ESTERASE ,URINE NEGATIVE (NEGATIVE)
[2023-02-03] MEDS ORDERED: ACETAMINOPHEN 325 MG TABLET PO ONE (18:30)
[2023-02-03 18:31] LABS: BACTERIA,URINE FEW /HPF; WBC,URINE RARE /HPF
[2023-02-03 19:55] VITALS: BP 118/75
[2023-02-03] MEDS ORDERED: oxyCODONE IMMEDIATE RELEASE 5 MG TABLET PO PRN (20:30)
[2023-02-03] MEDS ORDERED: ONDANSETRON INJECTION 4 MG/2 ML (SDV) IV PRN (20:30)
[2023-02-03] MEDS ORDERED: MILK OF MAGNESIA 400 MG/5 ML 30 ML UDC PO PRN (20:30)
[2023-02-03] MEDS ORDERED: MELATONIN 3 MG TABLET PO PRN (20:30)
[2023-02-03] MEDS ORDERED: ONDANSETRON 4 MG ORAL DISSOLVE TABLET PO PRN (20:30)
[2023-02-03] MEDS ORDERED: hydrALAZINE 25 MG TABLET PO PRN (20:30)
[2023-02-03] MEDS ORDERED: BISACODYL 10 MG SUPPOSITORY PR PRN (20:30)
[2023-02-03] MEDS ORDERED: diphenhydrAMINE 25 MG TABLET PO PRN (20:30)
[2023-02-03] MEDS ORDERED: LORazepam 0.5 MG TABLET PO PRN (20:30)
[2023-02-03] MEDS ORDERED: diphenhydrAMINE INJ 50 MG/ML VIAL IVP PRN (20:30)
[2023-02-03] MEDS ORDERED: ACETAMINOPHEN 325 MG TABLET PO PRN (20:30)
[2023-02-03] MEDS ORDERED: LACTULOSE SYRUP 10GM/15ML 30ML UDC PO PRN (20:30)
[2023-02-03] MEDS ORDERED: CALCIUM CARBONATE 500 MG CHEW TABLET PO PRN (20:30)
[2023-02-03] MEDS ORDERED: BENZONATATE 100 MG CAPSULE PO PRN (20:30)
[2023-02-03] MEDS ORDERED: ENOXAPARIN 40 MG/0.4 ML SYRINGE SC SCH (20:30)
[2023-02-03] MEDS ORDERED: ANTACID SUSPENSION 30 ML UDC PO PRN (20:30)
[2023-02-03] MEDS ORDERED: HYDROmorphone INJECTION 2 MG/ML VIAL IV PRN (20:30)
[2023-02-03] MEDS: inSUlin ASPART 1 UNIT/0.01 ML (PER UNIT) SC SCH (20:31)
[2023-02-03] MEDS ORDERED: MONTELUKAST 10 MG TABLET PO SCH (21:00)
[2023-02-03] MEDS ORDERED: RT-Ipratropium/Albuterol NEB 3 ML VIAL INH PRN (21:15)
[2023-02-03] MEDS: DOCUSATE SODIUM 100 MG CAPSULE PO SCH (21:50)
[2023-02-03] MEDS: SENNOSIDES 8.6 MG TABLET PO SCH (21:51)
[2023-02-03] MEDS: NICOTINE 14 MG PATCH TD SCH (21:52)
[2023-02-03 23:06] VITALS: BP 101/61
[2023-02-03] MEDS: dexAMETHasone INJ 4 MG/ML SDV IV SCH (23:07)
[2023-02-04] MEDS: RT-Ipratropium/Albuterol NEB 3 ML VIAL INH SCH ×2 (02:32→08:52)
[2023-02-04 03:06] VITALS: BP 101/48
[2023-02-04 05:34] LABS: BASOPHILS % (AUTO) 0 % (0-10)
[2023-02-04 05:36] LABS: EOSINOPHILS % (AUTO) 0 % (0-10); HEMATOCRIT 47 % (35-52); HEMOGLOBIN 16.1 g/dL (11.5-16.0); LYMPHOCYTES % (AUTO) 23 % (12-44); MEAN CORPUSCULAR HEMOGLOBIN 34 pg (25-34); MEAN CORPUSCULAR HGB CONC 34 g/dL (32-36); MEAN CORPUSCULAR VOLUME 99 fL (80-99); MEAN PLATELET VOLUME 13.1 fL (9.0-12.2); MONOCYTES # (AUTO) 0.1 10^3/uL (0.0-1.0); MONOCYTES % (AUTO) 2 % (0-12); NEUTROPHILS # (AUTO) 6.5 10^3/uL (1.8-7.8); NEUTROPHILS % (AUTO) 74 % (42-75); PLATELET COUNT 85 10^3/uL (130-400); WHITE BLOOD COUNT 8.7 10^3/uL (4.3-11.0)
[2023-02-04 05:56] LABS: ALBUMIN 2.9 GM/DL (3.2-4.5); POTASSIUM 3.9 MMOL/L (3.6-5.0)
[2023-02-04 05:57] LABS: CALCIUM 8.2 MG/DL (8.5-10.1)
[2023-02-04 05:59] LABS: TOTAL PROTEIN 7.6 GM/DL (6.4-8.2)
[2023-02-04 06:00] LABS: BILIRUBIN,TOTAL 0.8 MG/DL (0.1-1.0)
[2023-02-04 06:02] LABS: CREATININE SERUM 0.79 MG/DL (0.60-1.30)
[2023-02-04] MEDS: inSUlin ASPART 1 UNIT/0.01 ML (PER UNIT) SC SCH ×2 (06:28→11:35)
[2023-02-04] MEDS ORDERED: FLU QUADRIvalent (6 months+) 60 mcg/0.5 ml 2023-2024 (FLUARIX) IM ONE (06:45)
[2023-02-04] MEDS ORDERED: FLUTICASONE/VILANTEROL 200/25 MCG (14 DOSES) IH SCH (08:00)
[2023-02-04 08:07] VITALS: BP 146/85
[2023-02-04] MEDS: dexAMETHasone INJ 4 MG/ML SDV IV SCH (08:38)
[2023-02-04] MEDS: DOCUSATE SODIUM 100 MG CAPSULE PO SCH (08:39)
[2023-02-04] MEDS: SENNOSIDES 8.6 MG TABLET PO SCH (08:39)
[2023-02-04] MEDS: NICOTINE 14 MG PATCH TD SCH (08:39)
[2023-02-04] MEDS ORDERED: LEVO100T7 PO (11:18)
[2023-02-04] MEDS ORDERED: DIPH25TA65 PO (11:18)
[2023-02-04] MEDS ORDERED: GUAI5SYR PO (11:18)
[2023-02-04] MEDS ORDERED: VENL150C98 PO (11:18)
[2023-02-04] MEDS ORDERED: PREG150C47 PO (11:18)
[2023-02-04] MEDS ORDERED: ALBU2.5V4 NEB (11:18)
[2023-02-04] MEDS ORDERED: PROP10TA8 PO (11:18)
[2023-02-04] MEDS ORDERED: ALBU18HF2 INH (11:18)
[2023-02-04] MEDS ORDERED: ARIP5TAB57 PO (11:18)
[2023-02-04] MEDS ORDERED: RIFA550T PO (11:18)
[2023-02-04] MEDS ORDERED: BUSP15TA60 PO (11:18)
[2023-02-04 11:55] VITALS: BP 118/68
[2023-02-04] MEDS ORDERED: cefTRIAXone IV/IM 1,000 MG in NS (IVPB) 50 ML 50 ML IV SCH (12:30)
[2023-02-04] MEDS ORDERED: diphenhydrAMINE 25 MG TABLET PO PRN (12:30)
[2023-02-04] MEDS ORDERED: busPIRone 15 MG TABLET PO PRN (12:30)
[2023-02-04] MEDS ORDERED: CEFD300C3 PO (12:55)
[2023-02-04] MEDS ORDERED: PRED10TA22 PO (12:55)
[2023-02-04] MEDS ORDERED: MONT-40 PO (12:55)
--- NOTE | 2023-02-04 14:45 | Short Stay Summary-Hospitalist ---
PAYTON ESCAMILLA 02/04/23 1445: History of Present Illness HPI/Chief Complaint Adri is a 47 yo F with a PMH of COPD, cirrhosis, and current cigarette smoking (0.5 PPD) who presented to the ED on 02/03 with complaints of worsening shortness of breath and dry cough x 2 weeks. She also admitted to chronic, mild leg edema unchanged from baseline that she attributed to cirrhosis. She denied regular used of oxygen but stated she had cannister available at home. She denied use of long-acting inhalers at home. She was seen at [facility] earlier that day and found to be hypoxic at 86%; she received a breathing treatment before being directed to the ED. At ED, found to have an oygen saturation of 88% and placed on 2L of supplemental oxygen by nasal canula. CXR was negative for acute cardiopulmonary process. She was admitted for management acute hypoxic respira tory failure secondary to COPD exacerbation. She was treated with IV steroids, albuterol-ipratropium and Rocephin and. By day 2 of hospitalization, her oxygen us decreased to 1 L of supplemental oxygen and she reported marked improvement in symptoms. Ambulatory oxygen studies demonstrated saturation of 91% with exercise. She was discharged this day with courses of oral prednisone and cefdinir for completion of AECOPD treatment, montelukast, and home medications. She has a follow-up appointment with a new PCP later this week. Source: patient Exam Limitations: no limitations Date Seen 02/04/23 Time Seen by a Provider: 11:30 Attending Physician Tyree Lora DO PCP Admitting Physician: Sarah Wood DO Attending Physician: Sarah Wood DO Referring Physician Date of Admission Feb 03, 2023 at 19:47 Home Medications & Allergies Home Medications Reviewed patient Home Medication Reconciliation performed by pharmacy medication reconciliations tree and shrub technician and/or nursing. Patients Allergies have been reviewed. Allergies Allergies Coded Allergies niacin (Unverified Allergy, Mild, 05/13/14) gabapentin (Verified Allergy, Unknown, MADE FEEL SHAKEY AND LIGHT HEADED, 08/09/22) Past Medical/Social/Family Hx Patient Social History Tobacco Use?: Yes Tobacco type used: Cigarettes Smoking Status: Current Everyday Smoker Substance use?: Yes Substance type: Marijuana thc gummie Substance frequency: Several times a month Alcohol Use?: No Immunizations Up To Date Influenza Vaccine Up-to-Date: No; Not Current First/Initial COVID19 Vaccinat: N/A Second COVID19 Vaccination Klaus: N/A Tetanus Booster (TDap): More Than 5 Years Hepatitis A: No Hepatitis B: No TB Skin Test: None Current Status Advance Directives: No Communicates: Verbally Primary Language: Lebanese Preferred Spoken Language: Lebanese Is interpretation needed?: No Sensory deficits: Vision impairment Implanted or Applied Medical D: Orthopedic hardware Family Medical History Family Hx: SOCIAL HISTORY: -SMOKES 1 1/2 PPD -ETOH--HX OF ABUSE, CLAIMS NO USE FOR > 20 YEARS -DRUGS--THC USE DAILY. PAST SURGICAL HISTORY: -THYROIDECTOMY - X 2 -HYSTERECTOMY / BILATERAL SALPINGO-OOPHORECTOMY -EGD'S/COLONOSCOPIES -ESOPHAGEAL BANDING X 9 -CHOLECYSTECTOMY -HIATAL HERNIA REPAIR -VENTRAL HERNIA REPAIRS -EXPLORATORY LAPAROTOMY -LEFT KNEE SCOPE -BILATERAL KNEE REPLACEMENTS Review of Systems Constitutional: no symptoms reported; No chills, No malaise Respiratory: cough (dry); No short of breath, No wheezing Cardiovascular: No chest pain, No edema, No palpitations Gastrointestinal: no symptoms reported Psychiatric/Neurological: No Symptoms Reported Physical Exam Physical Exam Vital Signs Vital Signs - First Documented 02/03/23 02/03/23 17:03 19:32 Temp 36.8 Pulse 87 Resp 20 B/P (MAP) 123/80 Pulse Ox 96 O2 Delivery Nasal Cannula O2 Flow Rate 3.00 Capillary Refill : Less Than 3 Seconds Height, Weight, BMI Height: 5'3.00" Weight: 190lbs. 4.0oz. [id number]; 37.49 BMI Method:Stated General Appearance: No Apparent Distress Eyes: Bilateral Eye Normal Inspection, Bilateral Eye PERRL, Bilateral Eye EOMI HEENT: PERRL/EOMI Neck: Full Range of Motion, Supple Respiratory: Chest Non Tender, No Accessory Muscle Use, No Respiratory Distress (mildly course breath sounds in bases ), Other Cardiovascular: Regular Rate, Rhythm Gastrointestinal: Normal Bowel Sounds Neurologic/Psychiatric: Alert, Oriented x3 Skin: Normal Color, Warm/Dry Results Results/Procedures Labs Laboratory Tests 02/03/23 17:10 02/04/23 05:21 Patient resulted labs reviewed. Imaging: Reviewed Imaging Films Imaging CXR negative for acute cardiopulmonary process. Short Stay Diagnosis Discharge Diagnosis-Short Stay Admission Diagnosis Acute hypoxic respiratory failure COPD exacerbation Final Discharge Diagnosis Acute hypoxic respiratory failure COPD exacerbation Conclusion Plan Finish courses of prednisone and cefdinir as prescribed for completion of COPD exacerbation treatment. Follow-up with PCP later this week. Clinical Quality Measures Smoking Cessation Counseling: Counseling-Symptomatic: 3-10 Minutes SARAH WOOD DO 02/05/23 0414: History of Present Illness HPI/Chief Complaint Chief complaint: Shortness of breath HPI: This is a 47-year-old female with history of COPD and continued smoking who presented to the ER with shortness of breath found to have oxygen supplementa tion of 88%. Patient was placed on 2 L of oxygen. Currently she is doing much better and she is insistent on going home because she needs to smoke. Source: patient Exam Limitations: no limitations Past Medical/Social/Family Hx Patient Social History Marrital Status: Employed/Student: unemployed Smoking Status: Current Everyday Smoker Past Medical History COPD Review of Systems Constitutional: see HPI Respiratory: dyspnea on exertion, short of breath Physical Exam Physical Exam General Appearance: No Apparent Distress, WD/WN, Anxious, Chronically ill, Obese Respiratory: Decreased Breath Sounds, Wheezing Cardiovascular: Regular Rate, Rhythm Short Stay Diagnosis Discharge Diagnosis-Short Stay Admission Diagnosis Acute hypoxic respiratory failure Smoker AECOPD Plan: DC home Supervisory-Addendum Brief Verification & Attestation Participated in pt care: history, MDM, physical Personally performed: exam, history, MDM, supervision of care Care discussed with: Medical Student Procedures: n/a Results interpretation: Verified all documentation Verification and Attestation of Medical Student E/M Service A medical student performed and documented this service in my presence. I reviewed and verified all information documented by the medical student and made modifications to such information, when appropriate. I personally performed the physical exam and medical decision making. Sarah Wood, Feb 05, 2023,04:12 PAYTON ESCAMILLA Feb 04, 2023 14:45 SARAH WOOD DO Feb 05, 2023 04:14
[2023-02-04] MEDS ORDERED: PRAMIPEXOLE 0.125 MG TABLET PO SCH (21:00)
[2023-02-04] MEDS ORDERED: NON-FORMULARY MEDICATION 1 EA EA (Venlafaxine HCl (Venlafaxine HCl ER) 150 MG) PO SCH (21:00)
[2023-02-04] MEDS ORDERED: PROPRANOLOL 20 MG TABLET PO SCH (21:00)
[2023-02-04] MEDS ORDERED: PREGABALIN 150 MG CAPSULE PO SCH (21:00)
[2023-02-04] MEDS ORDERED: ARIPiprazole 10 MG TABLET PO SCH (21:00)
[2023-02-04] MEDS ORDERED: NON-FORMULARY MEDICATION 1 EA EA (Aripiprazole 5 MG) PO SCH (21:00)
[2023-02-04] MEDS ORDERED: PROPRANOLOL HCL 10 MG PO SCH (21:00)
[2023-02-05] MEDS ORDERED: LEVOTHYROXINE 100 MCG TABLET PO SCH (06:30)
== END 2023-02-04 12:52 | disposition home or self-care (01) ==
LOC: EDUNIT# 16:57 → ER 16:59 → UNDOADMOB 19:47 → 4TH 19:47 → UNDODISOB 02-04 14:22
PROVIDERS: ADMIT Internal Medicine; ATTEND Internal Medicine
DX: J44.1 Chronic obstructive pulmonary disease with (acute) exacerbation (principal); J96.01 Acute respiratory failure with hypoxia; F17.210 Nicotine dependence, cigarettes, uncomplicated; Z79.899 Other long term (current) drug therapy
CPT/HCPCS: 36415; 71045; 80053; 81000; 82805; 82947; 83605; 83880; 84484; 85025; 85379; 85610; 85730; 87040; 87636; 93005; 94640; 94760; 94761; 96372; 96376; G0378